=== PATIENT | male | born 1940 | race Caucasian/White ===

== ENCOUNTER → 2016-03-29 | Outpatient (CLI) | payer OTHER ==
[~2016-03-29] MED LIST: ACAR25TA2 PO; ACT/15 PO; ASPEC81 PO; ATOR-22 PO; BXN500 PO; DIPH25TA2 PO; FLUT0.0529 NAE; FRS/40 PO; GADAVIST IV PRN; GEMF600T PO; GLIP-171 PO; LEVO75TA5 PO; LEVO88TA PO; LINA1TAB PO; LSN/2025 PO; LSN20 PO; METF-384 PO; PLV75 PO; SNG10 PO; TYLOTC500 PO
--- NOTE | 2016-03-29 12:53 | DIAGNOSTIC IMAGING REPORT ---
MRI OF THE BRAIN WITHOUT AND WITH IV CONTRAST CLINICAL HISTORY: R29.898 Right arm [id number] Slurred speech mental status change COMPARISON STUDY: CT dated 07/22/2014 TECHNIQUE: Utilizing a 1.5 Niecy magnet and dedicated coil, multiplanar, multiecho imaging of the brain was performed pre and postcontrast administration. IV administration of 9 mL of Gadavist contrast was uneventful. FINDINGS: Small focus of subacute cortical ischemic change left superior parietal convexity. Trace postcontrast enhancement consistent with a subacute infarct. Moderate chronic small vessel change of the periventricular deep white matter regions. No additional acute ischemic focus. Ventricular system is midline. Structures of the posterior fossa including internal artery canals are unremarkable. Mild cerebellar as well as cerebral atrophy most likely age-related. IMPRESSION: 1. Small subacute infarct left superior parietal convexity. 2. Mild chronic small vessel change. 3. Mild age-related atrophy Electronically signed by: Connor Castillo M.D. 03/29/2016 12:51 PM Dictated Date/Time: 03/29/2016 12:47 PM
== END | disposition home or self-care (01) ==
LOC: C.MRI 11:26
PROVIDERS: ATTEND Psychiatry & Neurology Neurology
DX: R29.898 Other symptoms and signs involving the musculoskeletal system (principal); R47.81 Slurred speech

== ENCOUNTER 2016-03-30 20:40 | Inpatient (IN) | payer OTHER ==
[~2016-03-30] VITALS: Ht 170.2 cm; Wt 80.9 kg
[~2016-03-30 20:40] MED LIST changes: -ACAR25TA2 PO; -ASPEC81 PO; -GADAVIST IV PRN; -LEVO75TA5 PO; -LINA1TAB PO; -LSN20 PO; -PLV75 PO; -SNG10 PO
--- NOTE | 2016-03-30 20:53 | DIAGNOSTIC IMAGING REPORT ---
HEAD CT NONCONTRAST CT DOSE: 537.48 mGy.cm HISTORY: Stroke mental status change TECHNIQUE: Multiaxial CT images of the head were performed without the use of intravenous contrast. Comparison: 07/22/2014 Findings: The paranasal sinuses and mastoid air cells are clear. Subtle region of diminished density medially superior to the left lateral ventricle no evidence for acute intracranial hemorrhage. Potentially indicates a subacute cortical infarct. Density characteristics are otherwise unremarkable throughout. Ventricular system is midline. There is no intracranial hemorrhage. Impression: Findings suspect for a small subacute infarct immediately superior to the left lateral ventricle . No evidence for acute intracranial hemorrhage. Electronically signed by: Connor Castillo M.D. 03/30/2016 8:51 PM Dictated Date/Time: 03/30/2016 8:49 PM
[2016-03-30] MEDS ORDERED: LORAZEPAM 2 MG/ML 1 ML VIAL IV STA ×2 (21:05→23:35)
[2016-03-30 21:14] LABS: BASO % 0.2 %; BASO ABS # 0.02 K/uL (0-0.2); COMPLETE YES; HEMATOCRIT 44.7 % (42-52); IG% 0.1 %; LYMPH % 8.4 %; LYMPH ABS # 0.74 K/uL (1.2-3.4); MEAN CORPUSCULAR HEMOGLOBIN 31.3 pg (25-34); MEAN PLATELET VOLUME 10.4 fL (7.4-10.4); MONO % 4.3 %; PLATELET COUNT 238 K/uL (130-400); RED BLOOD COUNT 4.86 M/uL (4.7-6.1); WHITE BLOOD COUNT 8.86 K/uL (4.8-10.8)
[2016-03-30] MEDS ORDERED: LEVO75TA5 PO (21:22)
[2016-03-30] MEDS ORDERED: SNG10 PO (21:22)
[2016-03-30] MEDS ORDERED: LINA1TAB PO (21:22)
[2016-03-30] MEDS ORDERED: ACAR25TA2 PO (21:22)
[2016-03-30 21:23] LABS: ALT/SGPT 29 U/L (12-78); BLOOD UREA NITROGEN 20 mg/dl (7-18); BUN/CREATININE RATIO 14.2 (10-20); CALCIUM 10.3 mg/dl (8.5-10.1); CARBON DIOXIDE 27 mmol/L (21-32); CHLORIDE 104 mmol/L (98-107); GLUCOSE 155 mg/dl (70-99); MAGNESIUM 1.5 mg/dl (1.8-2.4); POTASSIUM 3.6 mmol/L (3.5-5.1); SODIUM 142 mmol/L (136-145)
--- NOTE | 2016-03-30 21:26 | DIAGNOSTIC IMAGING REPORT ---
CHEST ONE VIEW PORTABLE CLINICAL HISTORY: EVALUATE ALTERED MENTAL STATUS/WEAKNESS COMPARISON STUDY: 07/22/2014 FINDINGS: Mild cardiomegaly. Fixed hiatal hernia. Diaphragms smooth. Lungs are clear. IMPRESSION: Hiatal hernia. Mild cardia megaly. Otherwise negative study Electronically signed by: Connor Castillo M.D. 03/30/2016 9:25 PM Dictated Date/Time: 03/30/2016 9:24 PM
[2016-03-30] MEDS ORDERED: LSN20 PO (21:29)
[2016-03-30 21:31] LABS: ALKALINE PHOSPHATASE 57 U/L (45-117); AST/SGOT 26 U/L (15-37); CKMB/CK RATIO 1.3 (0-3.0)
[2016-03-30 21:33] LABS: URINE APPEARANCE CLEAR (CLEAR); URINE BILIRUBIN NEG (NEG); URINE COLOR YELLOW; URINE NITRITE NEG (NEG); URINE SPECIFIC GRAVITY 1.012 (1.000-1.030); UROBILINOGEN NEG (NEG); ZZUR CULT IF INDIC CLEAN CATCH NO
[2016-03-30 21:36] LABS: MANUAL MICROSCOPIC REQUIRED? NO; REVIEW REQ? NO
[2016-03-30 22:11] LABS: INR 1.1 (0.9-1.1); PROTHROMBIN TIME (PATIENT) 11.9 SECONDS (9.0-12.0)
[2016-03-30] MEDS ORDERED: ACETAMINOPHEN 325 MG TAB PO PRN (22:15)
[2016-03-30] MEDS ORDERED: OPTIRAY 320 IV PRN (22:15)
[2016-03-30] MEDS ORDERED: ONDANSETRON INJ 2 MG/ML 2 ML VIAL IV PRN (22:15)
[2016-03-30] MEDS ORDERED: PHARMACIST DISCHARGE MED REC CONSULT PRN (22:15)
--- NOTE | 2016-03-30 22:41 | History and Physical ---
History & Physical Date & Time of Service: Mar 30, 2016 at 22:21 Chief Complaint: Stroke Alert Primary Care Physician: Sarina Krishna PA-C History of Present Illness Source: family History was taken by and friends as the patient was sedated with ativan for agitation This is a 75 yo m that is presenting to us with ALOC and expressive aphasia. According to the the symptoms started as a right sided UE weakness with accompanied numbness approx two weeks ago. He awoke with those symptoms and since there was no improvement over a week he was brought to his PCP for evaluation. There was thought that the patient was suffering from a pinched nerve so an MRI was ordered. This was done yesterday with gadolinium and it revealed a subacute stroke. The patient had not been contacted with results yet. Today, the brought the patient in because after she arrived home work he was confused and was unable to complete sentences/ find words. He was evaluated in the ED and a subacute infarct was now noted on the CT head without any hemorrhage. He has never had any stroke or TN in the past. He is a non smoker. He does take ASA 81 mg daily for years. He does not take a statin because of "joint pain". Last echo was 2013 and was WNL Past Medical/Surgical History Medical Problems: (1) Angina Pectoris Nec/Nos Status: Chronic (2) Chest pain Status: Resolved (3) Chest pain Status: Resolved (4) Diab Gela Wo Compl, Type Ii Or Unspec Type, Not Uncntrld Status: Chronic (5) Esophageal Reflux Status: Chronic (6) Hyperlipidemia Nec/Nos Status: Chronic (7) Hypertension Nos Status: Chronic (8) Hypothyroidism Nos Status: Chronic (9) TIA (transient ischemic attack) Status: Resolved Surgical Problems: (1) History of tonsillectomy Status: Resolved Family History Patient reports no known family medical history. Social History Smoking Status: Unknown if Ever Smoked Smokeless Tobacco Use: No Alcohol Use: none Drug Use: none Marital Status: Housing status: lives with family Occupational Status: retired Multi-Drug Resistant Organisms History of MDRO: No Allergies Coded Allergies: Statins (Verified Allergy, Severe, JOINT PAIN, 07/22/14) Home Medications Scheduled Acarbose (Precose), 25 MG PO WM Furosemide (Lasix), 40 MG PO DAILY Levothyroxine Sodium (Levothyroxine Sodium), 75 MCG PO DAILY Linagliptin (Tradjenta), 5 MG PO DAILY Lisinopril (Lisinopril), 20 MG PO DAILY Metformin Hcl (Glucophage), 1,000 MG PO BID Montelukast Sod (Montelukast Sodium), 10 MG PO DAILY Review of Systems Unable to complete because of sedation Physical Exam Vital Signs Date Time Temp Pulse Resp B/P Pulse Ox O2 Delivery O2 Flow Rate FiO2 03/30/16 21:28 77 18 173/90 93 Room Air 03/30/16 20:54 95 03/30/16 20:50 95 Room Air 03/30/16 20:48 37.9 92 20 210/117 95 Room Air General Appearance: WD/WN, no apparent distress Head: normocephalic, atraumatic Eyes: normal inspection ENT: normal ENT inspection Neck: supple Respiratory/Chest: lungs clear, normal breath sounds, no respiratory distress, no accessory muscle use Cardiovascular: regular rate, rhythm, + systolic murmur (3/6) Abdomen/GI: normal bowel sounds, non tender, soft Back: normal inspection Extremities/Musculoskelatal: normal inspection, no calf tenderness, + pedal edema (+ 1 bilat) Neurologic/Psych: + pertinent finding (unable to complete a full neuro exam because of sedation) Skin: normal color, warm/dry, + pertinent finding (ecchymosis on bilat UE) Diagnostics Laboratory Results Results Past 24 Hours Test 03/30/16 00:00 03/30/16 20:53 03/30/16 20:56 03/30/16 21:50 Range/Units Urine Color YELLOW Urine Appearance CLEAR CLEAR Urine pH 8.0 4.5-7.5 Urine Specific Warren 1.012 1.000-1.030 Urine Protein NEG NEG Urine Glucose (UA) NEG NEG Urine Ketones 1+ NEG Urine Occult Blood NEG NEG Urine Nitrite NEG NEG Urine Bilirubin NEG NEG Urine Urobilinogen NEG NEG Urine Leukocyte Esterase NEG NEG Urine WBC (Auto) 0 0-5 /hpf Urine RBC (Auto) 0-4 0-4 /hpf Urine Hyaline Casts (Auto) 0 0-5 /lpf Urine Epithelial Cells (Auto) 5-10 0-5 /lpf Urine Bacteria (Auto) NEG NEG Bedside Glucose 152 70-99 mg/dl White Blood Count 8.86 4.8-10.8 K/uL Red Blood Count 4.86 4.7-6.1 M/uL Hemoglobin 15.2 14.0-18.0 g/dL Hematocrit 44.7 42-52 % Mean Corpuscular Volume 92.0 80-100 fL Mean Corpuscular Hemoglobin 31.3 25-34 pg Mean Corpuscular Hemoglobin Concent 34.0 32-36 g/dl Platelet Count 238 130-400 K/uL Mean Platelet Volume 10.4 7.4-10.4 fL Neutrophils (%) (Auto) 87.0 % Lymphocytes (%) (Auto) 8.4 % Monocytes (%) (Auto) 4.3 % Eosinophils (%) (Auto) 0.0 % Basophils (%) (Auto) 0.2 % Neutrophils # (Auto) 7.71 1.4-6.5 K/uL Lymphocytes # (Auto) 0.74 1.2-3.4 K/uL Monocytes # (Auto) 0.38 0.11-0.59 K/uL Eosinophils # (Auto) 0.00 0-0.5 K/uL Basophils # (Auto) 0.02 0-0.2 K/uL RDW Standard Deviation 49.2 36.4-46.3 fL RDW Coefficient of Variation 14.6 11.5-14.5 % Immature Granulocyte % (Auto) 0.1 % Immature Granulocyte # (Auto) 0.01 0.00-0.02 K/uL Sodium Level 142 136-145 mmol/L Potassium Level 3.6 3.5-5.1 mmol/L Chloride Level 104 98-107 mmol/L Carbon Dioxide Level 27 21-32 mmol/L Anion Gap 11.0 3-11 mmol/L Blood Urea Nitrogen 20 7-18 mg/dl Creatinine 1.40 0.60-1.40 mg/dl Est Creatinine Clear Calc Drug Dose 50.2 ml/min Estimated GFR () 55.8 Estimated GFR (Non- 48.1 BUN/Creatinine Ratio 14.2 10-20 Random Glucose 155 70-99 mg/dl Calcium Level 10.3 8.5-10.1 mg/dl Magnesium Level 1.5 1.8-2.4 mg/dl Total Bilirubin 0.6 0.2-1 mg/dl Direct Bilirubin 0.1 0-0.2 mg/dl Aspartate Amino Transf (AST/SGOT) 26 15-37 U/L Alanine Aminotransferase (ALT/SGPT) 29 12-78 U/L Alkaline Phosphatase 57 45-117 U/L Total Creatine Kinase 220 39-308 U/L Creatine Kinase MB 2.9 0.5-3.6 ng/ml Creatine Kinase MB Ratio 1.3 0-3.0 Troponin I < 0.015 0-0.045 ng/ml Total Protein 7.8 6.4-8.2 gm/dl Albumin 4.3 3.4-5.0 gm/dl Lipase 142 73-393 U/L Thyroid Stimulating Hormone (TSH) 1.570 0.300-4.500 uIu/ml Prothrombin Time 11.9 9.0-12.0 SECONDS Prothromb Time International Ratio 1.1 0.9-1.1 Activated Partial Thromboplast Time 26.6 21.0-31.0 SECONDS Partial Thromboplastin Ratio 1.0 Test 03/30/16 22:06 Range/Units Diagnostic Radiology MRI OF THE BRAIN WITHOUT AND WITH IV CONTRAST CLINICAL HISTORY: R29.898 Right arm [id number] Slurred speech mental status change COMPARISON STUDY: CT dated 07/22/2014 TECHNIQUE: Utilizing a 1.5 Niecy magnet and dedicated coil, multiplanar, multiecho imaging of the brain was performed pre and postcontrast administration. IV administration of 9 mL of Gadavist contrast was uneventful. FINDINGS: Small focus of subacute cortical ischemic change left superior parietal convexity. Trace postcontrast enhancement consistent with a subacute infarct. Moderate chronic small vessel change of the periventricular deep white matter regions. No additional acute ischemic focus. Ventricular system is midline. Structures of the posterior fossa including internal artery canals are unremarkable. Mild cerebellar as well as cerebral atrophy most likely age-related. IMPRESSION: 1. Small subacute infarct left superior parietal convexity. 2. Mild chronic small vessel change. 3. Mild age-related atrophy HEAD CT NONCONTRAST CT DOSE: 537.48 mGy.cm HISTORY: Stroke mental status change TECHNIQUE: Multiaxial CT images of the head were performed without the use of intravenous contrast. Comparison: 07/22/2014 Findings: The paranasal sinuses and mastoid air cells are clear. Subtle region of diminished density medially superior to the left lateral ventricle no evidence for acute intracranial hemorrhage. Potentially indicates a subacute cortical infarct. Density characteristics are otherwise unremarkable throughout. Ventricular system is midline. There is no intracranial hemorrhage. Impression: Findings suspect for a small subacute infarct immediately superior to the left lateral ventricle . No evidence for acute intracranial hemorrhage. [~ rep ct add3]] CHEST ONE VIEW PORTABLE CLINICAL HISTORY: EVALUATE ALTERED MENTAL STATUS/WEAKNESS COMPARISON STUDY: 07/22/2014 FINDINGS: Mild cardiomegaly. Fixed hiatal hernia. Diaphragms smooth. Lungs are clear. IMPRESSION: Hiatal hernia. Mild cardia megaly. Otherwise negative study Impression Assessment and Plan This is a 75 yo m suffering from a subacute infarct. Metabolic Encephalopathy secondary to subacute infarct - Tele admission - As patient recently had MRI with contrast will order CTA H&N - Echo in am Lipid and HBA1c - Patient had joint pain with statin but potentially a candidate for pravastatin ? - Neuro checks q4 - Speech Eval - PT OT - cont ASA 81 mg - consider initiating plavix Hypomagnesemia - 1 G repleted - follow HTN - Held Lisinopril for now for permissive HTN, reeval in am to restart DMII - Ascarbose, Januvia and Metformin held - ISS - BSG AC HS Asthma - continue Montelukast Hypothyroid - cont Synthroid DVT Prophylaxis - SCD FULL CODE Level of Care Telemetry Resuscitation Status FULL RESUSCITATION VTE Prophylaxis Risk Level: Moderate Given or contraindicated: SCD's Social Service Consult None Apply Note Total Time: Critical Care 30 - 74 minutes Additional Copies To Sarina Krishna PA-C Assessment and Plan Attending Addendum: I have physically seen and examined this patient, have directed their medical care, have supervised the medical residents activities, and agree with the H&P as noted above, with the following changes: NONE The patient is a 75-year-old male who presents to the emergency department with an expressive aphasia, but time of this assessment had already received IV Ativan and was sedated to the point that his provided most of his history of present illness and review of systems. The reports that approximately 2 weeks ago, the patient developed right up from the weakness and numbness and with persistence of the symptoms for one week he was brought to his PCP for evaluation, who then ordered an MRI of the brain combo which was performed yesterday, and revealed a subacute stroke. The patient had not been contacted with the results of MRI yet, but because he was more confused and unable to complete sentences and had word finding problems when she arrived home from work , she brought him into the emergency department for assessment. He has not had any previous history of strokes or heart attacks in the past. He does take aspirin 81 mg daily, he is unable to take statins due to joint pain. The patient is awake, well-developed and adequately nourished, alert and oriented 3, normocephalic and atraumatic, lying in bed and in no acute distress. HEENT--PERRL, EOMI, mucous membranes and oropharynx dry. Neck--supple, no JVD or bruits, thyroid normal, trachea midline, no adenopathy. Heart--normal S1 and S2, no extra beats, no murmurs, rubs or gallops. Lungs--clear bilaterally but diminished throughout, no respiratory distress, no accessory muscle use. Abdomen--normal bowel sounds and soft, nontender and nondistended, no hernias or masses, no organomegaly. Extremities--no cyanosis, clubbing or edema. There are good distal pulses b/l. Dermatologic--normal skin turgor, normal color, warm and dry, no abnormal lymph nodes, no rash. Neurologic--cranial nerves II through XII grossly intact. Rheumatologic--deferred due to sedation. Psychiatric--deferred due to sedation. Assessment and Plan: Subacute CVA superior to the left lateral ventricle--the patient will be admitted to the telemetry unit, for serial cardiac enzymes, cardiac rhythm monitoring and a 2-D echocardiogram with Dopplers. Since he just recently had an MRI with contrast the day before, we will order CT angiography of the head and neck tonight. Once he is no longer sedated, he'll continue aspirin 81 mg by mouth daily, and would add clopidogrel 75 mg by mouth daily. We'll consult neurology to see patient in the a.m. For tonight we'll allow permissive hypertension systolic blood pressure in the 170 to 180s. We will hold furosemide 40 mg by mouth daily and lisinopril 20 mg by mouth daily at this time. Diabetes mellitus--hold Acarbose 25 mg by mouth with meals, Tradjenta 5 mg by mouth daily, and metformin 1000 mg by mouth twice a day. We'll place on Accu- Cheks before meals and at bedtime with NovoLog coverage. Hypothyroidism--the patient is unable to take by mouth by morning, which change levothyroxine sodium from 75 g by mouth daily 37.5 g IV daily.
[2016-03-30] MEDS ORDERED: GLUCOSE 40% GEL 15 GM TUBE PO PRN (22:45)
[2016-03-30] MEDS ORDERED: GLUCOSE 10 TABS/TUBE PO PRN (22:45)
[2016-03-30] MEDS ORDERED: GLUCAGON FOR INJ 1 MG VIAL SQ PRN (22:45)
[2016-03-30] MEDS ORDERED: DEXTROSE 50% 50 ML SYR IV PRN (22:45)
--- NOTE | 2016-03-30 22:53 | DIAGNOSTIC IMAGING REPORT ---
CT brain angiogram HEAD ANGIO WITH CONTRAST CLINICAL HISTORY: Stroke mental status change TECHNIQUE: Transaxial acquisition. Multiple axial reformatted images COMPARISON STUDY: Several CTs and MRIs the prior several dates FINDINGS: Limited study due to patient motion. Major intracranial vessels appear to be grossly intact. There is no evidence for occlusion. There appears to be moderate atherosclerotic change in the multifocal basis throughout the middle cerebral circulations bilaterally. Anterior circulation appear to be intact. Posterior circulation shows moderate atherosclerotic changes throughout. IMPRESSION: Very limited study due to patient motion. All major intracranial vessels are patent. Moderate multifocal arterial occlusive change throughout all major components of the middle and posterior cerebral circulations bilaterally. This is again within limitations of severe patient motion Electronically signed by: Connor Castillo M.D. 03/30/2016 10:52 PM Dictated Date/Time: 03/30/2016 10:49 PM
--- NOTE | 2016-03-30 22:56 | DIAGNOSTIC IMAGING REPORT ---
NECK CTA HISTORY: Mental status change stroke TECHNIQUE: Multiaxial CT images of the neck were performed following the intravenous administration of contrast to evaluate the major cervical vessels. Maximum intensity projection images were also obtained. All measurements were calculated based on NASCET criteria. COMPARISON STUDY: None. FINDINGS: Moderate atherosclerotic change of the aortic arch. Extremely limited evaluation of the carotid vasculature. Very limited evaluation of the vertebral basilar system. There appears to be a component of venous distention of the jugular systems bilaterally. This suggestive of a secondary indication of a component of venous hypertension. Moderately enlarged thyroid is present. There is significant atherosclerotic change of the left carotid bifurcation although a high-grade stenosis is not felt to be present. Similar but less prominent findings are seen in the right. IMPRESSION: Nondiagnostic study due to severe patient motion. Moderate plaque formation throughout the carotid systems bilaterally. Nondiagnostic evaluation of the vertebral basilar system Electronically signed by: Connor Castillo M.D. 03/30/2016 10:55 PM Dictated Date/Time: 03/30/2016 10:53 PM
[2016-03-30] MEDS ORDERED: HALOPERIDOL LACTATE 5 MG/ML 1 ML VIAL IM STA (23:05)
[2016-03-30] MEDS ORDERED: HALOPERIDOL LACTATE 5 MG/ML 1 ML VIAL ONE (23:07)
[2016-03-30] MEDS ORDERED: MAGNESIUM SULFATE 1GM / D5W 1 GM in PREMIXED IN D5W 100 ML IV SCH (23:30)
[2016-03-30] MEDS ORDERED: LORAZEPAM 2 MG/ML 1 ML VIAL ONE (23:35)
--- NOTE | 2016-03-30 23:51 | EMERGENCY ROOM VISIT NOTE ---
History Report prepared by Kaila: Noel Elise Under the Supervision of: Dr. Segun Trinh D.O. First contact with patient: 20:35 Stated Complaint: STROKE ALERT History of Present Illness The patient is a 75 year old male who presents to the Emergency Room with complaints of sudden garbled speech beginning two and a half hours prior to arrival. As per , the patient appeared confused, disoriented, and had garbled speech upon her arriving home from work. The notes she does not know when the symptoms began but friends noted the patient had difficulty receiving communion at nondenominational two days ago. She states the patient had an MRI performed yesterday for right arm weakness and right hand grasp difficulty beginning two weeks ago. It is noted the MRI showed a small subacute infarct left parietal convexity. The states she noticed the difficulty with his speech today. As per EMS, the patient had difficulty following commands. They note the patient is a diabetic with a BSG of 152. The patient denies being in any pain. Source of History: spouse/significant other () Onset: two and a half hours prior to arrival Position: other (global) Quality: other (garbled speech) Timing: other (sudden) Note: Associated symptoms: confusion, disorientation. Review of Systems See HPI for pertinent positives & negatives. A total of 10 systems reviewed and were otherwise negative. Past Medical & Surgical Medical Problems: (1) Angina Pectoris Nec/Nos (2) Chest pain (3) Chest pain (4) Diab Gela Wo Compl, Type Ii Or Unspec Type, Not Uncntrld (5) Esophageal Reflux (6) Hyperlipidemia Nec/Nos (7) Hypertension Nos (8) Hypothyroidism Nos (9) Stroke (10) TIA (transient ischemic attack) Surgical Problems: (1) History of tonsillectomy Family History Patient reports no known family medical history. Social History Smoking Status: Former Smoker Marital Status: Housing Status: lives with significant other Occupation Status: retired Current/Historical Medications Scheduled Acarbose (Precose), 25 MG PO WM Furosemide (Lasix), 40 MG PO DAILY Levothyroxine Sodium (Levothyroxine Sodium), 75 MCG PO DAILY Linagliptin (Tradjenta), 5 MG PO DAILY Lisinopril (Lisinopril), 20 MG PO DAILY Metformin Hcl (Glucophage), 1,000 MG PO BID Montelukast Sod (Montelukast Sodium), 10 MG PO DAILY Allergies Coded Allergies: Statins (Verified Allergy, Severe, JOINT PAIN, 07/22/14) Physical Exam Vital Signs Date Time Temp Pulse Resp B/P Pulse Ox O2 Delivery O2 Flow Rate FiO2 03/30/16 21:28 77 18 173/90 93 Room Air 03/30/16 20:54 95 03/30/16 20:50 95 Room Air 03/30/16 20:48 37.9 92 20 210/117 95 Room Air Physical Exam VITAL SIGNS: were reviewed as above. GENERAL: Mildly agitated. SKIN: Warm dry and pink. HEAD: Normocephalic and atraumatic. OROPHARYNX: Is clear and moist NECK: Supple without lymphadenopathy or meningismus. LUNGS: clear. HEART: Regular rate and rhythm. ABDOMEN: Soft and nontender. EXTREMITIES: Warm and well perfused. NEUROLOGICALLY: Garbled speech. Some difficulty with following commands. Does move all four extremities. Right arm appears somewhat weaker than left. MUSCULOSKELETAL: Good muscle tone. No evidence of trauma. Medical Decision & Procedures ER Provider Diagnostic Interpretation: X ray results and stated below per my interpretation and radiologist interpretation. Other radiology results and stated below per my review and radiologist interpretation: CHEST ONE VIEW PORTABLE CLINICAL HISTORY: EVALUATE ALTERED MENTAL STATUS/WEAKNESS COMPARISON STUDY: 07/22/2014 FINDINGS: Mild cardiomegaly. Fixed hiatal hernia. Diaphragms smooth. Lungs are clear. IMPRESSION: Hiatal hernia. Mild cardia megaly. Otherwise negative study Electronically signed by: Connor Castillo M.D. 03/30/2016 9:[address]AST CT DOSE: 537.48 mGy.cm HISTORY: Stroke mental status change TECHNIQUE: Multiaxial CT images of the head were performed without the use of intravenous contrast. Comparison: 07/22/2014 Findings: The paranasal sinuses and mastoid air cells are clear. Subtle region of diminished density medially superior to the left lateral ventricle no evidence for acute intracranial hemorrhage. Potentially indicates a subacute cortical infarct. Density characteristics are otherwise unremarkable throughout. Ventricular system is midline. There is no intracranial hemorrhage. Impression: Findings suspect for a small subacute infarct immediately superior to the left lateral ventricle . No evidence for acute intracranial hemorrhage. Electronically signed by: Connor Castillo M.D. 03/30/2016 8:51 PM Laboratory Results 03/30/16 20:56 Red Blood Count 4.86, Mean Corpuscular Volume 92.0, Mean Corpuscular Hemoglobin 31.3, Mean Corpuscular Hemoglobin Concent 34.0, Mean Platelet Volume 10.4, Neutrophils (%) (Auto) 87.0, Lymphocytes (%) (Auto) 8.4, Monocytes (%) (Auto) 4.3, Eosinophils (%) (Auto) 0.0, Basophils (%) (Auto) 0.2, Neutrophils # (Auto) 7.71, Lymphocytes # (Auto) 0.74, Monocytes # (Auto) 0.38, Eosinophils # (Auto) 0.00, Basophils # (Auto) 0.02 03/30/16 20:56 Test 03/30/16 00:00 03/30/16 20:56 03/30/16 21:50 03/30/16 23:08 Urine Color YELLOW Urine Appearance CLEAR (CLEAR) Urine pH 8.0 (4.5-7.5) Urine Specific [place] 1.012 (1.000-1.030) Urine Protein NEG (NEG) Urine Glucose (UA) NEG (NEG) Urine Ketones 1+ (NEG) Urine Occult Blood NEG (NEG) Urine Nitrite NEG (NEG) Urine Bilirubin NEG (NEG) Urine Urobilinogen NEG (NEG) Urine Leukocyte Esterase NEG (NEG) Urine WBC (Auto) 0 /hpf (0-5) Urine RBC (Auto) 0-4 /hpf (0-4) Urine Hyaline Casts (Auto) 0 /lpf (0-5) Urine Epithelial Cells (Auto) 5-10 /lpf (0-5) Urine Bacteria (Auto) NEG (NEG) White Blood Count 8.86 K/uL (4.8-10.8) Red Blood Count 4.86 M/uL (4.7-6.1) Hemoglobin 15.2 g/dL (14.0-18.0) Hematocrit 44.7 % (42-52) Mean Corpuscular Volume 92.0 fL (80-100) Mean Corpuscular Hemoglobin 31.3 pg (25-34) Mean Corpuscular Hemoglobin Concent 34.0 g/dl (32-36) Platelet Count 238 K/uL (130-400) Mean Platelet Volume 10.4 fL (7.4-10.4) Neutrophils (%) (Auto) 87.0 % Lymphocytes (%) (Auto) 8.4 % Monocytes (%) (Auto) 4.3 % Eosinophils (%) (Auto) 0.0 % Basophils (%) (Auto) 0.2 % Neutrophils # (Auto) 7.71 K/uL (1.4-6.5) Lymphocytes # (Auto) 0.74 K/uL (1.2-3.4) Monocytes # (Auto) 0.38 K/uL (0.11-0.59) Eosinophils # (Auto) 0.00 K/uL (0-0.5) Basophils # (Auto) 0.02 K/uL (0-0.2) RDW Standard Deviation 49.2 fL (36.4-46.3) RDW Coefficient of Variation 14.6 % (11.5-14.5) Immature Granulocyte % (Auto) 0.1 % Immature Granulocyte # (Auto) 0.01 K/uL (0.00-0.02) Anion Gap 11.0 mmol/L (3-11) Est Creatinine Clear Calc Drug Dose 50.2 ml/min Estimated GFR () 55.8 Estimated GFR (Non- 48.1 BUN/Creatinine Ratio 14.2 (10-20) Calcium Level 10.3 mg/dl (8.5-10.1) Magnesium Level 1.5 mg/dl (1.8-2.4) Total Bilirubin 0.6 mg/dl (0.2-1) Direct Bilirubin 0.1 mg/dl (0-0.2) Aspartate Amino Transf (AST/SGOT) 26 U/L (15-37) Alanine Aminotransferase (ALT/SGPT) 29 U/L (12-78) Alkaline Phosphatase 57 U/L (45-117) Total Creatine Kinase 220 U/L (39-308) Creatine Kinase MB 2.9 ng/ml (0.5-3.6) Creatine Kinase MB Ratio 1.3 (0-3.0) Troponin I < 0.015 ng/ml (0-0.045) Total Protein 7.8 gm/dl (6.4-8.2) Albumin 4.3 gm/dl (3.4-5.0) Lipase 142 U/L (73-393) Thyroid Stimulating Hormone (TSH) 1.570 uIu/ml (0.300-4.500) Prothrombin Time 11.9 SECONDS (9.0-12.0) Prothromb Time International Ratio 1.1 (0.9-1.1) Activated Partial Thromboplast Time 26.6 SECONDS (21.0-31.0) Partial Thromboplastin Ratio 1.0 Bedside Glucose 134 mg/dl (70-99) Laboratory results as stated above per my review. Medications Administered Medications (Trade) Dose Ordered Sig/Parris Route Start Time Stop Time Status Last Admin Dose Admin Lorazepam (Ativan Inj) 1 mg NOW STAT IV 03/30/16 21:05 03/30/16 21:07 DC 03/30/16 21:16 1 MG Haloperidol Lactate (Haldol Inj) 5 mg STK-MED ONCE .ROUTE 03/30/16 23:07 03/30/16 23:09 DC 03/30/16 23:11 5 MG Lorazepam (Ativan Inj) 2 mg STK-MED ONCE .ROUTE 03/30/16 23:35 03/30/16 23:36 DC 03/30/16 23:36 2 MG ECG Indication: other (garbled speech) Rate (beats per minute): 88 Rhythm: normal sinus Findings: no ectopy, other (no acute injury) ED Course 2050: Previous medical records were reviewed. The patient was evaluated in room A1. A complete history and physical examination was performed. 2104: Ordered Ativan Inj 1 mg IV. 2152: I spoke to YASIR Peralta (Hospitalist) about the patient's case, and he will follow the patient for further evaluation. Medical Decision Differential includes acute coronary syndrome, myocardial infarction, CVA, TIA, anemia, infection, pneumonia, UTI, pyelonephritis, poor nutrition, dehydration, electrolyte disturbance,hypoglycemia. This is a 75-year-old male who presents to the ED with a chief complaint of strokelike symptoms. The patient was last known well this morning around 9 AM when the left for work. When she arrived home, he was having difficulty with speaking and having incomprehensible speech. EMS was called the patient was transported here. Prehospital blood sugar was normal. The patient is found to be aphasic. Occasionally he says it were to make sense but otherwise his speech is incomprehensible. He attempts talking but the worst did not come out correctly. The patient does appear to follow commands although has difficulty doing so. He is able to move all 4 extremities. He may have some weakness in the right upper extremity. This is been over the past couple of weeks. He had an MRI of his brain yesterday that revealed a subacute CVA. This was done as an outpatient. The patient provides no additional history is his speech is incomprehensible. CT scan of brain is noted above. There is evidence of a CVA. This is in a similar location as the MRI showed yesterday. Blood work reveals a normal CBC. BUN is 20, chemistry panel was otherwise unremarkable. Troponin is negative. TSH is normal. Urine did not show infection. Chest x-ray shows no acute disease. Consults Time Called: 2150 Consulting Physician: YASIR Peralta (Hospitalist) Returned Call: 2152 I spoke to YASIR Peralta (Hospitalist) about the patient's case, and he will follow the patient for further evaluation. Impression Primary Impression: CVA (cerebral vascular accident) Critical Care I have personally spent 35 minutes of critical care time in the direct management of this patient. This includes bedside care, interpretation of diagnostic studies, and testing, discussion with consultants, patient, and family members, and other required patient management activities. Scribe Attestation The scribe's documentation has been prepared under my direction and personally reviewed by me in its entirety. I confirm that the note above accurately reflects all work, treatment, procedures, and medical decision making performed by me. Departure Information Dispostion Being Evaluated By Hospitalist (YASIR Peralta (Hospitalist)) Referrals Sarina Krishna PA-C (PCP) Stroke History Time Last Known Well unknown Stroke t-PA Criteria Reviewed Does NOT meet criteria for t-PA Reason t-PA Not Given Contraindicated (symptoms onset greater than 24 hours)
[2016-03-31] VITALS (9 sets, daily range): BP systolic 134–186; BP diastolic 77–98; PULSE 65–104; TEMP 36.5–37.5; O2SAT 94–97; Ht 170.2 cm; Wt 80.9 kg
[2016-03-31] MEDS ORDERED: LORAZEPAM 2 MG/ML 1 ML VIAL IV STA ×2 (01:15→04:24)
[2016-03-31] MEDS ORDERED: NURSING VERBAL MED ORDER ONE ×2 (04:30→23:00)
[2016-03-31] MEDS: LEVOTHYROXINE 75 MCG TAB PO SCH (05:41)
[2016-03-31 06:16] LABS: ESTIMATED AVERAGE GLUCOSE 174 mg/dl; HA1C FLAG Normal (Normal)
[2016-03-31 06:46] LABS: BASO % 0.3 %; BASO ABS # 0.02 K/uL (0-0.2); COMPLETE YES; HEMATOCRIT 43.7 % (42-52); IG% 0.1 %; LYMPH ABS # 0.75 K/uL (1.2-3.4); MEAN CELL VOLUME 90.7 fL (80-100); MEAN CORPUSCULAR HEMOGLOBIN 30.9 pg (25-34); MEAN CORPUSCULAR HGB CONC 34.1 g/dl (32-36); MEAN PLATELET VOLUME 9.9 fL (7.4-10.4); MONO % 10.4 %; NEUT % 79.2 %; PLATELET COUNT 217 K/uL (130-400); RED BLOOD COUNT 4.82 M/uL (4.7-6.1); WHITE BLOOD COUNT 7.47 K/uL (4.8-10.8)
[2016-03-31] MEDS: INSULIN ASPART 100 UNITS/ML 3 ML PEN SC SCH ×4 (07:00→21:00)
[2016-03-31 07:04] LABS: BUN/CREATININE RATIO 14.9 (10-20); CREATININE 1.2 mg/dl (0.60-1.40); MAGNESIUM 1.7 mg/dl (1.8-2.4); POTASSIUM 3.2 mmol/L (3.5-5.1)
[2016-03-31 07:07] LABS: CHOLESTEROL/HDL RATIO 3.6
[2016-03-31] MEDS: FUROSEMIDE 40 MG TAB PO SCH (08:01)
[2016-03-31] MEDS: LISINOPRIL 20 MG TAB PO SCH (08:01)
[2016-03-31] MEDS: ASPIRIN 81 MG ECTAB PO SCH (08:02)
[2016-03-31] MEDS ORDERED: HALOPERIDOL LACTATE 5 MG/ML 1 ML VIAL IM STA (08:14)
[2016-03-31] MEDS ORDERED: MAGNESIUM SULFATE 1GM / D5W 1 GM in PREMIXED IN D5W 100 ML IV SCH (08:30)
[2016-03-31] MEDS: NSS + 20MEQ KCL 1000ML 1,000 ML IV SCH ×2 (08:51→23:59)
[2016-03-31] MEDS ORDERED: CLOPIDOGREL BISULFATE 75 MG TAB PO ONE (10:28)
--- NOTE | 2016-03-31 11:58 | Neurology Consultation ---
Neurology Consultation Date of Consultation: Mar 31, 2016. Attending Physician: Randy Callahan D.O. Primary Care Physician: Sarina Krishna PA-C Reason for Consultation: Stroke History of Present Illness The patient is a 75-year-old male who was admitted to [facility] on January 27 with aphasia and right upper extremity weakness. A CT of the head completed upon presentation revealed a subacute infarct immediately superior to the left lateral ventricle. His symptoms began approximately 2 weeks prior to his emergency department evaluation. The patient was actually seen in neurology clinic on 03/19/2016 by Valarie Mesa PA-C, for an initial evaluation of the symptoms. The patient was felt to have possibly had a recent stroke and a brain MRI was recommended. This study was completed on March 29. The results were reviewed by Valarie Mesa on March 30. The patient's was contacted regarding these results earlier this morning, after his admission to the [facility] for further evaluation and management of his acute stroke. The record suggests that this patient's difficulty with speech worsened about 2- 1/2 hours prior to his evaluation in the emergency department. I did review the images and radiologist's interpretation of this patient's brain MRI completed on 03/29/2016. There is evidence of a small, subacute infarct involving the superior left parietal convexity. CT angiography of the head and neck has also been completed. The study is technically limited due to motion artifact. Angiography of the head suggests moderate multifocal cerebrovascular disease. Angiography of the neck is nondiagnostic. The patient is currently confused and exhibits poor attention and has elements of aphasia which makes him a poor historian. He denies headache or vision loss. He does seem to be aware of some weakness with the right hand. He does not offer any spontaneous complaints. Past medical history significant for type 2 diabetes mellitus, hyperlipidemia, and hypertension. Past Medical/Surgical History Medical Problems: (1) Angina Pectoris Nec/Nos Status: Chronic (2) CVA (cerebral vascular accident) Status: Acute (3) Diab Gela Wo Compl, Type Ii Or Unspec Type, Not Uncntrld Status: Chronic (4) Esophageal Reflux Status: Chronic (5) Hyperlipidemia Nec/Nos Status: Chronic (6) Hypertension Nos Status: Chronic (7) Hypothyroidism Nos Status: Chronic Family History There is no pertinent family history that would place this patient at increased risk for additional problems in the context of his current hospitalization Social History Smokeless Tobacco Use: No Alcohol Use: none Drug Use: none Marital Status: Housing Status: lives with significant other Occupation Status: retired Allergies Coded Allergies: Statins (Verified Allergy, Severe, JOINT PAIN, 07/22/14) Current Inpatient Medications Current Inpatient Medications Medications (Trade) Dose Ordered Sig/Parris Route Start Time Stop Time Status Last Admin Dose Admin Miscellaneous Information (Pharmacist Discharge Med Rec Consult) 1 ea UD PRN N/A 03/30/16 22:15 04/29/16 22:14 Acetaminophen (Tylenol Tab) 650 mg Q4H PRN PO 03/30/16 22:15 04/29/16 22:14 Ondansetron HCl (Zofran Inj) 4 mg Q6H PRN IV 03/30/16 22:15 04/29/16 22:14 Furosemide (Lasix Tab) 40 mg DAILY PO 03/31/16 09:00 04/30/16 08:59 Levothyroxine Sodium (Synthroid Tab) 75 mcg DAILYBB PO 03/31/16 06:00 04/30/16 06:59 Lisinopril (Zestril Tab) 20 mg DAILY PO 03/31/16 09:00 04/30/16 08:59 Aspirin (Ecotrin Tab) 81 mg QAM PO 03/31/16 09:00 04/30/16 08:59 Insulin Aspart (novoLOG ASPART) SLIDING SCALE G... ACHS SC 03/31/16 07:00 04/30/16 06:59 Ioversol (Optiray 320) 111 ml UD PRN IV 03/30/16 22:15 04/03/16 22:14 Glucose (Glucose 40% Gel) 15-30 GRAMS 15 GRAMS... UD PRN PO 03/30/16 22:45 04/29/16 22:44 Glucose (Glucose Chew Tab) 4-8 Tablets 4 Tabl... UD PRN PO 03/30/16 22:45 04/29/16 22:44 Dextrose (Dextrose 50% 50ML Syringe) 25-50ML OF 50% DW IV FOR... UD PRN IV 03/30/16 22:45 04/29/16 22:44 Glucagon 1 mg 1 mg UD PRN SQ 03/30/16 22:45 04/29/16 22:44 Potassium Chloride/Sodium Chloride (Nss + 20meq KCl 1000ml) 1,000 ml @ 100 mls/hr Q10H IV 03/31/16 08:30 04/30/16 08:29 03/31/16 08:51 100 MLS/HR Haloperidol Lactate (Haldol Inj) 5 mg Q4 PRN IM 03/31/16 08:15 04/30/16 08:14 Clopidogrel Bisulfate (plAVix TAB) 75 mg QAM PO 04/01/16 09:00 05/01/16 08:59 Review of Systems The patient is unable to provide a reliable review of systems due to his delirium/confusion Physical Exam Vital Signs (Past 24 Hrs): Date Time Temp Pulse Resp B/P Pulse Ox O2 Delivery O2 Flow Rate FiO2 03/31/16 11:04 36.5 65 18 157/77 96 2.0 03/31/16 08:12 36.7 78 18 179/91 94 2.0 03/31/16 08:00 Nasal Cannula 2.0 03/31/16 04:00 Nasal Cannula 2.0 03/31/16 03:59 36.8 90 22 141/84 96 Nasal Cannula 2.0 03/31/16 01:00 Nasal Cannula 2.0 03/31/16 00:43 37.5 100 22 172/87 96 Room Air 03/30/16 23:47 115 20 197/98 91 Room Air 03/30/16 21:54 76 20 182/86 92 Room Air 03/30/16 21:28 77 18 173/90 93 Room Air 03/30/16 20:54 95 03/30/16 20:50 95 Room Air 03/30/16 20:48 37.9 92 20 210/117 95 Room Air The patient is a somewhat disheveled-appearing elderly male. He is edentulous. He has been agitated overnight and is currently on one-to-one observation. He has some bruising located along the right forearm reportedly related to banging the side rail of the bed. The patient appears moderately agitated. He prefers to lie in bed, leaning to the right although he tends to keep his gaze and head turned towards the left. He is mildly lethargic and oriented to person only. Attention and concentration are impaired. Recent and remote memory impaired in the context of his impaired attention. He exhibits moderate difficulty naming objects and reading sentences. He was able to read simple words and correctly identified a few simple objects. He has considerable difficulty with repetition. He is able to follow simple commands. He was able to discriminate left from right. He had some difficulty with finger naming. He was unable to perform simple calculations. Fund of knowledge cannot be reliably evaluated. Visual salmeron are difficult to assess in the context of his limited attention. He may have an element of right visual field neglect to confrontation. Pupils equal round reactive to light and accommodation. Eye movements are intact. There is no nystagmus. There is a right facial droop although the patient is edentulous which confounds this assessment to an extent. I am unable to reliably assess facial sensation. Hearing is grossly intact. Shoulder shrug strength intact. Palate elevates to midline. Tongue protrudes to midline. Sensation of the limbs cannot be reliably assessed due to patient's poor attention. Deep tendon reflexes are 2+ for the upper and lower extremities. Plantar responses equivocal for the right, downgoing for the left. There is mild to moderate dysmetria with finger to nose and heel to costa on the right. Again, testing is limited due to poor patient attention and cooperation. I'm unable to complete an ophthalmoscopic examination due to poor patient cooperation. Carotid pulses normal to auscultation bilaterally, no bruits. Musculoskeletal examination is also limited due to poor patient attention and cooperation. There is mild to moderate distal weakness of the right upper extremity affecting wrist and finger extensors. Biceps and triceps strength seem to be normal. There is impaired facility of fine finger movements for the right hand. Strength is otherwise intact for the limbs. Muscle tone is normal. There is no atrophy. No abnormal movements appreciated. Gait and station not tested due to safety concerns. Laboratory Results Past 24 Hours: 03/31/16 06:24 Red Blood Count 4.82, Mean Corpuscular Volume 90.7, Mean Corpuscular Hemoglobin 30.9, Mean Corpuscular Hemoglobin Concent 34.1, Mean Platelet Volume 9.9, Neutrophils (%) (Auto) 79.2, Lymphocytes (%) (Auto) 10.0, Monocytes (%) (Auto) 10.4, Eosinophils (%) (Auto) 0.0, Basophils (%) (Auto) 0.3, Neutrophils # (Auto ) 5.91, Lymphocytes # (Auto) 0.75, Monocytes # (Auto) 0.78, Eosinophils # (Auto ) 0.00, Basophils # (Auto) 0.02 03/31/16 06:24 Test 03/30/16 20:53 03/30/16 20:56 03/30/16 21:50 03/31/16 06:24 Bedside Prothrombin Time INR 1.0 (0.9-1.1) Estimated Average Glucose 174 mg/dl Hemoglobin A1c 7.7 % (4.5-5.6) Total Bilirubin 0.6 mg/dl (0.2-1) Direct Bilirubin 0.1 mg/dl (0-0.2) Aspartate Amino Transf (AST/SGOT) 26 U/L (15-37) Alanine Aminotransferase (ALT/SGPT) 29 U/L (12-78) Alkaline Phosphatase 57 U/L (45-117) Total Creatine Kinase 220 U/L (39-308) Creatine Kinase MB 2.9 ng/ml (0.5-3.6) Creatine Kinase MB Ratio 1.3 (0-3.0) Troponin I < 0.015 ng/ml (0-0.045) Total Protein 7.8 gm/dl (6.4-8.2) Albumin 4.3 gm/dl (3.4-5.0) Lipase 142 U/L (73-393) Thyroid Stimulating Hormone (TSH) 1.570 uIu/ml (0.300-4.500) Prothrombin Time 11.9 SECONDS (9.0-12.0) Prothromb Time International Ratio 1.1 (0.9-1.1) Activated Partial Thromboplast Time 26.6 SECONDS (21.0-31.0) Partial Thromboplastin Ratio 1.0 White Blood Count 7.47 K/uL (4.8-10.8) Red Blood Count 4.82 M/uL (4.7-6.1) Hemoglobin 14.9 g/dL (14.0-18.0) Hematocrit 43.7 % (42-52) Mean Corpuscular Volume 90.7 fL (80-100) Mean Corpuscular Hemoglobin 30.9 pg (25-34) Mean Corpuscular Hemoglobin Concent 34.1 g/dl (32-36) Platelet Count 217 K/uL (130-400) Mean Platelet Volume 9.9 fL (7.4-10.4) Neutrophils (%) (Auto) 79.2 % Lymphocytes (%) (Auto) 10.0 % Monocytes (%) (Auto) 10.4 % Eosinophils (%) (Auto) 0.0 % Basophils (%) (Auto) 0.3 % Neutrophils # (Auto) 5.91 K/uL (1.4-6.5) Lymphocytes # (Auto) 0.75 K/uL (1.2-3.4) Monocytes # (Auto) 0.78 K/uL (0.11-0.59) Eosinophils # (Auto) 0.00 K/uL (0-0.5) Basophils # (Auto) 0.02 K/uL (0-0.2) RDW Standard Deviation 47.9 fL (36.4-46.3) RDW Coefficient of Variation 14.4 % (11.5-14.5) Immature Granulocyte % (Auto) 0.1 % Immature Granulocyte # (Auto) 0.01 K/uL (0.00-0.02) Anion Gap 10.0 mmol/L (3-11) Est Creatinine Clear Calc Drug Dose 53.4 ml/min Estimated GFR () 67.2 Estimated GFR (Non- 58.0 BUN/Creatinine Ratio 14.9 (10-20) Calcium Level 9.0 mg/dl (8.5-10.1) Magnesium Level 1.7 mg/dl (1.8-2.4) Triglycerides Level 153 mg/dl (0-150) Cholesterol Level 180 mg/dl (0-200) HDL Cholesterol 50 mg/dl LDL Cholesterol, Calculated 99 mg/dl VLDL Cholesterol, Calculated 31 mg/dl Cholesterol/HDL Ratio 3.6 Test 03/31/16 11:00 Bedside Glucose 152 mg/dl (70-99) Impression Subacute, left, posterior parietal ischemic infarct presenting with elements of aphasia and distal right upper extremity weakness. His symptoms may have worsened after completion of the MRI on March 29, several hours prior to his evaluation in the emergency department on March 30. There is no evidence of interval development of hemorrhage on the most recently completed CT of the head. Potential stroke etiologies include intracerebral thrombosis, carotid embolism (with a recently nondiagnostic CT angiogram of the neck), or possibly cardioembolism, although there is not appear to be a history of atrial fibrillation. Given this patient's current neurological assessment, I have some concern for extension in the subacute stroke identified on MRI 2 days ago. Plan Repeat brain MRI. This patient will also need a carotid ultrasound as the CT angiogram of the neck was nondiagnostic Transthoracic echocardiogram Conservative management of hypertension, systolic blood pressure goal 140-160 mmHg at this time PT/OT/speech therapy Agree with antiplatelet therapy unless an indication for anticoagulation is identified. Patient will need continued medical surveillance given his apparent encephalopathy/delirium.
[2016-03-31] MEDS ORDERED: ASPIRIN 300 MG SUPP PR ONE (12:45)
--- NOTE | 2016-03-31 13:13 | Medical Student: [facility] ---
Med Student History & Physical Date & Time of Service: Mar 31, 2016 at 09:14 Chief Complaint: Stroke Primary Care Physician: Sarina Krishna PA-C History of Present Illness Source: patient, hospital records The patient was unable to give intelligible answers regarding his history, but the following was obtained from the documentation of his initial evaluation by Dr. Ndiaye: "This is a 75 yo m that is presenting to us with ALOC and expressive aphasia. According to the the symptoms started as a right sided UE weakness with accompanied numbness approx two weeks ago. He awoke with those symptoms and since there was no improvement over a week he was brought to his PCP for evaluation. There was thought that the patient was suffering from a pinched nerve so an MRI was ordered. This was done yesterday with gadolinium and it revealed a subacute stroke. The patient had not been contacted with results yet. Today, the brought the patient in because after she arrived home work he was confused and was unable to complete sentences/ find words. He was evaluated in the ED and a subacute infarct was now noted on the CT head without any hemorrhage. He has never had any stroke or HI in the past. He is a non smoker. He does take ASA 81 mg daily for years. He does not take a statin because of "joint pain". Last echo was 2013 and was WNL" Past Medical/Surgical History Medical Problems per chart review: (1) Angina Pectoris Nec/Nos Status: Chronic (2) CVA (cerebral vascular accident) Status: Acute (3) Diab Gela Wo Compl, Type Ii Or Unspec Type, Not Uncntrld Status: Chronic (4) Esophageal Reflux Status: Chronic (5) Hyperlipidemia Nec/Nos Status: Chronic (6) Hypertension Nos Status: Chronic (7) Hypothyroidism Nos Status: Chronic (8) TIA (transient ischemic attack) Status: Resolved Surgical Problems: (1) History of tonsillectomy Status: Resolved Family History No known family history Social History Smoking Status: Former Smoker Smokeless Tobacco Use: No Alcohol Use: none Drug Use: none Marital Status: Housing status: lives with family Occupational Status: retired Allergies Coded Allergies: Statins (Verified Allergy, Severe, JOINT PAIN, 07/22/14) Medications Acarbose (Precose), 25 MG PO WM Furosemide (Lasix), 40 MG PO DAILY Levothyroxine Sodium (Levothyroxine Sodium), 75 MCG PO DAILY Linagliptin (Tradjenta), 5 MG PO DAILY Lisinopril (Lisinopril), 20 MG PO DAILY Metformin Hcl (Glucophage), 1,000 MG PO BID Montelukast Sod (Montelukast Sodium), 10 MG PO DAILY Review of Systems Could not obtain due to patient's inability to understand/speak Physical Exam Vital Signs (24 Hours) Date Time Temp Pulse Resp B/P Pulse Ox O2 Delivery O2 Flow Rate FiO2 03/31/16 08:12 36.7 78 18 179/91 94 2.0 03/31/16 04:00 Nasal Cannula 2.0 03/31/16 03:59 36.8 90 22 141/84 96 Nasal Cannula 2.0 03/31/16 01:00 Nasal Cannula 2.0 03/31/16 00:43 37.5 100 22 172/87 96 Room Air 03/30/16 23:47 115 20 197/98 91 Room Air 03/30/16 21:54 76 20 182/86 92 Room Air 03/30/16 21:28 77 18 173/90 93 Room Air 03/30/16 20:54 95 03/30/16 20:50 95 Room Air 03/30/16 20:48 37.9 92 20 210/117 95 Room Air General Appearance: no apparent distress, + pertinent finding (ill-appearing) Head: normocephalic, atraumatic Eyes: PERRL, EOMI, + pertinent finding (periorbital swelling and erythema) ENT: pharynx normal, + pertinent finding (dry mucus membranes) Neck: supple, no JVD Respiratory/Chest: chest non-tender, lungs clear, normal breath sounds Cardiovascular: regular rate, rhythm, no edema, no gallop, + systolic murmur ( II/) Abdomen/GI: normal bowel sounds, non tender, soft Skin: + pertinent finding (large ecchymoses on bilateral upper extremity right> left) Neurologic: Speech/Language: Patient is notably dysarthric and appears to have fluctuating degree of understanding. He appears to have a degree of receptive aphasia as well, with difficulty with repetition. Cranial nerves: I: Not tested II: PERRLA, visual acuity unable to be assessed III, IV, : EOMI V: Sensation equal in all distributions, symmetric masseter strength VII: No facial droop VIII: Hearing intact bilaterally IX/X: Palate raise symmetric XI: Shrug intact with 5/5 strength bilaterally XII: No tongue deviation Strength: 4/5 strength in right wrist and hand extensors as well as intrinsic muscles of right hand. 5/5 in proximal and distal muscle groups otherwise. Sensation: Could not be performed due to lack of patient communication/cooperation Reflexes: 2+ biceps, brachioradialis bilaterally 1+ knee and ankle jerk bilaterally Coordination: Dysmetric on finger to nose testing right>left. Did not perform heel to costa testing. No gait evaluation. Diagnostics Laboratory Results Results Past 24 Hours Test 03/30/16 20:53 03/30/16 20:56 03/30/16 21:50 03/30/16 23:08 Range/Units Bedside Glucose 152 134 70-99 mg/dl White Blood Count 8.86 4.8-10.8 K/uL Red Blood Count 4.86 4.7-6.1 M/uL Hemoglobin 15.2 14.0-18.0 g/dL Hematocrit 44.7 42-52 % Mean Corpuscular Volume 92.0 80-100 fL Mean Corpuscular Hemoglobin 31.3 25-34 pg Mean Corpuscular Hemoglobin Concent 34.0 32-36 g/dl Platelet Count 238 130-400 K/uL Mean Platelet Volume 10.4 7.4-10.4 fL Neutrophils (%) (Auto) 87.0 % Lymphocytes (%) (Auto) 8.4 % Monocytes (%) (Auto) 4.3 % Eosinophils (%) (Auto) 0.0 % Basophils (%) (Auto) 0.2 % Neutrophils # (Auto) 7.71 1.4-6.5 K/uL Lymphocytes # (Auto) 0.74 1.2-3.4 K/uL Monocytes # (Auto) 0.38 0.11-0.59 K/uL Eosinophils # (Auto) 0.00 0-0.5 K/uL Basophils # (Auto) 0.02 0-0.2 K/uL RDW Standard Deviation 49.2 36.4-46.3 fL RDW Coefficient of Variation 14.6 11.5-14.5 % Immature Granulocyte % (Auto) 0.1 % Immature Granulocyte # (Auto) 0.01 0.00-0.02 K/uL Sodium Level 142 136-145 mmol/L Potassium Level 3.6 3.5-5.1 mmol/L Chloride Level 104 98-107 mmol/L Carbon Dioxide Level 27 21-32 mmol/L Anion Gap 11.0 3-11 mmol/L Blood Urea Nitrogen 20 7-18 mg/dl Creatinine 1.40 0.60-1.40 mg/dl Est Creatinine Clear Calc Drug Dose 50.2 ml/min Estimated GFR () 55.8 Estimated GFR (Non- 48.1 BUN/Creatinine Ratio 14.2 10-20 Random Glucose 155 70-99 mg/dl Estimated Average Glucose 174 mg/dl Hemoglobin A1c 7.7 4.5-5.6 % Calcium Level 10.3 8.5-10.1 mg/dl Magnesium Level 1.5 1.8-2.4 mg/dl Total Bilirubin 0.6 0.2-1 mg/dl Direct Bilirubin 0.1 0-0.2 mg/dl Aspartate Amino Transf (AST/SGOT) 26 15-37 U/L Alanine Aminotransferase (ALT/SGPT) 29 12-78 U/L Alkaline Phosphatase 57 45-117 U/L Total Creatine Kinase 220 39-308 U/L Creatine Kinase MB 2.9 0.5-3.6 ng/ml Creatine Kinase MB Ratio 1.3 0-3.0 Troponin I < 0.015 0-0.045 ng/ml Total Protein 7.8 6.4-8.2 gm/dl Albumin 4.3 3.4-5.0 gm/dl Lipase 142 73-393 U/L Thyroid Stimulating Hormone (TSH) 1.570 0.300-4.500 uIu/ml Prothrombin Time 11.9 9.0-12.0 SECONDS Prothromb Time International Ratio 1.1 0.9-1.1 Activated Partial Thromboplast Time 26.6 21.0-31.0 SECONDS Partial Thromboplastin Ratio 1.0 Test 03/31/16 06:24 03/31/16 06:56 Range/Units White Blood Count 7.47 4.8-10.8 K/uL Red Blood Count 4.82 4.7-6.1 M/uL Hemoglobin 14.9 14.0-18.0 g/dL Hematocrit 43.7 42-52 % Mean Corpuscular Volume 90.7 80-100 fL Mean Corpuscular Hemoglobin 30.9 25-34 pg Mean Corpuscular Hemoglobin Concent 34.1 32-36 g/dl Platelet Count 217 130-400 K/uL Mean Platelet Volume 9.9 7.4-10.4 fL Neutrophils (%) (Auto) 79.2 % Lymphocytes (%) (Auto) 10.0 % Monocytes (%) (Auto) 10.4 % Eosinophils (%) (Auto) 0.0 % Basophils (%) (Auto) 0.3 % Neutrophils # (Auto) 5.91 1.4-6.5 K/uL Lymphocytes # (Auto) 0.75 1.2-3.4 K/uL Monocytes # (Auto) 0.78 0.11-0.59 K/uL Eosinophils # (Auto) 0.00 0-0.5 K/uL Basophils # (Auto) 0.02 0-0.2 K/uL RDW Standard Deviation 47.9 36.4-46.3 fL RDW Coefficient of Variation 14.4 11.5-14.5 % Immature Granulocyte % (Auto) 0.1 % Immature Granulocyte # (Auto) 0.01 0.00-0.02 K/uL Sodium Level 139 136-145 mmol/L Potassium Level 3.2 3.5-5.1 mmol/L Chloride Level 102 98-107 mmol/L Carbon Dioxide Level 27 21-32 mmol/L Anion Gap 10.0 3-11 mmol/L Blood Urea Nitrogen 18 7-18 mg/dl Creatinine 1.20 0.60-1.40 mg/dl Est Creatinine Clear Calc Drug Dose 53.4 ml/min Estimated GFR () 67.2 Estimated GFR (Non- 58.0 BUN/Creatinine Ratio 14.9 10-20 Random Glucose 134 70-99 mg/dl Calcium Level 9.0 8.5-10.1 mg/dl Magnesium Level 1.7 1.8-2.4 mg/dl Triglycerides Level 153 0-150 mg/dl Cholesterol Level 180 0-200 mg/dl HDL Cholesterol 50 mg/dl LDL Cholesterol, Calculated 99 mg/dl VLDL Cholesterol, Calculated 31 mg/dl Cholesterol/HDL Ratio 3.6 Bedside Glucose 125 70-99 mg/dl Diagnostic Radiology CT of Head w/o contrast: Evidence of subacute left superior parietal stroke. No evidence of intracranial hemorrhage CXR: Hiatal hernia and mild cardiomegaly Impression Assessment and Plan 75 male with past medical history significant for hypertension, dyslipidemia, coronary artery disease, and TIA presenting with difficulty speaking and right hand weakness. Most likely differential diagnosis is subacute ischemic stroke. This is consistent with his aphasic/dysarthric symptoms, as well as his right upper distal extremity weakness. He also has clear evidence of infarction of the left superior parietal lobe. He most likely has some component of metabolic encephalopathy as well. He is fairly inattentive, somnolent, and has been having some bizarre behavior including removing his clothes and blankets while the nurses are in the room. He appears confused. Less likely, given imaging, are intracranial mass or hemorrhage. He also did not have any visible vascular abnormalities on imaging studies, but they were nondiagnostic due to patient movement. Plan: Continue home aspirin 81 mg Consider beginning on pravastatin (previously had adverse affect to atorvastatin ) Continue clopidogrel as per medicine recommendation Continue to evaluate for signs of mental status improvement. Level of Care Med/Surg Advanced Directives Existing Living Will: No Existing Power of Licensed Weigher: No Resuscitation Status FULL RESUSCITATION Note Total Time: Critical Care 30 - 74 minutes
--- NOTE | 2016-03-31 13:33 | Progress Note ---
Subjective Date of Service: Mar 31, 2016. Subjective Pt evaluation today including: conversation w/ patient, physical exam, chart review, lab review, review of studies, review of inpatient medication list Patient seen and evaluated. Patient has been rather agitated. Has been banging arms against bed rails that has produced multiple skin tears. Patient is laying in bed. Will not keep clothes on. Mostly sleeps but does intermittently opens eyes and gives minimal responses. Cooperation is limited. For the one word answers he gave me his speech is largely understandable however poor evaluation. ROS largely deferred due to cooperation. Does deny pain and does not verbalize any needs. Problem List Medical Problems: (1) Angina Pectoris Nec/Nos Status: Chronic (2) CVA (cerebral vascular accident) Status: Acute (3) Diab Gela Wo Compl, Type Ii Or Unspec Type, Not Uncntrld Status: Chronic (4) Esophageal Reflux Status: Chronic (5) Hyperlipidemia Nec/Nos Status: Chronic (6) Hypertension Nos Status: Chronic (7) Hypothyroidism Nos Status: Chronic Review of Systems Deferred due to lack of cooperation. See HPI. Medications Current Inpatient Medications Medications (Trade) Dose Ordered Sig/Parris Route Start Time Stop Time Status Last Admin Dose Admin Miscellaneous Information (Pharmacist Discharge Med Rec Consult) 1 ea UD PRN N/A 03/30/16 22:15 04/29/16 22:14 Acetaminophen (Tylenol Tab) 650 mg Q4H PRN PO 03/30/16 22:15 04/29/16 22:14 Ondansetron HCl (Zofran Inj) 4 mg Q6H PRN IV 03/30/16 22:15 04/29/16 22:14 Furosemide (Lasix Tab) 40 mg DAILY PO 03/31/16 09:00 04/30/16 08:59 Levothyroxine Sodium (Synthroid Tab) 75 mcg DAILYBB PO 03/31/16 06:00 04/30/16 06:59 Lisinopril (Zestril Tab) 20 mg DAILY PO 03/31/16 09:00 04/30/16 08:59 Aspirin (Ecotrin Tab) 81 mg QAM PO 03/31/16 09:00 04/30/16 08:59 Future Hold Insulin Aspart (novoLOG ASPART) SLIDING SCALE G... ACHS SC 03/31/16 07:00 04/30/16 06:59 Ioversol (Optiray 320) 111 ml UD PRN IV 03/30/16 22:15 04/03/16 22:14 Glucose (Glucose 40% Gel) 15-30 GRAMS 15 GRAMS... UD PRN PO 03/30/16 22:45 04/29/16 22:44 Glucose (Glucose Chew Tab) 4-8 Tablets 4 Tabl... UD PRN PO 03/30/16 22:45 04/29/16 22:44 Dextrose (Dextrose 50% 50ML Syringe) 25-50ML OF 50% DW IV FOR... UD PRN IV 03/30/16 22:45 04/29/16 22:44 Glucagon 1 mg 1 mg UD PRN SQ 03/30/16 22:45 04/29/16 22:44 Potassium Chloride/Sodium Chloride (Nss + 20meq KCl 1000ml) 1,000 ml @ 100 mls/hr Q10H IV 03/31/16 08:30 04/30/16 08:29 03/31/16 08:51 100 MLS/HR Haloperidol Lactate (Haldol Inj) 5 mg Q4 PRN IM 03/31/16 08:15 04/30/16 08:14 Clopidogrel Bisulfate (plAVix TAB) 75 mg QAM PO 04/01/16 09:00 05/01/16 08:59 Aspirin (Aspirin Supp) 300 mg DAILY NM 04/01/16 09:00 05/01/16 08:59 Objective Vital Signs Date Time Temp Pulse Resp B/P Pulse Ox O2 Delivery O2 Flow Rate FiO2 03/31/16 12:00 Nasal Cannula 2.0 03/31/16 11:04 36.5 65 18 157/77 96 2.0 03/31/16 08:12 36.7 78 18 179/91 94 2.0 03/31/16 08:00 Nasal Cannula 2.0 03/31/16 04:00 Nasal Cannula 2.0 03/31/16 03:59 36.8 90 22 141/84 96 Nasal Cannula 2.0 03/31/16 01:00 Nasal Cannula 2.0 03/31/16 00:43 37.5 100 22 172/87 96 Room Air 03/30/16 23:47 115 20 197/98 91 Room Air 03/30/16 21:54 76 20 182/86 92 Room Air 03/30/16 21:28 77 18 173/90 93 Room Air 03/30/16 20:54 95 03/30/16 20:50 95 Room Air 03/30/16 20:48 37.9 92 20 210/117 95 Room Air Physical Exam General Appearance: WD/WN, + mild distress (restlessness) Eyes: sclerae normal Neck: supple, no JVD, trachea midline Respiratory/Chest: lungs clear, normal breath sounds, no respiratory distress, no accessory muscle use Cardiovascular: regular rate, rhythm, no gallop, no murmur Abdomen: normal bowel sounds, non tender, soft Extremities: no pedal edema Neurologic/Psychiatric: + pertinent finding (drowsy; moving all extremities unable to obtain involved exam due to cooperation) Skin: + pertinent finding (multiple self-inflicted superficial lacerations 2/2 banging arms on bedrails) Laboratory Results Last 24 Hours Test 03/30/16 20:53 03/30/16 20:56 03/30/16 21:50 03/30/16 23:08 Bedside Prothrombin Time INR 1.0 Bedside Glucose 152 mg/dl 134 mg/dl White Blood Count 8.86 K/uL Red Blood Count 4.86 M/uL Hemoglobin 15.2 g/dL Hematocrit 44.7 % Mean Corpuscular Volume 92.0 fL Mean Corpuscular Hemoglobin 31.3 pg Mean Corpuscular Hemoglobin Concent 34.0 g/dl Platelet Count 238 K/uL Mean Platelet Volume 10.4 fL Neutrophils (%) (Auto) 87.0 % Lymphocytes (%) (Auto) 8.4 % Monocytes (%) (Auto) 4.3 % Eosinophils (%) (Auto) 0.0 % Basophils (%) (Auto) 0.2 % Neutrophils # (Auto) 7.71 K/uL Lymphocytes # (Auto) 0.74 K/uL Monocytes # (Auto) 0.38 K/uL Eosinophils # (Auto) 0.00 K/uL Basophils # (Auto) 0.02 K/uL RDW Standard Deviation 49.2 fL RDW Coefficient of Variation 14.6 % Immature Granulocyte % (Auto) 0.1 % Immature Granulocyte # (Auto) 0.01 K/uL Sodium Level 142 mmol/L Potassium Level 3.6 mmol/L Chloride Level 104 mmol/L Carbon Dioxide Level 27 mmol/L Anion Gap 11.0 mmol/L Blood Urea Nitrogen 20 mg/dl Creatinine 1.40 mg/dl Est Creatinine Clear Calc Drug Dose 50.2 ml/min Estimated GFR () 55.8 Estimated GFR (Non- 48.1 BUN/Creatinine Ratio 14.2 Random Glucose 155 mg/dl Estimated Average Glucose 174 mg/dl Hemoglobin A1c 7.7 % Calcium Level 10.3 mg/dl Magnesium Level 1.5 mg/dl Total Bilirubin 0.6 mg/dl Direct Bilirubin 0.1 mg/dl Aspartate Amino Transf (AST/SGOT) 26 U/L Alanine Aminotransferase (ALT/SGPT) 29 U/L Alkaline Phosphatase 57 U/L Total Creatine Kinase 220 U/L Creatine Kinase MB 2.9 ng/ml Creatine Kinase MB Ratio 1.3 Troponin I < 0.015 ng/ml Total Protein 7.8 gm/dl Albumin 4.3 gm/dl Lipase 142 U/L Thyroid Stimulating Hormone (TSH) 1.570 uIu/ml Prothrombin Time 11.9 SECONDS Prothromb Time International Ratio 1.1 Activated Partial Thromboplast Time 26.6 SECONDS Partial Thromboplastin Ratio 1.0 Test 03/31/16 06:24 03/31/16 06:56 03/31/16 11:00 White Blood Count 7.47 K/uL Red Blood Count 4.82 M/uL Hemoglobin 14.9 g/dL Hematocrit 43.7 % Mean Corpuscular Volume 90.7 fL Mean Corpuscular Hemoglobin 30.9 pg Mean Corpuscular Hemoglobin Concent 34.1 g/dl Platelet Count 217 K/uL Mean Platelet Volume 9.9 fL Neutrophils (%) (Auto) 79.2 % Lymphocytes (%) (Auto) 10.0 % Monocytes (%) (Auto) 10.4 % Eosinophils (%) (Auto) 0.0 % Basophils (%) (Auto) 0.3 % Neutrophils # (Auto) 5.91 K/uL Lymphocytes # (Auto) 0.75 K/uL Monocytes # (Auto) 0.78 K/uL Eosinophils # (Auto) 0.00 K/uL Basophils # (Auto) 0.02 K/uL RDW Standard Deviation 47.9 fL RDW Coefficient of Variation 14.4 % Immature Granulocyte % (Auto) 0.1 % Immature Granulocyte # (Auto) 0.01 K/uL Sodium Level 139 mmol/L Potassium Level 3.2 mmol/L Chloride Level 102 mmol/L Carbon Dioxide Level 27 mmol/L Anion Gap 10.0 mmol/L Blood Urea Nitrogen 18 mg/dl Creatinine 1.20 mg/dl Est Creatinine Clear Calc Drug Dose 53.4 ml/min Estimated GFR () 67.2 Estimated GFR (Non- 58.0 BUN/Creatinine Ratio 14.9 Random Glucose 134 mg/dl Calcium Level 9.0 mg/dl Magnesium Level 1.7 mg/dl Triglycerides Level 153 mg/dl Cholesterol Level 180 mg/dl HDL Cholesterol 50 mg/dl LDL Cholesterol, Calculated 99 mg/dl VLDL Cholesterol, Calculated 31 mg/dl Cholesterol/HDL Ratio 3.6 Bedside Glucose 125 mg/dl 152 mg/dl Assessment and Plan This is a 75 yo m suffering from a subacute infarct. Metabolic Encephalopathy 2/2 Subacute L Parietal Infarct - CTA Head and Neck - report reviewed - minimal benefit due to patient movement - Echo - pending - Neuro Checks and NIH Scale - Speech Eval - pureed diet with thin liquids - PT/OT - ASA 300 mg NM will altered an unable to take pills - when able will get on po ASA - Plavix 75 mg daily when able to take po meds - PRN Haldol and Lorazepam for agitation - patient is on 1:1 - Neurology following -- Repeat MRI and Carotid U/S -- Maintain systolic BP between 140-160 Hypomagnesemia and Hypokalemia - Replete with IV Mag and NSS with 20 mEq K - Monitor - may stop fluids in AM pending labs HTN - Can restart Lisinopril in AM if able to take meds DMII - Continue to hold Ascarbose, Januvia and Metformin - SSI - goal range 120-180; correction factor 30; carb ratio 10 - BSG AC HS Hypothyroid - Synthroid 75 mcg daily -- May need to implement Levothyroxine 37.5 IV in AM pending oral pill intake DVT Prophylaxis - SCD Code Status: - FULL RESUSCITATION Disposition: - PT/OT evaluations
--- NOTE | 2016-03-31 15:39 | DIAGNOSTIC IMAGING REPORT ---
Brain MRI WITHOUT CONTRAST HISTORY: Stroke stroke, worsening deficits TECHNIQUE: Multiplanar multisequence MRI of the brain was performed without the use of contrast. COMPARISON STUDY: 03/29/2016 FINDINGS: Subtle increase in diffusion and reactive vasogenic edema surrounding the left posterior parietal occipital infarct produces described. This may indicate a slight interval extension of the infarct. There are no additional or new or significant findings are present. Ventricular system remains midline. There is no midline shift. IMPRESSION: 1. Very subtle increase in size of the subacute infarct left parieto-occipital junction. 2. Slight to very mild increase in surrounding reactive edema. 3. Study otherwise remains stable Electronically signed by: Connor Castillo M.D. 03/31/2016 3:37 PM Dictated Date/Time: 03/31/2016 3:33 PM
--- NOTE | 2016-03-31 16:12 | DIAGNOSTIC IMAGING REPORT ---
ULTRASOUND OF THE CAROTID ARTERIES CLINICAL HISTORY: stroke COMPARISON STUDY: CT angiography dated to TECHNIQUE: Real-time, grayscale, and color Doppler sonography of the carotid arteries was performed. Imaging reviewed in the transverse and longitudinal planes. NASCET criteria was utilized for stenosis calcification. FINDINGS: There is moderate hypoechoic and echogenic plaque atherosclerotic plaque present bilaterally, but most pronounced the level of the left carotid bulb. The peak systolic velocity within the right internal carotid artery is 52 cm/sec. The systolic velocity ratio of right internal to common carotid artery is 0.6. The peak systolic velocity within the left internal carotid artery is 93 cm/sec. The systolic velocity ratio left internal to common carotid artery is 1.2. Antegrade flow is seen in the vertebral arteries. The external carotid arteries are patent. IMPRESSION: Moderate extensive atheromatous plaque. No evidence of hemodynamically significant carotid stenosis. Electronically signed by: Tim Sheehan M.D. 03/31/2016 4:10 PM Dictated Date/Time: 03/31/2016 4:08 PM
--- NOTE | 2016-03-31 18:16 | ECHOCARDIOGRAM REPORT ---
*NOTICE TO RECEIVING [facility] This information is strictly Confidential and protected under [place] law. [place] law prohibits you from making any further disclosure of this information unless further disclosure is expressly permitted by the written consent of the person to whom it pertains or is authorized by law. A general authorization for the release of medical or other information is not sufficient for this purpose. Hospital accepts no responsibility if the information is made available to any other person, INCLUDING THE PATIENT. Interpretation Summary * Name: ELIZA VIVAR Study Date: 03/31/2016 03:14 PM BP: 157/77 mmHg * Patient Location: .2T\S\E218\S\1 HR: 64 * : 1940 (M/d/yyyy) Gender: Male Height: 70 in * Age: 75 yrs Ethnicity: [place] Weight: 201 lb * Ordering Physician: Rosalinda Ndiaye * Referring Physician: Self, Referred * Performed By: Katerine Patterson RCS * * Reason For Study: STROKE * BSA: 2.1 m2 * Normal biventricular systolic function. * Mild concentric left ventricular hypertrophy. * Left ventricular diastolic dysfunction. * Trace aortic and pulmonic regurgitation. * Trace mitral and tricuspid regurgitation. * Elevated central venous pressure. * Mildly elevated estimated right ventricular systolic pressure. * No cardiac source of emboli noted. * -- Conclusions -- * Aortic valve sclerosis mild, without significant aortic valvular stenosis. Procedure Details * A complete two-dimensional transthoracic echocardiogram was performed (2D, M-mode, Doppler and color flow Doppler). Left Ventricle * The left ventricle is normal in size. * There is mild concentric left ventricular hypertrophy. * Left ventricular systolic function is normal. * Ejection Fraction = 60-65%. * A full diastolic examination was done with clinical findings of Class I diastolic dysfunction. * The left ventricular wall motion is normal. Right Ventricle * The right ventricle is normal in size and function. Atria * The left atrial size is normal. * Right atrial size is normal. * No evidence of interatrial shunt on color flow exam. Mitral Valve * The mitral valve is normal. * There is no mitral valve stenosis. * There is trace mitral regurgitation. Tricuspid Valve * The tricuspid valve is normal. * There is no tricuspid stenosis. * There is trace tricuspid regurgitation. * Right ventricular systolic pressure is elevated at 30-40mmHg. Aortic Valve * The aortic valve is trileaflet. * The aortic valve opens well. * Aortic valve sclerosis mild, without significant aortic valvular stenosis. * Aortic stenosis is absent. * Trace aortic regurgitation. Pulmonic Valve * The pulmonic valve is not well seen, but is grossly normal. * There is no pulmonic valvular stenosis. * Trace pulmonic valvular regurgitation. Great Vessels * The aortic root is normal size. Pericardium/Pleural * There is no pericardial effusion. Great Vessels * The inferior vena cava is mildly dilated. MMode 2D Measurements and Calculations IVSd 1.3 cm IVSs 2.4 cm LVIDd 4.6 cm LVIDs 3.0 cm LVPWd 1.3 cm LVPWs 1.5 cm IVS/LVPW 0.95 FS 34.4 % EDV(Teich) 97.3 ml ESV(Teich) 35.5 ml EF(Teich) 63.5 % EDV(cubed) 97.3 ml ESV(cubed) 27.5 ml EF(cubed) 71.7 % % IVS thick 89.9 % % LVPW thick 10.3 % LV mass(C)d 233.0 grams LV mass(C)dI 111.4 grams/m\S\2 LV mass(C)s 254.4 grams LV mass(C)sI 121.6 grams/m\S\2 SV(Teich) 61.8 ml SI(Teich) 29.5 ml/m\S\2 SV(cubed) 69.8 ml SI(cubed) 33.4 ml/m\S\2 Ao root diam 3.6 cm Ao root area 10.4 cm\S\2 ACS 2.0 cm LA dimension 2.7 cm LA/Ao 0.75 LVOT diam 2.0 cm LVOT area 3.2 cm\S\2 LVAd ap4 30.3 cm\S\2 LVLd ap4 8.0 cm EDV(MOD-sp4) 94.1 ml EDV(sp4-el) 96.8 ml LVAs ap4 19.3 cm\S\2 LVLs ap4 7.0 cm ESV(MOD-sp4) 43.8 ml ESV(sp4-el) 44.9 ml EF(MOD-sp4) 53.4 % EF(sp4-el) 53.6 % LVAd ap2 28.7 cm\S\2 LVLd ap2 8.3 cm EDV(MOD-sp2) 79.0 ml EDV(sp2-el) 84.1 ml LVAs ap2 16.8 cm\S\2 LVLs ap2 6.9 cm ESV(MOD-sp2) 35.2 ml ESV(sp2-el) 34.9 ml EF(MOD-sp2) 55.5 % EF(sp2-el) 58.5 % LVLd %diff 3.0 % EDV(MOD-bp) 88.2 ml LVLs %diff -2.02 % ESV(MOD-bp) 39.2 ml EF(MOD-bp) 55.5 % SV(MOD-sp4) 50.2 ml SI(MOD-sp4) 24.0 ml/m\S\2 SV(MOD-sp2) 43.8 ml SI(MOD-sp2) 21.0 ml/m\S\2 SV(MOD-bp) 48.9 ml SI(MOD-bp) 23.4 ml/m\S\2 SV(sp4-el) 51.9 ml SI(sp4-el) 24.8 ml/m\S\2 SV(sp2-el) 49.2 ml SI(sp2-el) 23.5 ml/m\S\2 Doppler Measurements and Calculations MV E max austin 70.6 cm/sec MV A max austin 106.8 cm/sec MV E/A 0.66 MV P1/2t max austin 76.8 cm/sec MV P1/2t 120.7 msec MVA(P1/2t) 1.8 cm\S\2 MV dec slope 186.4 cm/sec\S\2 MV dec time 0.45 sec PA V2 max 114.8 cm/sec PA max PG 5.3 mmHg PI max austin 194.2 cm/sec PI max PG 15.1 mmHg PI dec slope 190.3 cm/sec\S\2 PI P1/2t 298.9 msec TR max austin 257.8 cm/sec
[2016-03-31] MEDS: HALOPERIDOL LACTATE 5 MG/ML 1 ML VIAL IM PRN (20:43)
[2016-03-31] MEDS ORDERED: LORAZEPAM 2 MG/ML 1 ML VIAL ONE (21:52)
[2016-03-31] MEDS ORDERED: LORAZEPAM 2 MG/ML 1 ML VIAL IV PRN (23:00)
[2016-03-31] MEDS ORDERED: LORAZEPAM INJ 1 MG in SYRINGE 0.5 ML IV PRN (23:00)
[2016-04-01] VITALS (10 sets, daily range): BP systolic 130–207; BP diastolic 72–104; PULSE 73–113; TEMP 36.6–37.9; O2SAT 93–97
[2016-04-01] MEDS: HALOPERIDOL LACTATE 5 MG/ML 1 ML VIAL IM PRN (00:52)
[2016-04-01] MEDS: LEVOTHYROXINE 75 MCG TAB PO SCH (05:33)
[2016-04-01 06:01] LABS: BASO % 0.1 %; BASO ABS # 0.01 K/uL (0-0.2); COMPLETE YES; HEMATOCRIT 49.5 % (42-52); IG% 0.1 %; LYMPH % 5.2 %; LYMPH ABS # 0.52 K/uL (1.2-3.4); MEAN CELL VOLUME 90.7 fL (80-100); MEAN CORPUSCULAR HEMOGLOBIN 31.1 pg (25-34); MEAN CORPUSCULAR HGB CONC 34.3 g/dl (32-36); MEAN PLATELET VOLUME 10.4 fL (7.4-10.4); MONO % 4.4 %; NEUT % 90.2 %; PLATELET COUNT 238 K/uL (130-400); RED BLOOD COUNT 5.46 M/uL (4.7-6.1); WHITE BLOOD COUNT 9.98 K/uL (4.8-10.8)
[2016-04-01 06:31] LABS: BUN/CREATININE RATIO 13.9 (10-20); CALCIUM 9.1 mg/dl (8.5-10.1); CREATININE 1.3 mg/dl (0.60-1.40); MAGNESIUM 1.8 mg/dl (1.8-2.4); POTASSIUM 4.2 mmol/L (3.5-5.1)
[2016-04-01] MEDS: INSULIN ASPART 100 UNITS/ML 3 ML PEN SC SCH ×4 (07:45→20:18)
[2016-04-01] MEDS: CLOPIDOGREL BISULFATE 75 MG TAB PO SCH (07:46)
[2016-04-01] MEDS: FUROSEMIDE 40 MG TAB PO SCH (07:46)
[2016-04-01] MEDS: LISINOPRIL 20 MG TAB PO SCH (07:47)
--- NOTE | 2016-04-01 08:42 | Progress Note ---
Subjective Date of Service: Apr 01, 2016. Subjective Pt evaluation today including: conversation w/ patient, conversation w/ family ( over the phone), physical exam, chart review, lab review, review of studies, conversation w/ health consultant (Dr. Howell), review of inpatient medication list Voiding: cagle catheter in place Patient seen and evaluated. Patient with continued agitation. Needed 2 doses Haldol overnight. Gave orders for soft restraints as patient with a lot of motor agitation even with Haldol overnight. -- Recommend minimal approach with escalation as necessary Will intermittently give one word answers when spoken to and intermittently opens eyes Updated by phone of diagnostics and plan. Problem List Medical Problems: (1) Angina Pectoris Nec/Nos Status: Chronic (2) CVA (cerebral vascular accident) Status: Acute (3) Diab Gela Wo Compl, Type Ii Or Unspec Type, Not Uncntrld Status: Chronic (4) Esophageal Reflux Status: Chronic (5) Hyperlipidemia Nec/Nos Status: Chronic (6) Hypertension Nos Status: Chronic (7) Hypothyroidism Nos Status: Chronic Review of Systems ROS deferred due to altered mental status Medications Current Inpatient Medications Medications (Trade) Dose Ordered Sig/Parris Route Start Time Stop Time Status Last Admin Dose Admin Miscellaneous Information (Pharmacist Discharge Med Rec Consult) 1 ea UD PRN N/A 03/30/16 22:15 04/29/16 22:14 Acetaminophen (Tylenol Tab) 650 mg Q4H PRN PO 03/30/16 22:15 04/29/16 22:14 Ondansetron HCl (Zofran Inj) 4 mg Q6H PRN IV 03/30/16 22:15 04/29/16 22:14 Furosemide (Lasix Tab) 40 mg DAILY PO 03/31/16 09:00 04/30/16 08:59 04/01/16 07:46 40 MG Levothyroxine Sodium (Synthroid Tab) 75 mcg DAILYBB PO 03/31/16 06:00 04/30/16 06:59 04/01/16 05:33 75 MCG Lisinopril (Zestril Tab) 20 mg DAILY PO 03/31/16 09:00 04/30/16 08:59 04/01/16 07:47 20 MG Insulin Aspart (novoLOG ASPART) SLIDING SCALE G... ACHS SC 03/31/16 07:00 04/30/16 06:59 04/01/16 11:00 3 UNITS Ioversol (Optiray 320) 111 ml UD PRN IV 03/30/16 22:15 04/03/16 22:14 Glucose (Glucose 40% Gel) 15-30 GRAMS 15 GRAMS... UD PRN PO 03/30/16 22:45 04/29/16 22:44 Glucose (Glucose Chew Tab) 4-8 Tablets 4 Tabl... UD PRN PO 03/30/16 22:45 04/29/16 22:44 Dextrose (Dextrose 50% 50ML Syringe) 25-50ML OF 50% DW IV FOR... UD PRN IV 03/30/16 22:45 04/29/16 22:44 Glucagon 1 mg 1 mg UD PRN SQ 03/30/16 22:45 04/29/16 22:44 Potassium Chloride/Sodium Chloride (Nss + 20meq KCl 1000ml) 1,000 ml @ 100 mls/hr Q10H IV 03/31/16 08:30 04/30/16 08:29 03/31/16 23:59 100 MLS/HR Haloperidol Lactate (Haldol Inj) 5 mg Q4 PRN IM 03/31/16 08:15 04/30/16 08:14 04/01/16 00:52 5 MG Clopidogrel Bisulfate 75 mg 75 mg QAM PO 04/01/16 09:00 05/01/16 08:59 04/01/16 07:46 75 MG Lorazepam/Syringe (Ativan Inj/ Syringe) 1 ml @ 1 mls/min Q4H PRN IV 03/31/16 23:00 04/30/16 22:59 Lorazepam (Ativan Inj) 1 mg Q4H PRN IV 03/31/16 23:00 04/30/16 22:59 Hydralazine HCl (HydrALAZINE INJ) 10 mg Q6 PRN IV. 04/01/16 07:30 05/01/16 07:29 Objective Vital Signs Date Time Temp Pulse Resp B/P Pulse Ox O2 Delivery O2 Flow Rate FiO2 04/01/16 06:59 37.9 113 28 207/104 93 Nasal Cannula 2.0 04/01/16 04:00 97 Room Air 04/01/16 03:47 36.7 101 18 184/84 95 Nasal Cannula 2.0 04/01/16 00:00 97 Room Air 03/31/16 23:00 36.9 104 20 186/98 95 Nasal Cannula 2.0 03/31/16 20:00 97 Room Air 03/31/16 19:43 37.0 68 16 134/80 97 Room Air 03/31/16 16:25 96 Nasal Cannula 2.0 03/31/16 16:23 36.8 73 18 151/77 97 Nasal Cannula 2.0 03/31/16 12:00 Nasal Cannula 2.0 03/31/16 11:04 36.5 65 18 157/77 96 2.0 Physical Exam General Appearance: WD/WN, + moderate distress (agitation) Neck: supple, no JVD, trachea midline Respiratory/Chest: lungs clear, no respiratory distress, no accessory muscle use Cardiovascular: regular rate, rhythm, no gallop, no murmur Abdomen: normal bowel sounds, non tender, soft Extremities: no pedal edema Neurologic/Psychiatric: + disoriented, + pertinent finding (moving all four extremities; limited neuro exam 2/2 cooperation) Skin: normal color, warm/dry Laboratory Results Last 24 Hours Test 03/31/16 11:00 03/31/16 16:54 03/31/16 20:15 04/01/16 05:11 Bedside Glucose 152 mg/dl 116 mg/dl 107 mg/dl White Blood Count 9.98 K/uL Red Blood Count 5.46 M/uL Hemoglobin 17.0 g/dL Hematocrit 49.5 % Mean Corpuscular Volume 90.7 fL Mean Corpuscular Hemoglobin 31.1 pg Mean Corpuscular Hemoglobin Concent 34.3 g/dl Platelet Count 238 K/uL Mean Platelet Volume 10.4 fL Neutrophils (%) (Auto) 90.2 % Lymphocytes (%) (Auto) 5.2 % Monocytes (%) (Auto) 4.4 % Eosinophils (%) (Auto) 0.0 % Basophils (%) (Auto) 0.1 % Neutrophils # (Auto) 9.00 K/uL Lymphocytes # (Auto) 0.52 K/uL Monocytes # (Auto) 0.44 K/uL Eosinophils # (Auto) 0.00 K/uL Basophils # (Auto) 0.01 K/uL RDW Standard Deviation 48.2 fL RDW Coefficient of Variation 14.5 % Immature Granulocyte % (Auto) 0.1 % Immature Granulocyte # (Auto) 0.01 K/uL Sodium Level 141 mmol/L Potassium Level 4.2 mmol/L Chloride Level 102 mmol/L Carbon Dioxide Level 25 mmol/L Anion Gap 14.0 mmol/L Blood Urea Nitrogen 18 mg/dl Creatinine 1.30 mg/dl Est Creatinine Clear Calc Drug Dose 49.1 ml/min Estimated GFR () 61.0 Estimated GFR (Non- 52.6 BUN/Creatinine Ratio 13.9 Random Glucose 199 mg/dl Calcium Level 9.1 mg/dl Magnesium Level 1.8 mg/dl Test 04/01/16 06:06 Bedside Glucose 197 mg/dl Assessment and Plan This is a 75 yo m suffering from a subacute infarct. Hypertensive Encephalopathy 2/ Subacute L Parietal Infarct - Imaging and Studies -- Repeat CT (04/01) - image and report reviewed - no hemorrhagic conversion; no acute findings, midline shift, or mass effect; unchanged infarct -- Echo - report reviewed - no evidence as source of emboli; grade I diastolic dysfunction; EF 60-65% -- Carotid U/S - report reviewed - moderate plaque L > R - no hemodynamically significant stenosis - Plavix 75 mg daily - Hydralazine 10 mg IV PRN with additional home Lisinopril 20 mg daily and Lasix 40 mg daily - PRN Haldol and Lorazepam for agitation - patient is on 1:1 - Neurology following -- Maintain systolic BP between 140-160 Low-Grade Fevers: Infection? - Concern for aspiration - CXR - image and report reviewed - no evidence of consolidation or suggestion of aspiration - Will repeat U/A in setting of Cagle catheter placed T2DM: - Continue to hold Ascarbose, Januvia and Metformin - SSI - goal range 120-180; correction factor 30; carb ratio 10 - BSG AC HS Hypothyroid - Synthroid 75 mcg daily DVT Prophylaxis - SCD Code Status: - FULL RESUSCITATION Disposition: - PT/OT evaluations - acute rehab - Updated by phone 04/01 in at approx. 0900
[2016-04-01] MEDS ORDERED: ASPIRIN 300 MG SUPP PR SCH (09:00)
[2016-04-01] MEDS: ASPIRIN 81 MG ECTAB PO SCH (09:07)
--- NOTE | 2016-04-01 09:10 | Neurology Progress Notes ---
Neurology Progress Note Date of Service Apr 01, 2016. Subjective Follow-up for stroke The patient has been agitated and hypertensive he is on one-to-one observation The follow-up brain MRI and carotid ultrasound have been completed. I reviewed the images pertaining to the repeat brain MRI as well as radiologist' s interpretation of this study. There is evidence of a subtle increase in size identified area of restricted diffusion within the posterior left parietal convexity probably consistent with evolution of the previously described infarct in this area. There is some associated vasogenic edema, notable within the left occipital region, observed on coronal flair. This finding was not observed on the previous MRI from January 26. There is no evidence of a hemodynamically significant stenosis on the carotid ultrasound. There is evidence of extensive atheromatous plaque, however. As above, the patient has been notably hypertensive. He now has an order for hydralazine. He is also received 2 doses of Haldol overnight to address agitation per the nursing documentation. Objective Date Time Temp Pulse Resp B/P Pulse Ox O2 Delivery O2 Flow Rate FiO2 04/01/16 06:59 37.9 113 28 207/104 93 Nasal Cannula 2.0 04/01/16 04:00 97 Room Air 04/01/16 03:47 36.7 101 18 184/84 95 Nasal Cannula 2.0 04/01/16 00:00 97 Room Air 03/31/16 23:00 36.9 104 20 186/98 95 Nasal Cannula 2.0 03/31/16 20:00 97 Room Air 03/31/16 19:43 37.0 68 16 134/80 97 Room Air 03/31/16 16:25 96 Nasal Cannula 2.0 03/31/16 16:23 36.8 73 18 151/77 97 Nasal Cannula 2.0 03/31/16 12:00 Nasal Cannula 2.0 03/31/16 11:04 36.5 65 18 157/77 96 2.0 Last 24 Hours Test 03/31/16 11:00 03/31/16 16:54 03/31/16 20:15 04/01/16 05:11 Bedside Glucose 152 mg/dl 116 mg/dl 107 mg/dl White Blood Count 9.98 K/uL Red Blood Count 5.46 M/uL Hemoglobin 17.0 g/dL Hematocrit 49.5 % Mean Corpuscular Volume 90.7 fL Mean Corpuscular Hemoglobin 31.1 pg Mean Corpuscular Hemoglobin Concent 34.3 g/dl Platelet Count 238 K/uL Mean Platelet Volume 10.4 fL Neutrophils (%) (Auto) 90.2 % Lymphocytes (%) (Auto) 5.2 % Monocytes (%) (Auto) 4.4 % Eosinophils (%) (Auto) 0.0 % Basophils (%) (Auto) 0.1 % Neutrophils # (Auto) 9.00 K/uL Lymphocytes # (Auto) 0.52 K/uL Monocytes # (Auto) 0.44 K/uL Eosinophils # (Auto) 0.00 K/uL Basophils # (Auto) 0.01 K/uL RDW Standard Deviation 48.2 fL RDW Coefficient of Variation 14.5 % Immature Granulocyte % (Auto) 0.1 % Immature Granulocyte # (Auto) 0.01 K/uL Sodium Level 141 mmol/L Potassium Level 4.2 mmol/L Chloride Level 102 mmol/L Carbon Dioxide Level 25 mmol/L Anion Gap 14.0 mmol/L Blood Urea Nitrogen 18 mg/dl Creatinine 1.30 mg/dl Est Creatinine Clear Calc Drug Dose 49.1 ml/min Estimated GFR () 61.0 Estimated GFR (Non- 52.6 BUN/Creatinine Ratio 13.9 Random Glucose 199 mg/dl Calcium Level 9.1 mg/dl Magnesium Level 1.8 mg/dl Test 04/01/16 06:06 Bedside Glucose 197 mg/dl Exam: The patient is lying in bed in soft restraints, he is mildly agitated and remains on one-to-one observation. He is lethargic, but will open his eyes to voice. He is oriented to person and "[place]." He is not oriented to day of the week. The patient exhibits impaired attention. Speech is fluent although he provides only simple answers when spoken to. Comprehension seems to be generally intact. Full assessment of memory, vocabulary, and fund of knowledge is difficult in the context of his lethargy/delirium. Visual [place] grossly full to confrontation. Pupils equal round reactive to light. Eye movements intact. The patient is edentulous although there appears to be persistent flattening of the right nasolabial fold. Although the patient remains in soft restraints, he is able to lift both the right arm and right lower extremity out of the bed to command within the limits of the observed restraints. Current Inpatient Medications Medications (Trade) Dose Ordered Sig/Parris Route Start Time Stop Time Status Last Admin Dose Admin Miscellaneous Information (Pharmacist Discharge Med Rec Consult) 1 ea UD PRN N/A 03/30/16 22:15 04/29/16 22:14 Acetaminophen (Tylenol Tab) 650 mg Q4H PRN PO 03/30/16 22:15 04/29/16 22:14 Ondansetron HCl (Zofran Inj) 4 mg Q6H PRN IV 03/30/16 22:15 04/29/16 22:14 Furosemide (Lasix Tab) 40 mg DAILY PO 03/31/16 09:00 04/30/16 08:59 04/01/16 07:46 40 MG Levothyroxine Sodium (Synthroid Tab) 75 mcg DAILYBB PO 03/31/16 06:00 04/30/16 06:59 04/01/16 05:33 75 MCG Lisinopril (Zestril Tab) 20 mg DAILY PO 03/31/16 09:00 04/30/16 08:59 04/01/16 07:47 20 MG Aspirin (Ecotrin Tab) 81 mg QAM PO 03/31/16 09:00 04/30/16 08:59 Future hold Insulin Aspart (novoLOG ASPART) SLIDING SCALE G... ACHS SC 03/31/16 07:00 04/30/16 06:59 04/01/16 07:45 3 UNITS Ioversol (Optiray 320) 111 ml UD PRN IV 03/30/16 22:15 04/03/16 22:14 Glucose (Glucose 40% Gel) 15-30 GRAMS 15 GRAMS... UD PRN PO 03/30/16 22:45 04/29/16 22:44 Glucose (Glucose Chew Tab) 4-8 Tablets 4 Tabl... UD PRN PO 03/30/16 22:45 04/29/16 22:44 Dextrose (Dextrose 50% 50ML Syringe) 25-50ML OF 50% DW IV FOR... UD PRN IV 03/30/16 22:45 04/29/16 22:44 Glucagon 1 mg 1 mg UD PRN SQ 03/30/16 22:45 04/29/16 22:44 Potassium Chloride/Sodium Chloride (Nss + 20meq KCl 1000ml) 1,000 ml @ 100 mls/hr Q10H IV 03/31/16 08:30 04/30/16 08:29 03/31/16 23:59 100 MLS/HR Haloperidol Lactate (Haldol Inj) 5 mg Q4 PRN IM 03/31/16 08:15 04/30/16 08:14 04/01/16 00:52 5 MG Clopidogrel Bisulfate 75 mg 75 mg QAM PO 04/01/16 09:00 05/01/16 08:59 04/01/16 07:46 75 MG Lorazepam/Syringe (Ativan Inj/ Syringe) 1 ml @ 1 mls/min Q4H PRN IV 03/31/16 23:00 04/30/16 22:59 Lorazepam (Ativan Inj) 1 mg Q4H PRN IV 03/31/16 23:00 04/30/16 22:59 Hydralazine HCl (HydrALAZINE INJ) 10 mg Q6 PRN IV. 04/01/16 07:30 05/01/16 07:29 Impression Subacute, left, posterior parietal convexity ischemic infarct. The observed subtle increase in size of this infarct compared with the MRI completed 3 days ago is probably consistent with normal post stroke evolutionary change. However, the interval development of associated vasogenic edema, especially within the posterior left occipital region is concerning for posterior reversible encephalopathy syndrome, especially in light of this patient's ongoing agitation/delirium, and poorly controlled hypertension. Hypertensive encephalopathy would be a closely related clinical entity and should be considered in this case as well. This patient also appears to be developing a fever which is concerning for infection in light of his persistent delirium in the post stroke timeframe. Plan Patient will need to have his hypertension adequately controlled. Systolic blood pressure of 140-150 mmHg at this time. Continue medical surveillance for possible sources of infection. Aspiration? Chest x-ray? I would defer to the medical house staff to determine if this testing is appropriate. I would discontinue aspirin in light of his suspected hypertensive encephalopathy and possible increased risk for hemorrhage with dual antiplatelet therapy in this context. He may continue with Plavix 75 mg per day, however. Repeat CT head without contrast this afternoon to exclude interval development of hemorrhage. Please contact me if I may be of further assistance.
--- NOTE | 2016-04-01 13:01 | DIAGNOSTIC IMAGING REPORT ---
CHEST 1 VW FRONT-NOT PORTABLE CLINICAL HISTORY: Aspiration? Dyspnea COMPARISON STUDY: 03/30/2016 FINDINGS: The bones soft tissues and hemidiaphragms are normal. The cardiomediastinal silhouette is normal. The lungs are clear. The pulmonary vasculature is normal. IMPRESSION: Negative chest. Electronically signed by: Connor Castillo M.D. 04/01/2016 12:59 PM Dictated Date/Time: 04/01/2016 12:59 PM
[2016-04-01] MEDS: HydrALAZINE HCL 20 MG/ML VIAL IV. PRN ×2 (13:26→20:22)
--- NOTE | 2016-04-01 13:29 | DIAGNOSTIC IMAGING REPORT ---
CT OF THE HEAD WITHOUT CONTRAST CLINICAL HISTORY: Stroke. Hypertensive encephalopathy. COMPARISON STUDY: Head CT March 30, 2016 and MRI of the brain March 31, 2016. CT DOSE: 823.94 mGycm TECHNIQUE: Helical axial images of the head were obtained without IV contrast. Automated exposure control was utilized for the study. FINDINGS: No acute intracranial hemorrhage, midline shift or mass effect is present. Ventricular system is stable. Basilar cisterns are patent. No extra-axial collections are present. Subtle hypodensity suggestive of a subacute to acute infarct within the left parietal-occipital region is unchanged since prior exam of March 30, 2016. There is no significant mass effect or evidence of hemorrhagic conversion. There are no significant calvarial abnormalities. There is minimal mucosal thickening of the sinuses. IMPRESSION: No significant change in appearance of the subacute to acute infarct within left parietal-occipital region. No significant mass effect. No evidence of hemorrhagic conversion. Electronically signed by: Song Lopez M.D. 04/01/2016 1:28 PM Dictated Date/Time: 04/01/2016 1:23 PM
[2016-04-01 19:41] LABS: URINE APPEARANCE CLOUDY (CLEAR); URINE BILIRUBIN NEG (NEG); URINE COLOR YELLOW; URINE EPITHELIAL CELL AUTO >30 /lpf (0-5); URINE NITRITE NEG (NEG); URINE SPECIFIC GRAVITY 1.017 (1.000-1.030); UROBILINOGEN NEG (NEG)
[2016-04-01 19:44] LABS: MANUAL MICROSCOPIC REQUIRED? NO; REVIEW REQ? YES
[2016-04-01 19:54] LABS: URINE MUCUS PRESENT (NONE PRSENT)
[2016-04-02] VITALS (9 sets, daily range): BP systolic 111–138; BP diastolic 61–84; PULSE 73–80; TEMP 36.3–36.9; O2SAT 93–96
[2016-04-02 05:45] LABS: BASO % 0.3 %; BASO ABS # 0.02 K/uL (0-0.2); COMPLETE YES; IG% 0.1 %; LYMPH % 11.5 %; LYMPH ABS # 0.83 K/uL (1.2-3.4); MEAN CELL VOLUME 89.8 fL (80-100); MEAN CORPUSCULAR HEMOGLOBIN 30.9 pg (25-34); MEAN CORPUSCULAR HGB CONC 34.4 g/dl (32-36); MEAN PLATELET VOLUME 10.3 fL (7.4-10.4); MONO % 10.4 %; NEUT % 77.7 %; PLATELET COUNT 206 K/uL (130-400); RED BLOOD COUNT 5.01 M/uL (4.7-6.1); WHITE BLOOD COUNT 7.22 K/uL (4.8-10.8)
[2016-04-02] MEDS: LEVOTHYROXINE 75 MCG TAB PO SCH (06:23)
[2016-04-02 06:27] LABS: BUN/CREATININE RATIO 21.9 (10-20); CALCIUM 7.9 mg/dl (8.5-10.1); CREATININE 1.1 mg/dl (0.60-1.40); MAGNESIUM 1.8 mg/dl (1.8-2.4); POTASSIUM 3.6 mmol/L (3.5-5.1)
[2016-04-02] MEDS: CLOPIDOGREL BISULFATE 75 MG TAB PO SCH (07:38)
[2016-04-02] MEDS: LISINOPRIL 20 MG TAB PO SCH (07:39)
[2016-04-02] MEDS: FUROSEMIDE 40 MG TAB PO SCH (07:39)
[2016-04-02] MEDS: INSULIN ASPART 100 UNITS/ML 3 ML PEN SC SCH ×4 (07:42→20:49)
--- NOTE | 2016-04-02 11:15 | Neurology Progress Notes ---
Neurology Progress Note Date of Service Apr 02, 2016. Subjective Follow-up for stroke The patient remains on one-to-one observation. However, he is much less agitated this morning. He did receive 1 dose of Haldol overnight. His blood pressure is much improved. I reviewed the images and radiologist's impression of the recommended follow-up CT of the head completed yesterday afternoon. There is no evidence of hemorrhage. There are changes consistent with the previously identified subacute left parietal convexity ischemic infarct. No evidence of hemorrhagic transformation. The patient is much more alert and appropriate today. He does not have any specific complaints. He denies headache or vision loss. Objective Date Time Temp Pulse Resp B/P Pulse Ox O2 Delivery O2 Flow Rate FiO2 04/02/16 08:00 93 Nasal Cannula 2.0 04/02/16 07:11 36.6 73 18 117/70 94 Nasal Cannula 2.0 04/02/16 04:00 Nasal Cannula 2.0 04/02/16 02:54 36.6 80 20 128/79 96 Nasal Cannula 2.0 04/02/16 00:00 Nasal Cannula 2.0 04/01/16 22:52 36.6 87 22 130/72 95 Nasal Cannula 2.0 04/01/16 20:00 Nasal Cannula 2.0 04/01/16 19:41 37.0 81 22 168/75 96 Nasal Cannula 2.0 04/01/16 16:00 Nasal Cannula 2.0 04/01/16 15:17 37.2 90 18 142/74 94 Nasal Cannula 2.0 04/01/16 12:00 37.0 105 32 198/95 93 Nasal Cannula 2.0 04/01/16 12:00 93 Nasal Cannula 2.0 Last 24 Hours Test 04/01/16 11:14 04/01/16 16:15 04/01/16 18:30 04/01/16 20:03 Bedside Glucose 197 mg/dl 171 mg/dl 132 mg/dl Urine Color YELLOW Urine Appearance CLOUDY Urine pH 5.0 Urine Specific [place] 1.017 Urine Protein 1+ Urine Glucose (UA) NEG Urine Ketones 1+ Urine Occult Blood 3+ Urine Nitrite NEG Urine Bilirubin NEG Urine Urobilinogen NEG Urine Leukocyte Esterase MODERATE Urine WBC (Auto) 10-30 /hpf Urine RBC (Auto) >30 /hpf Urine Hyaline Casts (Auto) 10-30 /lpf Urine Epithelial Cells (Auto) >30 /lpf Urine Bacteria (Auto) NEG Urine Renal Epithelial Cells 0-5 /lpf Urine Mucus PRESENT Urine Yeast (Auto) Test 04/02/16 05:17 04/02/16 07:01 White Blood Count 7.22 K/uL Red Blood Count 5.01 M/uL Hemoglobin 15.5 g/dL Hematocrit 45.0 % Mean Corpuscular Volume 89.8 fL Mean Corpuscular Hemoglobin 30.9 pg Mean Corpuscular Hemoglobin Concent 34.4 g/dl Platelet Count 206 K/uL Mean Platelet Volume 10.3 fL Neutrophils (%) (Auto) 77.7 % Lymphocytes (%) (Auto) 11.5 % Monocytes (%) (Auto) 10.4 % Eosinophils (%) (Auto) 0.0 % Basophils (%) (Auto) 0.3 % Neutrophils # (Auto) 5.61 K/uL Lymphocytes # (Auto) 0.83 K/uL Monocytes # (Auto) 0.75 K/uL Eosinophils # (Auto) 0.00 K/uL Basophils # (Auto) 0.02 K/uL RDW Standard Deviation 47.3 fL RDW Coefficient of Variation 14.6 % Immature Granulocyte % (Auto) 0.1 % Immature Granulocyte # (Auto) 0.01 K/uL Sodium Level 143 mmol/L Potassium Level 3.6 mmol/L Chloride Level 110 mmol/L Carbon Dioxide Level 24 mmol/L Anion Gap 9.0 mmol/L Blood Urea Nitrogen 24 mg/dl Creatinine 1.10 mg/dl Est Creatinine Clear Calc Drug Dose 57.2 ml/min Estimated GFR () 74.7 Estimated GFR (Non- 64.4 BUN/Creatinine Ratio 21.9 Random Glucose 152 mg/dl Calcium Level 7.9 mg/dl Magnesium Level 1.8 mg/dl Bedside Glucose 146 mg/dl Exam: The patient is sitting up in bed. He is not agitated and appropriate. He is oriented to person and hospital. He exhibits normal attention and concentration. Recent and remote memory intact. He is able to name objects, repeat phrases, and read text without difficulty. He appropriately describes a complex visual scene. Vocabulary normal. Visual [place] full to confrontation. Pupils equal round reactive to light and accommodation. Eye movements intact. There is bilateral involutional ptosis. No nystagmus. No ophthalmoplegia. Facial sensation intact bilaterally. There is no facial weakness or facial droop. Palate elevates to midline. Tongue protrudes to midline. Hearing grossly intact. Shoulder shrug intact. The patient continues to exhibit mild distal weakness of the right upper extremity, specifically affecting finger extension. There is slight impairment of fine finger movements as well for the right hand. He exhibits a mild right upper extremity pronator drift. There is mild to moderate dysmetria with finger to nose on the right. No dysmetria with the left upper extremity. Heel to [place] normal bilaterally. Strength normal for the left upper extremity as well as both legs. Current Inpatient Medications Medications (Trade) Dose Ordered Sig/Parris Route Start Time Stop Time Status Last Admin Dose Admin Miscellaneous Information (Pharmacist Discharge Med Rec Consult) 1 ea UD PRN N/A 03/30/16 22:15 04/29/16 22:14 Acetaminophen (Tylenol Tab) 650 mg Q4H PRN PO 03/30/16 22:15 04/29/16 22:14 Ondansetron HCl (Zofran Inj) 4 mg Q6H PRN IV 03/30/16 22:15 04/29/16 22:14 Furosemide (Lasix Tab) 40 mg DAILY PO 03/31/16 09:00 04/30/16 08:59 04/02/16 07:39 40 MG Levothyroxine Sodium (Synthroid Tab) 75 mcg DAILYBB PO 03/31/16 06:00 04/30/16 06:59 04/02/16 06:23 75 MCG Lisinopril (Zestril Tab) 20 mg DAILY PO 03/31/16 09:00 04/30/16 08:59 04/02/16 07:39 20 MG Insulin Aspart (novoLOG ASPART) SLIDING SCALE G... ACHS SC 03/31/16 07:00 04/30/16 06:59 04/02/16 07:42 4 UNITS Ioversol (Optiray 320) 111 ml UD PRN IV 03/30/16 22:15 04/03/16 22:14 Glucose (Glucose 40% Gel) 15-30 GRAMS 15 GRAMS... UD PRN PO 03/30/16 22:45 04/29/16 22:44 Glucose (Glucose Chew Tab) 4-8 Tablets 4 Tabl... UD PRN PO 03/30/16 22:45 04/29/16 22:44 Dextrose (Dextrose 50% 50ML Syringe) 25-50ML OF 50% DW IV FOR... UD PRN IV 03/30/16 22:45 04/29/16 22:44 Glucagon (Glucagon Inj) 1 mg UD PRN SQ 03/30/16 22:45 04/29/16 22:44 Haloperidol Lactate (Haldol Inj) 5 mg Q4 PRN IM 03/31/16 08:15 04/30/16 08:14 04/01/16 00:52 5 MG Clopidogrel Bisulfate 75 mg 75 mg QAM PO 04/01/16 09:00 05/01/16 08:59 04/02/16 07:38 75 MG Lorazepam/Syringe (Ativan Inj/ Syringe) 1 ml @ 1 mls/min Q4H PRN IV 03/31/16 23:00 04/30/16 22:59 Lorazepam (Ativan Inj) 1 mg Q4H PRN IV 03/31/16 23:00 04/30/16 22:59 Hydralazine HCl (HydrALAZINE INJ) 10 mg Q6 PRN IV. 04/01/16 07:30 05/01/16 07:29 04/01/16 20:22 10 MG Impression Subacute, left, posterior parietal infarct. The primary residual neurological deficit at this time is mild distal weakness of the right upper extremity. This patient's hypertensive encephalopathy is largely improved. He does not have significant difficulties with aphasia at this time. Plan This patient will need to work with rehabilitation specialists from PT/OT and possibly speech therapy. I expect his neurological deficits to improve gradually over the next few weeks. He may have some residual, more permanent loss of dexterity of the right hand going forward, however. His blood pressure will need ongoing management on an outpatient basis as well. Continue with Plavix as a single antiplatelet agent. I've no further immediate neurological recommendations. Please contact me if I may be of further assistance.
--- NOTE | 2016-04-02 12:54 | Progress Note ---
Subjective Date of Service: Apr 02, 2016. Subjective Pt evaluation today including: conversation w/ patient, physical exam, chart review, lab review, review of inpatient medication list Voiding: cagle catheter in place Patient seen and evaluated. Did not need Haldol overnight. Patient is able to hold a complete conversation this AM. Speech intermittently garbled but largely comprehensible. Noted minimal RUE weakness however patient reports this was largely flaccid when symptoms began. Patient is cooperative and follows commands. Hard of hearing. Problem List Medical Problems: (1) Angina Pectoris Nec/Nos Status: Chronic (2) CVA (cerebral vascular accident) Status: Acute (3) Diab Gela Wo Compl, Type Ii Or Unspec Type, Not Uncntrld Status: Chronic (4) Esophageal Reflux Status: Chronic (5) Hyperlipidemia Nec/Nos Status: Chronic (6) Hypertension Nos Status: Chronic (7) Hypothyroidism Nos Status: Chronic Review of Systems Constitutional: No chills, No fever Eyes: No worsening of vision ENT: + hearing loss Respiratory: No cough, No shortness of breath Cardiac: No chest pain Abdomen: No nausea, No pain, No vomiting Musculoskeletal: No swelling Male : No dysuria Neurologic: No vertigo Medications Current Inpatient Medications Medications (Trade) Dose Ordered Sig/Parris Route Start Time Stop Time Status Last Admin Dose Admin Miscellaneous Information (Pharmacist Discharge Med Rec Consult) 1 ea UD PRN N/A 03/30/16 22:15 04/29/16 22:14 Acetaminophen (Tylenol Tab) 650 mg Q4H PRN PO 03/30/16 22:15 04/29/16 22:14 Ondansetron HCl (Zofran Inj) 4 mg Q6H PRN IV 03/30/16 22:15 04/29/16 22:14 Furosemide (Lasix Tab) 40 mg DAILY PO 03/31/16 09:00 04/30/16 08:59 04/02/16 07:39 40 MG Levothyroxine Sodium (Synthroid Tab) 75 mcg DAILYBB PO 03/31/16 06:00 04/30/16 06:59 04/02/16 06:23 75 MCG Lisinopril (Zestril Tab) 20 mg DAILY PO 03/31/16 09:00 04/30/16 08:59 04/02/16 07:39 20 MG Insulin Aspart (novoLOG ASPART) SLIDING SCALE G... ACHS SC 03/31/16 07:00 04/30/16 06:59 04/02/16 11:45 5 UNITS Ioversol (Optiray 320) 111 ml UD PRN IV 03/30/16 22:15 04/03/16 22:14 Glucose (Glucose 40% Gel) 15-30 GRAMS 15 GRAMS... UD PRN PO 03/30/16 22:45 04/29/16 22:44 Glucose (Glucose Chew Tab) 4-8 Tablets 4 Tabl... UD PRN PO 03/30/16 22:45 04/29/16 22:44 Dextrose (Dextrose 50% 50ML Syringe) 25-50ML OF 50% DW IV FOR... UD PRN IV 03/30/16 22:45 04/29/16 22:44 Glucagon (Glucagon Inj) 1 mg UD PRN SQ 03/30/16 22:45 04/29/16 22:44 Haloperidol Lactate (Haldol Inj) 5 mg Q4 PRN IM 03/31/16 08:15 04/30/16 08:14 04/01/16 00:52 5 MG Clopidogrel Bisulfate 75 mg 75 mg QAM PO 04/01/16 09:00 05/01/16 08:59 04/02/16 07:38 75 MG Lorazepam/Syringe (Ativan Inj/ Syringe) 1 ml @ 1 mls/min Q4H PRN IV 03/31/16 23:00 04/30/16 22:59 Lorazepam (Ativan Inj) 1 mg Q4H PRN IV 03/31/16 23:00 04/30/16 22:59 Hydralazine HCl (HydrALAZINE INJ) 10 mg Q6 PRN IV. 04/01/16 07:30 05/01/16 07:29 04/01/16 20:22 10 MG Objective Vital Signs Date Time Temp Pulse Resp B/P Pulse Ox O2 Delivery O2 Flow Rate FiO2 04/02/16 11:09 36.5 76 18 111/61 95 04/02/16 08:00 93 Nasal Cannula 2.0 04/02/16 07:11 36.6 73 18 117/70 94 Nasal Cannula 2.0 04/02/16 04:00 Nasal Cannula 2.0 04/02/16 02:54 36.6 80 20 128/79 96 Nasal Cannula 2.0 04/02/16 00:00 Nasal Cannula 2.0 04/01/16 22:52 36.6 87 22 130/72 95 Nasal Cannula 2.0 04/01/16 20:00 Nasal Cannula 2.0 04/01/16 19:41 37.0 81 22 168/75 96 Nasal Cannula 2.0 04/01/16 16:00 Nasal Cannula 2.0 04/01/16 15:17 37.2 90 18 142/74 94 Nasal Cannula 2.0 Physical Exam General Appearance: WD/WN, no apparent distress Eyes: PERRL, EOMI, sclerae normal, + pertinent finding (Ptosis bilat) ENT: + pertinent finding (CAHUILLA) Neck: supple, no JVD, trachea midline Respiratory/Chest: lungs clear, no respiratory distress, no accessory muscle use Cardiovascular: regular rate, rhythm, no gallop, no murmur Abdomen: normal bowel sounds, non tender, soft Extremities: no pedal edema, no calf tenderness Neurologic/Psychiatric: alert Skin: normal color, warm/dry, + pertinent finding (ecchymosis of upper extremities with scattered superficial skin tears) Laboratory Results Last 24 Hours Test 04/01/16 16:15 04/01/16 18:30 04/01/16 20:03 04/02/16 05:17 Bedside Glucose 171 mg/dl 132 mg/dl Urine Color YELLOW Urine Appearance CLOUDY Urine pH 5.0 Urine Specific [place] 1.017 Urine Protein 1+ Urine Glucose (UA) NEG Urine Ketones 1+ Urine Occult Blood 3+ Urine Nitrite NEG Urine Bilirubin NEG Urine Urobilinogen NEG Urine Leukocyte Esterase MODERATE Urine WBC (Auto) 10-30 /hpf Urine RBC (Auto) >30 /hpf Urine Hyaline Casts (Auto) 10-30 /lpf Urine Epithelial Cells (Auto) >30 /lpf Urine Bacteria (Auto) NEG Urine Renal Epithelial Cells 0-5 /lpf Urine Mucus PRESENT Urine Yeast (Auto) White Blood Count 7.22 K/uL Red Blood Count 5.01 M/uL Hemoglobin 15.5 g/dL Hematocrit 45.0 % Mean Corpuscular Volume 89.8 fL Mean Corpuscular Hemoglobin 30.9 pg Mean Corpuscular Hemoglobin Concent 34.4 g/dl Platelet Count 206 K/uL Mean Platelet Volume 10.3 fL Neutrophils (%) (Auto) 77.7 % Lymphocytes (%) (Auto) 11.5 % Monocytes (%) (Auto) 10.4 % Eosinophils (%) (Auto) 0.0 % Basophils (%) (Auto) 0.3 % Neutrophils # (Auto) 5.61 K/uL Lymphocytes # (Auto) 0.83 K/uL Monocytes # (Auto) 0.75 K/uL Eosinophils # (Auto) 0.00 K/uL Basophils # (Auto) 0.02 K/uL RDW Standard Deviation 47.3 fL RDW Coefficient of Variation 14.6 % Immature Granulocyte % (Auto) 0.1 % Immature Granulocyte # (Auto) 0.01 K/uL Sodium Level 143 mmol/L Potassium Level 3.6 mmol/L Chloride Level 110 mmol/L Carbon Dioxide Level 24 mmol/L Anion Gap 9.0 mmol/L Blood Urea Nitrogen 24 mg/dl Creatinine 1.10 mg/dl Est Creatinine Clear Calc Drug Dose 57.2 ml/min Estimated GFR () 74.7 Estimated GFR (Non- 64.4 BUN/Creatinine Ratio 21.9 Random Glucose 152 mg/dl Calcium Level 7.9 mg/dl Magnesium Level 1.8 mg/dl Test 04/02/16 07:01 04/02/16 11:07 Bedside Glucose 146 mg/dl 168 mg/dl Assessment and Plan This is a 75 yo m suffering from a subacute infarct. Hypertensive Encephalopathy 2/2 Subacute L Parietal Infarct: IMPROVED - Plavix 75 mg daily - Hydralazine 10 mg IV PRN with additional home Lisinopril 20 mg daily and Lasix 40 mg daily - PRN Haldol and Lorazepam for agitation - patient is on 1:1 - hopefully will not be necessary for remainder of stay -- Will monitor mentation throughout day - Neurology following T2DM: - Continue to hold Ascarbose, Januvia and Metformin - SSI - goal range 120-180; correction factor 30; carb ratio 10 - BSG AC HS Hypothyroid - Synthroid 75 mcg daily DVT Prophylaxis - SCD Code Status: - FULL RESUSCITATION Disposition: - Will continue to monitor for changes in mentation over next 24 hours - PT/OT evaluations - did well with PT today as was steady but notes of impulsiveness -- Inpatient rehab may not be necessary
[2016-04-03] VITALS (10 sets, daily range): BP systolic 122–181; BP diastolic 73–98; PULSE 61–94; TEMP 36.4–37.1; O2SAT 94–98
[2016-04-03] MEDS: LEVOTHYROXINE 75 MCG TAB PO SCH (06:13)
[2016-04-03 06:18] LABS: HEMATOCRIT 45.5 % (42-52); MEAN CELL VOLUME 90.5 fL (80-100); MEAN CORPUSCULAR HEMOGLOBIN 30.8 pg (25-34); MEAN CORPUSCULAR HGB CONC 34.1 g/dl (32-36); MEAN PLATELET VOLUME 10.3 fL (7.4-10.4); PLATELET COUNT 218 K/uL (130-400); RED BLOOD COUNT 5.03 M/uL (4.7-6.1); WHITE BLOOD COUNT 7.78 K/uL (4.8-10.8)
[2016-04-03 06:47] LABS: BUN/CREATININE RATIO 27.2 (10-20); CALCIUM 8.4 mg/dl (8.5-10.1); CREATININE 1.1 mg/dl (0.60-1.40); POTASSIUM 3.6 mmol/L (3.5-5.1)
[2016-04-03] MEDS: INSULIN ASPART 100 UNITS/ML 3 ML PEN SC SCH ×4 (07:00→20:15)
[2016-04-03] MEDS: LISINOPRIL 20 MG TAB PO SCH (07:43)
[2016-04-03] MEDS: FUROSEMIDE 40 MG TAB PO SCH (07:43)
[2016-04-03] MEDS: CLOPIDOGREL BISULFATE 75 MG TAB PO SCH (07:43)
[2016-04-03] MEDS: HALOPERIDOL LACTATE 5 MG/ML 1 ML VIAL IM PRN (10:38)
[2016-04-03] MEDS ORDERED: HALOPERIDOL LACTATE 5 MG/ML 1 ML VIAL IM STA (12:16)
--- NOTE | 2016-04-03 13:08 | Progress Note ---
Subjective Date of Service: Apr 03, 2016. Subjective Pt evaluation today including: conversation w/ patient, conversation w/ family (daughter Melina), physical exam, lab review, review of inpatient medication list Pain: denies pain PO Intake: adequate Voiding: no voiding problems patient was doing well this morning, cagle was pulled, ambulated in [place] with therapy then he started to get agitated and aggressive in the hallway, combative with staff cause he wanted to leave discussed that he was going to go to rehab, he does not want to go focused on going home "because I have a lot of stuff to take care of, want to go to [facility] tomorrow" he became so combative that security had to place him in bed, Haldol IM given as well as Ativan discussed with daughter Melina over phone, difficult family situation, not sure could care for him Problem List Medical Problems: (1) Angina Pectoris Nec/Nos Status: Chronic (2) CVA (cerebral vascular accident) Status: Acute (3) Diab Gela Wo Compl, Type Ii Or Unspec Type, Not Uncntrld Status: Chronic (4) Esophageal Reflux Status: Chronic (5) Hyperlipidemia Nec/Nos Status: Chronic (6) Hypertension Nos Status: Chronic (7) Hypothyroidism Nos Status: Chronic Review of Systems Neurologic: + memory loss, + numbness/tingling (right hand), + problem reported (confused, agitated, aggressive and combative) All Other Systems: Reviewed and Negative Medications Current Inpatient Medications Medications (Trade) Dose Ordered Sig/Parris Route Start Time Stop Time Status Last Admin Dose Admin Miscellaneous Information (Pharmacist Discharge Med Rec Consult) 1 ea UD PRN N/A 03/30/16 22:15 04/29/16 22:14 Acetaminophen (Tylenol Tab) 650 mg Q4H PRN PO 03/30/16 22:15 04/29/16 22:14 Ondansetron HCl (Zofran Inj) 4 mg Q6H PRN IV 03/30/16 22:15 04/29/16 22:14 Furosemide (Lasix Tab) 40 mg DAILY PO 03/31/16 09:00 04/30/16 08:59 04/03/16 07:43 40 MG Levothyroxine Sodium (Synthroid Tab) 75 mcg DAILYBB PO 03/31/16 06:00 04/30/16 06:59 04/03/16 06:13 75 MCG Lisinopril (Zestril Tab) 20 mg DAILY PO 03/31/16 09:00 04/30/16 08:59 04/03/16 07:43 20 MG Insulin Aspart (novoLOG ASPART) SLIDING SCALE G... ACHS SC 03/31/16 07:00 04/30/16 06:59 04/03/16 11:00 2 UNITS Ioversol (Optiray 320) 111 ml UD PRN IV 03/30/16 22:15 04/03/16 22:14 Glucose (Glucose 40% Gel) 15-30 GRAMS 15 GRAMS... UD PRN PO 03/30/16 22:45 04/29/16 22:44 Glucose (Glucose Chew Tab) 4-8 Tablets 4 Tabl... UD PRN PO 03/30/16 22:45 04/29/16 22:44 Dextrose (Dextrose 50% 50ML Syringe) 25-50ML OF 50% DW IV FOR... UD PRN IV 03/30/16 22:45 04/29/16 22:44 Glucagon (Glucagon Inj) 1 mg UD PRN SQ 03/30/16 22:45 04/29/16 22:44 Clopidogrel Bisulfate (plAVix TAB) 75 mg QAM PO 04/01/16 09:00 05/01/16 08:59 04/03/16 07:43 75 MG Lorazepam (Ativan Inj) 1 mg Q4H PRN IV 03/31/16 23:00 04/30/16 22:59 Hydralazine HCl (HydrALAZINE INJ) 10 mg Q6 PRN IV. 04/01/16 07:30 05/01/16 07:29 04/01/16 20:22 10 MG Ketorolac Tromethamine (Toradol Inj) 30 mg Q6H PRN IV 04/03/16 10:30 04/08/16 10:29 Haloperidol Lactate (Haldol Inj) 5 mg Q3H PRN IM 04/03/16 15:00 05/03/16 14:59 Objective Vital Signs Date Time Temp Pulse Resp B/P Pulse Ox O2 Delivery O2 Flow Rate FiO2 04/03/16 11:28 36.4 61 18 161/98 96 Room Air 04/03/16 08:00 94 Room Air 04/03/16 08:00 36.9 75 18 122/78 94 Room Air 04/03/16 06:46 36.9 75 15 122/78 94 Room Air 04/03/16 04:44 151/78 04/03/16 04:16 36.8 88 18 95 Room Air 04/03/16 04:00 Room Air 04/03/16 00:00 Room Air 04/02/16 23:13 36.9 73 18 115/73 96 Room Air 04/02/16 20:00 Room Air 04/02/16 19:16 36.7 78 16 138/84 94 Room Air 04/02/16 16:00 93 Nasal Cannula 2.0 04/02/16 16:00 74 04/02/16 14:58 36.3 74 18 132/72 95 Room Air Physical Exam General Appearance: WD/WN, no apparent distress Neck: supple, no adenopathy, no JVD, trachea midline Respiratory/Chest: chest non-tender, lungs clear, normal breath sounds, no respiratory distress, no accessory muscle use Cardiovascular: regular rate, rhythm, no edema, no gallop, no JVD, no murmur Abdomen: normal bowel sounds, non tender, soft, no organomegaly Extremities: normal range of motion, non-tender, normal inspection, no pedal edema, no calf tenderness Neurologic/Psychiatric: travel guide II-XII nml as tested, no motor/sensory deficits, + depressed affect, + disoriented, + pertinent finding (angry and combative with staff) Skin: normal color, warm/dry, no rash Lymphatic: no adenopathy Laboratory Results Last 24 Hours Test 04/02/16 16:55 04/02/16 20:23 04/03/16 05:32 04/03/16 06:44 Bedside Glucose 128 mg/dl 197 mg/dl 164 mg/dl White Blood Count 7.78 K/uL Red Blood Count 5.03 M/uL Hemoglobin 15.5 g/dL Hematocrit 45.5 % Mean Corpuscular Volume 90.5 fL Mean Corpuscular Hemoglobin 30.8 pg Mean Corpuscular Hemoglobin Concent 34.1 g/dl RDW Standard Deviation 49.5 fL RDW Coefficient of Variation 15.1 % Platelet Count 218 K/uL Mean Platelet Volume 10.3 fL Sodium Level 144 mmol/L Potassium Level 3.6 mmol/L Chloride Level 112 mmol/L Carbon Dioxide Level 22 mmol/L Anion Gap 10.0 mmol/L Blood Urea Nitrogen 30 mg/dl Creatinine 1.10 mg/dl Est Creatinine Clear Calc Drug Dose 57.4 ml/min Estimated GFR () 74.7 Estimated GFR (Non- 64.4 BUN/Creatinine Ratio 27.2 Random Glucose 166 mg/dl Calcium Level 8.4 mg/dl Test 04/03/16 11:14 Bedside Glucose 190 mg/dl Assessment and Plan 75 yo male with subacute stroke, presenting with right hand weakness and numbness but primarily delirium, agitation, violent behavior and some aphasia. - Left parietal subacute stroke, causing aphasia, right UE weakness, and initially encephalopathy/delirium repeat MRI shows modest increase in size of stroke and minimal increase in edema, no evidence of hemorrhagic conversion carotid doppler shows plaque but no stenosis echo normal continue Plavix as single antiplatelet agent, will stop aspirin BP 140-160 and then further control as outpatient, goal will be < 140 systolic continue telemetry monitoring while inpatient looking into rehabilitation, patient and family prefer [facility], looking for insurance authorization - Encephalopathy/delirium: was calm this morning, discussed plan for discharge and he did not want to go to rehab then became violent with staff, had to be restrained, Haldol and Ativan given Ativan makes more confused, discontinued Haldol changed to 5mg IM q3 PRN soft restraints again ordered updated daughter of situation - Hypothyroidism: Synthroid - DM type II: oral medications on hold, use Novolog SS, diabetic diet - DVT prophylaxis: Lovenox Plan: keep on tele for now, eventually needs to go to rehab but patient not agreeable, difficult living situation according to daughter, issues with patient 's unsure if he can go home, clearly he still has issues with confusion and agitation basic delirium measures to try to improve mentation
[2016-04-03] MEDS ORDERED: HALOPERIDOL LACTATE 5 MG/ML 1 ML VIAL IM PRN (15:00)
[2016-04-03] MEDS ORDERED: NURSING VERBAL MED ORDER ONE (17:15)
[2016-04-03] MEDS: HydrALAZINE HCL 20 MG/ML VIAL IV. PRN (19:24)
[2016-04-04] VITALS (11 sets, daily range): BP systolic 101–158; BP diastolic 62–80; PULSE 61–88; TEMP 36.4–36.9; O2SAT 95–99
[2016-04-04] MEDS: LEVOTHYROXINE 75 MCG TAB PO SCH (06:34)
[2016-04-04] MEDS: INSULIN ASPART 100 UNITS/ML 3 ML PEN SC SCH ×4 (07:00→20:41)
[2016-04-04] MEDS: FUROSEMIDE 40 MG TAB PO SCH (08:17)
[2016-04-04] MEDS: CLOPIDOGREL BISULFATE 75 MG TAB PO SCH (08:17)
[2016-04-04] MEDS: LISINOPRIL 20 MG TAB PO SCH (08:17)
[2016-04-04] MEDS: ENOXAPARIN 40 MG/0.4 ML SYR SQ SCH (08:18)
[2016-04-04] MEDS: KETOROLAC TROMETHAMINE 30 MG/ML VIAL IV PRN ×2 (10:13→19:16)
--- NOTE | 2016-04-04 11:08 | Progress Note ---
Subjective Date of Service: Apr 04, 2016. Subjective Pt evaluation today including: conversation w/ patient, physical exam, chart review, lab review, review of inpatient medication list Patient seen and evaluated. Patient with increased agitation again last night required Haldol and restraints. Patient currently calm and cooperative sitting in chair. Reports RUE not baseline but motion is adequate. Verbalizes no further complaints. Is agreeable to rehab. Problem List Medical Problems: (1) Angina Pectoris Nec/Nos Status: Chronic (2) CVA (cerebral vascular accident) Status: Acute (3) Diab Gela Wo Compl, Type Ii Or Unspec Type, Not Uncntrld Status: Chronic (4) Esophageal Reflux Status: Chronic (5) Hyperlipidemia Nec/Nos Status: Chronic (6) Hypertension Nos Status: Chronic (7) Hypothyroidism Nos Status: Chronic Review of Systems Constitutional: No chills, No fever Eyes: No worsening of vision Respiratory: No shortness of breath Cardiac: No chest pain Abdomen: No nausea, No pain, No vomiting Musculoskeletal: No calf pain Male : No dysuria Endo: No fatigue Skin: No rash Medications Current Inpatient Medications Medications (Trade) Dose Ordered Sig/Parris Route Start Time Stop Time Status Last Admin Dose Admin Miscellaneous Information (Pharmacist Discharge Med Rec Consult) 1 ea UD PRN N/A 03/30/16 22:15 04/29/16 22:14 Acetaminophen (Tylenol Tab) 650 mg Q4H PRN PO 03/30/16 22:15 04/29/16 22:14 Ondansetron HCl (Zofran Inj) 4 mg Q6H PRN IV 03/30/16 22:15 04/29/16 22:14 Furosemide (Lasix Tab) 40 mg DAILY PO 03/31/16 09:00 04/30/16 08:59 04/04/16 08:17 40 MG Levothyroxine Sodium (Synthroid Tab) 75 mcg DAILYBB PO 03/31/16 06:00 04/30/16 06:59 04/04/16 06:34 75 MCG Lisinopril (Zestril Tab) 20 mg DAILY PO 03/31/16 09:00 04/30/16 08:59 04/04/16 08:17 20 MG Insulin Aspart (novoLOG ASPART) SLIDING SCALE G... ACHS SC 03/31/16 07:00 04/30/16 06:59 04/04/16 07:00 5 UNITS Glucose (Glucose 40% Gel) 15-30 GRAMS 15 GRAMS... UD PRN PO 03/30/16 22:45 04/29/16 22:44 Glucose (Glucose Chew Tab) 4-8 Tablets 4 Tabl... UD PRN PO 03/30/16 22:45 04/29/16 22:44 Dextrose (Dextrose 50% 50ML Syringe) 25-50ML OF 50% DW IV FOR... UD PRN IV 03/30/16 22:45 04/29/16 22:44 Glucagon (Glucagon Inj) 1 mg UD PRN SQ 03/30/16 22:45 04/29/16 22:44 Clopidogrel Bisulfate (plAVix TAB) 75 mg QAM PO 04/01/16 09:00 05/01/16 08:59 04/04/16 08:17 75 MG Hydralazine HCl (HydrALAZINE INJ) 10 mg Q6 PRN IV. 04/01/16 07:30 05/01/16 07:29 04/03/16 19:24 10 MG Ketorolac Tromethamine (Toradol Inj) 30 mg Q6H PRN IV 04/03/16 10:30 04/08/16 10:29 04/04/16 10:13 30 MG Haloperidol Lactate (Haldol Inj) 5 mg Q3H PRN IM 04/03/16 15:00 05/03/16 14:59 04/03/16 18:07 5 MG Enoxaparin Sodium (Lovenox Inj) 40 mg QAM SQ 04/04/16 09:00 05/04/16 08:59 04/04/16 08:18 40 MG Objective Vital Signs Date Time Temp Pulse Resp B/P Pulse Ox O2 Delivery O2 Flow Rate FiO2 04/04/16 08:00 97 Room Air 04/04/16 06:43 36.4 84 17 158/80 97 Room Air 04/04/16 04:00 Room Air 04/04/16 03:23 36.9 76 15 119/70 97 Room Air 04/04/16 00:00 98 Room Air 04/03/16 23:00 37.1 88 16 140/91 94 Room Air 04/03/16 20:00 98 Room Air 04/03/16 19:27 36.7 94 18 181/90 98 Room Air 04/03/16 16:12 36.6 70 20 163/87 94 Room Air 04/03/16 16:00 Room Air 04/03/16 12:00 Room Air 04/03/16 11:28 36.4 61 18 161/98 96 Room Air 04/03/16 11:00 91 Physical Exam General Appearance: WD/WN, no apparent distress Eyes: sclerae normal ENT: hearing grossly normal Neck: supple, no JVD, trachea midline Respiratory/Chest: lungs clear, no respiratory distress, no accessory muscle use, + decreased breath sounds Cardiovascular: regular rate, rhythm, no gallop, no murmur Abdomen: normal bowel sounds, non tender, soft Extremities: no pedal edema Neurologic/Psychiatric: alert Skin: normal color, warm/dry Laboratory Results Last 24 Hours Test 04/03/16 11:14 04/03/16 16:50 04/03/16 20:04 04/04/16 06:42 Bedside Glucose 190 mg/dl 141 mg/dl 148 mg/dl 141 mg/dl Assessment and Plan This is a 75 yo m suffering from a subacute infarct. Hypertensive Encephalopathy 2/2 Subacute L Parietal Infarct: IMPROVED - Plavix 75 mg daily - Hydralazine 10 mg IV PRN with additional home Lisinopril 20 mg daily and Lasix 40 mg daily - PRN Haldol - patient is on 1:1 - wax and waning agitation/anxiety - Neurology following T2DM: - Continue to hold Ascarbose, Januvia and Metformin - SSI - goal range 120-180; correction factor 30; carb ratio 10 - BSG AC HS Hypothyroid - Synthroid 75 mcg daily DVT Prophylaxis - Lovenox 40 mg SC daily Code Status: - FULL RESUSCITATION Disposition: - Awaiting placement - [place]
[2016-04-05] VITALS (13 sets, daily range): BP systolic 107–160; BP diastolic 63–82; PULSE 60–69; TEMP 36.4–37.2; O2SAT 91–96
[2016-04-05] MEDS: LEVOTHYROXINE 75 MCG TAB PO SCH (05:29)
[2016-04-05] MEDS: INSULIN ASPART 100 UNITS/ML 3 ML PEN SC SCH ×4 (07:00→20:31)
[2016-04-05] MEDS: CLOPIDOGREL BISULFATE 75 MG TAB PO SCH (09:20)
[2016-04-05] MEDS: LISINOPRIL 20 MG TAB PO SCH (09:20)
[2016-04-05] MEDS: FUROSEMIDE 40 MG TAB PO SCH (09:20)
[2016-04-05] MEDS: ENOXAPARIN 40 MG/0.4 ML SYR SQ SCH (09:21)
--- NOTE | 2016-04-05 09:46 | Neurology Progress Notes ---
Neurology Progress Note Date of Service Apr 05, 2016. Subjective The patient believes that he is doing better today. He has some better strength in his right upper extremity and hand than he did on admission. It is still weak, however. He does not believe there is any weakness in either leg or the left arm. He has no pain in his limbs although there is some low back pain that started overnight. He believes that he is thinking sharper than he was before over the last couple of days. He has no nausea, vomiting, vision problems, or vertigo. His walking is better and he has been up ambulating in the halls with a walker. He still thinks his gait is a little bit unsteady. He had some numbness in his right upper extremity last evening but that is improved this morning. Nursing reports no new issues or problems. He's had no seizures. Objective Date Time Temp Pulse Resp B/P Pulse Ox O2 Delivery O2 Flow Rate FiO2 04/05/16 07:50 37.2 60 18 156/80 93 Room Air 04/05/16 04:00 96 Room Air 04/05/16 03:45 36.6 68 18 129/82 91 Room Air 04/05/16 00:04 36.8 60 17 107/63 96 Room Air 04/04/16 23:59 96 Room Air 04/04/16 19:05 Room Air 04/04/16 19:00 83 134/70 95 Room Air 04/04/16 16:00 99 Room Air 04/04/16 15:15 36.4 70 19 101/62 99 Room Air 04/04/16 12:07 36.7 61 18 110/64 96 Room Air 04/04/16 12:00 96 Room Air Last 24 Hours Test 04/04/16 11:11 04/04/16 15:57 04/04/16 20:22 04/05/16 06:43 Bedside Glucose 164 mg/dl 130 mg/dl 157 mg/dl 153 mg/dl Imaging: Brain MRI WITHOUT CONTRAST HISTORY: Stroke stroke, worsening deficits TECHNIQUE: Multiplanar multisequence MRI of the brain was performed without the use of contrast. COMPARISON STUDY: 03/29/2016 FINDINGS: Subtle increase in diffusion and reactive vasogenic edema surrounding the left posterior parietal occipital infarct produces described. This may indicate a slight interval extension of the infarct. There are no additional or new or significant findings are present. Ventricular system remains midline. There is no midline shift. IMPRESSION: 1. Very subtle increase in size of the subacute infarct left parieto-occipital junction. 2. Slight to very mild increase in surrounding reactive edema. 3. Study otherwise remains stable Electronically signed by: Connor Castillo M.D. 03/31/2016 3:37 PM Exam: The patient is somewhat hard of hearing and wears a hearing aid. He is awake and alert and his speech is without any significant aphasia or dysarthria. He follows commands well and is reasonable memory for conversation. He is pleasant and cooperative. He can do calculations. Pupils are 3 mm bilaterally reactive to light. Extra ocular eye muscles are intact without nystagmus. There is no facial droop. Tongue is midline with good strength bilaterally. There is good facial symmetry and strength and good sensation of the face bilaterally. With outstretched arms there is very mild drift on the right. There is decreased facility and clumsiness in the right hand compared to the left. Strength is 4/5 in the right upper extremity compared to the left which is 5/5. Leg strength seems essentially 5/5 bilaterally. Reflexes are decreased in all 4 limbs and are fairly symmetrical. Toes are downgoing with plantar stimulation bilaterally. Gait is narrow based and somewhat unsteady and he uses a walker for support. Current Inpatient Medications Medications (Trade) Dose Ordered Sig/Parris Route Start Time Stop Time Status Last Admin Dose Admin Miscellaneous Information (Pharmacist Discharge Med Rec Consult) 1 ea UD PRN N/A 03/30/16 22:15 04/29/16 22:14 Acetaminophen (Tylenol Tab) 650 mg Q4H PRN PO 03/30/16 22:15 04/29/16 22:14 Ondansetron HCl (Zofran Inj) 4 mg Q6H PRN IV 03/30/16 22:15 04/29/16 22:14 Furosemide (Lasix Tab) 40 mg DAILY PO 03/31/16 09:00 04/30/16 08:59 04/05/16 09:20 40 MG Levothyroxine Sodium (Synthroid Tab) 75 mcg DAILYBB PO 03/31/16 06:00 04/30/16 06:59 04/05/16 05:29 75 MCG Lisinopril (Zestril Tab) 20 mg DAILY PO 03/31/16 09:00 04/30/16 08:59 04/05/16 09:20 20 MG Insulin Aspart (novoLOG ASPART) SLIDING SCALE G... ACHS SC 03/31/16 07:00 04/30/16 06:59 04/05/16 07:00 4 UNITS Glucose (Glucose 40% Gel) 15-30 GRAMS 15 GRAMS... UD PRN PO 03/30/16 22:45 04/29/16 22:44 Glucose (Glucose Chew Tab) 4-8 Tablets 4 Tabl... UD PRN PO 03/30/16 22:45 04/29/16 22:44 Dextrose (Dextrose 50% 50ML Syringe) 25-50ML OF 50% DW IV FOR... UD PRN IV 03/30/16 22:45 04/29/16 22:44 Glucagon (Glucagon Inj) 1 mg UD PRN SQ 03/30/16 22:45 04/29/16 22:44 Clopidogrel Bisulfate (plAVix TAB) 75 mg QAM PO 04/01/16 09:00 05/01/16 08:59 04/05/16 09:20 75 MG Hydralazine HCl (HydrALAZINE INJ) 10 mg Q6 PRN IV. 04/01/16 07:30 05/01/16 07:29 04/03/16 19:24 10 MG Ketorolac Tromethamine (Toradol Inj) 30 mg Q6H PRN IV 04/03/16 10:30 04/08/16 10:29 04/04/16 19:16 30 MG Haloperidol Lactate (Haldol Inj) 5 mg Q3H PRN IM 04/03/16 15:00 05/03/16 14:59 04/03/16 18:07 5 MG Enoxaparin Sodium (Lovenox Inj) 40 mg QAM SQ 04/04/16 09:00 05/04/16 08:59 04/05/16 09:21 40 MG Impression 1. Subacute left posterior parietal stroke with onset likely in late February. MRI last week shows some edema around the stroke. He had considerable confusion /encephalopathy last week and this is markedly improved today. He continues to have right upper extremity weakness but has no other significant neurologic deficits on examination. He has a history of hypertension and diabetes which are risk factors for stroke. There is some very mild dyslipidemia as well. He is on aspirin and Plavix CT angiography of the neck showed some plaque with no significant stenosis. CT angiography of the head revealed some significant stenotic areas in the middle and posterior cerebral artery distribution bilaterally. Carotid ultrasound was unremarkable Echocardiogram is unremarkable NIHSS is 1 2. Acute encephalopathy Markedly improved. 3. Hypertension -blood pressure is under reasonable control currently. 4. Diabetes, with mildly elevated glucoses. Plan 1. Continue physical and occupational therapy with increased activity. 2. Consider rehabilitation hospital stay versus discharge to home with daily physical therapy as an outpatient 3. Continue controlling blood pressure and sugar is is being done 4. Consider a low-dose statin for his mild dyslipidemia. Avoid high-dose statins. 5. I see no reason for additional neurologic testing or treatment at this time. 6. Continue with 81 mg aspirin and 75 mg clopidogrel for now. After 2 months, I would discontinue the aspirin and stay on clopidogrel alone. Patient will follow up with Dr. Howell as an outpatient.
--- NOTE | 2016-04-05 11:33 | Progress Note ---
Subjective Date of Service: Apr 05, 2016. Subjective Pt evaluation today including: conversation w/ patient, physical exam, chart review, lab review, review of studies, review of inpatient medication list May have a little difficulty in finding words when conversation, however most any speech is okay, reported up and walk with supervision, but improved a lot Problem List Medical Problems: (1) Angina Pectoris Nec/Nos Status: Chronic (2) CVA (cerebral vascular accident) Status: Acute (3) Diab Gela Wo Compl, Type Ii Or Unspec Type, Not Uncntrld Status: Chronic (4) Esophageal Reflux Status: Chronic (5) Hyperlipidemia Nec/Nos Status: Chronic (6) Hypertension Nos Status: Chronic (7) Hypothyroidism Nos Status: Chronic Review of Systems Constitutional: + fatigue, + weakness, No chills, No fever, No problem reported , No sweats, No weight loss Eyes: No diplopia, No discharge, No eye pain, No redness, No worsening of vision ENT: No dental problems, No hearing loss, No nasal symptoms, No sore throat, No tinnitus, No trouble swallowing, No unusual epistaxis Respiratory: No cough, No dyspnea at rest, No dyspnea on exertion, No hemoptysis, No shortness of breath, No sputum, No wheezing Cardiac: No PND, No chest pain, No claudication, No edema, No orthopnea, No palpitations Abdomen: No constipation, No diarrhea, No nausea, No pain, No vomiting Musculoskeletal: No calf pain, No joint pain, No muscle pain, No swelling Male : No dysuria, No hematuria, No incontinence, No nocturia more than once/ night, No slowing stream, No urinary frequency Neurologic: + weakness (right upper extremity is not new), No balance problems , No memory loss, No numbness/tingling, No paralysis, No vertigo Psychiatric: No anhedonism, No anxiety, No depression symptoms, No insomnia, No substance abuse Heme: No abnormal bleeding/bruising, No clotting problems, No night sweats, No swollen lymph nodes Endo: No excessive thirst, No excessive urination, No fatigue Skin: No bleeding, No color change, No itch, No new/changing skin lesions, No rash Objective Vital Signs Date Time Temp Pulse Resp B/P Pulse Ox O2 Delivery O2 Flow Rate FiO2 04/05/16 08:00 93 Room Air 04/05/16 07:50 37.2 60 18 156/80 93 Room Air 04/05/16 04:00 96 Room Air 04/05/16 03:45 36.6 68 18 129/82 91 Room Air 04/05/16 00:04 36.8 60 17 107/63 96 Room Air 04/04/16 23:59 96 Room Air 04/04/16 19:05 Room Air 04/04/16 19:00 83 134/70 95 Room Air 04/04/16 16:00 99 Room Air 04/04/16 15:15 36.4 70 19 101/62 99 Room Air 04/04/16 12:07 36.7 61 18 110/64 96 Room Air 04/04/16 12:00 96 Room Air Physical Exam General Appearance: WD/WN, no apparent distress Eyes: normal inspection, PERRL, EOMI, sclerae normal ENT: normal ENT inspection, hearing grossly normal, pharynx normal Neck: supple, no adenopathy, thyroid normal, no JVD, no carotid bruits, trachea midline Respiratory/Chest: chest non-tender, lungs clear, normal breath sounds, no respiratory distress, no accessory muscle use Cardiovascular: regular rate, rhythm, no edema, no gallop, no JVD, no murmur Abdomen: normal bowel sounds, non tender, soft, no organomegaly, no pulsatile mass Extremities: normal range of motion, non-tender, normal inspection, no pedal edema, no calf tenderness, normal capillary refill, pelvis stable Neurologic/Psychiatric: 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 - Left parietal subacute stroke, causing aphasia, right UE weakness, and intermittent encephalopathy/delirium repeat MRI on 03/31 shows modest increase in size of stroke and minimal increase in edema, no evidence of hemorrhagic conversion carotid doppler shows plaque but no stenosis echo normal continue Plavix plus aspirin, for now, will stop aspirin in 2 months per recommendation of neurologist BP 140-160 and then further control as outpatient, goal will be < 140 systolic continue telemetry monitoring while inpatient looking into rehabilitation, patient and family prefer [facility], looking for insurance authorization - Encephalopathy/delirium: Totally resolved He was violent and combative requiring Haldol and restraints 2 days much calmer, cooperative, and agreeable to rehab - mild dyslipidemia, may consider a low-dose statin for his mild dyslipidemia, Avoid high-dose statins. However his total cholesterol less than 200, and he is LDL less than 100, I don't believe we need to put on any stenting for now, he also has listed allergy to statin , therefore I will not start any statin for now - Hypothyroidism: Synthroid - DM type II: oral medications on hold, use Novolog SS, diabetic diet - DVT prophylaxis: Lovenox Discussed with patient, registered nurse, Because patient is significant improve, other options can be home healthcare, will talk to PT OT to see if safe to go home are not Continued [facility] stay due to: home environment unsafe for pt Discharge planning: rehab hospital
[2016-04-06] VITALS: BP 136/76; PULSE 68; TEMP 36.7; O2SAT 95
[2016-04-06] MEDS: LEVOTHYROXINE 75 MCG TAB PO SCH (06:12)
[2016-04-06 07:35] VITALS: BP 174/96; PULSE 72; TEMP 36.7; O2SAT 94
[2016-04-06] MEDS: LISINOPRIL 20 MG TAB PO SCH (07:50)
[2016-04-06] MEDS: FUROSEMIDE 40 MG TAB PO SCH (07:50)
[2016-04-06] MEDS: ASPIRIN 81 MG ECTAB PO SCH (07:50)
[2016-04-06] MEDS: CLOPIDOGREL BISULFATE 75 MG TAB PO SCH (07:50)
[2016-04-06] MEDS: ENOXAPARIN 40 MG/0.4 ML SYR SQ SCH (07:51)
[2016-04-06] MEDS: INSULIN ASPART 100 UNITS/ML 3 ML PEN SC SCH ×4 (09:21→21:00)
--- NOTE | 2016-04-06 12:21 | Progress Note ---
Subjective Date of Service: Apr 06, 2016. Subjective Pt evaluation today including: conversation w/ patient, physical exam, chart review, lab review, review of studies, conversation w/ it security consultant, review of inpatient medication list Sitting up in chair, talked with friends, reported right upper extremity weakness, is the same as yesterday, no other complaints, eating walking okay Problem List Medical Problems: (1) Angina Pectoris Nec/Nos Status: Chronic (2) CVA (cerebral vascular accident) Status: Acute (3) Diab Gela Wo Compl, Type Ii Or Unspec Type, Not Uncntrld Status: Chronic (4) Esophageal Reflux Status: Chronic (5) Hyperlipidemia Nec/Nos Status: Chronic (6) Hypertension Nos Status: Chronic (7) Hypothyroidism Nos Status: Chronic Review of Systems Constitutional: + fatigue, + weakness, No chills, No fever, No problem reported , No sweats, No weight loss Eyes: No diplopia, No discharge, No eye pain, No redness, No worsening of vision ENT: No dental problems, No hearing loss, No nasal symptoms, No sore throat, No tinnitus, No trouble swallowing, No unusual epistaxis Respiratory: No cough, No dyspnea at rest, No dyspnea on exertion, No hemoptysis, No shortness of breath, No sputum, No wheezing Cardiac: No PND, No chest pain, No claudication, No edema, No orthopnea, No palpitations Abdomen: No constipation, No diarrhea, No nausea, No pain, No vomiting Musculoskeletal: No calf pain, No joint pain, No muscle pain, No swelling Male : No dysuria, No hematuria, No incontinence, No nocturia more than once/ night, No slowing stream, No urinary frequency Neurologic: + balance problems, + weakness, No memory loss, No numbness/ tingling, No paralysis, No vertigo Psychiatric: No anhedonism, No anxiety, No depression symptoms, No insomnia, No substance abuse Heme: No abnormal bleeding/bruising, No clotting problems, No night sweats, No swollen lymph nodes Endo: No excessive thirst, No excessive urination, No fatigue Skin: No bleeding, No color change, No itch, No new/changing skin lesions, No rash Objective Vital Signs Date Time Temp Pulse Resp B/P Pulse Ox O2 Delivery O2 Flow Rate FiO2 04/06/16 11:02 Room Air 04/06/16 07:35 36.7 72 18 174/96 94 Room Air 04/06/16 00:00 36.7 68 18 136/76 95 Room Air 04/05/16 23:59 Room Air 04/05/16 20:58 36.4 62 18 150/79 96 Room Air 04/05/16 19:43 36.5 65 20 160/77 95 Room Air 04/05/16 19:34 36.6 60 20 96 04/05/16 19:33 36.6 60 20 96 2.0 04/05/16 16:00 96 Room Air 04/05/16 15:43 36.6 60 20 144/72 96 Room Air Physical Exam General Appearance: WD/WN, no apparent distress Eyes: normal inspection, PERRL, EOMI, sclerae normal ENT: normal ENT inspection, hearing grossly normal, pharynx normal Neck: supple, no adenopathy, thyroid normal, no JVD, no carotid bruits, trachea midline Respiratory/Chest: chest non-tender, normal breath sounds, no respiratory distress, no accessory muscle use, + decreased breath sounds Cardiovascular: regular rate, rhythm, no edema, no gallop, no JVD, no murmur Abdomen: normal bowel sounds, non tender, soft, no organomegaly, no pulsatile mass Extremities: normal range of motion, non-tender, normal inspection, no pedal edema, no calf tenderness, normal capillary refill, pelvis stable Neurologic/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: 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, no motor/sensory deficits, alert, normal mood/affect, oriented x 3, + motor weakness (5-/5 in right upper extremity) Skin: normal color, warm/dry, no rash Lymphatic: no adenopathy Laboratory Results Last 24 Hours Test 04/05/16 15:43 04/05/16 20:20 04/06/16 07:52 04/06/16 11:30 Bedside Glucose 125 mg/dl 146 mg/dl 160 mg/dl 166 mg/dl Assessment and Plan 75 yo male with subacute stroke, admitted on 03/30/2016 with right hand weakness and numbness but primarily delirium, agitation, violent behavior and some aphasia, which has been totally resolved her in 3 days - Left parietal subacute stroke, causing aphasia, right UE weakness, stable and improving repeat MRI on 03/31 shows modest increase in size of stroke and minimal increase in edema, no evidence of hemorrhagic conversion carotid doppler shows plaque but no stenosis echo normal continue Plavix plus aspirin, for now, will stop aspirin in 2 months per recommendation of neurologist BP 140-160 and then further control as outpatient, goal will be < 140 systolic continue telemetry monitoring while inpatient looking into rehabilitation, patient and family prefer [facility], looking for insurance authorization - Encephalopathy/delirium: Totally resolved He was violent and combative requiring Haldol and restraints 2 days much calmer, cooperative, and agreeable to rehab - mild dyslipidemia, may consider a low-dose statin for his mild dyslipidemia, Avoid high-dose statins. However his total cholesterol less than 200, and he is LDL less than 100, I don't believe we need to put on any stenting for now, he also has listed allergy to statin , therefore I will not start any statin for now - Hypothyroidism: Synthroid - DM type II: oral medications on hold, use Novolog SS, diabetic diet - DVT prophylaxis: Lovenox Discussed with patient, registered nurse, Discussed with , who accompanies patient to go to rehabilitation, patient agreed, medically ready to go to rehabilitation, talked to case monitor Continued [facility] stay due to: home environment unsafe for pt Discharge planning: rehab hospital
[2016-04-06] MEDS ORDERED: SODIUM CHLORIDE 0.65% NA SOLN 45 ML (OCEAN) ONE (14:27)
[2016-04-06] MEDS ORDERED: SODIUM CHLORIDE 0.65% NA SOLN 45 ML (OCEAN) PRN (14:45)
[2016-04-06] MEDS ORDERED: NURSING VERBAL MED ORDER ONE (14:45)
[2016-04-06 16:00] VITALS: O2SAT 98
[2016-04-06 16:10] VITALS: BP 152/81; PULSE 68; TEMP 36.4; O2SAT 98
[2016-04-07 00:10] VITALS: BP 167/89; PULSE 67; TEMP 36.7; O2SAT 97
[2016-04-07] MEDS: LEVOTHYROXINE 75 MCG TAB PO SCH (06:05)
[2016-04-07 07:56] VITALS: BP 126/76; PULSE 83; TEMP 36.6; O2SAT 97
[2016-04-07] MEDS: CLOPIDOGREL BISULFATE 75 MG TAB PO SCH (08:00)
[2016-04-07] MEDS: ASPIRIN 81 MG ECTAB PO SCH (08:00)
[2016-04-07] MEDS: LISINOPRIL 20 MG TAB PO SCH (08:01)
[2016-04-07] MEDS: ENOXAPARIN 40 MG/0.4 ML SYR SQ SCH (08:02)
[2016-04-07] MEDS: FUROSEMIDE 40 MG TAB PO SCH (08:03)
[2016-04-07 08:18] VITALS: O2SAT 97
[2016-04-07] MEDS: INSULIN ASPART 100 UNITS/ML 3 ML PEN SC SCH ×2 (08:58→13:00)
[2016-04-07] MEDS ORDERED: ASPEC81 PO ×2 (11:45→11:50)
[2016-04-07] MEDS ORDERED: PLV75 PO (11:45)
--- NOTE | 2016-04-07 11:49 | Discharge Instructions ---
Discharge Instructions Admission Reason for Admission: Stroke Discharge Discharge Diagnosis / Problem: Left parietal subacute stroke Discharge Goals Goal(s): Decrease discomfort, Improve function, Increase independence, Improve disease control, Improve nutritional status, Learn about illness, Diagnostic testing, Therapeutic intervention, Prevent Disease Progression, Specific goals Activity Recommendations Activity Level: Up Ad Paulette Therapies: Physical Therapy, Occupational Therapy, Speech Therapy . Additional Information Patient informed of condition: Yes Advance Directives: No DNR: No Level of Care: Acute Rehab Communicable Disease: No Prognosis: Other (guarded) Marte Catheter: No Instructions / Follow-Up Instructions / Follow-Up you have Left parietal subacute stroke, you need to continue Plavix plus aspirin, for now, will stop aspirin in 2 months per recommendation of neurologist need to control Systolic BP 140-160 and then further control as outpatient, goal will be < 140 systolic you have DM type II: restarted your oral medications - you need to follow up with your primary care physician in 1 week, - follow up with Dr. Valero in 1 month - take medication as instructed, never overdose or any misuse, or take with alcohol, because misuse of medicine may cause organ damage or , call your primary care physician if have questions of medicaitons. - call your primary care physician OR go to local emergency room if has any fever/chill, chest pain, shortness of breathing, nausea/vomiting/abdominal pain , facial droop/slurry speech/local weakness, or if has any questions. - fall precaution - diet as instructed - you should understand that it is important to follow up the above instruction , and "not following the above instruction" may cause delayed or missed care of your medical conditions which may cause permanent organ damage and even . Current Hospital Diet Patient's current hospital diet: AHA Diet (Heart Healthy) Discharge Diet Recommended Diet: Diabetes Type 2 Diet Procedures Procedures Performed: no Pending Studies Studies pending at discharge: no Physician Orders On Transfer POLST Discussion: without POLST completion Laboratory Results Hemoglobin A1c Test 03/30/16 20:56 Range/Units Estimated Average Glucose 174 mg/dl Hemoglobin A1c 7.7 H 4.5-5.6 % Lipid Panel Test 03/31/16 06:24 Range/Units Triglycerides Level 153 H 0-150 mg/dl Cholesterol Level 180 0-200 mg/dl HDL Cholesterol 50 mg/dl Cholesterol/HDL Ratio 3.6 LDL Cholesterol, Calculated 99 mg/dl Medical Emergencies . Who to Call and When: Medical Emergencies: If at any time you feel your situation is an emergency, please call 911 immediately. . Non-Emergent Contact Non-Emergency issues call your: Primary Care Provider . . "Provider Documentation" section prepared by Mychal Sanchez. Core Measure Problem Core Measures: Stroke Stroke Core Measures Reason no t-PA for Stroke: Treatment not indicated Reason no antithrom by day 2: Treatment provided - N/A Reason no antithrom at D/C: Treatment provided - N/A Reason no statin at D/C: Treatment not indicated Reason no anticoag w/a fib: Treatment not indicated
--- NOTE | 2016-04-07 11:56 | Discharge Summary ---
Discharge Summary Admission Date: Mar 30, 2016 at 23:07 Discharge Date: Apr 07, 2016 Discharge Disposition: Rehab Principal Diagnosis: CVA Problems/Secondary Diagnoses: (1) Angina Pectoris Nec/Nos Status: Chronic (2) Diab Gela Wo Compl, Type Ii Or Unspec Type, Not Uncntrld Status: Chronic (3) Esophageal Reflux Status: Chronic (4) Hyperlipidemia Nec/Nos Status: Chronic (5) Hypertension Nos Status: Chronic (6) Hypothyroidism Nos Status: Chronic Procedures: no Consultations: Neurologist Medication Reconciliation New Medications: Aspirin (Aspirin EC Low Dose) 81 Mg Ectab 81 MG PO DAILY, #55 Clopidogrel Bisulfate (Clopidogrel) 75 Mg Tab 75 MG PO QAM for 30 Days, TAB Continued Medications: Acarbose (Precose) 25 Mg Tab 25 MG PO WM, #90 Furosemide (Lasix) 40 Mg Tab 40 MG PO DAILY, TAB Levothyroxine Sodium (Levothyroxine Sodium) 75 Mcg Tab 75 MCG PO DAILY, #30 Linagliptin (Tradjenta) 5 Mg Tab 5 MG PO DAILY, #30 Lisinopril (Lisinopril) 20 Mg Tab 20 MG PO DAILY, #30 Metformin Hcl (Glucophage) 1,000 Mg Tab 1000 MG PO BID Montelukast Sod (Montelukast Sodium) 10 Mg Tab 10 MG PO DAILY, #90 Discharge Exam Out of bed, doing well, right upper extremity remain the same, eating and walking, no other complaint Review of Systems: Constitutional: No chills, No fatigue, No fever, No problem reported, No sweats, No weakness, No weight loss Eyes: No diplopia, No discharge, No eye pain, No problem reported, No redness, No worsening of vision ENT: No dental problems, No hearing loss, No nasal symptoms, No problem reported, No sore throat, No tinnitus, No trouble swallowing, No unusual epistaxis Respiratory: No cough, No dyspnea at rest, No dyspnea on exertion, No hemoptysis, No problem reported, No shortness of breath, No sputum, No wheezing Cardiovascular: No PND, No chest pain, No claudication, No edema, No orthopnea, No palpitations, No problem reported Abdomen: No GI bleeding, No constipation, No diarrhea, No nausea, No pain, No problem reported, No vomiting Musculoskeletal: No calf pain, No joint pain, No muscle pain, No problem reported, No swelling Genitourinary - Male: No dysuria, No hematuria, No impotence, No lesions, No penile discharge, No problem reported, No urinary frequency, No urinary hesitancy, No urinary incontinence, No urinary retention, No urinary urgency Neurologic: + weakness (right upper extremity 5-/5, the same as yesterday) Psychiatric: No anhedonism, No anxiety, No depression symptoms, No insomnia , No problem reported, No substance abuse Endocrine: No excessive thirst, No excessive urination, No fatigue, No problem reported Hematologic / Lymphatic: No abnormal bleeding/bruising, No clotting problems , No night sweats, No problem reported, No swollen lymph nodes Integumentary: No bleeding, No color change, No itch, No new/changing skin lesions, No problem reported, No rash Hospital Course 75 yo male with subacute stroke, admitted on 03/30/2016 with right hand weakness and numbness but primarily delirium, agitation, violent behavior and some aphasia, which has been totally resolved her in 3 days - Left parietal subacute stroke, causing aphasia, right UE weakness, stable and improving repeat MRI on 03/31 shows modest increase in size of stroke and minimal increase in edema, no evidence of hemorrhagic conversion carotid doppler shows plaque but no stenosis echo normal continue Plavix plus aspirin, for now, will stop aspirin in 2 months per recommendation of neurologist BP 140-160 and then further control as outpatient, goal will be < 140 systolic Has been on telemetry monitoring while inpatient, not remarkable looking into rehabilitation, patient and family prefer [facility], - Encephalopathy/delirium: Totally resolved He was violent and combative requiring Haldol and restraints 2 days Resolved, cooperative, and agreeable to rehab - mild dyslipidemia, may consider a low-dose statin for his mild dyslipidemia, Avoid high-dose statins. However his total cholesterol less than 200, and he is LDL less than 100, I don't believe we need to put on any stenting for now, he also has listed allergy to statin , therefore I will not start any statin for now - Hypothyroidism: Synthroid - DM type II: oral medications on hold when he was in hospital, use Novolog SS, diabetic diet, resume oral medication for diabetic, his A1c was 7.7 on 2016 in this admission, need to have better blood glucose control, - DVT prophylaxis: Lovenox Discussed with patient, registered nurse, Discussed with , who agree patient to go to rehabilitation, patient agreed, medically ready to go to rehabilitation, 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 Valero in 1 month - take medication as instructed, never overdose or any misuse, or take with alcohol, because misuse of medicine may cause organ damage or , call your primary care physician if have questions of medicaitons. - call your primary care physician OR go to local emergency room if has any fever/chill, chest pain, shortness of breathing, nausea/vomiting/abdominal pain , facial droop/slurry speech/local weakness, or if has any questions. - fall precaution - diet as instructed - you should understand that it is important to follow up the above instruction , and "not following the above instruction" may cause delayed or missed care of your medical conditions which may cause permanent organ damage and even . Total Time Spent: Greater than 30 minutes This includes examination of the patient, discharge planning, medication reconciliation, and communication with other providers. Discharge Instructions Please refer to the electronic Patient Visit Report (Discharge Instructions) for additional information. Additional Copies To Sarina Krishna PA-C; Nova Valero M.D.
[2016-04-07 12:24] VITALS: BP 118/77; PULSE 77; TEMP 36.2; O2SAT 99
== END 2016-04-07 14:00 | DRG 64 ==
LOC: ENRESERVTM → ENRESERVDT → C.ED 20:40 → C.2T 23:07 → C.4E 04-05 19:58
PROVIDERS: ADMIT Student in an Organized Health Care Education/Training Program; ATTEND Internal Medicine
DX: I63.9 Cerebral infarction, unspecified (principal); G93.41 Metabolic encephalopathy; I67.83 Posterior reversible encephalopathy syndrome; E11.65 Type 2 diabetes mellitus with hyperglycemia; K21.9 Gastro-esophageal reflux disease without esophagitis; I20.9 Angina pectoris, unspecified; E78.5 Hyperlipidemia, unspecified; I10 Essential (primary) hypertension; E03.9 Hypothyroidism, unspecified; K44.9 Diaphragmatic hernia without obstruction or gangrene; E87.6 Hypokalemia; J45.909 Unspecified asthma, uncomplicated; E83.42 Hypomagnesemia; Z79.82 Long term (current) use of aspirin; Z79.4 Long term (current) use of insulin; H02.403 Unspecified ptosis of bilateral eyelids; I69.320 Aphasia following cerebral infarction; R47.81 Slurred speech; R29.898 Other symptoms and signs involving the musculoskeletal system

== ENCOUNTER → 2016-09-15 | Outpatient (CLI) | payer OTHER ==
[~2016-09-15] MED LIST changes: +ACAR25TA2 PO; -ACT/15 PO; +ASPEC81 PO; -ATOR-22 PO; -BXN500 PO; -DIPH25TA2 PO; -FLUT0.0529 NAE; -GEMF600T PO; -GLIP-171 PO; +LEVO75TA5 PO; -LEVO88TA PO; +LINA1TAB PO; -LSN/2025 PO; +LSN20 PO; +PLV75 PO; +SNG10 PO; -TYLOTC500 PO
[2016-09-15 16:16] LABS: ALT/SGPT 24 U/L (12-78); AST/SGOT 18 U/L (15-37); BLOOD UREA NITROGEN 20 mg/dl (7-18); BUN/CREATININE RATIO 16.8 (10-20); CARBON DIOXIDE 30 mmol/L (21-32); CHLORIDE 105 mmol/L (98-107); GLUCOSE 237 mg/dl (70-99); POTASSIUM 3.6 mmol/L (3.5-5.1); SODIUM 142 mmol/L (136-145)
[2016-09-15 16:19] LABS: ALB/GLOB RATIO 1.2 (0.9-2); ALKALINE PHOSPHATASE 61 U/L (45-117); PHOSPHORUS 2.1 mg/dl (2.5-4.9)
[2016-09-15 16:25] LABS: HEMATOCRIT 46.1 % (42-52); MEAN CELL VOLUME 89.3 fL (80-100); MEAN CORPUSCULAR HGB CONC 34.7 g/dl (32-36); MEAN PLATELET VOLUME 10.1 fL (7.4-10.4); PLATELET COUNT 267 K/uL (130-400); RED BLOOD COUNT 5.16 M/uL (4.7-6.1); WHITE BLOOD COUNT 6.25 K/uL (4.8-10.8)
[2016-09-23 02:18] LABS: ALBUMIN % 37.38 %; ALPHA-2-GLOBULIN % 16.85 %; BETA GLOBULIN % 24.27 %; CREATININE UR 158 MG/DL (20-370); GAMMA GLOBULIN % 16.17 %; PARATHYR RELATED PROT *34478X 14 pg/mL (14-27)
== END | disposition home or self-care (01) ==
LOC: C.LAB1850 14:46
PROVIDERS: ATTEND Internal Medicine Endocrinology, Diabetes & Metabolism
DX: E83.52 Hypercalcemia (principal)

== ENCOUNTER 2018-07-01 14:52 | Inpatient (IN) ==
[2018-07-01] MEDS ORDERED: LORazepam 2 MG/ML VIAL (IM USE) ONE (15:11)
[2018-07-01] MEDS: LABETALOL HCL IV 5 MG/ML 20ML IV PRN ×2 (15:14→15:19)
--- NOTE | 2018-07-01 15:20 | CT Scan Report ---
CT head/brain wo con CT DOSE: 537.48 mGy.cm HISTORY: Mental status change Stroke evaluation TECHNIQUE: Multiaxial CT images of the head were performed without the use of intravenous contrast. A dose lowering technique was utilized adhering to the principles of ALARA. Comparison: 11/29/2017 Findings: Trace fluid right maxillary sinus. Old left frontal infarct. Increased size of a posterior left parietal infarct. This is low density, however and appears to be nonacute. There is no acute intracranial hemorrhage. There is no evidence for midline shift. Impression: 1. No acute intracranial abnormality. 2. 2 left cerebral infarct is considered old. 3. No acute intracranial hemorrhage or midline shift. The above report was generated using voice recognition software. It may contain grammatical, syntax or spelling errors. Electronically signed by: Connor Castillo M.D. 07/01/2018 3:18 PM
[2018-07-01 15:26] LABS: Hematocrit (blood only) 44.3 % (42-52); Immature Granulocytes # (auto) 0.01 K/uL (0.00-0.02); Immature Granulocytes % (auto) 0.1 %; Lymphocytes # (auto) 0.92 K/uL (1.2-3.4); Lymphocytes % (auto) 13.3 %; Mean Corpuscular Hgb Conc 36.1 g/dL (32-36); Mean Corpuscular Volume 88.1 fL (80-100); Mean Platelet Volume 9.6 fL (7.4-10.4); Monocytes # (auto) 0.52 K/uL (0.11-0.59); Monocytes % (auto) 7.5 %; Neutrophils # (auto) 5.47 K/uL (1.4-6.5); Neutrophils % (auto) 79.1 %; Platelet Count 241 K/uL (130-400); RDW Coefficient of Variation 14.5 % (11.5-14.5); RDW Standard Deviation 46.8 fL (36.4-46.3); Red Blood Count 5.03 M/uL (4.7-6.1); White Blood Count 6.92 K/uL (4.8-10.8)
[2018-07-01 15:39] LABS: INR 1.1 (0.9-1.1); Partial Thromboplastin Time 25.9 Seconds (21.0-31.0); Prothrombin Time 10.8 Seconds (9.0-12.0)
[2018-07-01 15:43] LABS: Alanine Aminotransferase 24 U/L (12-78); Albumin Level 4.3 gm/dl (3.4-5.0); Aspartate Aminotransferase 22 U/L (15-37); Blood Urea Nitrogen 18 mg/dl (7-18); Calcium 9.4 mg/dl (8.5-10.1); Carbon Dioxide 28 mmol/L (21-32); Chloride 106 mmol/L (98-107); Creatinine Clr Calc Pharmacy 46.8 ml/min; Est GFR (African American) 59.6; Est GFR (Non-African American) 51.4; Glucose 128 mg/dl (70-99); Magnesium 1.6 mg/dl (1.8-2.4); Potassium 4.3 mmol/L (3.5-5.1); Sodium 141 mmol/L (136-145)
[2018-07-01 15:48] LABS: Albumin Globulin Ratio 1.3 (0.9-2); Alkaline Phosphatase 90 U/L (45-117); Bilirubin,Total 0.5 mg/dl (0.2-1); Globulin 3.4 gm/dl (2.5-4.0); Total Protein 7.7 gm/dl (6.4-8.2); Troponin I < 0.015 ng/ml (0-0.045)
--- NOTE | 2018-07-01 16:54 | History & Physical Report ---
Date of Service July 01, 2018 Assessment & Plan (1) Hypertensive urgency: The patient received labetalol in the ED and the blood pressure is much better. Will allow mild systolic hypertension in the face of suspected acute CVA. Telemetry Present on Admission?: Yes (2) Suspected cerebrovascular accident (CVA): The patient's neurological symptoms are worse according to his . Brain MRI scan will be obtained. Continue aspirin and Plavix therapy when cleared to take oral intake safely. Neurology consultation pending Present on Admission?: Yes (3) Focal motor seizure: New onset. Intravenous Keppra administered in the ED. Will start 500 mg every 12 hours tomorrow morning. EEG pending Present on Admission?: Yes (4) Diabetes: Type 2 diabetes. Metformin is on hold. Sliding scale insulin coverage for the time being Present on Admission?: Yes (5) Chronic diastolic CHF (congestive heart failure): Stable at this time. Continue current medical management Present on Admission?: Yes History of Present Illness Chief Complaint: Worsening neurological deficits Primary Care Provider: NO PCP 77-year-old male with previous history of CVA with resultant chronic dysarthria and right hemiparesis. Today his noticed a worsening of his symptoms and h e came to the ED and was found to have initial blood pressure of 189/93 consistent with hypertensive urgency. His dysarthria was indeed worse and he exhibited several episodes of focal motor seizures. There may have also been some worsening of the right hemiparesis. The ED physician contacted tele- neurology who made several recommendations but TPA was not administered. He did receive intravenous labetalol for blood pressure control and was started on intravenous Keppra. At the time of my examination the patient is alert but he remains markedly dysarthric and is unable to follow simple commands. He may have suffered an extension of a previous CVA. EEG and MRI are ordered and pending. Neurological consultation is pending. Blood pressure is much improved and will be followed. He is admitted for further evaluation and treatment. He will be kept n.p.o. until he can undergo speech evaluation. OT and PT assessments will also be necessary. Allergies Allergy/AdvReac Type Severity Reaction Status Date / Time [id number] Reductase Allergy Severe JOINT PAIN Verified 06/24/18 16:07 Inhibitor strawberry Allergy Intermediate Rash Verified 06/24/18 16:07 Home Medications Home Medications Medication Instructions Recorded Confirmed Type clopidogrel 75 mg PO QAM 11/29/17 06/24/18 History metformin 1,000 mg PO BID 11/29/17 06/24/18 History montelukast [Singulair] 10 mg PO PM 11/29/17 06/24/18 History docusate sodium [Stool Softener] 100 mg PO BID PRN 06/24/18 06/24/18 History levothyroxine 75 mcg PO QAM 06/24/18 06/24/18 History lisinopril 20 mg PO QAM 06/24/18 06/24/18 History magnesium oxide [MagOx] 400 mg PO DAILY #7 tab 06/24/18 Rx pantoprazole 40 mg PO BID 06/24/18 06/24/18 History pravastatin 20 mg PO HS 06/24/18 06/24/18 History Past Med/Surg History Social History Communication Ability: Impaired Beliefs That Will Affect Care: None marital status: Current Living Situation: Spouse current occupational status: retired Feels Safe at Home: Yes Smoking Status: Never smoker Second Hand Exposure: No Hx Alcohol Use: No Hx Substance Use: No Review of Systems Review of Systems: Unobtainable due to cognitive status Physical Exam Constitutional: WD/WN, vitals as above Eyes: PERRL, conjunctivae normal, anicteric sclerae ENMT: external ear and nose normal, oropharynx normal Neck: trachea midline, no thyromegaly Respiratory: normal respiratory effort, lungs clear to auscultation Cardiovascular: Rate/Rhythm: regular rate and regular rhythm Heart Sounds: + murmur Gastrointestinal (Abdomen): normal bowel sounds, soft, nontender, no hepatosplenomegaly Musculoskeletal: no cyanosis or clubbing, extremities motor strength 5/5 Skin: no rashes, warm and dry Neurologic: The patient is awake but unable to follow simple commands such as [id number] or finger to thumb. He is unable to articulate any distinct words and I am not sure if he is oriented to place or time. He does not appear to have any lateralizing deficits at this time except for the significant d ysarthria Results & Data Vital Signs (Past 12 Hours) Vital Signs Temp Pulse Pulse Resp BP BP Pulse Ox 07/01/18 16:11 63 160/81 H 94 07/01/18 16:10 64 95 07/01/18 16:01 65 162/80 H 92 07/01/18 16:00 66 96 07/01/18 15:53 64 16 177/81 H 94 07/01/18 15:51 65 177/81 H 94 07/01/18 15:50 64 07/01/18 15:41 72 183/88 H 95 07/01/18 15:40 92 H 93 07/01/18 15:32 67 18 179/92 H 93 07/01/18 15:31 67 179/92 H 94 07/01/18 15:30 67 07/01/18 15:29 67 16 189/93 H 94 07/01/18 15:21 69 189/93 H 93 07/01/18 15:20 71 93 07/01/18 15:18 74 78 16 214/117 H 214/117 H 95 07/01/18 15:15 85 88 16 224/107 H 224/107 H 94 07/01/18 15:14 91 H 95 07/01/18 15:09 90 244/134 H 95 07/01/18 15:07 37.1 C 93 H 22 244/134 H 96 Laboratory Results 07/01/18 15:16 07/01/18 15:16 (1) Diabetes Diabetes mellitus type: type 2 Diabetes mellitus shelter insulin use: without terminal block assembler use Diabetes mellitus complication status: without complica tion Qualified Code(s): E11.9 - Type 2 diabetes mellitus without complications
--- NOTE | 2018-07-01 17:16 | Emergency Department Note ---
Entered by Lucita Hall acting as a scribe for Vandana Ybarra DO History of Present Illness General Chief complaint: Stroke/CVA Symptoms Stated complaint: stroke symptoms Source: family () and EMS History of Present Illness Onset (ago): hour(s) 1 Location: right (right sided weakness from stroke) Pain Consistency: + other (episode) Associated symptoms: + denies other symptoms (pain, trouble breathing) Treatments prior to arrival: none The patient is a 77 year old M who presents to the Emergency Room with complaints of an episode of stroke-like symptoms that occurred 1 hour ago. The HPI was first provided by EMS. EMS states that they were called by a bystander who found the patient unresponsive and shaking outside on his back. EMS reports that the bystander notes that the patient was mowing his grass before his stroke episode occurred. EMS states that the patient was alert when they arrived. EMS adds that the patient was wiggling his toes in his right foot but was experiencing right arm weakness. EMS notes that the patients speech is garbled due to the patient history of 2 past strokes. EMS states that the patients blood pressure was high and had a blood sugar of 121 in the ambulance. EMS notes that the patient was given no medicine on the way to the hospital. In the ED, the patients provided the rest of the HPI. She confirms the HPI provided by EMS but adds that the patients right hand was twitching before the episode started. She notes that the last time the patient was totally normal was 2 hours prior to the episode occurring. She adds that last week on Tuesday the patient was in the ED for complaints of the stomach flu, dizziness, and headaches. The patient denies that he is experiencing any pain and trouble breathing. The patient has a history of diabetes and hypertension. He denies being a smoker. Home Medications Home Medications Medication Instructions Recorded Confirmed Type clopidogrel 75 mg PO QAM 11/29/17 07/01/18 History metformin 1,000 mg PO BIDM 11/29/17 07/01/18 History montelukast [Singulair] 10 mg PO HS 11/29/17 07/01/18 History docusate sodium [Stool Softener] 100 mg PO BID 06/24/18 07/01/18 History levothyroxine 75 mcg PO QAM 06/24/18 07/01/18 History lisinopril 20 mg PO QAM 06/24/18 07/01/18 History pantoprazole 40 mg PO QAM 06/24/18 07/01/18 History pravastatin 20 mg PO HS 06/24/18 07/01/18 History aspirin 81 mg PO QAM 07/01/18 07/01/18 History Allergies Allergy/AdvReac Type Severity Reaction Status Date / Time Yaitafc-Ord-Ihc Reductase Allergy Severe JOINT PAIN Verified 07/01/18 16:57 Inhibitor strawberry Allergy Intermediate Rash Verified 07/01/18 16:57 Past Med/Surg History Medical History Focal motor seizure (Acute) Suspected cerebrovascular accident (CVA) (Acute) Hypertensive urgency (Acute) Hypothyroidism Acute CVA (cerebrovascular accident) Chest pain (Resolved) Aphasia Expressive aphasia (Acute) Lacunar infarction (Acute) Hypertension (Chronic) Diabetes (Chronic) Chest pain (Resolved 06/14/13) Acute sinusitis (Acute) Altered mental status (Acute) Dizziness (Acute) Hypoglycemia (Acute) Stroke Surgical History History of tonsillectomy Family History Other Cancer Diabetes Hypertension Social History Preferred Language: Ma[place] Communication Ability: Effective Communication Ability Comment: one command followed on NIH scale, slurred speech Chief Technology Officer Required: No Beliefs That Will Affect Care: None marital status: Current Living Situation: Spouse current occupational status: retired Other Information That Helps Us Care for You: No Feels Safe at Home: Yes Safety Concerns: Feels Safe At This Time Smoking Status: Former smoker Do You Dip or Chew Tobacco: No Second Hand Exposure: No Tobacco Cessation Education Requested by Patient: No Hx Alcohol Use: No Hx Substance Use: No Review of Systems See HPI for pertinent positives & negatives. and A total of 10 systems reviewed and were otherwise negative Physical Exam Vital Signs Vital Signs - 24 hr 07/01/18 23:31 07/02/18 00:00 07/02/18 04:20 Temperature 36.8 C 36.8 C Temperature Source Oral Oral Pulse Rate 56 L Pulse Rate [Left Finger] 63 57 L Pulse Rhythm [Left Finger] Regular Pulse Strength [Left Finger] Normal Respiratory Rate 20 19 Respiratory Effort / Characteristics Non-Labored Spontaneous Respiratory Depth Normal Normal Respiratory Pattern Regular Blood Pressure [Right Arm] 169/70 H 167/77 H Blood Pressure Mean [Right Arm] 103 107 Blood Pressure Position [Right Arm] Lying Lying Pulse Oximetry 93 94 Pulse Oximetry [[place]] Oxygen Delivery Method Room Air Room Air 07/02/18 07:05 07/02/18 10:01 07/02/18 10:05 Temperature 36.5 C Temperature Source Oral Pulse Rate 50 L Pulse Rate [Left Finger] 58 L Pulse Rhythm [Left Finger] Pulse Strength [Left Finger] Respiratory Rate 18 Respiratory Effort / Characteristics Respiratory Depth Respiratory Pattern Blood Pressure [Right Arm] 156/69 H Blood Pressure Mean [Right Arm] 98 Blood Pressure Position [Right Arm] Lying Pulse Oximetry 97 Pulse Oximetry [[place]] 97 Oxygen Delivery Method Room Air 07/02/18 11:50 07/02/18 15:30 07/02/18 19:09 Temperature 36.6 C 36.6 C 37.1 C Temperature Source Oral Oral Oral Pulse Rate Pulse Rate [Left Finger] 57 L 55 L 58 L Pulse Rhythm [Left Finger] Pulse Strength [Left Finger] Respiratory Rate 20 21 19 Respiratory Effort / Characteristics Respiratory Depth Normal Normal Respiratory Pattern Blood Pressure [Right Arm] 159/79 H 145/78 H 140/73 Blood Pressure Mean [Right Arm] 105 100 95 Blood Pressure Position [Right Arm] Sitting Sitting Sitting Pulse Oximetry 94 98 97 Pulse Oximetry [[place]] Oxygen Delivery Method Room Air Room Air GENERAL: alert, well appearing, well nourished, no distress, non-toxic EYE EXAM: normal conjunctiva, PERRL and EOM's grossly intact OROPHARYNX: no exudate, no erythema, lips, buccal mucosa, and tongue normal and mucous membranes are moist NECK: supple, no nuchal rigidity, no adenopathy, non-tender LUNGS: Clear to auscultation. Normal chest wall mechanics, no w/r/r HEART: no murmurs, S1 normal and S2 normal ABDOMEN: abdomen soft, non-tender, normo-active bowel sounds, no masses, no rebound or guarding. BACK: Back is symmetrical on inspection and there is no deformity, no midline tenderness, no CVA tenderness. SKIN: no rashes and no bruising UPPER EXTREMITIES: upper extremities are grossly normal. Right upper extremity weakness, some effort against gravity but does have drift and ataxia, nml pulses b/l. LOWER EXTREMITIES: No pitting edema. Right lower extremity weakness, some effort against gravity but does drift and has mild ataxia, nml pulses b/l. NEURO EXAM: Patient awake and alert, follows command, significant dysarthria EMS reports is secondary to prior stroke, patient noted to have right-sided weakness worse in the upper extremity compared to the lower extremity, unable to perform pronator drift or [id number] testing. Course 1504: The patient was evaluated in room A1. A complete history and physical exam was performed. 1511: The patient is having localized facial twitching. The patient will still turn his head to voice. 1517: I reviewed the patient's case with [facility]. 1525: Dr. Salvador called into the room, A1, to talk to the patient's . 1535: The patient's blood pressure is down to 179/92 after two doses of labetalol. 1547: Neurology is still evaluating the patient. The patient's blood pressure is rising. 1551: I reviewed the patient's case with [facility]. Dr. Salvador states to not TPA the patient. Dr. Salvador states to admit the patient for blood pressure management, MRI, seizure evaluation. Dr. Salvador states to give the patient 1 gram Keppra. 1615: I reviewed the patient's case with Dr. Farrell. Dr. Farrell will evaluate the patient for further management. Consultations Consultation #1: I reviewed the patient's case with [facility]. Time: 15:17 Consultation #2: I reviewed the patient's case with [facility]. Dr. Salvador states to not TPA the patient. Dr. Salvador states to admit the patient for blood pressure management, MRI, seizure evaluation. Dr. Salvador states to give the patient 1 gram Keppra. Time: 15:51 Consultation #3: I reviewed the patient's case with Dr. Farrell. Dr. Farrell will evaluate the patient for further management. Time: 16:15 Administered Medications Clopidogrel Bisulfate (Plavix) 75 mg PO QAM IRINA Stop: 08/01/18 08:59 Last Admin: 07/02/18 07:57 Dose: 75 mg Documented by: [id number] Insulin Aspart (Novolog Flexpen) 0 units SC ACHS IRINA Stop: 08/01/18 20:59 Last Admin: 07/02/18 20:41 Dose: 1 units Documented by: [id number] Cosigned by: [id number] Ioversol (Optiray 320 125ml) 118 ml IV ONCE PRN PRN Reason: Interaction Checking Stop: 07/06/18 11:32 Last Admin: 07/02/18 11:35 Dose: 118 ml Documented by: [id number] Levetiracetam (Keppra) 500 mg PO Q12H IRINA Stop: 08/01/18 07:59 Last Admin: 07/02/18 20:42 Dose: 500 mg Documented by: [id number] Admin: 07/02/18 08:55 Dose: 500 mg Documented by: [id number] Levothyroxine Sodium (Synthroid) 75 mcg PO DAILYBB [facility] Stop: 08/01/18 06:29 Last Admin: 07/02/18 06:33 Dose: 75 mcg Documented by: [id number] Lisinopril (Zestril) 20 mg PO QAM IRINA Stop: 08/01/18 08:59 Last Admin: 07/02/18 07:58 Dose: 20 mg Documented by: [id number] Magnesium Oxide (Mag-Ox) 400 mg PO DAILY IRINA Stop: 08/01/18 08:59 Last Admin: 07/02/18 07:58 Dose: 400 mg Documented by: [id number] Montelukast Sodium (Singulair) 10 mg PO PM IRINA Stop: 07/31/18 20:59 Last Admin: 07/02/18 20:42 Dose: 10 mg Documented by: [id number] Admin: 07/01/18 20:43 Dose: 10 mg Documented by: [id number] Pantoprazole Sodium (Protonix) 40 mg PO BIDM IRINA Stop: 08/01/18 07:59 Last Admin: 07/02/18 17:38 Dose: 40 mg Documented by: [id number] Admin: 07/02/18 07:57 Dose: 40 mg Documented by: [id number] Discontinued Medications Levetiracetam 1,000 mg/ (Dextrose) 110 mls @ 440 mls/hr IV NOW STA Stop: 07/01/18 16:08 Last Infusion: 07/01/18 16:56 Dose: 0 mls/hr Documented by: [id number] Admin: 07/01/18 16:12 Dose: 440 mls/hr Documented by: [id number] Sodium Chloride (Nss 1000ml) 1,000 mls @ 75 mls/hr IV .[id number] IRINA Stop: 07/31/18 18:07 Last Admin: 07/02/18 07:56 Dose: 75 mls/hr Documented by: [id number] Infusion: 07/02/18 07:56 Dose: 75 mls/hr Documented by: [id number] Admin: 07/01/18 18:38 Dose: 75 mls/hr Documented by: [id number] Insulin Aspart (Novolog Flexpen) 0 units SC ACHS [facility] Stop: 07/31/18 20:59 Last Admin: 07/01/18 21:00 Dose: Not Given Documented by: [id number] Cosigned by: [id number] Insulin Aspart (Novolog Flexpen) 0 units SC Q6H IRINA Stop: 08/01/18 00:00 Last Admin: 07/02/18 17:38 Dose: 6 units Documented by: [id number] Cosigned by: [id number] Admin: 07/02/18 12:25 Dose: 4 units Documented by: [id number] Cosigned by: [id number] Admin: 07/02/18 06:05 Dose: Not Given Documented by: [id number] Cosigned by: [id number] Admin: 07/02/18 00:20 Dose: Not Given Documented by: [id number] Cosigned by: [id number] Labetalol HCl (Normodyne) 10 mg IV Q10M PRN PRN Reason: SBP above 185 or DBP above 110 Last Admin: 07/01/18 15:19 Dose: 10 mg Documented by: [id number] Cosigned by: [id number] Admin: 07/01/18 15:14 Dose: 10 mg Documented by: [id number] Cosigned by: [id number] Lorazepam (Ativan) Confirm Administered Dose 2 mg .ROUTE .STK-MED ONE Stop: 07/01/18 15:12 Last Admin: 07/01/18 15:15 Dose: 0.5 mg Documented by: [id number] Medical Decision Making Differential Diagnosis Differential diagnosis includes: metabolic, infection, hypo/hyperglycemia, electrolyte abnormalities, cardiac sources, intracerebral event, toxicologic, neurologic, as well as others were entertained. Medical Records Attestation: I reviewed the patient's medical records. Home Medications Current Medication List: was personally reviewed by me Laboratory Data Attestation: I reviewed the patient's lab results. Result diagrams: 07/02/18 05:44 07/02/18 05:44 Lab Results 07/01/18 07/01/18 07/01/18 Range/Units 15:16 15:16 15:16 WBC 6.92 (4.8-10.8) K/uL RBC 5.03 (4.7-6.1) M/uL Hgb 16.0 (14.0-18.0) g/dL Hct 44.3 (42-52) % MCV 88.1 (80-100) fL MCH 31.8 (25-34) pg MCHC 36.1 H (32-36) g/dL RDW Std Deviation 46.8 H (36.4-46.3) fL RDW Coeff of Iveth 14.5 (11.5-14.5) % Plt Count 241 (130-400) K/uL MPV 9.6 (7.4-10.4) fL Immature Gran % (Auto) 0.1 % Neut % (Auto) 79.1 % Lymph % (Auto) 13.3 % [place] % (Auto) 7.5 % Eos % (Auto) 0.0 % Baso % (Auto) 0.0 % Immature Gran # (Auto) 0.01 (0.00-0.02) K/uL Neut # (Auto) 5.47 (1.4-6.5) K/uL Lymph # (Auto) 0.92 L (1.2-3.4) K/uL [place] # (Auto) 0.52 (0.11-0.59) K/uL Eos # (Auto) 0.00 (0-0.5) K/uL Baso # (Auto) 0.00 (0-0.2) K/uL PT 10.8 (9.0-12.0) Seconds INR 1.1 (0.9-1.1) APTT 25.9 (21.0-31.0) Seconds PTT Ratio 1.0 Sodium 141 (136-145) mmol/L Potassium 4.3 (3.5-5.1) mmol/L Chloride 106 (98-107) mmol/L Carbon Dioxide 28 (21-32) mmol/L Anion Gap 7.0 (3-11) BUN 18 (7-18) mg/dl Creatinine 1.31 (0.6-1.4) mg/dl Est Cr Clr Drug Dosing 46.8 ml/min Est GFR ( Amer) 59.6 Est GFR (Non-Af Amer) 51.4 BUN/Creatinine Ratio 14.0 (10-20) Glucose 128 H (70-99) mg/dl POC Glucose (70-99) Calcium 9.4 (8.5-10.1) mg/dl Magnesium 1.6 L (1.8-2.4) mg/dl Total Bilirubin 0.5 (0.2-1) mg/dl AST 22 (15-37) U/L ALT 24 (12-78) U/L Alkaline Phosphatase 90 (45-117) U/L Troponin I < 0.015 (0-0.045) ng/ml Total Protein 7.7 (6.4-8.2) gm/dl Albumin 4.3 (3.4-5.0) gm/dl Globulin 3.4 (2.5-4.0) gm/dl Albumin/Globulin Ratio 1.3 (0.9-2) Triglycerides (0-150) mg/dl Cholesterol (0-200) mg/dl LDL Cholesterol, Calc mg/dl VLDL Cholesterol, Calc mg/dl HDL Cholesterol mg/dl Cholesterol/HDL Ratio Blood Type Antibody Screen 07/01/18 07/01/18 07/01/18 Range/Units 15:16 18:10 20:39 WBC (4.8-10.8) K/uL RBC (4.7-6.1) M/uL Hgb (14.0-18.0) g/dL Hct (42-52) % MCV (80-100) fL MCH (25-34) pg MCHC (32-36) g/dL RDW Std Deviation (36.4-46.3) fL RDW Coeff of Iveth (11.5-14.5) % Plt Count (130-400) K/uL MPV (7.4-10.4) fL Immature Gran % (Auto) % Neut % (Auto) % Lymph % (Auto) % [place] % (Auto) % Eos % (Auto) % Baso % (Auto) % Immature Gran # (Auto) (0.00-0.02) K/uL Neut # (Auto) (1.4-6.5) K/uL Lymph # (Auto) (1.2-3.4) K/uL [place] # (Auto) (0.11-0.59) K/uL Eos # (Auto) (0-0.5) K/uL Baso # (Auto) (0-0.2) K/uL PT (9.0-12.0) Seconds INR (0.9-1.1) APTT (21.0-31.0) Seconds PTT Ratio Sodium (136-145) mmol/L Potassium (3.5-5.1) mmol/L Chloride (98-107) mmol/L Carbon Dioxide (21-32) mmol/L Anion Gap (3-11) BUN (7-18) mg/dl Creatinine (0.6-1.4) mg/dl Est Cr Clr Drug Dosing ml/min Est GFR ( Amer) Est GFR (Non-Af Amer) BUN/Creatinine Ratio (10-20) Glucose (70-99) mg/dl POC Glucose 135 H 103 H (70-99) Calcium (8.5-10.1) mg/dl Magnesium (1.8-2.4) mg/dl Total Bilirubin (0.2-1) mg/dl AST (15-37) U/L ALT (12-78) U/L Alkaline Phosphatase (45-117) U/L Troponin I (0-0.045) ng/ml Total Protein (6.4-8.2) gm/dl Albumin (3.4-5.0) gm/dl Globulin (2.5-4.0) gm/dl Albumin/Globulin Ratio (0.9-2) Triglycerides (0-150) mg/dl Cholesterol (0-200) mg/dl LDL Cholesterol, Calc mg/dl VLDL Cholesterol, Calc mg/dl HDL Cholesterol mg/dl Cholesterol/HDL Ratio Blood Type A Positive Antibody Screen NEGATIVE 07/01/18 07/02/18 07/02/18 Range/Units 23:55 05:44 05:44 WBC 3.94 L (4.8-10.8) K/uL RBC 4.75 (4.7-6.1) M/uL Hgb 14.4 (14.0-18.0) g/dL Hct 41.9 L (42-52) % MCV 88.2 (80-100) fL MCH 30.3 (25-34) pg MCHC 34.4 (32-36) g/dL RDW Std Deviation 46.3 (36.4-46.3) fL RDW Coeff of Iveth 14.2 (11.5-14.5) % Plt Count 214 (130-400) K/uL MPV 10.0 (7.4-10.4) fL Immature Gran % (Auto) 0.3 % Neut % (Auto) 71.0 % Lymph % (Auto) 20.1 % [place] % (Auto) 8.6 % Eos % (Auto) 0.0 % Baso % (Auto) 0.0 % Immature Gran # (Auto) 0.01 (0.00-0.02) K/uL Neut # (Auto) 2.80 (1.4-6.5) K/uL Lymph # (Auto) 0.79 L (1.2-3.4) K/uL [place] # (Auto) 0.34 (0.11-0.59) K/uL Eos # (Auto) 0.00 (0-0.5) K/uL Baso # (Auto) 0.00 (0-0.2) K/uL PT (9.0-12.0) Seconds INR (0.9-1.1) APTT (21.0-31.0) Seconds PTT Ratio Sodium 141 (136-145) mmol/L Potassium 3.7 (3.5-5.1) mmol/L Chloride 108 H (98-107) mmol/L Carbon Dioxide 25 (21-32) mmol/L Anion Gap 8.0 (3-11) BUN 13 (7-18) mg/dl Creatinine 1.06 (0.6-1.4) mg/dl Est Cr Clr Drug Dosing 57.7 ml/min Est GFR ( Amer) 77.0 Est GFR (Non-Af Amer) 66.4 BUN/Creatinine Ratio 12.4 (10-20) Glucose 120 H (70-99) mg/dl POC Glucose 106 H (70-99) Calcium 8.6 (8.5-10.1) mg/dl Magnesium (1.8-2.4) mg/dl Total Bilirubin (0.2-1) mg/dl AST (15-37) U/L ALT (12-78) U/L Alkaline Phosphatase (45-117) U/L Troponin I (0-0.045) ng/ml Total Protein (6.4-8.2) gm/dl Albumin (3.4-5.0) gm/dl Globulin (2.5-4.0) gm/dl Albumin/Globulin Ratio (0.9-2) Triglycerides 128 (0-150) mg/dl Cholesterol 129 (0-200) mg/dl LDL Cholesterol, Calc 68 mg/dl VLDL Cholesterol, Calc 26 mg/dl HDL Cholesterol 35 mg/dl Cholesterol/HDL Ratio 4 Blood Type Antibody Screen 07/02/18 07/02/18 07/02/18 Range/Units 06:05 11:21 16:06 WBC (4.8-10.8) K/uL RBC (4.7-6.1) M/uL Hgb (14.0-18.0) g/dL Hct (42-52) % MCV (80-100) fL MCH (25-34) pg MCHC (32-36) g/dL RDW Std Deviation (36.4-46.3) fL RDW Coeff of Iveth (11.5-14.5) % Plt Count (130-400) K/uL MPV (7.4-10.4) fL Immature Gran % (Auto) % Neut % (Auto) % Lymph % (Auto) % [place] % (Auto) % Eos % (Auto) % Baso % (Auto) % Immature Gran # (Auto) (0.00-0.02) K/uL Neut # (Auto) (1.4-6.5) K/uL Lymph # (Auto) (1.2-3.4) K/uL [place] # (Auto) (0.11-0.59) K/uL Eos # (Auto) (0-0.5) K/uL Baso # (Auto) (0-0.2) K/uL PT (9.0-12.0) Seconds INR (0.9-1.1) APTT (21.0-31.0) Seconds PTT Ratio Sodium (136-145) mmol/L Potassium (3.5-5.1) mmol/L Chloride (98-107) mmol/L Carbon Dioxide (21-32) mmol/L Anion Gap (3-11) BUN (7-18) mg/dl Creatinine (0.6-1.4) mg/dl Est Cr Clr Drug Dosing ml/min Est GFR ( Amer) Est GFR (Non-Af Amer) BUN/Creatinine Ratio (10-20) Glucose (70-99) mg/dl POC Glucose 120 H 129 H 110 H (70-99) Calcium (8.5-10.1) mg/dl Magnesium (1.8-2.4) mg/dl Total Bilirubin (0.2-1) mg/dl AST (15-37) U/L ALT (12-78) U/L Alkaline Phosphatase (45-117) U/L Troponin I (0-0.045) ng/ml Total Protein (6.4-8.2) gm/dl Albumin (3.4-5.0) gm/dl Globulin (2.5-4.0) gm/dl Albumin/Globulin Ratio (0.9-2) Triglycerides (0-150) mg/dl Cholesterol (0-200) mg/dl LDL Cholesterol, Calc mg/dl VLDL Cholesterol, Calc mg/dl HDL Cholesterol mg/dl Cholesterol/HDL Ratio Blood Type Antibody Screen 07/02/18 Range/Units 20:22 WBC (4.8-10.8) K/uL RBC (4.7-6.1) M/uL Hgb (14.0-18.0) g/dL Hct (42-52) % MCV (80-100) fL MCH (25-34) pg MCHC (32-36) g/dL RDW Std Deviation (36.4-46.3) fL RDW Coeff of Iveth (11.5-14.5) % Plt Count (130-400) K/uL MPV (7.4-10.4) fL Immature Gran % (Auto) % Neut % (Auto) % Lymph % (Auto) % [place] % (Auto) % Eos % (Auto) % Baso % (Auto) % Immature Gran # (Auto) (0.00-0.02) K/uL Neut # (Auto) (1.4-6.5) K/uL Lymph # (Auto) (1.2-3.4) K/uL [place] # (Auto) (0.11-0.59) K/uL Eos # (Auto) (0-0.5) K/uL Baso # (Auto) (0-0.2) K/uL PT (9.0-12.0) Seconds INR (0.9-1.1) APTT (21.0-31.0) Seconds PTT Ratio Sodium (136-145) mmol/L Potassium (3.5-5.1) mmol/L Chloride (98-107) mmol/L Carbon Dioxide (21-32) mmol/L Anion Gap (3-11) BUN (7-18) mg/dl Creatinine (0.6-1.4) mg/dl Est Cr Clr Drug Dosing ml/min Est GFR ( Amer) Est GFR (Non-Af Amer) BUN/Creatinine Ratio (10-20) Glucose (70-99) mg/dl POC Glucose 101 H (70-99) Calcium (8.5-10.1) mg/dl Magnesium (1.8-2.4) mg/dl Total Bilirubin (0.2-1) mg/dl AST (15-37) U/L ALT (12-78) U/L Alkaline Phosphatase (45-117) U/L Troponin I (0-0.045) ng/ml Total Protein (6.4-8.2) gm/dl Albumin (3.4-5.0) gm/dl Globulin (2.5-4.0) gm/dl Albumin/Globulin Ratio (0.9-2) Triglycerides (0-150) mg/dl Cholesterol (0-200) mg/dl LDL Cholesterol, Calc mg/dl VLDL Cholesterol, Calc mg/dl HDL Cholesterol mg/dl Cholesterol/HDL Ratio Blood Type Antibody Screen Imaging Data Radiologist's Impression: Radiology results as stated below per my review and the radiologist's interpretation: CT head/brain wo con CT DOSE: 537.48 mGy.cm HISTORY: Mental status change Stroke evaluation TECHNIQUE: Multiaxial CT images of the head were performed without the use of intravenous contrast. A dose lowering technique was utilized adhering to the principles of ALARA. Comparison: 11/29/2017 Findings: Trace fluid right maxillary sinus. Old left frontal infarct. Increased size of a posterior left parietal infarct. This is low density, however and appears to be nonacute. There is no acute intracranial hemorrhage. There is no evidence for midline shift. Impression: 1. No acute intracranial abnormality. 2. 2 left cerebral infarct is considered old. 3. No acute intracranial hemorrhage or midline shift. The above report was generated using voice recognition software. It may contain grammatical, syntax or spelling errors. Electronically signed by: Connor Castillo M.D. 07/01/2018 3:18 PM ECG Data Attestation: I personally reviewed and interpreted this ECG as follows: Indication: other (stroke-like symptoms) Rate (beats per minute): 88 Rhythm: sinus rhythm Findings: + other (normal axis, normal intervals, LVH by voltage criteria); no acute ischemic change and no ectopy Blood Pressure Blood Pressure Findings: Elevated blood pressure Blood Pressure Disposition: further management by hospitalist MDM Narrative Patient brought in by EMS as code stroke which was called prior to arrival. Patient went immediately for head CT and initial stroke order set placed. Case discussed with [facility] and they evaluated at bedside. 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 Patient's eventually arrived at the time that the tele-neurologist called back, is a poor historian also but was able to provide some additional information. Patient's symptoms improved as we treated his blood pressure. Patient did have what appeared to be a focal seizure here which was also witnessed and confirmed to be the same as what the surgery scheduling coordinator witnessed en route. This did not recur while he was being evaluated by the neurologist. He was given 0.5 of Ativan, however continued to be awake and alert and following commands until it ceased. Patient's blood pressure improved with IV labetalol and per patient's symptoms were improved. Patient was given 1 g of IV Keppra due to the recurrent focal seizures. Patient was deemed not to be a TPA candidate due to low NIH score, improvement of symptoms, and suspicion for more likely alternative diagnosis according to neurology. Patient and were in agreement with this plan. Discussed with hospitalist for additional inpatient evaluation and management. Patient otherwise hemodynamically stable and labs reassuring. Patient is not otherwise anticoagulated however does take antiplatelet agents. I do not suspect occult infectious etiology. I do not suspect ACS or other acute vascular pathology. Symptoms possibly related to a hypertensive urgency/emergency. Impression & Plan Stroke-like symptoms, Hypertensive urgency, Focal seizures, Dysarthria Critical Care Time I have personally spent 45 minutes of critical care time in the direct management of this patient. This includes bedside care, interpretation of diagnostic studies, and testing, discussion with consultants, patient, and family members, and other required patient management activities. This 45 minutes is in excess of all separately billable procedures. Critical Care Time: Yes Discharge Plan Visit Data *Final* Discharge Date/Time: 07/01/18 17:42 Chief Complaint: Stroke/CVA Symptoms Stated Complaint: stroke symptoms ED Provider: Vandana Ybarra Discharge Problem: Stroke-like symptoms, Hypertensive urgency, Focal seizures, Dysarthria Patient Disposition: Admitted As Inpatient Discharge Instructions Interventions: ED Discharge Assessment Last Done: 07/01/18 17:42 The scribe's documentation has been prepared under my direction and personally reviewed by me in its entirety. I confirm that the note above accurately reflects all work, treatment, procedures, and medical decision making performed by me.
[2018-07-01] MEDS ORDERED: PHARMACIST DISCHARGE MED REC CONSULT PRN (18:08)
[2018-07-01] MEDS ORDERED: DOCUSATE SODIUM 100 MG CAP PO PRN (18:08)
[2018-07-01] MEDS: SODIUM CHLORIDE 0.9% 1000ML 1,000 ML IV SCH (18:38)
[2018-07-01] MEDS: MONTELUKAST SODIUM 10 MG TABLET PO SCH (20:43)
[2018-07-01] MEDS ORDERED: INSULIN ASPART 100 UNITS/ML 3 ML PEN SC SCH (21:00)
[2018-07-02] MEDS: INSULIN ASPART 100 UNITS/ML 3 ML PEN SC SCH ×5 (00:20→20:41)
[2018-07-02] MEDS: LEVOTHYROXINE SODIUM 75 MCG TABLET PO SCH (06:33)
[2018-07-02 06:46] LABS: Hematocrit (blood only) 41.9 % (42-52); Hemoglobin 14.4 g/dL (14.0-18.0); Immature Granulocytes # (auto) 0.01 K/uL (0.00-0.02); Immature Granulocytes % (auto) 0.3 %; Lymphocytes # (auto) 0.79 K/uL (1.2-3.4); Lymphocytes % (auto) 20.1 %; Mean Corpuscular Hgb Conc 34.4 g/dL (32-36); Mean Corpuscular Volume 88.2 fL (80-100); Monocytes # (auto) 0.34 K/uL (0.11-0.59); Monocytes % (auto) 8.6 %; Platelet Count 214 K/uL (130-400); RDW Coefficient of Variation 14.2 % (11.5-14.5); RDW Standard Deviation 46.3 fL (36.4-46.3); Red Blood Count 4.75 M/uL (4.7-6.1); White Blood Count 3.94 K/uL (4.8-10.8)
[2018-07-02 07:15] LABS: BUN Creatinine Ratio 12.4 (10-20); Calcium 8.6 mg/dl (8.5-10.1); Creatinine Clr Calc Pharmacy 57.7 ml/min; Est GFR (Non-African American) 66.4; Potassium 3.7 mmol/L (3.5-5.1)
[2018-07-02] MEDS: SODIUM CHLORIDE 0.9% 1000ML 1,000 ML IV SCH (07:56)
[2018-07-02] MEDS: PANTOprazole 40 MG TAB PO SCH ×2 (07:57→17:38)
[2018-07-02] MEDS: CLOPIDOGREL BISULFATE 75 MG TAB PO SCH (07:57)
[2018-07-02] MEDS: LISINOPRIL 20 MG TAB PO SCH (07:58)
[2018-07-02] MEDS: MAGNESIUM OXIDE 400 MG TAB PO SCH (07:58)
--- NOTE | 2018-07-02 09:41 | Neurology Consultation ---
Date of Consultation July 02, 2018 Assessment & Plan (1) Focal seizures: I agree with the assessment of a probable seizure of focal onset in this patient and the initiation of Keppra. The ordered EEG in this context is nonurgent and can be completed tomorrow morning, follow-up with results when available. Seizure focus likely the relatively large, chronic, left hemispheric cortical infarcts. However, a recurrent acute stroke is not completely excluded and I agree with obtaining the brain MRI as ordered as well. Would also recommend obtaining a CT angiogram of the head and neck. Continue with telemetry monitoring. Continue with Plavix as ordered. Avoid aggressive reductions in patient's blood pressure. A systolic blood pressure between 140 and 160 would be reasonable at this time. PT/OT/speech therapy consultations as ordered. History of Present Illness Reason for Consultation: stroke vs seizure Requesting Physician: Preet Farrell MD Attending Physician: Preet Farrell MD History of Present Illness The patient is a 77-year-old male who was found unresponsive, lying on the ground outside of his home, shaking, by a bystander. He had been outside mowing his lawn with a riding mower prior to the incident. EMS was summoned. Upon arrival the patient was found to be alert but with right upper extremity weakness and slurred speech. His speech change is chronic, however, and related to a left hemispheric stroke that occurred this past November. He apparently had been observed to have some involuntary twitching of the right hand prior to the episode. While in the emergency department, the patient continued to display significant difficulty with his speech (chronic). His right upper extremity weakness resolved by the time he was evaluated by the admitting physician. His blood pressure was initially elevated. Given that his presentation was felt to be likely consistent with a focal onset seizure he was started on Keppra. A brain MRI and EEG are pending. A CT of the head was negative for hemorrhage or acute process but did reveal several chronic appearing left hemispheric strokes. I had evaluated this patient during his hospitalization this past November for the above left hemispheric stroke. He presented with a rather significant mixed aphasia and right hemiparesis at that time. His hemiparesis had resolved by the time of his discharge back in November. He was taking aspirin and Plavix at that time. An echocardiogram was negative for cardioembolic source. MR angiography of the head and neck at that time were negative for a significant vascular lesion or hemodynamically significant stenosis. Past medical history notable for type 2 diabetes mellitus and chronic diastolic congestive heart failure, although no history of atrial fibrillation. Currently, the patient denies headache, recent change in vision, vertigo or dizziness, new weakness, or sensory loss. Additional details as below. Allergies Allergy/AdvReac Type Severity Reaction Status Date / Time [id number]-[id number] Reductase Allergy Severe JOINT PAIN Verified 07/01/18 16:57 Inhibitor strawberry Allergy Intermediate Rash Verified 07/01/18 16:57 Home Medications Home Medications Medication Instructions Recorded Confirmed Type clopidogrel 75 mg PO QAM 11/29/17 07/01/18 History metformin 1,000 mg PO BIDM 11/29/17 07/01/18 History montelukast [Singulair] 10 mg PO HS 11/29/17 07/01/18 History docusate sodium [Stool Softener] 100 mg PO BID 06/24/18 07/01/18 History levothyroxine 75 mcg PO QAM 06/24/18 07/01/18 History lisinopril 20 mg PO QAM 06/24/18 07/01/18 History pantoprazole 40 mg PO QAM 06/24/18 07/01/18 History pravastatin 20 mg PO HS 06/24/18 07/01/18 History aspirin 81 mg PO QAM 07/01/18 07/01/18 History Patient History Medical History Focal motor seizure (Acute) Suspected cerebrovascular accident (CVA) (Acute) Hypertensive urgency (Acute) Hypothyroidism Acute CVA (cerebrovascular accident) Chest pain (Resolved) Aphasia Expressive aphasia (Acute) Lacunar infarction (Acute) Hypertension (Chronic) Diabetes (Chronic) Chest pain (Resolved 06/14/13) Acute sinusitis (Acute) Altered mental status (Acute) Dizziness (Acute) Hypoglycemia (Acute) Stroke Surgical History History of tonsillectomy Family History Other Cancer Diabetes Hypertension Social History Preferred Language: Gabonese Communication Ability: Effective Communication Ability Comment: one command followed on NIH scale, slurred speech Testing Analyst Required: No Beliefs That Will Affect Care: None marital status: Current Living Situation: Spouse current occupational status: retired Other Information That Helps Us Care for You: No Feels Safe at Home: Yes Safety Concerns: Feels Safe At This Time Smoking Status: Former smoker Do You Dip or Chew Tobacco: No Second Hand Exposure: No Tobacco Cessation Education Requested by Patient: No Hx Alcohol Use: No Hx Substance Use: No Review of Systems Constitutional: no fever and no chills Eyes: no blind spots and no diplopia Ear, Nose, Mouth, Throat: + hearing loss Respiratory: no cough and no dyspnea Cardiovascular: no chest pain and no palpitations Gastrointestinal: no nausea and no vomiting Genitourinary: no dysuria and no urinary incontinence Musculoskeletal: no neck pain and no myalgia Integumentary: no rash and no lesions Neurologic: as per Subjective / HPI Psychiatric: no depression and no anxiety Hematologic / Lymphatic: + easy bruising Physical Exam Physical Exam: The patient is a well-developed well-nourished elderly male. He is alert and oriented to person and place, although not the date. Recent and remote memory intact although he does not seem to recall the specifics of his history of present illness. Attention and concentration are normal. Patient exhibits moderate difficulty with naming and repetition. Language comprehension seems to be intact. Patient exhibits an age-appropriate fund of knowledge in terms of vocabulary. Visual field confrontation testing is suggestive of right visual field neglect. Visual acuity normal. Pupils equal round react to light and accommodation. Eye movements normal. Facial sensation intact. There is no facial droop or weakness. There is diminished hearing bilaterally. Palate elevates to midline. Shoulder shrug intact. Tongue protrudes to midline. Sensation intact to all modalities in all 4 limbs. Deep tendon reflexes are diminished throughout, in a symmetric fashion. Plantar responses equivocal on the right, downgoing on the left. There is mild dysmetria cirfhe-oy-sbru and lvpm-od-gqxk on the right. No dysmetria with rfktso-lb-qmtl or mffz-um-cukr on the left. Ophthalmoscopic examination reveals normal-appearing optic disks and posterior segments. No papilledema or hemorrhages. Carotid pulses normal bilaterally, no bruits to auscultation. Gait and station not tested due to safety concerns. Patient exhibits normal muscle strength and tone for all 4 limbs. No atrophy. No abnormal movements observed. There is no pronator drift. Results & Data Vital Signs (Past 12 Hours) Vital Signs Temp Pulse Pulse Resp BP Pulse Ox 07/02/18 07:05 36.5 C 58 L 18 156/69 H 97 07/02/18 04:20 36.8 C 57 L 19 167/77 H 94 07/02/18 00:00 56 L 07/01/18 23:31 36.8 C 63 20 169/70 H 93 Laboratory Results This morning's labs reviewed. WBC 3.94, hemoglobin 14.4, platelet count 214, sodium 141, BUN 13, creatinine 1.06, glucose 120, calcium 8.6, triglycerides 128, cholesterol 129, LDL 68, VLDL 26, HDL [address] of the head completed yesterday revealed an old left frontal infarct and increased size of the posterior left parietal infarct, nonacute. Images and report reviewed. Electrocardiogram reveals normal sinus rhythm, 88 bpm.
[2018-07-02] MEDS ORDERED: OPTIRAY 320 125ml IV PRN (11:33)
--- NOTE | 2018-07-02 11:58 | CT Scan Report ---
CT angio head w con CLINICAL HISTORY: stroke TECHNIQUE: CT angiography of the head was performed in a dynamic helical fashion during intravenous a dministration of 118 cc of Optiray 320. MIP imaging was performed. A dose lowering technique was util ized adhering to the principles of ALARA. CT DOSE: 652.69 mGy.cm COMPARISON STUDY: Noncontrast head CT dated 07/01/2018 FINDINGS: There is a distal left vertebral stenosis versus short segment dissection, with 50% luminal narrowing.. There are moderate atheromatous calcifications at the level of the cavernous and supracl inoid carotid. There are no major intracranial branch occlusions. There are no lesion suspicious for aneurysm. The dural venous sinuses appear patent. There is an old left parieto-occipital lobe infarct . There is an old left frontal infarct. There is bilateral mucosal thickening within the right maxill evy sinus. IMPRESSION: 1. No evidence of intracranial branch occlusion 2. No evidence of aneurysm 3. Stenosis versus short segment dissection of the distal left vertebral artery 4. Old left parieto-occipital infarct. Old left frontal infarct. Electronically signed by: Tim Sheehan M.D. 07/02/2018 11:56 AM
--- NOTE | 2018-07-02 12:09 | CT Scan Report ---
CT angio neck with con CLINICAL HISTORY: stroke COMPARISON STUDY: MR angiography neck performed November 2017 TECHNIQUE: CT angiography was performed from the aortic arch to the skull base. MIP imaging was perfo rmed. The patient was scanned in a dynamic helical fashion during intravenous administration of 118 c c of Optiray 320. A dose lowering technique was utilized adhering to the principles of ALARA. CT DOSE: Technique: CT angiogram of the carotid and vertebral arteries was obtained using intravenous contrast and 3-D reconstruction. NASCET criteria was utilized. Findings: There is atheromatous plaque at the level of the right carotid bulb and proximal right internal carot id artery. This results in a 45% diameter narrowing. There is no dissection. There is no aneurysm. There is extensive atheromatous plaque within the left carotid bulb and proximal left internal caroti d artery. This results in a 40% diameter narrowing. There is no dissection. There is no aneurysm. There is a stenosis/short segment dissection of the distal left vertebral artery with 50% luminal sree rowing. There is mild thyromegaly IMPRESSION: 1. Moderate atheromatous plaque at the level of both carotid bifurcations with a 45% diameter narrowi ng on the right and 40% diameter narrowing in the left 2. Stenosis/short segment dissection of distal left vertebral artery with a 50% luminal narrowing Electronically signed by: Tim Sheehan M.D. 07/02/2018 12:07 PM
--- NOTE | 2018-07-02 13:45 | Magnetic Resonance Report ---
MRI OF THE BRAIN WITHOUT CONTRAST CLINICAL HISTORY: Hypertensive urgency. Suspected acute stroke. COMPARISON STUDY: CT scan the head dated 07/01/2018, MRI the brain dated 11/30/2017 FINDINGS: Sagittal T1, axial diffusion, proton density and T2 weighted axial, coronal FLAIR, and axial T1-weigh jason images were acquired. No intra or extra-axial mass lesions are visualized Axial diffusion-weighted images reveal no evidence of acute or subacute infarction. There is no evidence of ventricular dilatation. Proton density T2-weighted and FLAIR images reveal old infarct within the left frontal lobe and left posterior parietotemporal occipital lobes. In addition there are foci of increased T2 signal within t he white matter, likely small vessel basis. There are no abnormal flow voids. There is right maxillary sinus mucosal thickening. IMPRESSION: 1. Old left hemispheric infarcts 2. No evidence of acute or subacute infarction 3. No evidence of intracranial mass on this noncontrast study. Electronically signed by: Tim Sheehan M.D. 07/02/2018 1:44 PM
--- NOTE | 2018-07-02 19:27 | Hospitalist Progress Note ---
Date of Service July 02, 2018 Assessment & Plan (1) 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 Likely that his prior left-sided hemispheric stroke is the underlying cause for these seizures. EEG pending for tomorrow. Seen by Dr. Howell from neurology - ongoing use of keppra 500mg BID recommended. MRI brain negative for acute stroke. Continue to observe. Fortunately no recurrent seizures since admission. Present on Admission?: Yes (2) Hypertensive urgency: Resolved. Continue home medications. Present on Admission?: Yes (3) Chronic diastolic CHF (congestive heart failure): Compensated. Present on Admission?: No (4) History of stroke with residual deficit: 11/2017 - left sided parietal/temporal lobe stroke with right sided weakness and expressive aphasia. Currently on plavix for secondary stroke prevention. MRI brain this admission w/o acute stroke. Need to clarify if patient is still taking statin at home. PT, OT while here. Present on Admission?: No (5) Hypothyroidism: most recent TSH wnl. continue synthroid. Present on Admission?: Yes (6) Expressive aphasia: Chronic, but was acutely worse in setting of his focal seizures. Speech appears back to baseline. Present on Admission?: Yes (7) DM w/o complication type II: A1c pending. Hold metformin. Loose sliding scale w/ novolog. Present on Admission?: Yes (8) Hyperlipidemia: Again need to clarify if still taking statin agent. 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 Nothing to do at this time. Continue plavix daily. (10) Carotid artery stenosis: b/l, mild - continue plavix, statin. annual surveillance? (11) DVT prophylaxis: lovenox 40mg daily stop fluids watch overnight, EEG in am if cleared by PT/OT tomorrow -- home with keppra? Subjective tele stable overnight. no seizures witnessed by any staff. patient feeling well this am w/o complaints. when I walked into the room he said "why hello !" pt's director of sustainability was visiting with him during the visit his director of sustainability felt he was doing well Review of Systems Respiratory: no dyspnea Cardiovascular: no chest pain Gastrointestinal: no abdominal pain Physical Exam Constitutional: well developed and well nourished; no acute distress ENMT: external ear and nose normal, oropharynx normal Respiratory: normal respiratory effort, lungs clear to auscultation Cardiovascular: RRR, no murmur, no edema Heart Sounds: normal S1 and normal S2 Vessels: posterior tibial pulses present and dorsalis pedis pulses present; no JVD Gastrointestinal (Abdomen): normal bowel sounds, soft, nontender, no hepatosplenomegaly Neurologic: mild right-sided weakness, mainly the right arm/hand; left arm/leg with normal strength; mild expressive asphasia; right sided facial droop Psychiatric: Orientation: alert Results & Data Vital Signs (Past 12 Hours) Vital Signs Temp Pulse Pulse Resp BP Pulse Ox Pulse Ox 07/02/18 19:09 37.1 C 58 L 19 140/73 97 07/02/18 15:30 36.6 C 55 L 21 145/78 H 98 07/02/18 11:50 36.6 C 57 L 20 159/79 H 94 07/02/18 10:05 97 07/02/18 10:01 50 L Laboratory Results MRI brain - no acute stroke. CTA neck - IMPRESSION: 1. Moderate atheromatous plaque at the level of both carotid bifurcations with a 45% diameter narrowing on the right and 40% diameter narrowing in the left 2. 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
[2018-07-02] MEDS ORDERED: GLUCOSE 40% GEL 15 GM TUBE PO PRN (19:45)
[2018-07-02] MEDS ORDERED: GLUCAGON FOR INJ 1 MG VIAL IM PRN (19:45)
[2018-07-02] MEDS ORDERED: GLUCOSE 10 TABS/TUBE PO PRN (19:45)
[2018-07-02] MEDS ORDERED: CARBOHYDRATES FOR HYPOGLYCEMIA PO PRN (19:45)
[2018-07-02] MEDS ORDERED: DEXTROSE 50% 50 ML SYRINGE IV PRN (19:45)
[2018-07-02] MEDS: MONTELUKAST SODIUM 10 MG TABLET PO SCH (20:42)
[2018-07-03 06:02] LABS: Estimated Average Glucose 171 mg/dl
[2018-07-03] MEDS: LEVOTHYROXINE SODIUM 75 MCG TABLET PO SCH (06:07)
[2018-07-03 06:12] LABS: Basophils # (auto) 0.01 K/uL (0-0.2); Basophils % (auto) 0.2 %; Hematocrit (blood only) 44.8 % (42-52); Hemoglobin 15.4 g/dL (14.0-18.0); Immature Granulocytes # (auto) 0.01 K/uL (0.00-0.02); Immature Granulocytes % (auto) 0.2 %; Lymphocytes # (auto) 0.94 K/uL (1.2-3.4); Lymphocytes % (auto) 21.3 %; Mean Corpuscular Hgb Conc 34.4 g/dL (32-36); Mean Corpuscular Volume 88.4 fL (80-100); Mean Platelet Volume 9.8 fL (7.4-10.4); Monocytes # (auto) 0.46 K/uL (0.11-0.59); Monocytes % (auto) 10.4 %; Neutrophils % (auto) 67.9 %; Platelet Count 220 K/uL (130-400); RDW Coefficient of Variation 14.8 % (11.5-14.5); RDW Standard Deviation 47.3 fL (36.4-46.3); Red Blood Count 5.07 M/uL (4.7-6.1); White Blood Count 4.42 K/uL (4.8-10.8)
[2018-07-03 06:44] LABS: BUN Creatinine Ratio 11.8 (10-20); Calcium 9.2 mg/dl (8.5-10.1); Creatinine Clr Calc Pharmacy 50.5 ml/min; Potassium 3.9 mmol/L (3.5-5.1)
[2018-07-03] MEDS: PANTOprazole 40 MG TAB PO SCH ×2 (08:30→17:46)
[2018-07-03] MEDS: CLOPIDOGREL BISULFATE 75 MG TAB PO SCH (08:30)
[2018-07-03] MEDS: ENOXAPARIN INJ 40 MG/0.4 ML SYR SQ SCH (08:30)
[2018-07-03] MEDS: LISINOPRIL 20 MG TAB PO SCH (08:30)
[2018-07-03] MEDS: MAGNESIUM OXIDE 400 MG TAB PO SCH (08:30)
[2018-07-03] MEDS: INSULIN ASPART 100 UNITS/ML 3 ML PEN SC SCH ×4 (08:32→21:19)
--- NOTE | 2018-07-03 10:26 | Hospitalist Progress Note ---
Date of Service July 03, 2018 Assessment & Plan (1) 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 Likely that his prior left-sided hemispheric stroke is the underlying cause for these seizures. EEG cancelled per neurology Continue keppra 500mg BID recommended. MRI brain negative for acute stroke. No recurrent seizures since admission. (2) Hypertensive emergency: Treated with labetalol in ED, now resolved (3) Chronic diastolic CHF (congestive heart failure): Compensated. (4) History of stroke with residual deficit: 11/2017 - left sided parietal/temporal lobe stroke with right sided weakness and expressive aphasia. Currently on plavix for secondary stroke prevention. MRI brain this admission w/o acute stroke. Per last neurology note, patient has been unable to tolerate statins. She suggested a trial of low dose statin such as pravastatin 10 - 20 mg which patient has on his home list. Double checked with his and he has been able to take this dose PT, OT recommend return home (5) Hypothyroidism: most recent TSH wnl. continue synthroid. (6) Expressive aphasia: Chronic, but was acutely worse in setting of his focal seizures. Speech appears back to baseline. (7) DM w/o complication type II: A1c pending. Hold metformin. Loose sliding scale w/ novolog. (8) Hyperlipidemia: Again need to clarify if still taking statin agent. 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 Continue plavix daily. Vascular surgery unavailable today, will consult for the morning. (10) Carotid artery stenosis: b/l, mild - continue plavix, statin. annual surveillance? Vascular surgery consult (11) Hand edema: right - will order doppler. Keep elevated (12) DVT prophylaxis: lovenox 40mg daily Subjective Mr. Chinchilla is nearing his baseline. He is aphasic but able to get through most of a conversation. He has no complaints Review of Systems Review of Systems: All systems reviewed & are unremarkable except as noted in HPI & below Physical Exam Physical Exam: General: no distress Eyes: normal inspection, PERLL Respiratory: chest non tender, clear to auscultation, normal breath sounds, no respiratory distress, no accessory muscle use Cardiac: regular rate and rhythm, no rub or gallop, no murmur, right hand edema, no jvd GI/: active bowel sounds, no abd pain or tenderness, soft, non distended Extremities: normal range of motion, normal strength, non tender Neuro/Psych: alert and oriented x 3, normal mood and affect, aphasic, 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 Skin: normal color, dry Results & Data Vital Signs (Past 12 Hours) Vital Signs Temp Pulse Pulse Resp BP Pulse Ox 07/03/18 07:13 36.6 C 68 19 173/85 H 93 07/03/18 03:38 36.4 C L 76 22 175/84 H 94 07/03/18 00:00 55 L 07/02/18 23:22 36.6 C 65 18 153/66 H 97 (1) Carotid artery stenosis Laterality: bilateral Qualified Code(s): I65.23 - Occlusion and stenosis of bilateral carotid arteries (2) DM w/o complication type II Diabetes mellitus fdc insulin use: 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
--- NOTE | 2018-07-03 11:24 | Neurology Progress Note ---
Date of Service July 03, 2018 Assessment & Plan (1) Focal seizures: Patient had focal left hemispheric seizures resulting in right upper extremity shaking. He has had no seizure activity since admission and is on Keppra 500 mg twice daily. Etiology of this seizure is likely his previous left hemispheric stroke. He had a large left middle cerebral artery stroke with right terri paresis and aphasia in November of 2017. He is stable from this. He has not had any new stroke by yesterday's MRI. CT angiography of the head neck showed no significant stenoses. Recommendations: 1. Continue levetiracetam 500 mg twice daily. 2. I am not certain that any EEG needs to be done since he is not having any additional activity or encephalopathy and is tolerating the Keppra well. Getting EEG likely will not change our treatment plan. 3. Increase activity as able. 4. I have no further neurologic testing or treatment recommendations to make at this time and he can follow up with Dr. Howell as an outpatient. Overall, I spent a total of 25 minutes with this case including review of r ecords, review of MRI films, direct evaluation the patient at bedside, and discussion of the case with the patient at bedside, clinical staff, and MARIMAR Herr Subjective No complaint of pain or headache. He is breathing well and has no abdominal pain. His vision is stable. His right upper extremity is a little bit swollen. He feels that his strength is good and he is back to baseline. He has not had any further seizures or right upper extremity shaking. Nursing reports no new issues or problems. CBC and Chem profile were largely unremarkable although glucose was 127. Blood pressure today was 173/85. MRI of the brain showed old left frontal and left parietal strokes in the middle cerebral artery distribution with considerable atrophy. There was no hemorrhage and no new stroke. CT angiography of the head neck was remarkable for some stenosis at 50% of the distal left vertebral artery and some mild stenosis at the carotid bifurcations being 45% on the right and 40% on the left. Physical Exam Physical Exam: He is awake and alert. Stance is normal sitting in the chair. He is pleasant and cooperative with good mood and affect. He has good recall the events. Extraocular eye muscles are intact without nystagmus. There is no facial droop. He does have some dysarthria to his speech. The right upper extremity is mildly weak compared to the left which is of normal strength. Leg strength is normal bilaterally. There are no abnormal involuntary movements and he is good tone in the limbs. Results & Data Vital Signs (Past 12 Hours) Vital Signs Temp Pulse Pulse Resp BP Pulse Ox 07/03/18 11:07 36.5 C 62 18 151/80 H 97 07/03/18 07:13 36.6 C 68 19 173/85 H 93 07/03/18 03:38 36.4 C L 76 22 175/84 H 94 07/03/18 00:00 55 L 07/02/18 23:22 36.6 C 65 18 153/66 H 97
--- NOTE | 2018-07-03 17:02 | Ultrasound Report ---
US venous doppler UE RT CLINICAL HISTORY: Right upper extremity edema COMPARISON STUDY: No previous studies for comparison. FINDINGS: No intraluminal thrombus was visualized. The internal jugular, subclavian, axillary, cephal ic, brachial, basilic, radial, and ulnar veins were patent. The cephalic and basilic veins were not v isualized in the forearm due to their small size. IMPRESSION: No evidence of right upper extremity DVT. Electronically signed by: Tim Sheehan M.D. 07/03/2018 5:00 PM
[2018-07-03] MEDS: MONTELUKAST SODIUM 10 MG TABLET PO SCH (21:20)
[2018-07-03] MEDS: PRAVASTATIN SOD 20 MG TAB PO SCH (21:20)
[2018-07-04] MEDS: LEVOTHYROXINE SODIUM 75 MCG TABLET PO SCH (06:16)
[2018-07-04 06:56] LABS: Hematocrit (blood only) 42.8 % (42-52); Hemoglobin 15.2 g/dL (14.0-18.0); Lymphocytes # (auto) 0.68 K/uL (1.2-3.4); Lymphocytes % (auto) 20.8 %; Mean Corpuscular Hgb Conc 35.5 g/dL (32-36); Mean Corpuscular Volume 88.4 fL (80-100); Mean Platelet Volume 9.9 fL (7.4-10.4); Monocytes # (auto) 0.34 K/uL (0.11-0.59); Monocytes % (auto) 10.4 %; Neutrophils # (auto) 2.25 K/uL (1.4-6.5); Neutrophils % (auto) 68.8 %; Platelet Count 217 K/uL (130-400); RDW Coefficient of Variation 14.6 % (11.5-14.5); Red Blood Count 4.84 M/uL (4.7-6.1); White Blood Count 3.27 K/uL (4.8-10.8)
[2018-07-04 07:25] LABS: BUN Creatinine Ratio 11.6 (10-20); Creatinine Clr Calc Pharmacy 49.3 ml/min; Est GFR (African American) 64.3; Est GFR (Non-African American) 55.5; Potassium 3.8 mmol/L (3.5-5.1)
[2018-07-04] MEDS: INSULIN ASPART 100 UNITS/ML 3 ML PEN SC SCH ×4 (08:15→22:02)
[2018-07-04] MEDS: MAGNESIUM OXIDE 400 MG TAB PO SCH (08:16)
[2018-07-04] MEDS: LISINOPRIL 20 MG TAB PO SCH (08:16)
[2018-07-04] MEDS: CLOPIDOGREL BISULFATE 75 MG TAB PO SCH (08:16)
[2018-07-04] MEDS: PANTOprazole 40 MG TAB PO SCH ×2 (08:16→17:20)
[2018-07-04] MEDS: ENOXAPARIN INJ 40 MG/0.4 ML SYR SQ SCH (08:17)
[2018-07-04] MEDS ORDERED: SIMETHICONE 40 MG/0.6 ML 30ML PO ONE (09:25)
--- NOTE | 2018-07-04 10:26 | Consultation ---
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 Pt appears asymptomatic. Recommend continue plavix and asa and will recheck in 2-3 months with a new CTA. Pt agreeable. Please call if needed. 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 Pt denies any neck pain or balance problems, and MRI does not indicate any new brain infarct. Pt difficult to elicit hx from d/t dysarthria. Denies OLSON, fever, chest pain, abd pain, N/V, rest pain, claudication, other complications. CTA neck indicates small focal area of dissection in vertebral art. This was not visualized on previous neck CTA last year. Allergies Allergy/AdvReac Type Severity Reaction Status Date / Time Gcmegzi-Pfh-Pak Reductase Allergy Severe JOINT PAIN Verified 07/01/18 16:57 Inhibitor strawberry Allergy Intermediate Rash Verified 07/01/18 16:57 Home Medications Home Medications Medication Instructions Recorded Confirmed Type clopidogrel 75 mg PO QAM 11/29/17 07/01/18 History metformin 1,000 mg PO BIDM 11/29/17 07/01/18 History montelukast [Singulair] 10 mg PO HS 11/29/17 07/01/18 History docusate sodium [Stool Softener] 100 mg PO BID 06/24/18 07/01/18 History levothyroxine 75 mcg PO QAM 06/24/18 07/01/18 History lisinopril 20 mg PO QAM 06/24/18 07/01/18 History pantoprazole 40 mg PO QAM 06/24/18 07/01/18 History pravastatin 20 mg PO HS 06/24/18 07/01/18 History aspirin 81 mg PO QAM 07/01/18 07/01/18 History Patient History Medical History Focal motor seizure (Acute) Suspected cerebrovascular accident (CVA) (Acute) Hypothyroidism (Chronic) Acute CVA (cerebrovascular accident) Chest pain (Resolved) Aphasia Expressive aphasia (Chronic) Lacunar infarction (Acute) Hypertension (Chronic) Diabetes (Chronic) Chest pain (Resolved 06/14/13) Acute sinusitis (Acute) Altered mental status (Acute) Dizziness (Acute) Hypoglycemia (Acute) Stroke Surgical History History of tonsillectomy Family History Other Cancer Diabetes Hypertension Social History Preferred Language: Mohawk Communication Ability: Effective Communication Ability Comment: one command followed on NIH scale, slurred speech Die Caster Required: No Beliefs That Will Affect Care: None marital status: Current Living Situation: Spouse current occupational status: retired Other Information That Helps Us Care for You: No Feels Safe at Home: Yes Safety Concerns: Feels Safe At This Time Smoking Status: Former smoker Do You Dip or Chew Tobacco: No Second Hand Exposure: No Tobacco Cessation Education Requested by Patient: No Hx Alcohol Use: No Hx Substance Use: No Review of Systems Review of Systems: All systems reviewed & are unremarkable except as noted in HPI & below Physical Exam Constitutional: WD/WN, vitals as above well developed, well nourished, healthy appearing, well groomed, cooperative and comfortable; not ill appearing, not in distress and not combative Eyes: PERRL, conjunctivae normal, anicteric sclerae EOM intact bilaterally ENMT: external ear and nose normal, oropharynx normal Ears: no hearing impairment Nose: no nasal discharge Neck: trachea midline, no thyromegaly no tracheal deviation, no neck crepitus and neck nontender Respiratory: able to speak in complete sentences; does not use accessory muscles, no cough, not tachypneic and no audible wheezes Auscultation: lungs clear to auscultation bilaterally and + diminished lung sounds; no rhonchi and no wheezes Cardiovascular: Rate/Rhythm: regular rate and regular rhythm Heart Sounds: no gallop and no murmur Vessels: femoral pulses present, posterior tibial pulses present, dorsalis pedis pulses present, brachial pulses present and radial pulses present; no carotid bruit, no abdominal aortic bruit, no femoral bruit and + abnormal peripheral pulses Extremities: normal capillary refill; no pedal edema and no edema Chest (Breasts): Chest: normal inspection of chest Gastrointestinal (Abdomen): Inspection/Auscultation: abdomen normal to inspection and normal bowel sounds; abdomen not distended Percussion/Palpation: abdomen soft; abdomen nontender, no guarding, abdomen not rigid and no abdominal mass Musculoskeletal: Head/Neck/Chest: normocephalic, head atraumatic and neck supple Extremities: extremities normal to inspection; full ROM of extremities, + abnormal strength and no clubbing Skin: no rashes, warm and dry normal turgor; no rashes, no lesions, no ulcers, no wound, no erythema and no mottling Neurologic: moves all extremities and awake; no focal motor deficits and not confused Speech / Cognition: + expressive aphasia; no receptive aphasia Motor/Sensory: no tremor and no sensory deficit Cranial Nerves: EOM intact bilaterally and normal facial strength Psychiatric: Orientation: alert, oriented x 3 and cooperative Apperance: appropriately dressed, appropriately groomed and appeared stated age Affect: euthymic affect Thought Process: goal directed thought process and linear/logical thought process Cognition: recent memory grossly intact, remote memory grossly intact and attention grossly intact Estimated Intelligence: average estimated intelligence Results & Data Vital Signs (Past 12 Hours) Vital Signs Temp Pulse Pulse Resp BP Pulse Ox 07/04/18 03:40 36.5 C 82 18 160/88 H 97 07/04/18 00:00 57 L 07/03/18 23:53 36.9 C 75 18 148/76 H 98
--- NOTE | 2018-07-04 13:23 | Discharge Summary ---
Date of Service July 05, 2018 Admission HPI Per Admitting Provider 77-year-old male with previous history of CVA with resultant chronic dysarthria and right hemiparesis. Today his noticed a worsening of his symptoms and he came to the ED and was found to have initial blood pressure of 189/93 consistent with hypertensive urgency. His dysarthria was indeed worse and he exhibited several episodes of focal motor seizures. There may have also been some worsening of the right hemiparesis. The ED physician contacted tele- neurology who made several recommendations but TPA was not administered. He did receive intravenous labetalol for blood pressure control and was started on in travenous Keppra. At the time of my examination the patient is alert but he remains markedly dysarthric and is unable to follow simple commands. He may have suffered an extension of a previous CVA. EEG and MRI are ordered and pending. Neurological consultation is pending. Blood pressure is much improved and will be followed. He is admitted for further evaluation and treatment. He will be kept n.p.o. until he can undergo speech evaluation. OT and PT assessments will also be necessary. Principal Diagnosis Hypertensive urgency, seizure Discharge Exam Constitutional WD/WN, vitals as above Respiratory normal respiratory effort, lungs clear to auscultation Cardiovascular RRR, no murmur, no edema Gastrointestinal (Abdomen) normal bowel sounds, soft, nontender, no hepatosplenomegaly Musculoskeletal no cyanosis or clubbing, extremities motor strength 5/5 Skin no rashes, warm and dry Neurologic moves all extremities and awake Speech / Cognition: + expressive aphasia Psychiatric A+Ox3, euthymic affect Discharge Data Allergies Allergy/AdvReac Type Severity Reaction Status Date / Time Qhzkzej-Tsj-Axn Reductase Allergy Severe JOINT PAIN Verified 07/01/18 16:57 Inhibitor strawberry Allergy Intermediate Rash Verified 07/01/18 16:57 Consultations 07/01/18 16:09 ED Decision to Admit Stat 07/01/18 18:08 Consult Case Management - Discharge Planning Routine Consult Neurology Routine 07/03/18 13:43 Consult Vascular Surgery Routine Ordered Studies 07/01/18 14:48 CT head/brain wo con Stat 07/02/18 09:40 CT angio head w con Routine CT angio neck with con Routine 07/02/18 18:08 MR brain wo con Routine 07/03/18 15:14 US venous doppler UE RT Routine Hospital Course (1) 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 Likely that his prior left-sided hemispheric stroke is the underlying cause for these seizures. EEG cancelled per neurology Continue keppra 500mg BID recommended. MRI brain negative for acute stroke. No recurrent seizures since admission. (2) Hypertensive emergency: Treated with labetalol in ED, now resolved (3) Chronic diastolic CHF (congestive heart failure): Compensated. (4) History of stroke with residual deficit: 11/2017 - left sided parietal/temporal lobe stroke with hemiparesis and expressive aphasia. Currently on plavix, ASA for secondary stroke prevention. MRI brain this admission w/o acute stroke. Per last neurology note, patient has been unable to tolerate statins. She suggested a trial of low dose statin such as pravastatin 10 - 20 mg which patient has on his home list. Double checked with his and he has been able to take this dose and will continue PT, OT recommend return home with HH (5) Hypothyroidism: most recent TSH wnl. continue Synthroid. (6) Expressive aphasia: Chronic, but was acutely worse in setting of his focal seizures. Speech appears back to baseline. (7) DM w/o complication type II: A1c 7.6. Held metformin inpatient, can restart for home Loose sliding scale w/ novolog. (8) Hyperlipidemia: Again need to clarify if still taking statin agent. 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 Consulted vascular surgery - Recommend continue plavix and asa and will recheck in 2-3 months with a new CTA (10) Carotid artery stenosis: b/l, on CTA - Moderate atheromatous plaque at the level of both carotid bifurcations with a 45% diameter narrowing on the right and 40% diameter narrowing in the left- continue plavix, statin. as above, follow with vascular surgery (11) Hand edema: right - much improved today. No thrombus on doppler (12) DVT prophylaxis: lovenox 40mg daily Total Time Total Time Spent Total Time Spent (In Minutes): greater than 30 minutes Discharge Plan Discharge Items Patient Disposition: Home - Home Health Services Reason For Visit: HYPERTENSIVE URGENCY, SUSPECTED ACUTE CVA Discharge Diagnosis: Seizure, hypertensive urgency Discharge Goals: Diagnostic testing and Improve disease control Activity: Resume your previous activity Non-emergency contact: Primary Care Provider Call non-emergency contact if: you have any medication questions Follow-up/Referrals: Beata Mesa PA-C [Physician [employer]] - 09/22/18 10:00 am (Please, follow up at [facility] Neurology Office with Beata Mesa PA-C on TuesdaySeptember 22 at 10:00 am. *This office is located at [address] [place] [address] in [place]. If you need to change this appointment, call the office at [phone]. THEY MAY CALL YOU TO RESCHEDULE IF AN EARLIER APPOINTMENT BECOMES AVAILABLE) Gianna Bonilla CRNP [Primary Care Provider] - 07/11/18 11:40 am (Please, follow up at [facility] with Minna MINAYA on TuesdayJuly 11 at 11:40 am. *If you need to change this appointment, call the office at [phone].) PCP,NO [Physician] - Diet: Carb Consistent or DM2 and Heart Healthy Addtl Provider Instructions: Vascular surgery recommends that you follow up with them for a repeat CT in 2-3 months of your carotid arteries. You should continue your aspirin and Plavix. A new prescription for Keppra has been sent to your pharmacy Please see your primary care provider next week. Home health should evaluate and treat you for physical and occupational therapy Prescriptions: New levetiracetam 100 mg/mL Solution 5 ml PO Q12H Qty: 60 RF: 1 magnesium oxide 400 mg (241.3 mg magnesium) Tablet 400 mg PO DAILY Qty: 30 RF: 1 Continued clopidogrel 75 mg Tablet 75 mg PO QAM RF: 0 metformin 1,000 mg Tablet 1,000 mg PO BIDM RF: 0 montelukast [Singulair] 10 mg Tablet 10 mg PO HS RF: 0 levothyroxine 75 mcg tablet 75 mcg PO QAM RF: 0 lisinopril 10 mg tablet 20 mg PO QAM RF: 0 pravastatin 20 mg tablet 20 mg PO HS RF: 0 pantoprazole 40 mg tablet,delayed release (DR/EC) 40 mg PO QAM RF: 0 docusate sodium [Stool Softener] 100 mg Capsule 100 mg PO BID RF: 0 aspirin 81 mg Tablet,Delayed Release (Dr/Ec) 81 mg PO QAM RF: 0 Stand-Alone Forms: [facility] Orders: Discharge Order (Routine); Ordered 07/05/18 Ordered By: Genesis Alston Admission Data Admit Date/Time: 07/01/18 16:49 Attending Provider: London Keen Admit Provider: Preet Farrell Primary Care Provider: Gianna Bonilla Other Providers: Oscar Martino ; Preet Farrell ; Loco Howell ; aYng Valero III ; Kayley Pierson ; Beata Mesa ; Stefan Potter ; Herminio Deutsch Service: Medical
[2018-07-04] MEDS ORDERED: IMIPENEM/CILASTATIN SODIUM 500 MG in DEXTROSE 5% 100 ML IV SCH (16:30)
--- NOTE | 2018-07-04 18:14 | Hospitalist Progress Note ---
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 Likely that his prior left-sided hemispheric stroke is the underlying cause for these seizures. EEG cancelled per neurology Continue keppra 500mg BID recommended. MRI brain negative for acute stroke. No recurrent seizures since admission. (2) Hypertensive emergency: Treated with labetalol in ED, now resolved (3) Chronic diastolic CHF (congestive heart failure): Compensated. (4) History of stroke with residual deficit: 11/2017 - left sided parietal/temporal lobe stroke with right sided weakness and expressive aphasia. Currently on plavix and ASA for secondary stroke prevention. MRI brain this admission w/o acute stroke. Per last neurology note, patient has been unable to tolerate statins. She suggested a trial of low dose statin such as pravastatin 10 - 20 mg which patient has on his home list. Double checked with his and he has been able to take this dose PT, OT recommend return home (5) Hypothyroidism: most recent TSH wnl. continue synthroid. (6) Expressive aphasia: Chronic, but was acutely worse in setting of his focal seizures. Speech appears back to baseline. (7) DM w/o complication type II: A1c pending. Hold metformin. Loose sliding scale w/ novolog. (8) Hyperlipidemia: Again need to clarify if still taking statin agent. 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 Consulted vascular surgery - Recommend continue plavix and asa and will recheck in 2-3 months with a new CTA (10) Carotid artery stenosis: b/l, on CTA - Moderate atheromatous plaque at the level of both carotid bifurcations with a 45% diameter narrowing on the right and 40% diameter narrowing in the left- continue plavix, statin. as above, follow with vascular surgery (11) Hand edema: right - much improved today. No thrombus on doppler (12) DVT prophylaxis: lovenox 40mg daily Dispo: patient and unsure about possible rehab placement per PT rec. Will re-eval in the am and discuss with case management Subjective Mr. Chinchilla is feeling better except for some gas and abdominal discomfort. Per nursing he was ambulating the halls with therapy and tolerating well. Review of Systems Review of Systems: All systems reviewed & are unremarkable except as noted in HPI & below Physical Exam Physical Exam: General: no distress Eyes: normal inspection, PERLL Respiratory: chest non tender, clear to auscultation, normal breath sounds, no respiratory distress, no accessory muscle use Cardiac: regular rate and rhythm, no rub or gallop, no murmur, no edema, no jvd GI/: active bowel sounds, no abd pain or tenderness, soft, non distended Extremities: normal range of motion, normal strength, non tender Neuro/Psych: alert and oriented x 3, normal mood and affect Skin: normal color, dry Results & Data Vital Signs (Past 12 Hours) Vital Signs Temp Pulse Pulse Resp BP BP Pulse Ox 07/04/18 15:35 36.6 C 60 18 170/90 H 98 07/04/18 14:20 60 07/04/18 11:59 36.6 C 88 18 154/69 H 96 07/04/18 06:22 57 L (1) Hypothyroidism Hypothyroidism type: acquired Qualified Code(s): E03.9 - Hypothyroidism, unspecified (2) DM w/o complication type II Diabetes mellitus prison insulin use: without intermodal truck 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
[2018-07-04] MEDS: PRAVASTATIN SOD 20 MG TAB PO SCH (22:24)
[2018-07-04] MEDS: MONTELUKAST SODIUM 10 MG TABLET PO SCH (22:24)
[2018-07-05] MEDS: LEVOTHYROXINE SODIUM 75 MCG TABLET PO SCH (06:01)
[2018-07-05 06:53] LABS: Hematocrit (blood only) 46.5 % (42-52); Hemoglobin 16.2 g/dL (14.0-18.0); Mean Corpuscular Hgb Conc 34.8 g/dL (32-36); Mean Corpuscular Volume 88.6 fL (80-100); Mean Platelet Volume 9.8 fL (7.4-10.4); Platelet Count 230 K/uL (130-400); RDW Coefficient of Variation 14.5 % (11.5-14.5); RDW Standard Deviation 46.7 fL (36.4-46.3); Red Blood Count 5.25 M/uL (4.7-6.1); White Blood Count 3.54 K/uL (4.8-10.8)
[2018-07-05] MEDS: LISINOPRIL 20 MG TAB PO SCH (08:32)
[2018-07-05] MEDS: CLOPIDOGREL BISULFATE 75 MG TAB PO SCH (08:32)
[2018-07-05] MEDS: MAGNESIUM OXIDE 400 MG TAB PO SCH (08:32)
[2018-07-05] MEDS: PANTOprazole 40 MG TAB PO SCH (08:32)
[2018-07-05] MEDS: ENOXAPARIN INJ 40 MG/0.4 ML SYR SQ SCH (08:32)
[2018-07-05] MEDS: INSULIN ASPART 100 UNITS/ML 3 ML PEN SC SCH ×2 (08:42→12:31)
[2018-07-05] MEDS ORDERED: ASPIRIN 81 MG ECTAB PO SCH (09:00)
== END 2018-07-05 14:35 | disposition home health service (06) | DRG 56 ==
LOC: ED 14:52 → SUATTDRO 16:49 → 2S 16:49 → 4W 07-04 20:28
DX: Z79.82 Long term (current) use of aspirin; I50.32 Chronic diastolic (congestive) heart failure; R56.9 Unspecified convulsions; Z79.02 Long term (current) use of antithrombotics/antiplatelets; E11.9 Type 2 diabetes mellitus without complications; I65.23 Occlusion and stenosis of bilateral carotid arteries; I69.351 Hemiplegia and hemiparesis following cerebral infarction affecting right dominant side; I16.1 Hypertensive emergency; I69.322 Dysarthria following cerebral infarction; Z83.3 Family history of diabetes mellitus; E03.9 Hypothyroidism, unspecified; Z79.84 Long term (current) use of oral hypoglycemic drugs; I69.998 Other sequelae following unspecified cerebrovascular disease; I77.74 Dissection of vertebral artery; R29.707 NIHSS score 7

== ENCOUNTER 2020-11-06 14:09 | Observation (INO) ==
--- NOTE | 2020-11-06 14:43 | Emergency Department Note ---
Impression & Plan Generalized weakness, SHRUTHI (acute kidney injury) ED Provider Note NAME: ELIZA VIVAR AGE: 80 SEX: M : 1940 ARRIVES VIA: Walk-In INFORMANT: Patient, the patient's significant other ED PROVIDER(S): Saulo Hunt DO CHIEF COMPLAINT: Weakness HPI: The patient is an 80-year-old male who presented to the emergency [facility], [place], operated by [facility] for an evaluation of generalized weakness. The patient's significant other does give most of the history as the patient has severe expressive aphasia because of a previous stroke. According to her over the course the last few days he has been having increasing weakness. She was concerned because his blood pressure was low today and thought he needed to be "checked out". The patient did have some changes to his blood pressure medications through the primary care physician's office. He has a history of stroke in the past. Otherwise he has been compliant with all of his usual outpatient medications. The patient presented to the emergency department today because of "shakiness". The patient's significant other is worried he may have had a TIA. The patient has been having decreased p.o. intake and is very unsteady when he tries to walk. She is noticed no unilateral weakness. He has had no recent falls or head injuries. The patient self does not express any pain. He has been denying any chest pain or difficulty breathing. He denies having any nausea or vomiting. The patient has an appointment today with his primary neurologist but they canceled the appointment to come to the emergency department at the request of the primary care physician. The patient has had no dysuria or frequency. Is in for another note he may had some crease urine out. His blood sugars have been at their baseline according to his significant other. ROS: See above HPI for pertinent positives & negatives. A total of 10 systems reviewed and were otherwise negative. PAST MEDICAL HISTORY: See Below PAST SURGICAL HISTORY: See Below FAMILY HISTORY: See Below SOCIAL HISTORY: See Below HOME MEDICATIONS: See Below ALLERGIES: See Below VITALS: See Below PHYSICAL EXAMINATION: GENERAL: The patient is awake and alert. The patient follows commands. EYES: The conjunctivae are clear. The pupils are round and reactive. EARS, NOSE, MOUTH AND THROAT: The nose is without any evidence of any deformity. Mucous membranes are moist. NECK: The neck is nontender and supple. RESPIRATORY: Normal respiratory effort is noted there is no evidence of wheezing rhonchi or rales CARDIOVASCULAR: Regular rate and rhythm was noted to auscultation. Systolic murmur was suggested. GASTROINTESTINAL: The abdomen is soft. Abdomen is nontender. MUSCULOSKELETAL/EXTREMITIES: There is no evidence of gross deformity full range of motion is noted in the hips and shoulders. SKIN: Skin warm and dry. There was no significant pedal edema. NEUROLOGIC: Patient is awake and alert. The patient appears to be at his baseline according to his significant other. Due to his expressive aphasia is difficult to assess orientation. Patient is able to hold each leg off the bed for greater than 5 seconds. There was no drift in the upper. MEDICAL DECISION MAKING: The patient is an 80-year-old male who presented to the emergency department with his significant other. The patient has had decreased p.o. intake and generalized weakness. He has had been compliant with his outpatient medications but his significant other was concerned that he may have had a stroke. I discussed the patient's laboratory and radiographic studies with them. He was treated with IV fluids in the emergency department. He was reevaluated multiple times. Ultimately the patient was found to have a degree of dehydration. We did try to ambulate the patient but he did not do well. For this reason I did not feel the patient was safe for discharge. I discussed his case with the all [facility] hospitalist. They have agreed to evaluate the patient in the [facility] department for further management and disposition. Triage Nursing notes reviewed. Prior medical records reviewed Vital Signs: reviewed and remarkable for no significant abnormalities Differential diagnosis: Infection, dehydration, metabolic abnormality, hypo/hyperglycemia, electrolyte disturbance, anemia, hypoxia, cardiac sources, intracerebral event, toxicologic, neurologic, as well as other pathologies. ER treatment provided: See below Diagnostics interpreted by me: ECG: EKG was obtained in the emergency department. My interpretation is normal sinus rhythm at 62 bpm. There was no ectopy. LVH was suggested by voltage criteria. Poor R wave progression was noted. This was compared to a tracing from July [id number]. No significant changes were noted. Cardiac Monitoring: An order was placed for continuous cardiac monitoring. The monitor shows a rate of 68 bpm with sinus rhythm. Laboratory studies: As stated above and show below. Imaging studies: See below Consultation(s): 1830: I discussed this case with Dr. Mcgee who is on-call for the [facility] hospitalist group. Past Med/Surg History Medical History (Updated 11/06/20 @ 19:32 by MARIMAR Montaño) Chest pain (06/14/13) Diabetes Dizziness Expressive aphasia Focal motor seizure History of stroke with residual deficit Hypertension Hypoglycemia Hypothyroidism Surgical History History of tonsillectomy Hx of oral surgery Family History Sister Leukemia Father Cancer Other Diabetes Hypertension Social History Smoking Status: Unknown if ever smoked Second Hand Exposure: No; Hx Alcohol Use: No Hx Substance Use: No Preferred Language: Japanese Communication Ability: Effective Video Arcade Manager Required: No Beliefs That Will Affect Care: None marital status: Current Living Situation: Spouse current occupational status: retired Feels Safe at Home: Yes Assistive Devices: None Allergies Allergies Allergy/AdvReac Type Severity Reaction Status Date / Time Jjfzasx-Hem-Saz Reductase Allergy Severe JOINT PAIN Verified 11/06/20 15:22 Inhibitor strawberry Allergy Intermediate Rash Verified 11/06/20 15:22 Home Meds Home Medications Medication Instructions Recorded Confirmed clopidogrel 75 mg tablet 75 mg PO QAM 11/29/17 11/06/20 metformin 1,000 mg tablet 1,000 mg PO BIDM 11/29/17 11/06/20 montelukast 10 mg tablet 10 mg PO HS 11/29/17 11/06/20 (Singulair) levothyroxine 75 mcg tablet 75 mcg PO QAM 06/24/18 11/06/20 pantoprazole 40 mg tablet,delayed 40 mg PO BID 06/24/18 11/06/20 release pravastatin 20 mg tablet 20 mg PO HS 06/24/18 11/06/20 aspirin 81 mg tablet,delayed 81 mg PO QAM 07/01/18 11/06/20 release acetaminophen 500 mg tablet 500 mg PO Q4 PRN tab 09/18/18 11/06/20 amlodipine 2.5 mg tablet 2.5 mg PO DAILY 11/06/20 11/06/20 amlodipine 5 mg tablet 5 mg PO DAILY 11/06/20 11/06/20 glimepiride 1 mg tablet 1 mg PO HS 11/06/20 11/06/20 lisinopril 40 mg tablet 40 mg PO DAILY 11/06/20 11/06/20 Previous Rx's Medication Instructions Recorded magnesium oxide 400 mg (241.3 mg 400 mg PO DAILY #30 tab 07/05/18 magnesium) tablet levetiracetam 500 mg tablet 500 mg PO BID #180 tab 08/11/20 (Amanda) Results & Data (ED) Vital Signs Vital Signs - 24 hr 11/06/20 14:20 11/06/20 14:32 11/06/20 14:56 Temperature 37 C Temperature Source Oral Pulse Rate 71 70 Pulse Rate [Right Finger] Pulse Rate from SpO2 Sensor 69 Respiratory Rate 18 Respiratory Effort / Characteristics Respiratory Depth Normal Blood Pressure 107/63 165/78 H Blood Pressure [Right Arm] Blood Pressure Mean 77 107 Blood Pressure Mean [Right Arm] Blood Pressure Position Sitting Blood Pressure Position [Right Arm] Pulse Oximetry 98 95 96 Oxygen Delivery Method Room Air Room Air Room Air Sepsis Recent Fever Within 48 Hours No Sepsis New/Unexplained Change in Mental Status N/A Sepsis Action Taken by Nursing No Action Required 11/06/20 15:30 11/06/20 16:30 11/06/20 17:00 Temperature Temperature Source Pulse Rate 61 71 66 Pulse Rate [Right Finger] Pulse Rate from SpO2 Sensor 60 70 66 Respiratory Rate 12 12 11 L Respiratory Effort / Characteristics Respiratory Depth Blood Pressure 133/63 151/88 H 140/74 Blood Pressure [Right Arm] Blood Pressure Mean 86 109 96 Blood Pressure Mean [Right Arm] Blood Pressure Position Blood Pressure Position [Right Arm] Pulse Oximetry 96 96 97 Oxygen Delivery Method Room Air Room Air Room Air Sepsis Recent Fever Within 48 Hours Sepsis New/Unexplained Change in Mental Status Sepsis Action Taken by Nursing 11/06/20 17:30 11/06/20 18:00 11/06/20 18:18 Temperature Temperature Source Pulse Rate 72 68 Pulse Rate [Right Finger] 67 Pulse Rate from SpO2 Sensor 70 67 Respiratory Rate 14 14 20 Respiratory Effort / Characteristics Non-Labored Spontaneous Respiratory Depth Normal Blood Pressure 149/82 H 160/84 H Blood Pressure [Right Arm] 162/86 H Blood Pressure Mean 104 109 Blood Pressure Mean [Right Arm] 111 Blood Pressure Position Blood Pressure Position [Right Arm] Lying Pulse Oximetry 98 97 98 Oxygen Delivery Method Room Air Room Air Sepsis Recent Fever Within 48 Hours Sepsis New/Unexplained Change in Mental Status Sepsis Action Taken by Nursing 11/06/20 18:30 11/06/20 19:02 11/06/20 19:30 Temperature Temperature Source Pulse Rate 68 77 Pulse Rate [Right Finger] Pulse Rate from SpO2 Sensor 76 69 Respiratory Rate 19 15 Respiratory Effort / Characteristics Respiratory Depth Blood Pressure 163/101 H 166/89 H 183/96 H Blood Pressure [Right Arm] Blood Pressure Mean 121 114 125 Blood Pressure Mean [Right Arm] Blood Pressure Position Blood Pressure Position [Right Arm] Pulse Oximetry 98 97 Oxygen Delivery Method Room Air Sepsis Recent Fever Within 48 Hours Sepsis New/Unexplained Change in Mental Status Sepsis Action Taken by Nursing 11/06/20 20:00 11/06/20 20:30 Temperature Temperature Source Pulse Rate 80 68 Pulse Rate [Right Finger] Pulse Rate from SpO2 Sensor 81 Respiratory Rate 16 12 Respiratory Effort / Characteristics Respiratory Depth Blood Pressure 187/87 H 143/84 H Blood Pressure [Right Arm] Blood Pressure Mean 120 103 Blood Pressure Mean [Right Arm] Blood Pressure Position Blood Pressure Position [Right Arm] Pulse Oximetry 96 Oxygen Delivery Method Sepsis Recent Fever Within 48 Hours Sepsis New/Unexplained Change in Mental Status Sepsis Action Taken by Intermediate Medications Current Medication List: was personally reviewed by me Laboratory Data Attestation: I reviewed the patient's lab results. Result diagrams: 11/06/20 15:04 11/06/20 15:04 Lab Results 11/06/20 11/06/20 11/06/20 Range/Units 15:03 15:04 15:04 WBC 6.57 (4.8-10.8) K/uL RBC 5.10 (4.7-6.1) M/uL Hgb 16.6 (14.0-18.0) g/dL Hct 47.3 (42-52) % MCV 92.7 (80-100) fL MCH 32.5 (25-34) pg MCHC 35.1 (32-36) g/dL RDW Std Deviation 47.5 H (36.4-46.3) fL RDW Coeff of Iveth 14.1 (11.5-14.5) % Plt Count 246 (130-400) K/uL MPV 10.5 H (7.4-10.4) fL Immature Gran % (Auto) 0.0 % Neut % (Auto) 82.3 % Lymph % (Auto) 9.1 % [place] % (Auto) 8.4 % Eos % (Auto) 0.0 % Baso % (Auto) 0.2 % Neut # (Auto) 5.41 (1.4-6.5) K/uL Lymph # (Auto) 0.60 L (1.2-3.4) K/uL [place] # (Auto) 0.55 (0.11-0.59) K/uL Eos # (Auto) 0.00 (0-0.5) K/uL Baso # (Auto) 0.01 (0-0.2) K/uL Immature Gran # (Auto) 0.00 (0.00-0.02) K/uL PT (9.0-12.0) Seconds INR (0.9-1.1) APTT (21.0-31.0) Seconds PTT Ratio Sodium 140 (136-145) mmol/L Potassium 3.6 (3.5-5.1) mmol/L Chloride 104 (98-107) mmol/L Carbon Dioxide 27 (21-32) mmol/L Anion Gap 9.0 (3-11) BUN 29 H (7-18) mg/dl Creatinine 1.81 H (0.6-1.4) mg/dl Est Cr Clr Drug Dosing Not Reportable Est GFR ( Amer) 39.5 ml/min Est GFR (Non-Af Amer) 34.1 ml/min BUN/Creatinine Ratio 15.7 (10-20) Glucose 236 H (70-99) mg/dl POC Glucose 201 H (70-99) mg/dl Calcium 9.5 (8.5-10.1) mg/dl Magnesium 1.8 (1.8-2.4) mg/dl Total Bilirubin 0.9 (0.2-1) mg/dl AST 33 (15-37) U/L ALT 25 (12-78) U/L Alkaline Phosphatase 81 (45-117) U/L Total Creatine Kinase 486 H (39-308) U/L Troponin I < 0.015 (0-0.045) ng/ml Total Protein 7.7 (6.4-8.2) gm/dl Albumin 4.3 (3.4-5.0) gm/dl Globulin 3.4 (2.5-4.0) gm/dl Albumin/Globulin Ratio 1.3 (0.9-2) TSH 8.250 H (0.300-4.500) uIu/ml Free T4 0.80 (0.8-1.6) ng/dl Urine Color Urine Appearance (Clear) Urine pH (4.5-7.5) Ur Specific [place] (1.000-1.030) Urine Protein (Negative) Urine Glucose (UA) (Negative) Urine Ketones (Negative) Urine Blood (Negative) Urine Nitrite (Negative) Urine Bilirubin (Negative) Urine Urobilinogen (Negative) Ur Leukocyte Esterase (Negative) Urine WBC (Auto) (0-5) /hpf Urine RBC (Auto) (0-4) /hpf U Hyaline Cast (Auto) (0-5) /lpf U Epithel Cells (Auto) (0-5) /lpf Urine Bacteria (Auto) (Negative) Ur Renal Epithelial Cell Granular Casts (0) /lpf WBC Casts (0) /lpf Urine Mucus (None Prsent) COVID-19 Eval Order SARS-CoV-2 (PCR) (Negative) 11/06/20 11/06/20 11/06/20 Range/Units 15:21 16:40 18:41 WBC (4.8-10.8) K/uL RBC (4.7-6.1) M/uL Hgb (14.0-18.0) g/dL Hct (42-52) % MCV (80-100) fL MCH (25-34) pg MCHC (32-36) g/dL RDW Std Deviation (36.4-46.3) fL RDW Coeff of Iveth (11.5-14.5) % Plt Count (130-400) K/uL MPV (7.4-10.4) fL Immature Gran % (Auto) % Neut % (Auto) % Lymph % (Auto) % [place] % (Auto) % Eos % (Auto) % Baso % (Auto) % Neut # (Auto) (1.4-6.5) K/uL Lymph # (Auto) (1.2-3.4) K/uL [place] # (Auto) (0.11-0.59) K/uL Eos # (Auto) (0-0.5) K/uL Baso # (Auto) (0-0.2) K/uL Immature Gran # (Auto) (0.00-0.02) K/uL PT 11.3 (9.0-12.0) Seconds INR 1.1 (0.9-1.1) APTT 25.7 (21.0-31.0) Seconds PTT Ratio 1.0 Sodium (136-145) mmol/L Potassium (3.5-5.1) mmol/L Chloride (98-107) mmol/L Carbon Dioxide (21-32) mmol/L Anion Gap (3-11) BUN (7-18) mg/dl Creatinine (0.6-1.4) mg/dl Est Cr Clr Drug Dosing Est GFR ( Amer) ml/min Est GFR (Non-Af Amer) ml/min BUN/Creatinine Ratio (10-20) Glucose (70-99) mg/dl POC Glucose (70-99) mg/dl Calcium (8.5-10.1) mg/dl Magnesium (1.8-2.4) mg/dl Total Bilirubin (0.2-1) mg/dl AST (15-37) U/L ALT (12-78) U/L Alkaline Phosphatase (45-117) U/L Total Creatine Kinase (39-308) U/L Troponin I (0-0.045) ng/ml Total Protein (6.4-8.2) gm/dl Albumin (3.4-5.0) gm/dl Globulin (2.5-4.0) gm/dl Albumin/Globulin Ratio (0.9-2) TSH (0.300-4.500) uIu/ml Free T4 (0.8-1.6) ng/dl Urine Color Yellow Urine Appearance Clear (Clear) Urine pH 5.0 (4.5-7.5) Ur Specific [place] 1.015 (1.000-1.030) Urine Protein Negative (Negative) Urine Glucose (UA) Negative (Negative) Urine Ketones 1+ H (Negative) Urine Blood Negative (Negative) Urine Nitrite Negative (Negative) Urine Bilirubin Negative (Negative) Urine Urobilinogen Negative (Negative) Ur Leukocyte Esterase Trace H (Negative) Urine WBC (Auto) 1-5 (0-5) /hpf Urine RBC (Auto) 0-4 (0-4) /hpf U Hyaline Cast (Auto) 10-30 H (0-5) /lpf U Epithel Cells (Auto) >30 H (0-5) /lpf Urine Bacteria (Auto) Negative (Negative) Ur Renal Epithelial Cell Not Reportable Granular Casts 1-5 H (0) /lpf WBC Casts 1-5 H (0) /lpf Urine Mucus Present A (None Prsent) COVID-19 Eval Order Covid19 at [facility] SARS-CoV-2 (PCR) (Negative) 11/06/20 Range/Units 18:41 WBC (4.8-10.8) K/uL RBC (4.7-6.1) M/uL Hgb (14.0-18.0) g/dL Hct (42-52) % MCV (80-100) fL MCH (25-34) pg MCHC (32-36) g/dL RDW Std Deviation (36.4-46.3) fL RDW Coeff of Iveth (11.5-14.5) % Plt Count (130-400) K/uL MPV (7.4-10.4) fL Immature Gran % (Auto) % Neut % (Auto) % Lymph % (Auto) % [place] % (Auto) % Eos % (Auto) % Baso % (Auto) % Neut # (Auto) (1.4-6.5) K/uL Lymph # (Auto) (1.2-3.4) K/uL [place] # (Auto) (0.11-0.59) K/uL Eos # (Auto) (0-0.5) K/uL Baso # (Auto) (0-0.2) K/uL Immature Gran # (Auto) (0.00-0.02) K/uL PT (9.0-12.0) Seconds INR (0.9-1.1) APTT (21.0-31.0) Seconds PTT Ratio Sodium (136-145) mmol/L Potassium (3.5-5.1) mmol/L Chloride (98-107) mmol/L Carbon Dioxide (21-32) mmol/L Anion Gap (3-11) BUN (7-18) mg/dl Creatinine (0.6-1.4) mg/dl Est Cr Clr Drug Dosing Est GFR ( Amer) ml/min Est GFR (Non-Af Amer) ml/min BUN/Creatinine Ratio (10-20) Glucose (70-99) mg/dl POC Glucose (70-99) mg/dl Calcium (8.5-10.1) mg/dl Magnesium (1.8-2.4) mg/dl Total Bilirubin (0.2-1) mg/dl AST (15-37) U/L ALT (12-78) U/L Alkaline Phosphatase (45-117) U/L Total Creatine Kinase (39-308) U/L Troponin I (0-0.045) ng/ml Total Protein (6.4-8.2) gm/dl Albumin (3.4-5.0) gm/dl Globulin (2.5-4.0) gm/dl Albumin/Globulin Ratio (0.9-2) TSH (0.300-4.500) uIu/ml Free T4 (0.8-1.6) ng/dl Urine Color Urine Appearance (Clear) Urine pH (4.5-7.5) Ur Specific [place] (1.000-1.030) Urine Protein (Negative) Urine Glucose (UA) (Negative) Urine Ketones (Negative) Urine Blood (Negative) Urine Nitrite (Negative) Urine Bilirubin (Negative) Urine Urobilinogen (Negative) Ur Leukocyte Esterase (Negative) Urine WBC (Auto) (0-5) /hpf Urine RBC (Auto) (0-4) /hpf U Hyaline Cast (Auto) (0-5) /lpf U Epithel Cells (Auto) (0-5) /lpf Urine Bacteria (Auto) (Negative) Ur Renal Epithelial Cell Granular Casts (0) /lpf WBC Casts (0) /lpf Urine Mucus (None Prsent) COVID-19 Eval Order SARS-CoV-2 (PCR) NEGATIVE (Negative) Administered Medications Lactated Ringer's (Lr) 1,000 mls @ 85 mls/hr IV .[id number] IRINA Stop: 12/06/20 19:14 Last Admin: 11/06/20 20:12 Dose: 85 mls/hr Documented by: [id number] Discontinued Medications Sodium Chloride (Nss 1000ml) 1,000 mls @ 999 mls/hr IV .[id number] IRINA Stop: 11/06/20 15:45 Last Infusion: 11/06/20 16:05 Dose: 0 mls/hr Documented by: [id number] Admin: 11/06/20 15:04 Dose: 999 mls/hr Documented by: [id number] Imaging Data Radiologist's Impression: Head CT 11/06/20 14:[address] DOSE: 537.48 mGy.cm HISTORY: weakness TECHNIQUE: Multiaxial CT images of the head were performed without the use of intravenous contrast. Automated exposure control was utilized for this study. A dose lowering technique was utilized adhering to the principles of ALARA. Comparison: Head CT 07/01/2018. Findings: The paranasal sinuses and mastoid air cells are clear. The calvarium and skull base are intact. There is no mass, hematoma, midline shift, acute infarct. White matter hypodensity is nonspecific but suggestive of microvascular ischemic change. The ventricles and sulci demonstrate mild age-related involutional changes. No change in the old left frontal and old left parietal infarcts demonstrated by encephalomalacia. There is an old small right parietal periventricular infarct which is new from the prior study. Impression: 1. No acute intracranial abnormality. 2. Old infarcts as described above. ACT 112: Negative or not required by law. Electronically signed by: Otoniel Campbell M.D. 11/06/2020 4:06 PM Chest X-Ray 11/06/20 14:33 XR chest 1V portable CLINICAL HISTORY: weakness COMPARISON STUDY: June 24, 2018 FINDINGS: No pneumothorax. No pleural effusion. Atelectasis is seen at the left base. Hazy opacity is seen at the right infrahilar region which might represent atelectasis or infiltrate. Lung volumes are decreased with crowded lung markings. Cardiomediastinal silhouette is within normal limits in size. No significant pulmonary vascular congestion.. Aorta is tortuous. Osseous structures: Mild degenerative changes of the spine and right shoulder. IMPRESSION: 1. Low lung volumes. Atelectasis or infiltrate at the left base. Hazy opacity the right infrahilar region might represent atelectasis or infiltrate. ACT 112: Negative or not required by law. The above report was generated using voice recognition software. It may contain grammatical, syntax or spelling errors. Electronically signed by: Christelle Medina DO 11/06/2020 2:58 PM Discharge Plan Visit Data Chief Complaint: Hypotension Stated Complaint: LOW BP,SHAKY,NO APPETITE ED Provider: Saulo Hunt Patient Disposition: Being Evaluated by Hospitalist Condition: Good Prescriptions Prescriptions: No Action levetiracetam [Keppra] 500 mg tablet 500 mg PO BID Qty: 180 RF: 2 acetaminophen 500 mg tablet 500 mg PO Q4 PRN (Reason: Fever Or Pain) RF: 0 clopidogrel 75 mg Tablet 75 mg PO QAM RF: 0 metformin 1,000 mg Tablet 1,000 mg PO BIDM RF: 0 montelukast [Singulair] 10 mg Tablet 10 mg PO HS RF: 0 levothyroxine 75 mcg tablet 75 mcg PO QAM RF: 0 pravastatin 20 mg tablet 20 mg PO HS RF: 0 pantoprazole 40 mg tablet,delayed release (DR/EC) 40 mg PO BID RF: 0 aspirin 81 mg Tablet,Delayed Release (Dr/Ec) 81 mg PO QAM RF: 0 magnesium oxide 400 mg (241.3 mg magnesium) Tablet 400 mg PO DAILY Qty: 30 RF: 1 amlodipine 2.5 mg tablet 2.5 mg PO DAILY RF: 0 amlodipine 5 mg tablet 5 mg PO DAILY RF: 0 glimepiride 1 mg Tablet 1 mg PO HS RF: 0 lisinopril 40 mg tablet 40 mg PO DAILY RF: 0
[2020-11-06] MEDS ORDERED: SODIUM CHLORIDE 0.9% 1000ML 1,000 ML IV SCH (14:45)
--- NOTE | 2020-11-06 14:59 | XRay Report ---
XR chest 1V portable CLINICAL HISTORY: weakness COMPARISON STUDY: June 24, 2018 FINDINGS: No pneumothorax. No pleural effusion. Atelectasis is seen at the left base. Hazy opacity is seen at the right infrahilar region which might represent atelectasis or infiltrate. Lung volumes are decreased with crowded lung markings. Cardiomediastinal silhouette is within normal limits in size. No significant pulmonary vascular congestion.. Aorta is tortuous. Osseous structures: Mild degenerative changes of the spine and right shoulder. IMPRESSION: 1. Low lung volumes. Atelectasis or infiltrate at the left base. Hazy opacity the right infrahilar r egion might represent atelectasis or infiltrate. ACT 112: Negative or not required by law. The above report was generated using voice recognition software. It may contain grammatical, syntax o r spelling errors. Electronically signed by: Christelle Medina DO 11/06/2020 2:58 PM
[2020-11-06 15:16] LABS: Basophils # (auto) 0.01 K/uL (0-0.2); Basophils % (auto) 0.2 %; Hematocrit (blood only) 47.3 % (42-52); Hemoglobin 16.6 g/dL (14.0-18.0); Lymphocytes % (auto) 9.1 %; Mean Corpuscular Hemoglobin 32.5 pg (25-34); Mean Corpuscular Hgb Conc 35.1 g/dL (32-36); Mean Corpuscular Volume 92.7 fL (80-100); Mean Platelet Volume 10.5 fL (7.4-10.4); Monocytes # (auto) 0.55 K/uL (0.11-0.59); Monocytes % (auto) 8.4 %; Neutrophils # (auto) 5.41 K/uL (1.4-6.5); Neutrophils % (auto) 82.3 %; Platelet Count 246 K/uL (130-400); RDW Coefficient of Variation 14.1 % (11.5-14.5); RDW Standard Deviation 47.5 fL (36.4-46.3); White Blood Count 6.57 K/uL (4.8-10.8)
[2020-11-06 15:33] LABS: Alanine Aminotransferase 25 U/L (12-78); Albumin Level 4.3 gm/dl (3.4-5.0); Aspartate Aminotransferase 33 U/L (15-37); BUN Creatinine Ratio 15.7 (10-20); Blood Urea Nitrogen 29 mg/dl (7-18); Calcium 9.5 mg/dl (8.5-10.1); Carbon Dioxide 27 mmol/L (21-32); Chloride 104 mmol/L (98-107); Est GFR (African American) 39.5 ml/min; Est GFR (Non-African American) 34.1 ml/min; Glucose 236 mg/dl (70-99); Magnesium 1.8 mg/dl (1.8-2.4); Potassium 3.6 mmol/L (3.5-5.1); Sodium 140 mmol/L (136-145)
[2020-11-06 15:40] LABS: INR 1.1 (0.9-1.1); Partial Thromboplastin Time 25.7 Seconds (21.0-31.0); Prothrombin Time 11.3 Seconds (9.0-12.0)
[2020-11-06 15:43] LABS: Albumin Globulin Ratio 1.3 (0.9-2); Alkaline Phosphatase 81 U/L (45-117); Bilirubin,Total 0.9 mg/dl (0.2-1); Creatine Kinase 486 U/L (39-308); Globulin 3.4 gm/dl (2.5-4.0); Total Protein 7.7 gm/dl (6.4-8.2); Troponin I < 0.015 ng/ml (0-0.045)
--- NOTE | 2020-11-06 16:08 | CT Scan Report ---
HEAD CT NONCONTRAST CT DOSE: 537.48 mGy.cm HISTORY: weakness TECHNIQUE: Multiaxial CT images of the head were performed without the use of intravenous contrast. A utomated exposure control was utilized for this study. A dose lowering technique was utilized adheri ng to the principles of ALARA. Comparison: Head CT 07/01/2018. Findings: The paranasal sinuses and mastoid air cells are clear. The calvarium and skull base are int act. There is no mass, hematoma, midline shift, acute infarct. White matter hypodensity is nonspecifi c but suggestive of microvascular ischemic change. The ventricles and sulci demonstrate mild age-rela jason involutional changes. No change in the old left frontal and old left parietal infarcts demonstrat ed by encephalomalacia. There is an old small right parietal periventricular infarct which is new fro m the prior study. Impression: 1. No acute intracranial abnormality. 2. Old infarcts as described above. ACT 112: Negative or not required by law. Electronically signed by: Otoniel Campbell M.D. 11/06/2020 4:06 PM
[2020-11-06 17:01] LABS: Appearance Urine Clear (Clear); Bacteria Urine Automated Negative (Negative); Bilirubin Urine Negative (Negative); Blood Urine Negative (Negative); Color Urine Yellow; Epithelial Cell Urine Auto >30 /lpf (0-5); Glucose Urine UA Negative (Negative); Ketones Urine 1+ (Negative); Leukocyte Esterase Urine Trace (Negative); Nitrite Urine Negative (Negative); Protein Urine Negative (Negative); RBC Urine Automated 0-4 /hpf (0-4); Specific Gravity Urine 1.015 (1.000-1.030); Urobilinogen Urine Negative (Negative)
[2020-11-06 17:39] LABS: Mucus Urine Present (None Prsent)
--- NOTE | 2020-11-06 19:26 | History & Physical Report ---
Date of Service November 06, 2020 Assessment & Plan (1) SHRUTHI (acute kidney injury): Plan: Type II- MID WIFE 1.8 baseline 1.2 - consistent with decrease oral intake/pre-renal - LR 80ml/hr overnight - follow daily BMP (2) Type 2 diabetes mellitus with unspecified complications: Plan: Elevated glucose on admission usually well controlled - ? 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 home health assistance - patient and would like to go home if able - nutritional assessment (9) Hypothyroidism: Plan: TSH 8.2- 2 years ago 1.5 - again question medical compliance - continue Synthroid 75mcg, follow and re-adjust as outpatient (10) Abnormal urine: Plan: consistent with pre-renal injury - no bacteria noted History of Present Illness Primary Care Provider: MARIMAR Mccoy 80 YOM with past medical history of: DMII, HLD, HTN, CVA, seizure, Hypothyroidism, GERD. Patient comes to the EMD today for concerns of increased difficulty with steadiness and ambulation at home as well as decreased oral and fluid intake. The patient had an appointment with neurology today and cancelled it as they were referred to the EMD by the PCP. Patient is very hard of hearing and with some old residual mixed aphasia. Most of the information was gathered from the . She endorses that over the past few weeks he has not been drinking or eating much at home and he has had a drop in his ADL independency. He is now needing a cane and sometimes a walker to ambulate and he is more impulsive at home. In the EMD the patient had a CT scan of the head, CXR, and routine labs drawn. His CT scan of the head revealed old left frontal and old left parietal infarcts and old small right periventricular infarct, his laboratory values demonstrated an increase in his BUN and MID WIFE as well as glucose more elevated than normal, questioning medication compliance. Patient will be admitted for IVF, nutritional assessment, PT/OT evaluation and resource identification. Patient had his COVID vaccine and his COVID test on admission is NEGATIVE Allergies Allergy/AdvReac Type Severity Reaction Status Date / Time [id number] Reductase Allergy Severe JOINT PAIN Verified 11/06/20 15:22 Inhibitor strawberry Allergy Intermediate Rash Verified 11/06/20 15:22 Home Medications Medication Instructions Recorded Confirmed Type clopidogrel 75 mg tablet 75 mg PO QAM 11/29/17 11/06/20 History metformin 1,000 mg tablet 1,000 mg PO BIDM 11/29/17 11/06/20 History montelukast 10 mg tablet 10 mg PO HS 11/29/17 11/06/20 History (Singulair) levothyroxine 75 mcg tablet 75 mcg PO QAM 06/24/18 11/06/20 History pantoprazole 40 mg tablet,delayed 40 mg PO BID 06/24/18 11/06/20 History release pravastatin 20 mg tablet 20 mg PO HS 06/24/18 11/06/20 History aspirin 81 mg tablet,delayed 81 mg PO QAM 07/01/18 11/06/20 History release magnesium oxide 400 mg (241.3 mg 400 mg PO DAILY #30 tab 07/05/18 11/06/20 Rx magnesium) tablet acetaminophen 500 mg tablet 500 mg PO Q4 PRN tab 09/18/18 11/06/20 History levetiracetam 500 mg tablet 500 mg PO BID #180 tab 08/11/20 11/06/20 Rx (Keppra) amlodipine 2.5 mg tablet 2.5 mg PO DAILY 11/06/20 11/06/20 History amlodipine 5 mg tablet 5 mg PO DAILY 11/06/20 11/06/20 History glimepiride 1 mg tablet 1 mg PO HS 11/06/20 11/06/20 History lisinopril 40 mg tablet 40 mg PO DAILY 11/06/20 11/06/20 History Past Med/Surg History Medical History (Updated 11/06/20 @ 19:32 by MARIMAR Montaño) Chest pain (06/14/13) Diabetes Dizziness Expressive aphasia Focal motor seizure History of stroke with residual deficit Hypertension Hypoglycemia Hypothyroidism Surgical History History of tonsillectomy Hx of oral surgery Family History Sister Leukemia Father Cancer Other Diabetes Hypertension Social History Smoking Status: Unknown if ever smoked Second Hand Exposure: No; Hx Alcohol Use: No Hx Substance Use: No Preferred Language: Nepali Communication Ability: Effective 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 Beliefs That Will Affect Care: None marital status: Current Living Situation: Spouse current occupational status: retired Feels Safe at Home: Yes Assistive Devices: None Review of Systems Review of Systems: REVIEW OF SYSTEMS: Constitutional: No fever, sweats or chills Eyes: No diplopia, no worsening or blurred vision ENT: (+) difficulty hearing- his hearing aides are getting fixed, no trouble swallowing Respiratory: No cough, sputum, dyspnea at rest or on exertion Cardiovascular: No chest pain, tightness or palpitations Abdomen: No pain, nausea, vomiting, diarrhea or constipation Musculoskeletal: No joint pain, calf pain, swelling Neurologic: (+) balance problems, and impulsiveness No weakness, numbness/tingling, or Psychiatric: No anxiety or depression Skin: (+) skin tear to left arm and multiple bruises Physical Exam Physical Exam: PHYSICAL EXAM: General: awake, fatigued appearing, disheveled appearance Head: Normocephalic, atraumatic ENT: PERRLA, EOMI, no pharyngeal exudate, mucous membranes dry Neuro: AAO x 3, speech clear and appropriate, strength intact bilaterally 5/5, sensation intact and equal all extremities and dermatones, no pronator drift Chest: equal rise and fall of the chest, no accessory muscle use, no heaves or thrills, Clear to auscultation, on room air, Cardiac: Regular rate and rhythm, telemetry reviewed, skin warm dry, cap refill <3 seconds, peripheral pulses +2 no JVD, no murmur, no edema GI: NABS x 4 quadrants, soft, nontender to palpation, no rebound, guarding or tenderness : Spontaneously voiding, no pain, no CVA tenderness, Extremities: Normal inspection, no peripheral edema or erythema Psych: Normal mood and affect Skin: bruises to forearms and wrists Results & Data Results & Data ([facility]) Vital Signs (Past 12 Hours) Vital Signs Temp Pulse Pulse Resp BP BP Pulse Ox 11/06/20 18:18 67 20 162/86 H 98 11/06/20 17:30 72 14 149/82 H 98 11/06/20 17:00 66 11 L 140/74 97 11/06/20 16:30 71 12 151/88 H 96 11/06/20 15:30 61 12 133/63 96 11/06/20 14:56 96 11/06/20 14:32 70 165/78 H 95 11/06/20 14:20 37 C 71 18 107/63 98 Laboratory Results Abnormal lab results 11/06/20 11/06/20 11/06/20 Range/Units 15:03 15:04 15:04 RDW Std Deviation 47.5 H (36.4-46.3) fL MPV 10.5 H (7.4-10.4) fL Lymph # (Auto) 0.60 L (1.2-3.4) K/uL BUN 29 H (7-18) mg/dl Creatinine 1.81 H (0.6-1.4) mg/dl Glucose 236 H (70-99) mg/dl POC Glucose 201 H (70-99) mg/dl Total Creatine Kinase 486 H (39-308) U/L TSH 8.250 H (0.300-4.500) uIu/ml Urine Ketones (Negative) Ur Leukocyte Esterase (Negative) U Hyaline Cast (Auto) (0-5) /lpf U Epithel Cells (Auto) (0-5) /lpf Granular Casts (0) /lpf WBC Casts (0) /lpf Urine Mucus (None Prsent) 11/06/20 Range/Units 16:40 RDW Std Deviation (36.4-46.3) fL MPV (7.4-10.4) fL Lymph # (Auto) (1.2-3.4) K/uL BUN (7-18) mg/dl Creatinine (0.6-1.4) mg/dl Glucose (70-99) mg/dl POC Glucose (70-99) mg/dl Total Creatine Kinase (39-308) U/L TSH (0.300-4.500) uIu/ml Urine Ketones 1+ H (Negative) Ur Leukocyte Esterase Trace H (Negative) U Hyaline Cast (Auto) 10-30 H (0-5) /lpf U Epithel Cells (Auto) >30 H (0-5) /lpf Granular Casts 1-5 H (0) /lpf WBC Casts 1-5 H (0) /lpf Urine Mucus Present A (None Prsent) Diagnostic Findings Head CT 11/06/20 14:[address] DOSE: 537.48 mGy.cm HISTORY: weakness TECHNIQUE: Multiaxial CT images of the head were performed without the use of intravenous contrast. Automated exposure control was utilized for this study. A dose lowering technique was utilized adhering to the principles of ALARA. Comparison: Head CT 07/01/2018. Findings: The paranasal sinuses and mastoid air cells are clear. The calvarium and skull base are intact. There is no mass, hematoma, midline shift, acute infarct. White matter hypodensity is nonspecific but suggestive of microvascular ischemic change. The ventricles and sulci demonstrate mild age-related involutional changes. No change in the old left frontal and old left parietal infarcts demonstrated by encephalomalacia. There is an old small right parietal periventricular infarct which is new from the prior study. Impression: 1. No acute intracranial abnormality. 2. Old infarcts as described above. ACT 112: Negative or not required by law. Electronically signed by: Otoniel Campbell M.D. 11/06/2020 4:06 PM Chest X-Ray 11/06/20 14:33 XR chest 1V portable CLINICAL HISTORY: weakness COMPARISON STUDY: June 24, 2018 FINDINGS: No pneumothorax. No pleural effusion. Atelectasis is seen at the left base. Hazy opacity is seen at the right infrahilar region which might represent atelectasis or infiltrate. Lung volumes are decreased with crowded lung markings. Cardiomediastinal silhouette is within normal limits in size. No significant pulmonary vascular congestion.. Aorta is tortuous. Osseous structures: Mild degenerative changes of the spine and right shoulder. IMPRESSION: 1. Low lung volumes. Atelectasis or infiltrate at the left base. Hazy opacity the right infrahilar region might represent atelectasis or infiltrate. ACT 112: Negative or not required by law. The above report was generated using voice recognition software. It may contain grammatical, syntax or spelling errors. Electronically signed by: Christelle Medina DO 11/06/2020 2:58 PM Medications Administered Home Medications clopidogrel 75 mg tablet 75 mg PO QAM 11/29/17 [History Confirmed 11/06/20] metformin 1,000 mg tablet 1,000 mg PO BIDM 11/29/17 [History Confirmed 11/06/20] montelukast 10 mg tablet (Singulair) 10 mg PO HS 11/29/17 [History Confirmed 11/06/20] levothyroxine 75 mcg tablet 75 mcg PO QAM 06/24/18 [History Confirmed 11/06/20] pantoprazole 40 mg tablet,delayed release 40 mg PO BID 06/24/18 [History Confirmed 11/06/20] pravastatin 20 mg tablet 20 mg PO HS 06/24/18 [History Confirmed 11/06/20] aspirin 81 mg tablet,delayed release 81 mg PO QAM 07/01/18 [History Confirmed 11/06/20] magnesium oxide 400 mg (241.3 mg magnesium) tablet 400 mg PO DAILY #30 tab 07/05/18 [Rx Confirmed 11/06/20] acetaminophen 500 mg tablet 500 mg PO Q4 PRN tab 09/18/18 [History Confirmed 11/06/20] levetiracetam 500 mg tablet (Keppra) 500 mg PO BID #180 tab 08/11/20 [Rx Confirmed 11/06/20] amlodipine 2.5 mg tablet 2.5 mg PO DAILY 11/06/20 [History Confirmed 11/06/20] amlodipine 5 mg tablet 5 mg PO DAILY 11/06/20 [History Confirmed 11/06/20] glimepiride 1 mg tablet 1 mg PO HS 11/06/20 [History Confirmed 11/06/20] lisinopril 40 mg tablet 40 mg PO DAILY 11/06/20 [History Confirmed 11/06/20] Active Medications Lactated Ringer's (Lr) 1,000 mls @ 85 mls/hr IV .[id number] IRINA Stop: 12/06/20 19:14 Discontinued Medications Sodium Chloride (Nss 1000ml) 1,000 mls @ 999 mls/hr IV .[id number] IRINA Stop: 11/06/20 15:45 Last Infusion: 11/06/20 16:05 Dose: 0 mls/hr Documented by: [id number] Admin: 11/06/20 15:04 Dose: 999 mls/hr Documented by: [id number] ECG Additional Comments: Normal sinus rhythm Minimal voltage criteria for LVH, may be normal variant Borderline ECG When compared with ECG of 01-JUL-2018 15:14, No significant change was found Code Status & VTE Plan Code Status CODE: FULL VTE: SCD's, Heparin 5000 q8 sub q VTE Prophylaxis Plan VTE Prophylaxis will be ordered: Yes Supervising Physician Co-Signing Physician Notes Patient seen and examined, chart reviwed, case discussed with MARIMAR Diaz and I agree with his assessment and plan as above PG Care Time/CCT Total # of Minutes Spent Total Time Spent with Patient: Total time spent is greater than 50% in coordination of care (as documented) at patient's floor/unit and/or counseling patient: Coding Level of Care Code 84121 Initial Inpt Care Lvl 3 Diagnoses SHRUTHI (acute kidney injury) N17.9 Type 2 diabetes mellitus with unspecified complications E11.8 Mixed aphasia R47.01 Esophageal reflux K21.9 Carotid artery stenosis I65.23 Laterality: bilateral Hyperlipidemia E78.2 Hyperlipidemia type: mixed hyperlipidemia Focal motor seizure G40.109 Ambulatory dysfunction R26.2 Hypothyroidism E03.9 Hypothyroidism type: acquired Abnormal urine R82.90 (1) Carotid artery stenosis Laterality: bilateral Qualified Code(s): I65.23 - Occlusion and stenosis of bilateral carotid arteries (2) Hyperlipidemia Hyperlipidemia type: mixed hyperlipidemia Qualified Code(s): E78.2 - Mixed hyperlipidemia (3) Hypothyroidism Hypothyroidism type: acquired Qualified Code(s): E03.9 - Hypothyroidism, unspecified
[2020-11-06] MEDS: LACTATED RINGER'S 1,000 ML IV SCH (20:12)
[2020-11-06] MEDS ORDERED: POLYETHYLENE (MIRALAX) 17 GM PACK PO PRN (21:31)
[2020-11-06] MEDS ORDERED: ACETAMINOPHEN 325 MG TAB PO PRN (21:31)
[2020-11-06] MEDS ORDERED: DEXTROSE 50% 50 ML SYRINGE IV PRN (21:31)
[2020-11-06] MEDS ORDERED: GLUCAGON FOR INJ 1 MG VIAL SQ PRN (21:31)
[2020-11-06] MEDS ORDERED: ONDANSETRON INJ 2 MG/ML 2 ML VIAL IV PRN (21:31)
[2020-11-06] MEDS ORDERED: GLUCOSE 10 TABS/TUBE PO PRN (21:31)
[2020-11-06] MEDS ORDERED: GLUCOSE 40% GEL 15 GM TUBE PO PRN (21:31)
[2020-11-06] MEDS ORDERED: CARBOHYDRATES FOR HYPOGLYCEMIA PO PRN (21:31)
[2020-11-06] MEDS ORDERED: ACETAMINOPHEN 500 MG TAB PO PRN (21:40)
[2020-11-06] MEDS: INSULIN ASPART 100 UNITS/ML 3 ML PEN SC SCH (22:32)
[2020-11-06] MEDS: HEPARIN SOD 5,000 UNIT/0.5 ML VIAL SQ SCH (22:37)
[2020-11-06] MEDS: PANTOprazole 40 MG TAB PO SCH (22:38)
[2020-11-06] MEDS: levETIRAcetam 500 MG TAB PO SCH (22:38)
[2020-11-06] MEDS: PRAVASTATIN SOD 20 MG TAB PO SCH (22:38)
[2020-11-07] MEDS: LEVOTHYROXINE SODIUM 75 MCG TABLET PO SCH (06:09)
[2020-11-07] MEDS: HEPARIN SOD 5,000 UNIT/0.5 ML VIAL SQ SCH ×3 (06:09→21:00)
[2020-11-07 07:07] LABS: Hematocrit (blood only) 45.5 % (42-52); Hemoglobin 16.2 g/dL (14.0-18.0); Lymphocytes # (auto) 0.73 K/uL (1.2-3.4); Lymphocytes % (auto) 16.1 %; Mean Corpuscular Hemoglobin 32.4 pg (25-34); Mean Corpuscular Hgb Conc 35.6 g/dL (32-36); Monocytes # (auto) 0.32 K/uL (0.11-0.59); Monocytes % (auto) 7.1 %; Neutrophils # (auto) 3.48 K/uL (1.4-6.5); Neutrophils % (auto) 76.8 %; Platelet Count 216 K/uL (130-400); White Blood Count 4.53 K/uL (4.8-10.8)
[2020-11-07 07:32] LABS: BUN Creatinine Ratio 21.6 (10-20); Blood Urea Nitrogen 21 mg/dl (7-18); Carbon Dioxide 25 mmol/L (21-32); Chloride 107 mmol/L (98-107); Est GFR (African American) 86.1 ml/min; Est GFR (Non-African American) 74.2 ml/min; Glucose 127 mg/dl (70-99); Magnesium 1.5 mg/dl (1.8-2.4); Potassium 3.4 mmol/L (3.5-5.1); Sodium 139 mmol/L (136-145)
[2020-11-07] MEDS: LACTATED RINGER'S 1,000 ML IV SCH (07:38)
[2020-11-07 08:16] LABS: Estimated Average Glucose 166 mg/dl; Hemoglobin A1C 7.4 % (4.5-5.6)
--- NOTE | 2020-11-07 08:28 | Electrocardiogram Report ---
Test Reason : Blood Pressure : / mmHG Vent. Rate : 062 BPM Atrial Rate : 062 BPM P-R Int : 160 ms QRS Dur : 108 ms QT Int : 418 ms P-R-T Axes : 034 -12 -01 degrees QTc Int : 424 ms Normal sinus rhythm Minimal voltage criteria for LVH, may be normal variant Borderline ECG When compared with ECG of 01-JUL-2018 15:14, No significant change was found Confirmed by John Tillman ([id number]) on 11/07/2020 8:27:55 AM Referred By: REFERRED SELF Confirmed By:John Tillman
[2020-11-07] MEDS: INSULIN ASPART 100 UNITS/ML 3 ML PEN SC SCH ×4 (09:23→20:57)
[2020-11-07] MEDS: PANTOprazole 40 MG TAB PO SCH ×2 (09:24→20:58)
[2020-11-07] MEDS: ASPIRIN 81 MG ECTAB PO SCH (09:24)
[2020-11-07] MEDS: CLOPIDOGREL BISULFATE 75 MG TAB PO SCH (09:24)
[2020-11-07] MEDS: levETIRAcetam 500 MG TAB PO SCH ×2 (09:24→20:57)
[2020-11-07] MEDS: amLODIPine BESYLATE 5 MG TAB PO SCH ×2 (09:25)
[2020-11-07] MEDS ORDERED: POTASSIUM CHLORIDE CRTAB 20 MEQ TABCR PO ONE (13:37)
[2020-11-07] MEDS: MAGNESIUM SULFATE / D5W 1 GM/100 ML BAG IV SCH ×2 (14:11→17:13)
--- NOTE | 2020-11-07 17:19 | Hospitalist Progress Note ---
Date of Service November 07, 2020 Assessment & Plan (1) Ambulatory dysfunction: Plan: -CT of the head negative. -At this point time, I am uncertain if this is related to an acute underlying issue or just from overall general decline and poor oral intake. In addition, there is question of medical compliance -Patient did have questionable opacities on x-ray which seem consistent more with atelectasis than infectious process. His procalcitonin is normal. He is afebrile and he does not have leukocytosis. In addition, he is not complaining of any respiratory symptoms. -I have attempted to reach out to patient's to try to get more of a history to determine if he has had any underlying respiratory symptoms such as a cough, fevers or shortness of breath. None reported and unsuccessful in reaching -I am inclined to believe that this is more from general decline/poor oral intake/medical noncompliance then any acute process -His creatinine was slightly elevated which would go [id number] with poor oral intake. This has improved with IV hydration -PT/OT consulted. Appreciate recommendations -Per records, was not requesting placement. 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 Baseline around 1.2. Currently 0.95. - consistent with decrease oral intake/pre-renal -Fluids given upfront. DC IV fluids when current bag infused (4) Type 2 diabetes mellitus with unspecified complications: Plan: Elevated glucose on admission usually well controlled - ? 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 Will try to gauge compliance once I am able to talk with . May even have her bring in his bottles so we can do a pill count -If patient is compliant, will increase dose (11) Abnormal urine: Plan: consistent with pre-renal injury -Not grossly infected. Urine culture ordered and pending Plan: * Overall, it appears as if patient's been having progressive and generalized weakness which is likely just due to overall decline, poor oral intake, and lack of compliance * Again, I have attempted to call the 3 different times but have been unsuccessful. I am trying to gauge exactly what has been going on over the course of the past several weeks leading up to this hospitalization but thus far, no acute issue seen * Plan of care discussed with Dr. Callahan. Further orders as warranted. Admission and Anticipated Discharge Date Admission Date: November 06, 2020 Subjective Patient seen on daily rounds today. He is an 80-year-old white male with an underlying past medical history of cerebrovascular disease s/p old CVA with residual expressive aphasia, seizure disorder, hypothyroidism, CKD, carotid stenosis and diabetes mellitus. He was hospitalized for generalized weakness. Brought to the ED by his . He is unable to provide any form of history given his expressive aphasia. I have attempted to call multiple times but have failed to get in touch. In reading his admission records, it sounds as if patient has been having progressive weakness with decreased oral intake. His work-up showed a mildly elevated creatinine of 1.8 and slightly elevated CK of 486 but the rest of his lab data was unremarkable. TSH was elevated 8.2. Urinalysis was not grossly infected. CT of the head showed no acute infarct. Chest x-ray showed bibasilar infiltrates which could reflect atelectasis. Patient is able to answer yes and no questions. When asked, he denies fevers, c hills, chest pain, shortness of breath, cough, abdominal pain, nausea, vomiting, dysuria, hematuria, urinary frequency. He is a questionable historian however. He has received IV hydration overnight and his creatinine has improved to 0.9. His magnesium and potassium are low this morning. Procalcitonin was ordered on account of the questionable opacity seen on chest x-ray. It was negative. He has not had any fevers or leukocytosis. Urine culture added along with a Keppra level There is reported question of compliance with medications Review of Systems Review of Systems: I question his reliability all systems reviewed and are unremarkable except as noted in HPI and below Denies fevers, chills, headache, nasal congestion, sore throat, cough, chest pain, shortness of breath, palpitations, orthopnea, PND, abdominal pain, nausea, vomiting, diarrhea, constipation, dysuria, hematuria, frequency, back pain, joint pain or swelling, easy bruising or blooding, skin lesions or rashes. Physical Exam Physical Exam: General: Resting comfortably in his hospital bed. Is extremely hard of hearing. Does not appear ill or toxic. NAD. HEENT: Head is AT/NC buccal mucosa is moist and pink Neck: No JVD. Negative hepatojugular reflex Cardiac: RRR but distant Lungs: CTA without W/R/R Abdomen: Normoactive X4. Soft and nontender in all quadrants. Extremities: No peripheral clubbing cyanosis or edema Neuro: difficult to assess given expressive aphasia. Patient very NATIVE. answers yes/no questions (which seem appropriate). Is able to say that he is in the [facility]. Skin: No obvious skin lesions or rashes Psych: Appropriate affect pleasant and cooperative Results & Data Results & Data ([facility]) Vital Signs (Past 12 Hours) Vital Signs Temp Pulse Resp BP BP Pulse Ox 11/07/20 16:00 36.9 C 58 L 16 147/74 H 97 11/07/20 07:02 36.6 C 69 18 145/69 H 95 Laboratory Results 11/07/20 06:49 11/07/20 06:49 Ma.5 PG Care Time/CCT Total # of Minutes Spent Total Time Spent with Patient: Total time spent is greater than 50% in coordination of care (as documented) at patient's floor/unit and/or counseling patient: Coding [place] [address] Subseq Hosp Care Lvl 3 Patient Type Established History Detailed Exam Detailed Medical Decision Making Moderate Complexity Diagnoses SHRUTHI (acute kidney injury) N17.9 Type 2 diabetes mellitus with unspecified complications E11.8 Mixed aphasia R47.01 Esophageal reflux K21.9 Carotid artery stenosis I65.23 Laterality: bilateral Hyperlipidemia E78.2 Hyperlipidemia type: mixed hyperlipidemia Focal motor seizure G40.109 Ambulatory dysfunction R26.2 Hypothyroidism E03.9 Hypothyroidism type: acquired Abnormal urine R82.90 Electrolyte abnormality E87.8 (1) Carotid artery stenosis Laterality: bilateral Qualified Code(s): I65.23 - Occlusion and stenosis of bilateral carotid arteries (2) Hyperlipidemia Hyperlipidemia type: mixed hyperlipidemia Qualified Code(s): E78.2 - Mixed hyperlipidemia (3) Hypothyroidism Hypothyroidism type: acquired Qualified Code(s): E03.9 - Hypothyroidism, unspecified
[2020-11-07] MEDS: MAGNESIUM OXIDE 400 MG TAB PO SCH (20:58)
[2020-11-07] MEDS: PRAVASTATIN SOD 20 MG TAB PO SCH (20:59)
[2020-11-07] MEDS ORDERED: diphenhydrAMINE 50 MG/ML VIAL IV STA (23:11)
[2020-11-08] MEDS: HEPARIN SOD 5,000 UNIT/0.5 ML VIAL SQ SCH ×3 (05:58→21:49)
[2020-11-08] MEDS: LEVOTHYROXINE SODIUM 75 MCG TABLET PO SCH (05:58)
[2020-11-08 06:51] LABS: BUN Creatinine Ratio 16.1 (10-20); Calcium 9.6 mg/dl (8.5-10.1); Creatinine Clr Calc Pharmacy 52.5 ml/min; Est GFR (African American) 76.2 ml/min; Est GFR (Non-African American) 65.8 ml/min; Hematocrit (blood only) 50.9 % (42-52); Hemoglobin 17.8 g/dL (14.0-18.0); Immature Granulocytes # (auto) 0.01 K/uL (0.00-0.02); Immature Granulocytes % (auto) 0.1 %; Lymphocytes # (auto) 1.15 K/uL (1.2-3.4); Lymphocytes % (auto) 16.3 %; Magnesium 1.9 mg/dl (1.8-2.4); Mean Corpuscular Hemoglobin 31.8 pg (25-34); Mean Corpuscular Volume 90.9 fL (80-100); Mean Platelet Volume 10.7 fL (7.4-10.4); Monocytes # (auto) 0.83 K/uL (0.11-0.59); Monocytes % (auto) 11.8 %; Neutrophils # (auto) 5.06 K/uL (1.4-6.5); Neutrophils % (auto) 71.8 %; Platelet Count 241 K/uL (130-400); Potassium 3.9 mmol/L (3.5-5.1); RDW Coefficient of Variation 13.9 % (11.5-14.5); RDW Standard Deviation 45.9 fL (36.4-46.3); White Blood Count 7.05 K/uL (4.8-10.8)
[2020-11-08] MEDS: levETIRAcetam 500 MG TAB PO SCH ×2 (08:38→20:05)
[2020-11-08] MEDS: MAGNESIUM OXIDE 400 MG TAB PO SCH ×2 (08:38→20:05)
[2020-11-08] MEDS: PANTOprazole 40 MG TAB PO SCH ×2 (08:38→20:04)
[2020-11-08] MEDS: ASPIRIN 81 MG ECTAB PO SCH (08:38)
[2020-11-08] MEDS: amLODIPine BESYLATE 5 MG TAB PO SCH ×2 (08:39)
[2020-11-08] MEDS: CLOPIDOGREL BISULFATE 75 MG TAB PO SCH (08:40)
[2020-11-08] MEDS: INSULIN ASPART 100 UNITS/ML 3 ML PEN SC SCH ×4 (09:22→20:42)
--- NOTE | 2020-11-08 14:22 | Hospitalist Progress Note ---
Date of Service November 08, 2020 Assessment & Plan (1) Ambulatory dysfunction: Plan: -W/U pretty unremarkable and I suspect that this is just overall/general decline. -he did have some very mild SHRUTHI upfront that has since corrected with gentle IV hydration -CT of the head negative. -Patient did have questionable opacities on x-ray which seem consistent more with atelectasis than infectious process. His procalcitonin is normal. He is afebrile and he does not have leukocytosis. In addition, he is not complaining of any respiratory symptoms. -UA not grossly infected and UC showing no isolate/contaminated specimen -I have attempted to reach out to patient's to try to get more of a history to determine if he has had any underlying respiratory symptoms such as a cough, fevers or shortness of breath. None reported and unsuccessful in reaching -I am inclined to believe that this is more from general decline/poor oral intake/medical noncompliance then any acute process -PT/OT on board Appreciate recommendations -Per records, was not requesting placement. I have attempted to reach out to his 8 different times over the past 24 hours and she is not answering my phone call. I has touched based with nursing staff who was able to talk to the who apparently requesting [facility] (which patient is not appropriate for) or home with [facility]. -TSH mildly elevated. Per admitting documentation-- there was concern fro compliance. Again, unable to get in touch with his . Dose NOT increased (until I speak with the to help assess compliance). Repeat in 8 weeks -CK is mildly elevated (not high enough to consider this rhabdo). Is on statin therapy. 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 PAtient denies leg pain but vague historian). At his age, okay to stop statin as benefit not outweighing the risk/side effects. 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 Baseline around 1.2. Currently 1.18. - consistent with decrease oral intake/pre-renal -Fluids given upfront. (4) Type 2 diabetes mellitus with unspecified complications: Plan: Elevated glucose on admission usually well controlled - ? 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 Will try to gauge compliance once I am able to talk with . May even have her bring in his bottles so we can do a pill count -If patient is compliant, will increase dose (11) Abnormal urine: Plan: consistent with pre-renal injury -Not grossly infected. Urine culture ordered and pending Plan: * attempted to call MULTIPLE times as I believe patient to be at his baseline (however, I would like to speak with her and gila her wishes-- placement vs home). I have not been able to get in contact with her for 2 days. Will keep trying. * Plan of care discussed with Dr. Callahan. Further orders as warranted. Admission and Anticipated Discharge Date Admission Date: November 06, 2020 Subjective Patient seen on daily rounds today. Became slightly confused lastnight. Impulsive and attempted getting out of bed. Is a fall risk and room moved close to the nurses station. Easily redirects. He is a questionable historian given his expressive aphasia. When asked 'yes' or 'no' questions- Denies F/C, CP, SOB, abd pain, N/V, GI/ symptoms Renals function has improved with very gentle IV hydration his CK remains elevated. Is on statin therapy. Review of Systems Review of Systems: I question his reliability and need asked as 'yes'/ 'no' questions all systems reviewed and are unremarkable except as noted in HPI and below Denies fevers, chills, headache, nasal congestion, sore throat, cough, chest pain, shortness of breath, palpitations, orthopnea, PND, abdominal pain, nausea, vomiting, diarrhea, constipation, dysuria, hematuria, frequency, back pain, joint pain or swelling, easy bruising or blooding, skin lesions or rashes. Physical Exam Physical Exam: General: Resting comfortably in his hospital bed. Is extremely hard of hearing. Does not appear ill or toxic. NAD. HEENT: Head is AT/NC buccal mucosa is moist and pink Neck: No JVD. Negative hepatojugular reflex Cardiac: RRR but distant Lungs: CTA without W/R/R Abdomen: Normoactive X4. Soft and nontender in all quadrants. Extremities: No peripheral clubbing cyanosis or edema Neuro: difficult to assess given expressive aphasia. Patient very [place]. answers yes/no questions (which seem appropriate). Is able to say that he is in the [facility] and his 's name is Viky. Skin: No obvious skin lesions or rashes Psych: Appropriate affect pleasant and cooperative Results & Data Results & Data ([facility]) Vital Signs (Past 12 Hours) Vital Signs Temp Pulse Resp BP Pulse Ox 11/08/20 08:14 36.6 C 84 16 173/99 H 93 PG Care Time/CCT Total # of Minutes Spent Total Time Spent with Patient: Total time spent is greater than 50% in coordination of care (as documented) at patient's floor/unit and/or counseling patient: [place] [address] Subseq Hosp Care Lvl 2 Patient Type Established History Expanded Problem Focused Exam Expanded Problem Focused Diagnoses Ambulatory dysfunction R26.2 Electrolyte abnormality E87.8 SHRUTHI (acute kidney injury) N17.9 Type 2 diabetes mellitus with unspecified complications E11.8 Mixed aphasia R47.01 Esophageal reflux K21.9 Carotid artery stenosis I65.23 Laterality: bilateral Hyperlipidemia E78.2 Hyperlipidemia type: mixed hyperlipidemia Focal motor seizure G40.109 Hypothyroidism E03.9 Hypothyroidism type: acquired Abnormal urine R82.90 (1) Carotid artery stenosis Laterality: bilateral Qualified Code(s): I65.23 - Occlusion and stenosis of bilateral carotid arteries (2) Hyperlipidemia Hyperlipidemia type: mixed hyperlipidemia Qualified Code(s): E78.2 - Mixed hyperlipidemia (3) Hypothyroidism Hypothyroidism type: acquired Qualified Code(s): E03.9 - Hypothyroidism, unspecified
[2020-11-08] MEDS ORDERED: HALOPERIDOL LACTATE 5 MG/ML 1 ML VIAL IM PRN (16:24)
[2020-11-09] MEDS: LEVOTHYROXINE SODIUM 75 MCG TABLET PO SCH (05:56)
[2020-11-09] MEDS: HEPARIN SOD 5,000 UNIT/0.5 ML VIAL SQ SCH ×3 (05:57→21:35)
[2020-11-09 07:48] LABS: Basophils # (auto) 0.01 K/uL (0-0.2); Basophils % (auto) 0.2 %; Hematocrit (blood only) 49.1 % (42-52); Hemoglobin 17.5 g/dL (14.0-18.0); Lymphocytes # (auto) 0.91 K/uL (1.2-3.4); Lymphocytes % (auto) 17.9 %; Mean Corpuscular Hemoglobin 32.4 pg (25-34); Mean Corpuscular Hgb Conc 35.6 g/dL (32-36); Mean Corpuscular Volume 90.9 fL (80-100); Mean Platelet Volume 10.7 fL (7.4-10.4); Monocytes # (auto) 0.44 K/uL (0.11-0.59); Monocytes % (auto) 8.6 %; Neutrophils # (auto) 3.73 K/uL (1.4-6.5); Neutrophils % (auto) 73.3 %; Platelet Count 243 K/uL (130-400); RDW Coefficient of Variation 14.3 % (11.5-14.5); RDW Standard Deviation 46.7 fL (36.4-46.3); White Blood Count 5.09 K/uL (4.8-10.8)
[2020-11-09 08:06] LABS: Calcium 9.5 mg/dl (8.5-10.1); Creatinine Clr Calc Pharmacy 44.8 ml/min; Est GFR (Non-African American) 54.3 ml/min; Potassium 3.6 mmol/L (3.5-5.1)
[2020-11-09] MEDS: INSULIN ASPART 100 UNITS/ML 3 ML PEN SC SCH ×4 (08:55→21:36)
[2020-11-09] MEDS: amLODIPine BESYLATE 5 MG TAB PO SCH ×2 (08:56→08:57)
[2020-11-09] MEDS: PANTOprazole 40 MG TAB PO SCH ×2 (08:57→21:34)
[2020-11-09] MEDS: levETIRAcetam 500 MG TAB PO SCH ×2 (08:57→21:35)
[2020-11-09] MEDS: MAGNESIUM OXIDE 400 MG TAB PO SCH ×2 (08:58→21:34)
[2020-11-09] MEDS: ASPIRIN 81 MG ECTAB PO SCH (08:58)
[2020-11-09] MEDS: CLOPIDOGREL BISULFATE 75 MG TAB PO SCH (08:58)
--- NOTE | 2020-11-09 13:16 | Hospitalist Progress Note ---
Date of Service November 09, 2020 Assessment & Plan (1) Ambulatory dysfunction: Plan: -W/U pretty unremarkable and I suspect that this is just overall/general decline. After speaking with daughter-- she confirms that this is baseline and father has been just declining (more so rapidly lately) -he did have some very mild SHRUTHI upfront that has since corrected with gentle IV hydration -CT of the head negative. -Patient did have questionable opacities on x-ray which seem consistent more with atelectasis than infectious process. His procalcitonin is normal. He is a febrile and he does not have leukocytosis. In addition, he is not complaining of any respiratory symptoms. -UA not grossly infected and UC showing no isolate/contaminated specimen -PT/OT on board Appreciate recommendations -Per records, was not requesting placement. I have attempted to reach out to his 16 different times over the past 48 hours and she is not answering my phone call. -did speak to daughter who is not surprised that is not answering. Interesting dynamanics (to say the least) at home. is having an affair. Patient aware but unable to do anything about it. Left home alone during the day while aife with her boyfriend. Daughter concerned that he isn't eating/ drinking/taking meds which is only contributing to general decline. PATIENT IS AGREEABLE TO PLACEMENT! -TSH mildly elevated. No change in dose as compliance an issue. Repeat in 8 weeks -CK is mildly elevated (not high enough to consider this rhabdo).statin stopped.. 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 PAtient denies leg pain but vague historian). At his age, okay to stop statin as benefit not outweighing the risk/side effects. 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 resolved with gently IVF - consistent with decrease oral intake/pre-renal -Fluids given upfront. (4) Type 2 diabetes mellitus with unspecified complications: Plan: Elevated glucose on admission usually well controlled - ? Medication compliance - Insulin sliding scale - may need basal insulin while in house - Hold metformin and glimepiride. okay to resume upon D/C. 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 Recommend FU TSH in 8 weeks (11) Abnormal urine: Plan: consistent with pre-renal injury -Not grossly infected. Urine culture ordered and pending Plan: * Plan of care discussed with Dr. Callahan. Further orders as warranted. Admission and Anticipated Discharge Date Admission Date: November 06, 2020 Subjective Patient seen on daily rounds today. Limited historian given expressive aphasia but when asked 'yes'/'no' questions- he voices no c/c. Nursing reports restlessness and impulsiveness requiring 1:1 but he has not been agitated or combative. FINALLY able to get in touch with a family member (tried 12x yesterday and 8x the day prior) as it is documented that she did not want his to be in a half-way. Daughter called in from [place]. Did get permission from patient to speak to her. She reports that his (her mother) has been having a affair and has a boyfriend. Daily, she leaves patient alone to go spend time with the boyfriend. Daughter does not live close but calls her father daily and has been coming in o n the weekend to help (she still works during the week). She has noticed a general decline over the past several months. In addition, she isn't sure if he has been taking his medications (uncertain if he would remember to take them and/or if her mother is helping with this). Daughter was not surprised that her mother dropped him off at the hospital and we have not been able to get in touch with her since. Daughter is distraught over this and is ultimately concerned for her father at home (given his general decline, risk of falling and being home during the day alone). 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 Review of Systems Review of Systems: limited but able to answer when asked in 'yes'/'no' for All systems reviewed and are unremarkable except as noted in HPI and below Denies fevers, chills, headache, nasal congestion, sore throat, cough, chest pain, shortness of breath, palpitations, orthopnea, PND, abdominal pain, nausea, vomiting, diarrhea, constipation, dysuria, hematuria, frequency, back pain, joint pain or swelling, easy bruising or blooding, skin lesions or rashes. Physical Exam Physical Exam: General: Resting comfortably in his hospital bed. Extremely [place]. NAD. HEENT: Head is AT/NC buccal mucosa is moist and pink Neck: No JVD. Negative hepatojugular reflex Cardiac: RRR Lungs: CTA without W/R/R Abdomen: Normoactive X4. Soft and nontender in all quadrants. Extremities: No peripheral clubbing cyanosis or edema Neuro: Mentation difficult to examine as he does have chronic expressive aphasia but seems to answer appropriately when asked in the yes/no form. Skin: No obvious skin lesions or rashes Psych: Appropriate affect pleasant and cooperative Results & Data Results & Data ([facility]) Vital Signs (Past 12 Hours) Vital Signs Temp Pulse Resp BP Pulse Ox 11/09/20 07:30 36.5 C 71 18 135/78 92 Laboratory Results 11/09/20 06:51 11/09/20 06:51 PG Care Time/CCT Total # of Minutes Spent Total Time Spent with Patient: Total time spent is greater than 50% in coordination of care (as documented) at patient's floor/unit and/or counseling patient: Coding [place] [address] Subseq Hosp Care Lvl 3 Patient Type Established History Comprehensive Exam Comprehensive Medical Decision Making Moderate Complexity Diagnoses Ambulatory dysfunction R26.2 Electrolyte abnormality E87.8 SHRUTHI (acute kidney injury) N17.9 Type 2 diabetes mellitus with unspecified complications E11.8 Mixed aphasia R47.01 Esophageal reflux K21.9 Carotid artery stenosis I65.23 Laterality: bilateral Hyperlipidemia E78.2 Hyperlipidemia type: mixed hyperlipidemia Focal motor seizure G40.109 Hypothyroidism E03.9 Hypothyroidism type: acquired Abnormal urine R82.90 (1) Carotid artery stenosis Laterality: bilateral Qualified Code(s): I65.23 - Occlusion and stenosis of bilateral carotid arteries (2) Hyperlipidemia Hyperlipidemia type: mixed hyperlipidemia Qualified Code(s): E78.2 - Mixed hyperlipidemia (3) Hypothyroidism Hypothyroidism type: acquired Qualified Code(s): E03.9 - Hypothyroidism, unspecified
[2020-11-10] MEDS: HEPARIN SOD 5,000 UNIT/0.5 ML VIAL SQ SCH ×3 (06:14→22:00)
[2020-11-10] MEDS: LEVOTHYROXINE SODIUM 75 MCG TABLET PO SCH (06:16)
[2020-11-10] MEDS: amLODIPine BESYLATE 5 MG TAB PO SCH ×2 (09:15)
[2020-11-10] MEDS: ASPIRIN 81 MG ECTAB PO SCH (09:15)
[2020-11-10] MEDS: levETIRAcetam 500 MG TAB PO SCH ×2 (09:15→21:59)
[2020-11-10] MEDS: CLOPIDOGREL BISULFATE 75 MG TAB PO SCH (09:15)
[2020-11-10] MEDS: MAGNESIUM OXIDE 400 MG TAB PO SCH ×2 (09:16→22:00)
[2020-11-10] MEDS: PANTOprazole 40 MG TAB PO SCH ×2 (09:16→22:01)
[2020-11-10] MEDS: INSULIN ASPART 100 UNITS/ML 3 ML PEN SC SCH ×4 (09:22→22:02)
--- NOTE | 2020-11-10 19:23 | Hospitalist Progress Note ---
Date of Service November 10, 2020 Assessment & Plan (1) Ambulatory dysfunction: Plan: -W/U pretty unremarkable and I suspect that this is just overall/general decline. Daughter confirms that this is baseline and father has been just declining (more so rapidly lately) -he did have some very mild SHRUTHI upfront that has since corrected with gentle IV hydration -CT of the head negative. -Patient did have questionable opacities on x-ray which seem consistent more with atelectasis than infectious process. His procalcitonin is normal. He is afebrile and he does not have leukocytosis. In addition, he is not complaining of any respiratory symptoms. -UA not grossly infected and UC showing no isolate/contaminated specimen -PT/OT on board Appreciate recommendations -Previous hospitalist attempted to call multiple times over 2 days without luck-did speak to daughter who is not surprised that is not answering. Interesting dynamics at home. is having an affair as per daughter and leaves patient at home on his own, likely not taking medicatins appropriately, not sure if he is able to do ADLs on his own. Daughter concerned that he isn't eating/drinking/taking meds which is only contributing to general decline. PATIENT IS AGREEABLE TO PLACEMENT! -TSH mildly elevated. No change in dose as compliance an issue. Repeat in 8 weeks -CK is mildly elevated (not high enough to consider this rhabdo).statin stopped.. 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 PAtient denies leg pain but vague historian). At his age, okay to stop statin as benefit not outweighing the risk/side effects. 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 resolved with gently IVF - consistent with decrease oral intake/pre-renal -Fluids given upfront. (4) Type 2 diabetes mellitus with unspecified complications: Plan: Elevated glucose on admission usually well controlled - ? Medication compliance - Insulin sliding scale - may need basal insulin while in house - Hold metformin and glimepiride. okay to resume upon D/C. 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 Recommend FU TSH in 4-6 weeks (11) Abnormal urine: Plan: -Not grossly infected, but with granular casts and WBC casts. Urine culture with mixed bryant Plan: DVT prophylaxis-SQ heparin Disposition-medically stable for discharge, awaiting placement Admission and Anticipated Discharge Date Admission Date: November 06, 2020 Subjective Pt answers all questions with yes or no. Denies pain or SOB, no abd pain. Is agreeable to rehab placement. Review of Systems Review of Systems: All systems reviewed & are unremarkable except as noted in HPI & below Physical Exam Constitutional: WD/WN, vitals as above Eyes: + anicteric sclerae Neck: trachea midline, no thyromegaly Respiratory: normal respiratory effort, lungs clear to auscultation Cardiovascular: RRR, no murmur, no edema Chest (Breasts): Chest: normal inspection of chest Gastrointestinal (Abdomen): normal bowel sounds, soft, nontender, no hepatosplenomegaly Musculoskeletal: Extremities: extremities normal to inspection; no cyanosis and no clubbing Skin: no rashes, warm and dry Neurologic: moves all extremities and awake; no focal motor deficits Psychiatric: Orientation: alert, oriented to person and cooperative Lymphatic: no lymphedema Results & Data Results & Data ([facility]) Vital Signs (Past 12 Hours) Vital Signs Temp Pulse Pulse Pulse Pulse Resp BP 11/10/20 15:24 36.7 C 80 17 138/77 11/10/20 07:33 36.7 C 78 78 78 78 14 114/68 Pulse Ox 11/10/20 15:24 94 11/10/20 07:33 93 Laboratory Results 11/10/20 11/10/20 11/10/20 Range/Units 20:32 17:27 12:06 POC Glucose 172 H 154 H 175 H (70-99) mg/dl 11/10/20 Range/Units 07:53 POC Glucose 161 H (70-99) mg/dl PG Care Time/CCT Total # of Minutes Spent Total Time Spent with Patient: Total time spent is greater than 50% in coordination of care (as documented) at patient's floor/unit and/or counseling patient: Coding Level of Care Code 56182 Subseq Hosp Care Lvl 1 Diagnoses Ambulatory dysfunction R26.2 Electrolyte abnormality E87.8 SHRUTHI (acute kidney injury) N17.9 Type 2 diabetes mellitus with unspecified complications E11.8 Mixed aphasia R47.01 Esophageal reflux K21.9 Carotid artery stenosis I65.23 Laterality: bilateral Hyperlipidemia E78.2 Hyperlipidemia type: mixed hyperlipidemia Focal motor seizure G40.109 Hypothyroidism E03.9 Hypothyroidism type: acquired Abnormal urine R82.90 (1) Carotid artery stenosis Laterality: bilateral Qualified Code(s): I65.23 - Occlusion and stenosis of bilateral carotid arteries (2) Hyperlipidemia Hyperlipidemia type: mixed hyperlipidemia Qualified Code(s): E78.2 - Mixed hyperlipidemia (3) Hypothyroidism Hypothyroidism type: acquired Qualified Code(s): E03.9 - Hypothyroidism, unspecified
[2020-11-11] MEDS: HEPARIN SOD 5,000 UNIT/0.5 ML VIAL SQ SCH ×3 (06:25→20:32)
[2020-11-11] MEDS: LEVOTHYROXINE SODIUM 75 MCG TABLET PO SCH (06:25)
[2020-11-11] MEDS: amLODIPine BESYLATE 5 MG TAB PO SCH ×2 (08:59→09:01)
[2020-11-11] MEDS: CLOPIDOGREL BISULFATE 75 MG TAB PO SCH (09:00)
[2020-11-11] MEDS: ASPIRIN 81 MG ECTAB PO SCH (09:00)
[2020-11-11] MEDS: PANTOprazole 40 MG TAB PO SCH ×2 (09:01→20:31)
[2020-11-11] MEDS: levETIRAcetam 500 MG TAB PO SCH ×2 (09:01→20:31)
[2020-11-11] MEDS: MAGNESIUM OXIDE 400 MG TAB PO SCH ×2 (09:01→20:31)
[2020-11-11] MEDS: INSULIN ASPART 100 UNITS/ML 3 ML PEN SC SCH ×4 (09:36→20:33)
--- NOTE | 2020-11-11 15:36 | Hospitalist Progress Note ---
Date of Service November 11, 2020 Assessment & Plan (1) Ambulatory dysfunction: Plan: -W/U pretty unremarkable and I suspect that this is just overall/general decline. Daughter confirms that this is baseline and father has been just declining (more so rapidly lately) -he did have some very mild SHRUTHI upfront that has since corrected with gentle IV hydration -CT of the head negative. -Patient did have questionable opacities on x-ray which seem consistent more with atelectasis than infectious process. His procalcitonin is normal. He is afebrile and he does not have leukocytosis. In addition, he is not complaining of any respiratory symptoms and is not hypoxic. -UA not grossly infected and UC showing no isolate/contaminated specimen -PT/OT on board Appreciate recommendations -Previous hospitalist attempted to call multiple times over 2 days without luck-did speak to daughter who is not surprised that is not answering. Interesting dynamics at home. is having an affair as per daughter and leaves patient at home on his own, likely not taking medications appropriately, not sure if he is able to do ADLs on his own. Daughter concerned that he isn't eating/drinking/taking meds which is only contributing to general decline. PATIENT IS AGREEABLE TO PLACEMENT -TSH mildly elevated. No change in dose as compliance an issue. Repeat in 8 weeks -CK is mildly elevated (not high enough to consider this rhabdo).statin stop ped.. 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 PAtient denies leg pain but vague historian). At his age, okay to stop statin as benefit not outweighing the risk/side effects. 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 resolved with gently IVF - consistent with decrease oral intake/pre-renal -Fluids given upfront. (4) Type 2 diabetes mellitus with unspecified complications: Plan: Elevated glucose on admission usually well controlled with hemoglobin A1c of 7.4% recently Glucose here fairly well controlled - ? Medication compliance -Continue insulin sliding scale - may need basal insulin while in house - Hold metformin and glimepiride. okay to resume upon D/C. 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 Recommend FU TSH in 4-6 weeks (11) Abnormal urine: Plan: -Not grossly infected, but with granular casts and WBC casts. Urine culture with mixed bryant Plan: DVT prophylaxis-SQ heparin Disposition-continues to be medically stable for discharge, awaiting placement- discussed his care again with case management on 11/11 who is awaiting to hear back from [facility] care for placement I called his and left a message on 11/11 Admission and Anticipated Discharge Date Admission Date: November 06, 2020 Subjective Patient has a no complaints today. He denies pain anywhere, denies shortness of breath. No overnight events. Review of Systems Review of Systems: All systems reviewed & are unremarkable except as noted in HPI & below Physical Exam Constitutional: WD/WN, vitals as above Eyes: + anicteric sclerae Neck: trachea midline, no thyromegaly Respiratory: normal respiratory effort, lungs clear to auscultation Cardiovascular: RRR, no murmur, no edema Chest (Breasts): Chest: normal inspection of chest Gastrointestinal (Abdomen): normal bowel sounds, soft, nontender, no hepatosplenomegaly Musculoskeletal: Extremities: extremities normal to inspection; no cyanosis and no clubbing Skin: no rashes, warm and dry Neurologic: moves all extremities and awake; no focal motor deficits Psychiatric: Orientation: alert, oriented to person and cooperative Lymphatic: no lymphedema Results & Data Results & Data ([facility]) Vital Signs (Past 12 Hours) Vital Signs Temp Pulse Pulse Resp BP Pulse Ox 11/11/20 12:19 73 16 123/69 93 11/11/20 07:19 36.5 C 79 16 165/98 H 93 PG Care Time/CCT Total # of Minutes Spent Total Time Spent with Patient: Total time spent is greater than 50% in coordination of care (as documented) at patient's floor/unit and/or counseling patient: Coding Level of Care Code 27658 Subseq Hosp Care Lvl 1 Diagnoses Ambulatory dysfunction R26.2 Electrolyte abnormality E87.8 SHRUTHI (acute kidney injury) N17.9 Type 2 diabetes mellitus with unspecified complications E11.8 Mixed aphasia R47.01 Esophageal reflux K21.9 Carotid artery stenosis I65.23 Laterality: bilateral Hyperlipidemia E78.2 Hyperlipidemia type: mixed hyperlipidemia Focal motor seizure G40.109 Hypothyroidism E03.9 Hypothyroidism type: acquired Abnormal urine R82.90 (1) Carotid artery stenosis Laterality: bilateral Qualified Code(s): I65.23 - Occlusion and stenosis of bilateral carotid arteries (2) Hyperlipidemia Hyperlipidemia type: mixed hyperlipidemia Qualified Code(s): E78.2 - Mixed hyperlipidemia (3) Hypothyroidism Hypothyroidism type: acquired Qualified Code(s): E03.9 - Hypothyroidism, unspecified
[2020-11-12] MEDS: HEPARIN SOD 5,000 UNIT/0.5 ML VIAL SQ SCH ×3 (05:28→21:00)
[2020-11-12] MEDS: LEVOTHYROXINE SODIUM 75 MCG TABLET PO SCH (05:28)
[2020-11-12] MEDS: INSULIN ASPART 100 UNITS/ML 3 ML PEN SC SCH ×4 (09:40→20:53)
[2020-11-12] MEDS: levETIRAcetam 500 MG TAB PO SCH ×2 (09:42→21:02)
[2020-11-12] MEDS: MAGNESIUM OXIDE 400 MG TAB PO SCH ×2 (09:42→21:01)
[2020-11-12] MEDS: ASPIRIN 81 MG ECTAB PO SCH (09:42)
[2020-11-12] MEDS: CLOPIDOGREL BISULFATE 75 MG TAB PO SCH (09:42)
[2020-11-12] MEDS: amLODIPine BESYLATE 5 MG TAB PO SCH ×2 (09:43)
[2020-11-12] MEDS: PANTOprazole 40 MG TAB PO SCH ×2 (10:34→21:01)
--- NOTE | 2020-11-12 11:35 | Hospitalist Progress Note ---
Date of Service November 12, 2020 Assessment & Plan (1) Ambulatory dysfunction: Plan: -W/U pretty unremarkable and I suspect that this is just overall/general decline. Daughter confirms that this is baseline and father has been just declining (more so rapidly lately) -he did have some very mild SHRUTHI upfront that has since corrected with gentle IV hydration -CT of the head negative. -Patient did have questionable opacities on x-ray which seem consistent more with atelectasis than infectious process. His procalcitonin is normal. He is afebrile and he does not have leukocytosis. In addition, he is not complaining of any respiratory symptoms and is not hypoxic. -UA not grossly infected and UC showing no isolate/contaminated specimen -PT/OT on board Appreciate recommendations -Previous hospitalist attempted to call multiple times over 2 days without luck-did speak to daughter who is not surprised that is not answering. Interesting dynamics at home. is having an affair as per daughter and leaves patient at home on his own, likely not taking medications appropriately, not sure if he is able to do ADLs on his own. Daughter concerned that he isn't eating/drinking/taking meds which is only contributing to general decline. PATIENT IS AGREEABLE TO PLACEMENT -TSH mildly elevated. No change in dose as compliance an issue. Repeat in 8 weeks -CK is mildly elevated (not high enough to consider this rhabdo).statin stop ped.. 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 PAtient denies leg pain but vague historian). At his age, okay to stop statin as benefit not outweighing the risk/side effects. 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 resolved with gently IVF - consistent with decrease oral intake/pre-renal -Fluids given upfront. (4) Type 2 diabetes mellitus with unspecified complications: Plan: Elevated glucose on admission usually well controlled with hemoglobin A1c of 7.4% recently Glucose here fairly well controlled - ? Medication compliance -Continue insulin sliding scale - may need basal insulin while in house - Hold metformin and glimepiride. okay to resume upon D/C. 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 Recommend FU TSH in 4-6 weeks (11) Abnormal urine: Plan: -Not grossly infected, but with granular casts and WBC casts. Urine culture with mixed bryant Plan: DVT prophylaxis-SQ heparin Disposition-continues to be medically stable for discharge, awaiting placement- discussed his care again with case management on 11/11 who is awaiting to hear back from [facility] care for placement I called his and left a message on 11/11 and again on 11/12. RN reports called in on 11/11 and is upset he is going to rehab as she states she will lose her house if he is not there. Yet not clear if she can provide the 13/09 care that he needs Admission and Anticipated Discharge Date Admission Date: November 06, 2020 Subjective Pt says he is doing "ok" today. When asked if he is tired of being in the hospi tiffanie, he said "yes." Denies pain. Is eating. Review of Systems Review of Systems: All systems reviewed & are unremarkable except as noted in HPI & below Physical Exam Constitutional: WD/WN, vitals as above Eyes: + anicteric sclerae Neck: trachea midline, no thyromegaly Respiratory: normal respiratory effort, lungs clear to auscultation Cardiovascular: RRR, no murmur, no edema Chest (Breasts): Chest: normal inspection of chest Gastrointestinal (Abdomen): normal bowel sounds, soft, nontender, no hepatosplenomegaly Musculoskeletal: Extremities: extremities normal to inspection; no cyanosis and no clubbing Skin: no rashes, warm and dry Neurologic: moves all extremities and awake; no focal motor deficits Psychiatric: Orientation: alert, oriented to person and cooperative Lymphatic: no lymphedema Results & Data Results & Data ([facility]) Vital Signs (Past 12 Hours) Vital Signs Temp Pulse Resp BP Pulse Ox 11/12/20 06:50 36.9 C 68 16 147/79 H 91 PG Care Time/CCT Total # of Minutes Spent Total Time Spent with Patient: Total time spent is greater than 50% in coordination of care (as documented) at patient's floor/unit and/or counseling patient: Coding Level of Care Code 84179 Subseq Hosp Care Lvl 1 Diagnoses Ambulatory dysfunction R26.2 Electrolyte abnormality E87.8 SHRUTHI (acute kidney injury) N17.9 Type 2 diabetes mellitus with unspecified complications E11.8 Mixed aphasia R47.01 Esophageal reflux K21.9 Carotid artery stenosis I65.23 Laterality: bilateral Hyperlipidemia E78.2 Hyperlipidemia type: mixed hyperlipidemia Focal motor seizure G40.109 Hypothyroidism E03.9 Hypothyroidism type: acquired Abnormal urine R82.90 (1) Carotid artery stenosis Laterality: bilateral Qualified Code(s): I65.23 - Occlusion and stenosis of bilateral carotid arteries (2) Hyperlipidemia Hyperlipidemia type: mixed hyperlipidemia Qualified Code(s): E78.2 - Mixed hyperlipidemia (3) Hypothyroidism Hypothyroidism type: acquired Qualified Code(s): E03.9 - Hypothyroidism, unspecified
[2020-11-13] MEDS: HEPARIN SOD 5,000 UNIT/0.5 ML VIAL SQ SCH ×2 (05:53→15:52)
[2020-11-13] MEDS: LEVOTHYROXINE SODIUM 75 MCG TABLET PO SCH (05:53)
[2020-11-13] MEDS: amLODIPine BESYLATE 5 MG TAB PO SCH ×2 (07:27)
[2020-11-13] MEDS: PANTOprazole 40 MG TAB PO SCH (07:27)
[2020-11-13] MEDS: CLOPIDOGREL BISULFATE 75 MG TAB PO SCH (07:27)
[2020-11-13] MEDS: ASPIRIN 81 MG ECTAB PO SCH (07:28)
[2020-11-13] MEDS: levETIRAcetam 500 MG TAB PO SCH (07:28)
[2020-11-13] MEDS: MAGNESIUM OXIDE 400 MG TAB PO SCH (07:28)
[2020-11-13] MEDS: INSULIN ASPART 100 UNITS/ML 3 ML PEN SC SCH ×2 (09:10→12:53)
--- NOTE | 2020-11-13 12:50 | Discharge Summary ---
Date of Service November 13, 2020 Admission HPI Per Admitting Provider 80 YOM with past medical history of: DMII, HLD, HTN, CVA, seizure, Hypothyroidism, GERD. Patient comes to the EMD today for concerns of increased difficulty with steadiness and ambulation at home as well as decreased oral and fluid intake. The patient had an appointment with neurology today and cancelled it as they were referred to the EMD by the PCP. Patient is very hard of hearing and with some old residual mixed aphasia. Most of the information was gathered from the . She endorses that over the past few weeks he has not been drinking or eating much at home and he has had a drop in his ADL independency. He is now needing a cane and sometimes a walker to ambulate and he is more impulsive at home. In the EMD the patient had a CT scan of the head, CXR, and routine labs drawn. 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 Patient will be admitted for IVF, nutritional assessment, PT/OT evaluation and resource identification. Patient had his COVID vaccine and his COVID test on admission is NEGATIVE Principal Diagnosis SHRUTHI, Ambulatory dysfunction, suspected medication noncompliance Discharge Exam Constitutional WD/WN, vitals as above Eyes + anicteric sclerae Neck trachea midline, no thyromegaly Respiratory normal respiratory effort, lungs clear to auscultation Cardiovascular RRR, no murmur, no edema Chest (Breasts) Chest: normal inspection of chest Gastrointestinal (Abdomen) normal bowel sounds, soft, nontender, no hepatosplenomegaly Musculoskeletal Extremities: extremities normal to inspection; no cyanosis and no clubbing Skin no rashes, warm and dry Neurologic moves all extremities and awake; no focal motor deficits Psychiatric Orientation: alert, oriented to person and cooperative Lymphatic no lymphedema Discharge Data Allergies Allergy/AdvReac Type Severity Reaction Status Date / Time Eardzez-Kmk-Tur Reductase Allergy Severe JOINT PAIN Verified 11/06/20 15:22 Inhibitor strawberry Allergy Intermediate Rash Verified 11/06/20 15:22 Consultations 11/06/20 18:30 ED Decision to Admit Stat Ordered Studies 11/06/20 14:32 CT head/brain wo con Stat Head CT 11/06/20 14:[address] DOSE: 537.48 mGy.cm HISTORY: weakness TECHNIQUE: Multiaxial CT images of the head were performed without the use of intravenous contrast. Automated exposure control was utilized for this study. A dose lowering technique was utilized adhering to the principles of ALARA. Comparison: Head CT 07/01/2018. Findings: The paranasal sinuses and mastoid air cells are clear. The calvarium and skull base are intact. There is no mass, hematoma, midline shift, acute infarct. White matter hypodensity is nonspecific but suggestive of microvascular ischemic change. The ventricles and sulci demonstrate mild age-related involutional changes. No change in the old left frontal and old left parietal infarcts demonstrated by encephalomalacia. There is an old small right parietal periventricular infarct which is new from the prior study. Impression: 1. No acute intracranial abnormality. 2. Old infarcts as described above. ACT 112: Negative or not required by law. Electronically signed by: Otoniel Campbell M.D. 11/06/2020 4:06 PM Chest X-Ray 11/06/20 14:33 XR chest 1V portable CLINICAL HISTORY: weakness COMPARISON STUDY: June 24, 2018 FINDINGS: No pneumothorax. No pleural effusion. Atelectasis is seen at the left base. Hazy opacity is seen at the right infrahilar region which might represent atelectasis or infiltrate. Lung volumes are decreased with crowded lung markings. Cardiomediastinal silhouette is within normal limits in size. No significant pulmonary vascular congestion.. Aorta is tortuous. Osseous structures: Mild degenerative changes of the spine and right shoulder. IMPRESSION: 1. Low lung volumes. Atelectasis or infiltrate at the left base. Hazy opacity the right infrahilar region might represent atelectasis or infiltrate. ACT 112: Negative or not required by law. The above report was generated using voice recognition software. It may contain grammatical, syntax or spelling errors. Electronically signed by: Christelle Medina DO 11/06/2020 2:58 PM Hospital Course (1) Ambulatory dysfunction: -W/U pretty unremarkable and I suspect that this is just overall/general decline. Daughter confirms that this is baseline and father has been just declining (more so rapidly lately) -he did have some very mild SHRUTHI upfront that has since corrected with gentle IV hydration -CT of the head negative. -Patient did have questionable opacities on x-ray which seem consistent more with atelectasis than infectious process. His procalcitonin is normal. He is afebrile and he does not have leukocytosis. In addition, he is not complaining of any respiratory symptoms and is not hypoxic. -UA not grossly infected and UC showing no isolate/contaminated specimen -PT/OT on board Appreciate recommendations -Previous hospitalist attempted to call multiple times over 2 days without luck-did speak to daughter who is not surprised that is not answering. Interesting dynamics at home. is having an affair as per daughter and leaves patient at home on his own, likely not taking medications appropriately, not sure if he is able to do ADLs on his own. Daughter concerned that he isn't eating/drinking/taking meds which is only contributing to general decline. PATIENT IS AGREEABLE TO PLACEMENT -TSH mildly elevated. No change in dose as compliance an issue. Repeat in 8 weeks -CK is mildly elevated (not high enough to consider this rhabdo).statin sto pped.. 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 PAtient denies leg pain but vague historian). At his age, okay to stop statin as benefit not outweighing the risk/side effects. 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 resolved with gently IVF - consistent with decrease oral intake/pre-renal -Fluids given upfront. (4) Type 2 diabetes mellitus with unspecified complications: Elevated glucose on admission usually well controlled with hemoglobin A1c of 7.4% recently Glucose here fairly well controlled - ? Medication compliance -Continue insulin sliding scale - may need basal insulin while in house - Hold metformin and glimepiride. okay to resume upon D/C. 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 Recommend FU TSH in 4-6 weeks (11) Abnormal urine: -Not grossly infected, but with granular casts and WBC casts. Urine cu lture with mixed bryant DVT prophylaxis-SQ heparin Disposition-discharge to SNF I called his and left a message on 11/11 and again on 11/12. Total Time Total Time Spent Total Time Spent (In Minutes): 35 min Discharge Plan Discharge Items Patient Disposition: Transfer Shelter Fac Reason For Visit: SHRUTHI Discharge Diagnosis: SHRUTHI, Ambulatory dysfunction Condition on Discharge: Good Activity: As commented below Lifting: Gradually increase as tolerated Exercise/Sports: Gradually increase as tolerated Weightbearing: Full weightbearing Non-emergency contact: Primary Care Provider Call non-emergency contact if: you have any medication questions and your symptoms worsen Follow-up/Referrals: Gianna Bonilla CRNP [Primary Care Provider] - (Follow up within 2 weeks after discharge from rehab) Diet: Carb Consistent or DM2 and Heart Healthy Addtl Attending Provider Instructions: Continue rehab for strengthening. Please check BMP in 1 week to follow up on renal function. Pending Studies at Discharge: No Stand-Alone Forms: My [facility] Skilled Items Patient informed of condition?: Yes DNR: Yes Discharge Level of Care: Skilled Communicable Disease: No Discharge Prognosis: Improving Lines: None Urinary Catheter: No Medications and DC Order Prescriptions: New lisinopril 5 mg tablet 5 mg PO DAILY Qty: 30 RF: 0 Continued levetiracetam [Keppra] 500 mg tablet 500 mg PO BID Qty: 180 RF: 2 acetaminophen 500 mg tablet 500 mg PO Q4 PRN (Reason: Fever Or Pain) RF: 0 clopidogrel 75 mg Tablet 75 mg PO QAM RF: 0 metformin 1,000 mg Tablet 1,000 mg PO BIDM RF: 0 montelukast [Singulair] 10 mg Tablet 10 mg PO HS RF: 0 levothyroxine 75 mcg tablet 75 mcg PO QAM RF: 0 pantoprazole 40 mg tablet,delayed release (DR/EC) 40 mg PO BID RF: 0 aspirin 81 mg Tablet,Delayed Release (Dr/Ec) 81 mg PO QAM RF: 0 magnesium oxide 400 mg (241.3 mg magnesium) Tablet 400 mg PO DAILY Qty: 30 RF: 1 amlodipine 2.5 mg tablet 2.5 mg PO DAILY RF: 0 amlodipine 5 mg tablet 5 mg PO DAILY RF: 0 glimepiride 1 mg Tablet 1 mg PO HS RF: 0 Discontinued pravastatin 20 mg tablet 20 mg PO HS RF: 0 lisinopril 40 mg tablet 40 mg PO DAILY RF: 0 Discharge Orders: Discharge Order (Routine); Ordered 11/13/20 Ordered By: Jordana Mckeon/Other Patient Handouts: A1C, High Blood Sugar (Hyperglycemia), Hypoglycemia (Low Blood Sugar), Managing Type 2 Diabetes Admission Data Admit Date/Time: 11/06/20 18:55 Attending Provider: Jordana Bacon Admit Provider: Valentina Mcgee Primary Care Provider: Gianna Bonilla Other Providers: Valentina Mcgee ; [facility] ; [facility], ; [facility] ; [facility] Coding Level of Care Code D/C DAY MANAGEMENT >30 MINS Diagnoses Ambulatory dysfunction R26.2 Electrolyte abnormality E87.8 SHRUTHI (acute kidney injury) N17.9 Type 2 diabetes mellitus with unspecified complications E11.8 Mixed aphasia R47.01 Esophageal reflux K21.9 Carotid artery stenosis I65.23 Laterality: bilateral Hyperlipidemia E78.2 Hyperlipidemia type: mixed hyperlipidemia Focal motor seizure G40.109 Hypothyroidism E03.9 Hypothyroidism type: acquired Abnormal urine R82.90
== END 2020-11-13 17:06 ==
LOC: ED 14:09 → INTOOBSV 18:55 → SUATTDRO 18:55 → 3W 18:55 → 3N 11-07 22:43

== ENCOUNTER 2020-11-28 17:11 | Inpatient (IN) ==
[2020-11-28] MEDS ORDERED: SODIUM CHLORIDE 0.9% 1000ML 1,000 ML IV SCH (17:45)
--- NOTE | 2020-11-28 17:45 | Emergency Department Note ---
History of Present Illness General Chief complaint: Altered Mental Status Stated complaint: falls, slow to respond Time Seen by Provider: 11/28/20 17:29 History of Present Illness 80-year-old male presents to the ED with a chief complaint of altered mental status. The patient, according to the [facility] being [facility] from here. The patient went to [facility]. He was there since , yesterday. The patient has had increased disorientation, is not eating and is very lethargic, according to the . He was transported here by EMS. He is difficult to arouse and seems very sleepy. The patient has had his Covid vaccines in June and July. He does have history of CVA and has some mild baseline speech deficit. The states that he can only speak in short sentences. The patient, when asked if anything bothers him, he shakes his head no. He does not verbalize anything during my evaluation. He is somewhat difficult to arouse but arouses with a mild physical stimulus and then seems to fall back asleep very quickly. He did stick out his tongue. His tongue appears to be dry. He does move his extremities but seems to be very weak. No obvious focal deficits. Home Medications Medication Instructions Recorded Confirmed Type clopidogrel 75 mg tablet 75 mg PO QAM 11/29/17 11/06/20 History metformin 1,000 mg tablet 1,000 mg PO BIDM 11/29/17 11/06/20 History montelukast 10 mg tablet 10 mg PO HS 11/29/17 11/06/20 History (Singulair) levothyroxine 75 mcg tablet 75 mcg PO QAM 06/24/18 11/06/20 History pantoprazole 40 mg tablet,delayed 40 mg PO BID 06/24/18 11/06/20 History release aspirin 81 mg tablet,delayed 81 mg PO QAM 07/01/18 11/06/20 History release magnesium oxide 400 mg (241.3 mg 400 mg PO DAILY #30 tab 07/05/18 11/06/20 Rx magnesium) tablet acetaminophen 500 mg tablet 500 mg PO Q4 PRN tab 09/18/18 11/06/20 History levetiracetam 500 mg tablet 500 mg PO BID #180 tab 08/11/20 11/06/20 Rx (Keppra) amlodipine 2.5 mg tablet 2.5 mg PO DAILY 11/06/20 11/06/20 History amlodipine 5 mg tablet 5 mg PO DAILY 11/06/20 11/06/20 History glimepiride 1 mg tablet 1 mg PO HS 11/06/20 11/06/20 History lisinopril 5 mg tablet 5 mg PO DAILY #30 tab 11/13/20 Rx Allergies Allergy/AdvReac Type Severity Reaction Status Date / Time [id number]-[id number] Reductase Allergy Severe JOINT PAIN Verified 11/06/20 15:22 Inhibitor strawberry Allergy Intermediate Rash Verified 11/06/20 15:22 Past Med/Surg History Medical History (Updated 11/28/20 @ 18:58 by Segun Trinh DO) Chest pain (06/14/13) Diabetes Dizziness Expressive aphasia Focal motor seizure History of stroke with residual deficit Hypertension Hypoglycemia Hypothyroidism Surgical History History of tonsillectomy Hx of oral surgery Family History Sister Leukemia Father Cancer Other Diabetes Hypertension Social History Smoking Status: Unknown if ever smoked Second Hand Exposure: No; Hx Alcohol Use: No Preferred Language: Khmer Communication Ability: Effective 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 Beliefs That Will Affect Care: None marital status: yes Current Living Situation: Spouse current occupational status: retired Feels Safe at Home: Yes and Hesitant to Answer Assistive Devices: Walker Review of Systems A total of 10 systems reviewed and were otherwise negative Physical Exam Vital Signs Vital Signs - 24 hr 11/28/20 17:18 11/28/20 17:20 11/28/20 17:30 Pulse Rate 76 74 72 Pulse Rate from SpO2 Sensor 75 73 Pulse Rhythm Regular Respiratory Rate 16 12 19 Respiratory Effort / Characteristics Non-Labored Spontaneous Respiratory Depth Normal Blood Pressure 125/92 Blood Pressure Mean 103 Blood Pressure Position Lying Pulse Oximetry 94 98 93 Oxygen Delivery Method Room Air Sepsis Recent Fever Within 48 Hours No Sepsis New/Unexplained Change in Mental Status Yes Sepsis Action Taken by Nursing No Action Required 11/28/20 17:40 11/28/20 17:50 11/28/20 18:00 Pulse Rate 69 83 79 Pulse Rate from SpO2 Sensor 70 82 78 Pulse Rhythm Respiratory Rate 17 14 19 Respiratory Effort / Characteristics Respiratory Depth Blood Pressure 123/80 Blood Pressure Mean 94 Blood Pressure Position Pulse Oximetry 96 96 94 Oxygen Delivery Method Sepsis Recent Fever Within 48 Hours Sepsis New/Unexplained Change in Mental Status Sepsis Action Taken by Nursing 11/28/20 18:10 11/28/20 18:20 11/28/20 18:30 Pulse Rate 75 75 70 Pulse Rate from SpO2 Sensor 76 75 70 Pulse Rhythm Respiratory Rate 12 18 12 Respiratory Effort / Characteristics Respiratory Depth Blood Pressure 62/46 L Blood Pressure Mean 51 Blood Pressure Position Pulse Oximetry 93 96 93 Oxygen Delivery Method Sepsis Recent Fever Within 48 Hours Sepsis New/Unexplained Change in Mental Status Sepsis Action Taken by Nursing 11/28/20 18:43 11/28/20 18:50 11/28/20 19:00 Pulse Rate 73 74 70 Pulse Rate from SpO2 Sensor 74 71 Pulse Rhythm Respiratory Rate 18 18 Respiratory Effort / Characteristics Respiratory Depth Blood Pressure Blood Pressure Mean Blood Pressure Position Pulse Oximetry 93 95 Oxygen Delivery Method Sepsis Recent Fever Within 48 Hours Sepsis New/Unexplained Change in Mental Status Sepsis Action Taken by Nursing 11/28/20 19:10 11/28/20 19:20 Pulse Rate 74 76 Pulse Rate from SpO2 Sensor 73 75 Pulse Rhythm Respiratory Rate 15 16 Respiratory Effort / Characteristics Respiratory Depth Blood Pressure Blood Pressure Mean Blood Pressure Position Pulse Oximetry 95 93 Oxygen Delivery Method Sepsis Recent Fever Within 48 Hours Sepsis New/Unexplained Change in Mental Status Sepsis Action Taken by Nursing CONSTITUTIONAL/VITAL SIGNS: Reviewed / noted above. GENERAL: Non-toxic in appearance. INTEGUMENTARY: Warm, dry, and [place]. HEAD: Normocephalic. EYES: without scleral icterus or trauma. ENT/OROPHARYNX: clear and dry. LYMPHADENOPATHY/NECK: Is supple without lymphadenopathy or meningismus. RESPIRATORY: Clear to auscultation bilaterally. No increased work of breathing. CARDIOVASCULAR: Regular rate and rhythm. GI/ABDOMEN: Soft and nontender. No organomegaly or pulsatile mass. EXTREMITIES: Warm and well perfused. BACK: No CVA tenderness. NEUROLOGICAL: Patient weakly moves all 4 extremities with the same amount of strength. Is no facial droop. He does respond to basic questions by shaking his head no. He did stick out his tongue for me. He seems to be very drowsy and falls asleep quickly. MUSCULOSKELETAL: Normally developed with good muscle tone. TRIAGE NURSING DOCUMENTATION REVIEWED. Course Administered Medications Discontinued Medications Sodium Chloride (Nss 1000ml) 1,000 mls @ 999 mls/hr IV .Q1H1M IRINA Stop: 11/28/20 18:45 Last Infusion: 11/28/20 19:20 Dose: 0 mls/hr Documented by: [id number] Admin: 11/28/20 18:22 Dose: 999 mls/hr Documented by: [id number] Medical Decision Making Differential Diagnosis Differential includes acute coronary syndrome, myocardial infarction, CVA, TIA, anemia, infection, pneumonia, UTI, pyelonephritis, poor nutrition, dehydration, electrolyte disturbance,hypoglycemia. Medical Records Attestation: I reviewed the patient's medical records. Home Medications Current Medication List: was personally reviewed by me Laboratory Data Attestation: I reviewed the patient's lab results. Result diagrams: 11/28/20 18:07 11/28/20 18:07 Lab Results 11/28/20 11/28/20 11/28/20 Range/Units 18:07 18:07 18:07 WBC 6.32 (4.8-10.8) K/uL RBC 5.48 (4.7-6.1) M/uL Hgb 18.0 (14.0-18.0) g/dL Hct 51.5 (42-52) % MCV 94.0 (80-100) fL MCH 32.8 (25-34) pg MCHC 35.0 (32-36) g/dL RDW Std Deviation 49.7 H (36.4-46.3) fL RDW Coeff of Iveth 14.5 (11.5-14.5) % Plt Count 277 (130-400) K/uL MPV 11.0 H (7.4-10.4) fL Immature Gran % (Auto) 0.2 % Neut % (Auto) 74.0 % Lymph % (Auto) 18.2 % Stevens % (Auto) 7.6 % Eos % (Auto) 0.0 % Baso % (Auto) 0.0 % Neut # (Auto) 4.68 (1.4-6.5) K/uL Lymph # (Auto) 1.15 L (1.2-3.4) K/uL Stevens # (Auto) 0.48 (0.11-0.59) K/uL Eos # (Auto) 0.00 (0-0.5) K/uL Baso # (Auto) 0.00 (0-0.2) K/uL Immature Gran # (Auto) 0.01 (0.00-0.02) K/uL Sodium 140 (136-145) mmol/L Potassium 4.9 (3.5-5.1) mmol/L Chloride 109 H (98-107) mmol/L Carbon Dioxide 24 (21-32) mmol/L Anion Gap 7.0 (3-11) BUN 60 H (7-18) mg/dl Creatinine 2.50 H (0.6-1.4) mg/dl Est Cr Clr Drug Dosing 24.8 ml/min Est GFR ( Amer) 26.7 ml/min Est GFR (Non-Af Amer) 23.0 ml/min BUN/Creatinine Ratio 24.2 H (10-20) Glucose 124 H (70-99) mg/dl Lactate Cancelled Calcium 9.4 (8.5-10.1) mg/dl Magnesium 2.0 (1.8-2.4) mg/dl Total Bilirubin 0.8 (0.2-1) mg/dl AST 19 (15-37) U/L ALT 22 (12-78) U/L Alkaline Phosphatase 93 (45-117) U/L Ammonia (11-32) umol/L Total Creatine Kinase 56 (39-308) U/L Troponin I < 0.015 (0-0.045) ng/ml Total Protein 7.5 (6.4-8.2) gm/dl Albumin 3.6 (3.4-5.0) gm/dl Globulin 3.9 (2.5-4.0) gm/dl Albumin/Globulin Ratio 0.9 (0.9-2) TSH 3.800 (0.300-4.500) uIu/ml 11/28/20 Range/Units 18:07 WBC (4.8-10.8) K/uL RBC (4.7-6.1) M/uL Hgb (14.0-18.0) g/dL Hct (42-52) % MCV (80-100) fL MCH (25-34) pg MCHC (32-36) g/dL RDW Std Deviation (36.4-46.3) fL RDW Coeff of Iveth (11.5-14.5) % Plt Count (130-400) K/uL MPV (7.4-10.4) fL Immature Gran % (Auto) % Neut % (Auto) % Lymph % (Auto) % Stevens % (Auto) % Eos % (Auto) % Baso % (Auto) % Neut # (Auto) (1.4-6.5) K/uL Lymph # (Auto) (1.2-3.4) K/uL Stevens # (Auto) (0.11-0.59) K/uL Eos # (Auto) (0-0.5) K/uL Baso # (Auto) (0-0.2) K/uL Immature Gran # (Auto) (0.00-0.02) K/uL Sodium (136-145) mmol/L Potassium (3.5-5.1) mmol/L Chloride (98-107) mmol/L Carbon Dioxide (21-32) mmol/L Anion Gap (3-11) BUN (7-18) mg/dl Creatinine (0.6-1.4) mg/dl Est Cr Clr Drug Dosing ml/min Est GFR ( Amer) ml/min Est GFR (Non-Af Amer) ml/min BUN/Creatinine Ratio (10-20) Glucose (70-99) mg/dl Lactate Calcium (8.5-10.1) mg/dl Magnesium (1.8-2.4) mg/dl Total Bilirubin (0.2-1) mg/dl AST (15-37) U/L ALT (12-78) U/L Alkaline Phosphatase (45-117) U/L Ammonia 13.0 (11-32) umol/L Total Creatine Kinase (39-308) U/L Troponin I (0-0.045) ng/ml Total Protein (6.4-8.2) gm/dl Albumin (3.4-5.0) gm/dl Globulin (2.5-4.0) gm/dl Albumin/Globulin Ratio (0.9-2) TSH (0.300-4.500) uIu/ml Imaging Data Radiologist's Impression: Head CT 11/28/20 17:41 CT OF THE HEAD WITHOUT CONTRAST CLINICAL HISTORY: Altered mental status. COMPARISON STUDY: MRI of the brain July 02, 2018. Head CT November 06, 2020. CT DOSE: 614.27 mGy.cm TECHNIQUE: Helical axial images of the head were obtained without IV contrast. Automated exposure control was utilized for the study. A dose lowering technique was utilized adhering to the principles of ALARA. FINDINGS: No acute intracranial hemorrhage, midline shift or mass effect is present. Note is again made of old left frontal and parietal infarcts. These were present on CT of November 06, 2020. There has been interval development of hypodensity with loss of brandon-white differentiation within the left occipital and posterior left parietal lobe since prior exam. Basal cisterns are patent. There are no extra axial collections. Additional white matter hypodensities favor small vessel disease. There are no significant calvarial abnormalities. IMPRESSION: 1. No acute intracranial hemorrhage or mass effect. 2. Interval development of hypodensity within the left occipital and posterior left parietal lobes since CT of November 06, 2020. 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 3. Several additional left hemispheric infarcts which are old. ACT 112: Negative or not required by law. Electronically signed by: Song Lopez M.D. 11/28/2020 6:48 PM Chest X-Ray 11/28/20 17:42 XR chest 1V portable CLINICAL HISTORY: weakness COMPARISON STUDY: Chest radiograph November 06, 2020. FINDINGS: Lung volumes are mildly diminished. Lungs are clear. There is no pneumothorax or pleural effusion. Cardiac size is normal. A hiatal hernia is noted. There is no evidence for pulmonary edema. IMPRESSION: No acute cardiopulmonary findings. No change in appearance of the chest. ACT 112: Negative or not required by law. Electronically signed by: Song Lopez M.D. 11/28/2020 6:05 PM ECG Data Attestation: I personally reviewed and interpreted this ECG as follows: Additional Comments: Twelve-lead EKG: Per my interpretation shows a normal sinus rhythm at a rate of 70. No ST elevation. No PVCs. Normal QTC. MDM Narrative Patient presents with generalized weakness and lethargy as detailed above. His vital signs are stable. His tongue is dry. Does not respond verbally and seems very lethargic but does shake his head no to basic questions. Does follow basic commands. EKG shows a normal sinus rhythm. CBC was unremarkable. Chemistry panel shows an elevated BUN and creatinine. BUN is 60 and creatinine is 2.5. Baseline creatinine from 4 days ago is 1.3. Troponin was negative and TSH was normal. CT scan of the head shows a left occipital lobe infarct that appears to be subacute. The patient will require further inpatient evaluation and care. Patient was given a liter normal saline IV. Impression & Plan Generalized weakness, Altered mental status, Acute kidney injury, CVA (cerebral vascular accident) Discharge Plan Visit Data Chief Complaint: Altered Mental Status Stated Complaint: falls, slow to respond ED Provider: Segun Trinh Discharge Problem: Generalized weakness, Altered mental status, Acute kidney injury, CVA (cerebral vascular accident) Forms Stand Alone Forms: [facility] Prescriptions Prescriptions: No Action levetiracetam [Keppra] 500 mg tablet 500 mg PO BID Qty: 180 RF: 2 acetaminophen 500 mg tablet 500 mg PO Q4 PRN (Reason: Fever Or Pain) RF: 0 clopidogrel 75 mg Tablet 75 mg PO QAM RF: 0 metformin 1,000 mg Tablet 1,000 mg PO BIDM RF: 0 montelukast [Singulair] 10 mg Tablet 10 mg PO HS RF: 0 levothyroxine 75 mcg tablet 75 mcg PO QAM RF: 0 pantoprazole 40 mg tablet,delayed release (DR/EC) 40 mg PO BID RF: 0 aspirin 81 mg Tablet,Delayed Release (Dr/Ec) 81 mg PO QAM RF: 0 magnesium oxide 400 mg (241.3 mg magnesium) Tablet 400 mg PO DAILY Qty: 30 RF: 1 amlodipine 2.5 mg tablet 2.5 mg PO DAILY RF: 0 amlodipine 5 mg tablet 5 mg PO DAILY RF: 0 glimepiride 1 mg Tablet 1 mg PO HS RF: 0 lisinopril 5 mg tablet 5 mg PO DAILY Qty: 30 RF: 0 Referrals Referrals: [facility] [Non-Staff] - Discharge Problem: Altered mental status Qualifiers: Altered mental status type: somnolence Qualified Code(s): R40.0 - Somnolence CVA (cerebral vascular accident) Qualifiers: CVA mechanism: unspecified Qualified Code(s): I63.9 - Cerebral infarction, un specified
--- NOTE | 2020-11-28 18:07 | XRay Report ---
XR chest 1V portable CLINICAL HISTORY: weakness COMPARISON STUDY: Chest radiograph November 06, 2020. FINDINGS: Lung volumes are mildly diminished. Lungs are clear. There is no pneumothorax or pleural ef fusion. Cardiac size is normal. A hiatal hernia is noted. There is no evidence for pulmonary edema. IMPRESSION: No acute cardiopulmonary findings. No change in appearance of the chest. ACT 112: Negative or not required by law. Electronically signed by: Song Lopez M.D. 11/28/2020 6:05 PM
[2020-11-28 18:16] LABS: Hematocrit (blood only) 51.5 % (42-52); Immature Granulocytes # (auto) 0.01 K/uL (0.00-0.02); Immature Granulocytes % (auto) 0.2 %; Lymphocytes # (auto) 1.15 K/uL (1.2-3.4); Lymphocytes % (auto) 18.2 %; Mean Corpuscular Hemoglobin 32.8 pg (25-34); Monocytes # (auto) 0.48 K/uL (0.11-0.59); Monocytes % (auto) 7.6 %; Neutrophils # (auto) 4.68 K/uL (1.4-6.5); Platelet Count 277 K/uL (130-400); RDW Coefficient of Variation 14.5 % (11.5-14.5); RDW Standard Deviation 49.7 fL (36.4-46.3); Red Blood Count 5.48 M/uL (4.7-6.1); White Blood Count 6.32 K/uL (4.8-10.8)
[2020-11-28 18:40] LABS: Alanine Aminotransferase 22 U/L (12-78); Albumin Level 3.6 gm/dl (3.4-5.0); Aspartate Aminotransferase 19 U/L (15-37); BUN Creatinine Ratio 24.2 (10-20); Blood Urea Nitrogen 60 mg/dl (7-18); Calcium 9.4 mg/dl (8.5-10.1); Carbon Dioxide 24 mmol/L (21-32); Chloride 109 mmol/L (98-107); Creatinine Clr Calc Pharmacy 24.8 ml/min; Est GFR (African American) 26.7 ml/min; Glucose 124 mg/dl (70-99); Potassium 4.9 mmol/L (3.5-5.1); Sodium 140 mmol/L (136-145)
--- NOTE | 2020-11-28 18:49 | CT Scan Report ---
CT OF THE HEAD WITHOUT CONTRAST CLINICAL HISTORY: Altered mental status. COMPARISON STUDY: MRI of the brain July 02, 2018. Head CT November 06, 2020. CT DOSE: 614.27 mGy.cm TECHNIQUE: Helical axial images of the head were obtained without IV contrast. Automated exposure con trol was utilized for the study. A dose lowering technique was utilized adhering to the principles o f ALARA. FINDINGS: No acute intracranial hemorrhage, midline shift or mass effect is present. Note is again ma de of old left frontal and parietal infarcts. These were present on CT of November 06, 2020. There h as been interval development of hypodensity with loss of brandon-white differentiation within the left o ccipital and posterior left parietal lobe since prior exam. Basal cisterns are patent. There are no e xtra axial collections. Additional white matter hypodensities favor small vessel disease. There are n o significant calvarial abnormalities. IMPRESSION: 1. No acute intracranial hemorrhage or mass effect. 2. Interval development of hypodensity within the left occipital and posterior left parietal lobes s gail CT of November 06, 2020. 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 3. Several additional left hemispheric infarcts which are old. ACT 112: Negative or not required by law. Electronically signed by: Song Lopez M.D. 11/28/2020 6:48 PM
[2020-11-28 18:51] LABS: Albumin Globulin Ratio 0.9 (0.9-2); Alkaline Phosphatase 93 U/L (45-117); Bilirubin,Total 0.8 mg/dl (0.2-1); Creatine Kinase 56 U/L (39-308); Globulin 3.9 gm/dl (2.5-4.0); Total Protein 7.5 gm/dl (6.4-8.2); Troponin I < 0.015 ng/ml (0-0.045)
[2020-11-28] MEDS ORDERED: ONDANSETRON INJ 2 MG/ML 2 ML VIAL IV PRN (20:33)
[2020-11-28] MEDS ORDERED: ACETAMINOPHEN 500 MG TAB PO PRN (20:33)
[2020-11-28] MEDS: LACTATED RINGER'S 1,000 ML IV SCH (22:08)
--- NOTE | 2020-11-28 22:16 | History & Physical Report ---
Date of Service November 28, 2020 Assessment & Plan (1) Acute kidney injury superimposed on CKD: Plan: 80-year-old male with past medical history of diabetes, hyperlipidemia CVA, seizure, thyroidism, GERD presents from [facility] for evaluation of increased disorientation, poor p.o. intake and lethargy. #SHRUTHI on CKD type II Baseline creatinine 1.3, recent reports of poor p.o. intake increased lethargy. Creatinine on presentation 2.50 likely secondary to dehydration. Suspect etiology of his current presentation. Provided 1 L of NSS in the ER with improvement in mentation. -2 L LR at 125 -Recheck labs in the a.m. -Avoid nephrotoxins -Encourage p.o. #CVA Patient with a history of CVA and mixed aphasia head CT on presentation this evening demonstrated subacute infarct in the left occipital and posterior left parietal lobes which appears to be new since November 06, 2020. This may explain the patient's declining cognitive function. Given his SHRUTHI will defer further stroke work-up unless warranted by inpatient team. -To consider CT angio head and neck, brain MRI, neurology consult -Echo ordered for the a.m. -Resumed pravastatin at half original dose, 10 mg daily -Monitor for worsening of neurological function #Mixed aphasia Secondary to the above. #Type 2 diabetes Appears well controlled at home, on presentation glucose was 124. Patient's home regimen consists of sliding scale insulin, Metformin 1 g twice daily, glimepiride 2 mg p.o. daily. Holding home diabetes medication Started on Lantus 5 units twice daily SSI ACHS Monitor sugars #Generalized weakness Secondary to the above, monitor for improvement #Carotid artery stenosis Resume pravastatin at half dose -Continue clopidogrel 75 mg every morning #History of focal motor seizures Has not had any recently, on Keppra 500 mg twice daily. -Continue Keppra while hospitalized #Hypothyroidism TSH elevated on last discharge, thought to be stress response, on presentation today elevated as well. -Monitor for now recheck TSH in 8 weeks -Continue present dose of Synthroid #Hypertension Continue home lisinopril FENa: DM2 diet Code Status: Full code DVT PPX: Lovenox PT/OT: Ordered Case Management: Request assistance Dispo: MedSur telemetry Johnny Mcgee MD PGY 3, [facility] This chart was completed utilizing [employer] voice recognition software. Grammatical errors, random word insertions, pronoun errors, and in complete sentences are an occasional consequence of the system. Any questions or concerns about the content, text, or information contained within the body of this dictation should be addressed directly to the physician for clarification. (2) Generalized weakness: (3) CVA (cerebral vascular accident): (4) Type 2 diabetes mellitus with unspecified complications: (5) Mixed aphasia: (6) Carotid artery stenosis: (7) Focal motor seizure: (8) Hypothyroidism: History of Present Illness Primary Care Provider: MARIMAR Mccoy *Majority of history obtained in the record review, medication only able to communicate with yes or no responses not oriented* 80-year-old male with past medical history of diabetes, hyperlipidemia CVA, seizure, thyroidism, GERD presents from [facility] for evaluation of increased disorientation, poor p.o. intake and lethargy. Of note patient was recently discharged from the hospital in November 13 during his previous admission he was evaluated for similar complaints including for ambulation. His social history is complicated and seems to be contributing to his frequent presentations.He was brought to the emergency department this evening by EMS, on presentation he was difficult to arouse and then appeared sleeping, he did receive the Covid vaccine in June and July he has a remote history of a CVA baseline sneezing episodes. His who is present with him on admission stated that he can only is being short sentences. Per ER physician report he was difficult to arouse on presentation. In the emergency department routine labs were obtained CBC was within normal limits, CMP was notable for an elevated creatinine of 2.5 evaded glucose of 124, and TSH was 3.8 COVID-19 testing was negative. Chest x-ray, head CT demonstrated hypodensity within the left occipital and posterior left parietal lobes concerning for left WELDER FITTER territory infarct likely subacute. Patient was provided with a liter bolus of fluids and the primary team was consulted for admission. Upon evaluation of the patient he was more alert but not oriented. He did not know where he was, or the date. He was only able to participate in the conversation with yes or no responses. He denied any pain, difficulty going to the bathroom, chest pressure, shortness of breath. Given his CT findings and elevated creatinine he will be admitted with further evaluation and management. Allergies Allergy/AdvReac Type Severity Reaction Status Date / Time Tbkswpb-Ekq-Jdi Reductase Allergy Severe JOINT PAIN Verified 11/28/20 19:46 Inhibitor strawberry Allergy Intermediate Rash Verified 11/28/20 19:46 Home Medications Medication Instructions Recorded Confirmed Type clopidogrel 75 mg tablet 75 mg PO QAM 11/29/17 11/28/20 History metformin 1,000 mg tablet 1,000 mg PO BIDM 11/29/17 11/28/20 History montelukast 10 mg tablet 10 mg PO HS 11/29/17 11/28/20 History (Singulair) levothyroxine 75 mcg tablet 75 mcg PO QAM 06/24/18 11/28/20 History pantoprazole 40 mg tablet,delayed 40 mg PO BID 06/24/18 11/28/20 History release aspirin 81 mg tablet,delayed 81 mg PO QAM 07/01/18 11/28/20 History release magnesium oxide 400 mg (241.3 mg 400 mg PO DAILY #30 tab 07/05/18 11/28/20 Rx magnesium) tablet levetiracetam 500 mg tablet 500 mg PO BID #180 tab 08/11/20 11/28/20 Rx (Keppra) lisinopril 5 mg tablet 5 mg PO DAILY #30 tab 11/13/20 11/28/20 Rx amlodipine 5 mg tablet 7.5 mg PO DAILY 11/28/20 11/28/20 History glimepiride 2 mg tablet 2 mg PO DAILY 11/28/20 11/28/20 History insulin lispro 100 unit/mL 1 sliding scale dose SUBCUT ACHS 11/28/20 11/28/20 History subcutaneous cartridge (Humalog U-100 Insulin) nystatin 100,000 unit/gram topical 1 applic TOPICAL TID 11/28/20 11/28/20 History cream Past Med/Surg History Medical History (Updated 11/28/20 @ 22:08 by Johnny Mcgee MD) Chest pain (06/14/13) Diabetes Dizziness Expressive aphasia Focal motor seizure History of stroke with residual deficit Hypertension Hypoglycemia Hypothyroidism Surgical History History of tonsillectomy Hx of oral surgery Family History Sister Leukemia Father Cancer Other Diabetes Hypertension Social History Smoking Status: Unknown if ever smoked Second Hand Exposure: No; Preferred Language: French Communication Ability: Unable 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 Respiratory: Clear to auscultation bilaterally with symmetrical chest expansion I did not appreciate significant wheezes, rales, rhonchi GI: Soft, nontender, nondistended, negative suprapubic pressure MSK: Moves all extremities Skin: Numerous bruises Neuro: Alert and oriented x0, calm and cooperative with the interview Results & Data Results & Data ([facility]) Vital Signs (Past 12 Hours) Vital Signs Pulse Resp BP BP Pulse Ox 11/28/20 21:30 75 19 121/64 92 11/28/20 21:00 75 17 93 11/28/20 20:30 67 14 97 11/28/20 20:00 75 16 93 11/28/20 19:30 74 14 94 11/28/20 19:20 76 16 93 11/28/20 19:18 132/74 11/28/20 19:10 74 15 95 11/28/20 19:00 70 18 95 11/28/20 18:50 74 18 93 11/28/20 18:43 73 11/28/20 18:30 70 12 62/46 L 93 11/28/20 18:20 75 18 96 11/28/20 18:10 75 12 93 11/28/20 18:00 79 19 123/80 94 11/28/20 17:50 83 14 96 11/28/20 17:40 69 17 96 11/28/20 17:30 72 19 93 11/28/20 17:20 74 12 98 11/28/20 17:18 76 16 125/92 94 Laboratory Results 11/28/20 11/28/20 11/28/20 Range/Units 19:51 19:51 19:30 WBC (4.8-10.8) K/uL RBC (4.7-6.1) M/uL Hgb (14.0-18.0) g/dL Hct (42-52) % MCV (80-100) fL MCH (25-34) pg MCHC (32-36) g/dL RDW Std Deviation (36.4-46.3) fL RDW Coeff of Iveth (11.5-14.5) % Plt Count (130-400) K/uL MPV (7.4-10.4) fL Immature Gran % (Auto) % Neut % (Auto) % Lymph % (Auto) % Wake % (Auto) % Eos % (Auto) % Baso % (Auto) % Neut # (Auto) (1.4-6.5) K/uL Lymph # (Auto) (1.2-3.4) K/uL Wake # (Auto) (0.11-0.59) K/uL Eos # (Auto) (0-0.5) K/uL Baso # (Auto) (0-0.2) K/uL Immature Gran # (Auto) (0.00-0.02) K/uL Sodium (136-145) mmol/L Potassium (3.5-5.1) mmol/L Chloride (98-107) mmol/L Carbon Dioxide (21-32) mmol/L Anion Gap (3-11) BUN (7-18) mg/dl Creatinine (0.6-1.4) mg/dl Est Cr Clr Drug Dosing ml/min Est GFR ( Amer) ml/min Est GFR (Non-Af Amer) ml/min BUN/Creatinine Ratio (10-20) Glucose (70-99) mg/dl Lactate 2.0 Calcium (8.5-10.1) mg/dl Magnesium (1.8-2.4) mg/dl Total Bilirubin (0.2-1) mg/dl AST (15-37) U/L ALT (12-78) U/L Alkaline Phosphatase (45-117) U/L Ammonia (11-32) umol/L Total Creatine Kinase (39-308) U/L Troponin I (0-0.045) ng/ml Total Protein (6.4-8.2) gm/dl Albumin (3.4-5.0) gm/dl Globulin (2.5-4.0) gm/dl Albumin/Globulin Ratio (0.9-2) TSH (0.300-4.500) uIu/ml COVID-19 Eval Order Covid19 at [facility] SARS-CoV-2 (PCR) NEGATIVE (Negative) 11/28/20 11/28/20 11/28/20 Range/Units 18:07 18:07 18:07 WBC 6.32 (4.8-10.8) K/uL RBC 5.48 (4.7-6.1) M/uL Hgb 18.0 (14.0-18.0) g/dL Hct 51.5 (42-52) % MCV 94.0 (80-100) fL MCH 32.8 (25-34) pg MCHC 35.0 (32-36) g/dL RDW Std Deviation 49.7 H (36.4-46.3) fL RDW Coeff of Iveth 14.5 (11.5-14.5) % Plt Count 277 (130-400) K/uL MPV 11.0 H (7.4-10.4) fL Immature Gran % (Auto) 0.2 % Neut % (Auto) 74.0 % Lymph % (Auto) 18.2 % Wake % (Auto) 7.6 % Eos % (Auto) 0.0 % Baso % (Auto) 0.0 % Neut # (Auto) 4.68 (1.4-6.5) K/uL Lymph # (Auto) 1.15 L (1.2-3.4) K/uL Wake # (Auto) 0.48 (0.11-0.59) K/uL Eos # (Auto) 0.00 (0-0.5) K/uL Baso # (Auto) 0.00 (0-0.2) K/uL Immature Gran # (Auto) 0.01 (0.00-0.02) K/uL Sodium (136-145) mmol/L Potassium (3.5-5.1) mmol/L Chloride (98-107) mmol/L Carbon Dioxide (21-32) mmol/L Anion Gap (3-11) BUN (7-18) mg/dl Creatinine (0.6-1.4) mg/dl Est Cr Clr Drug Dosing ml/min Est GFR ( Amer) ml/min Est GFR (Non-Af Amer) ml/min BUN/Creatinine Ratio (10-20) Glucose (70-99) mg/dl Lactate Cancelled Calcium (8.5-10.1) mg/dl Magnesium (1.8-2.4) mg/dl Total Bilirubin (0.2-1) mg/dl AST (15-37) U/L ALT (12-78) U/L Alkaline Phosphatase (45-117) U/L Ammonia 13.0 (11-32) umol/L Total Creatine Kinase (39-308) U/L Troponin I (0-0.045) ng/ml Total Protein (6.4-8.2) gm/dl Albumin (3.4-5.0) gm/dl Globulin (2.5-4.0) gm/dl Albumin/Globulin Ratio (0.9-2) TSH (0.300-4.500) uIu/ml COVID-19 Eval Order SARS-CoV-2 (PCR) (Negative) 11/28/20 Range/Units 18:07 WBC (4.8-10.8) K/uL RBC (4.7-6.1) M/uL Hgb (14.0-18.0) g/dL Hct (42-52) % MCV (80-100) fL MCH (25-34) pg MCHC (32-36) g/dL RDW Std Deviation (36.4-46.3) fL RDW Coeff of Iveth (11.5-14.5) % Plt Count (130-400) K/uL MPV (7.4-10.4) fL Immature Gran % (Auto) % Neut % (Auto) % Lymph % (Auto) % Wake % (Auto) % Eos % (Auto) % Baso % (Auto) % Neut # (Auto) (1.4-6.5) K/uL Lymph # (Auto) (1.2-3.4) K/uL Wake # (Auto) (0.11-0.59) K/uL Eos # (Auto) (0-0.5) K/uL Baso # (Auto) (0-0.2) K/uL Immature Gran # (Auto) (0.00-0.02) K/uL Sodium 140 (136-145) mmol/L Potassium 4.9 (3.5-5.1) mmol/L Chloride 109 H (98-107) mmol/L Carbon Dioxide 24 (21-32) mmol/L Anion Gap 7.0 (3-11) BUN 60 H (7-18) mg/dl Creatinine 2.50 H (0.6-1.4) mg/dl Est Cr Clr Drug Dosing 24.8 ml/min Est GFR ( Amer) 26.7 ml/min Est GFR (Non-Af Amer) 23.0 ml/min BUN/Creatinine Ratio 24.2 H (10-20) Glucose 124 H (70-99) mg/dl Lactate Calcium 9.4 (8.5-10.1) mg/dl Magnesium 2.0 (1.8-2.4) mg/dl Total Bilirubin 0.8 (0.2-1) mg/dl AST 19 (15-37) U/L ALT 22 (12-78) U/L Alkaline Phosphatase 93 (45-117) U/L Ammonia (11-32) umol/L Total Creatine Kinase 56 (39-308) U/L Troponin I < 0.015 (0-0.045) ng/ml Total Protein 7.5 (6.4-8.2) gm/dl Albumin 3.6 (3.4-5.0) gm/dl Globulin 3.9 (2.5-4.0) gm/dl Albumin/Globulin Ratio 0.9 (0.9-2) TSH 3.800 (0.300-4.500) uIu/ml COVID-19 Eval Order SARS-CoV-2 (PCR) (Negative) Medications Administered Current Inpatient Medications Acetaminophen (Acetaminophen 500 Mg Tab) 1,000 mg PO Q6H PRN PRN Reason: Pain or Fever Stop: 12/28/20 20:32 Enoxaparin Sodium (Enoxaparin Inj 30 Mg/0.3 Ml Syr) 30 mg SQ QAM IRINA Stop: 12/29/20 08:59 Lactated Ringer's (Lr) 1,000 mls @ 125 mls/hr IV .Q8H IRINA Stop: 11/29/20 12:29 Ondansetron HCl (Ondansetron Inj 2 Mg/Ml 2 Ml Vial) 4 mg IV Q6H PRN PRN Reason: Nausea Stop: 12/28/20 20:32 Polyethylene Glycol (Polyethylene (Miralax) 17 Gm Pack) 17 gm PO DAILY IRINA Stop: 12/29/20 08:59 Pravastatin Sodium (Pravastatin Sod 10 Mg Tab) 10 mg PO DAILY@1700 IRINA Stop: 12/29/20 16:59 Code Status & VTE Plan VTE Prophylaxis Plan VTE Prophylaxis will be ordered: Yes (1) Carotid artery stenosis Laterality: bilateral Qualified Code(s): I65.23 - Occlusion and stenosis of bilateral carotid arteries (2) Hypothyroidism Hypothyroidism type: acquired Qualified Code(s): E03.9 - Hypothyroidism, unspecified (3) CVA (cerebral vascular accident) CVA mechanism: unspecified Qualified Code(s): I63.9 - Cerebral infarction, unspecified
[2020-11-28] MEDS ORDERED: GLUCOSE 40% GEL 15 GM TUBE PO PRN (23:05)
[2020-11-28] MEDS ORDERED: levETIRAcetam 500 MG TAB PO SCH (23:05)
[2020-11-28] MEDS ORDERED: CARBOHYDRATES FOR HYPOGLYCEMIA PO PRN (23:05)
[2020-11-28] MEDS ORDERED: GLUCAGON FOR INJ 1 MG VIAL SQ PRN (23:05)
[2020-11-28] MEDS ORDERED: GLUCOSE 10 TABS/TUBE PO PRN (23:05)
[2020-11-28] MEDS ORDERED: DEXTROSE 50% 50 ML SYRINGE IV PRN (23:05)
[2020-11-28] MEDS ORDERED: PANTOprazole 40 MG TAB PO SCH (23:05)
[2020-11-29] MEDS: levETIRAcetam 500 MG in 0.9 % SODIUM CHLORIDE 100 ML IV SCH ×3 (01:57→20:16)
[2020-11-29] MEDS ORDERED: MICONAZOLE NITRATE POWDER 43 GM EXT PRN (05:39)
--- NOTE | 2020-11-29 06:12 | Billing Data ---
Date of Service November 28, 2020 Coding Level of Care Code 79251 Initial Inpt Care Lvl 3
[2020-11-29] MEDS: D5W AND LACTATED RINGERS 1,000 ML IV SCH ×3 (06:41→23:15)
[2020-11-29] MEDS: LEVOTHYROXINE SODIUM 75 MCG TABLET PO SCH (06:41)
[2020-11-29] MEDS: LACTATED RINGER'S 1,000 ML IV SCH (06:43)
--- NOTE | 2020-11-29 07:09 | Electrocardiogram Report ---
Test Reason : Blood Pressure : / mmHG Vent. Rate : 070 BPM Atrial Rate : 070 BPM P-R Int : 150 ms QRS Dur : 102 ms QT Int : 392 ms P-R-T Axes : 036 012 027 degrees QTc Int : 423 ms Normal sinus rhythm Normal ECG When compared with ECG of 06-NOV-2020 14:57, No significant change was found Confirmed by Juan Warner ([id number]) on 11/29/2020 7:08:49 AM Referred By: [facility] Confirmed By:Lamont Warner
--- NOTE | 2020-11-29 07:43 | Hospitalist Progress Note ---
Date of Service November 29, 2020 Assessment & Plan (1) Encephalopathy: Plan: 80-year-old male with past medical history of diabetes, hyperlipidemia, CVA, seizure, thyroidism, GERD presents from [facility] for evaluation of increased disorientation, poor p.o. intake and lethargy. currently unclear cause of encephalopathy, could be stroke but still ruling out infectious etiology CT head shows subacute left BUSINESS JOB TITLES territory stroke new from 11/11 imaging urine culture pending continuing hydration (2) Acute kidney injury superimposed on CKD: Plan: SHRUTHI on CKD type II secondary to dehydration continue hydration , dehydration could be from functional decline and not drinking well at home . -Avoid nephrotoxins -Encourage p.o. when more alert (3) CVA (cerebral vascular accident): Plan: Patient with a history of CVA and mixed aphasia head CT on presentation this evening demonstrated subacute infarct in the left occipital and posterior left parietal lobes which appears to be new since November 06, 2020. Given his SHRUTHI will defer further stroke work-up unless warranted by inpatient team. -To consider CT angio head and neck, brain MRI, neurology consult -Echo does not show significant changes -, may need high intensity statin -Monitor neurological function (4) Type 2 diabetes mellitus with unspecified complications: Plan: pt will have basal bolus insulin, glycemnic consult (5) Mixed aphasia: Plan: from previous stroke on modified diet and aspiration precautions, currently too lethargic to eat (6) Carotid artery stenosis: Plan: remains on clopidogrel and statin (7) Focal motor seizure: Plan: remains on keppra (8) Generalized weakness: Plan: certainly there are many issues that may influence will rule out metabolic encephalopahty issues and if ruled out must consider CVA as the cause (9) Hypothyroidism: Plan: TSH elevated on last discharge, thought to be stress response, on presentation today elevated as well. -Monitor for now recheck TSH in 8 weeks -Continue present dose of Synthroid Admission and Anticipated Discharge Date Admission Date: November 28, 2020 Subjective Patient is lethargic lethargic but he did arouse did protect his airway on examination he offered no focal ideas of where encephalopathy may be coming from. Certainly the subacute stroke could be limiting him but it be curious why it decompensated prior to admission. Review of Systems Review of Systems: Unobtainable due to cognitive status Physical Exam Physical Exam: The patient appeared well nourished and normally developed. Vital signs as documented. Head exam is normocephalic atraumatic Neck is without JVD, thyromegaly, or carotid bruits. Lungs are clear to auscultation, no focal loss of breath sounds Cardiac exam, Rhythm is regular.. No murmurs, rubs or gallops. Abdominal exam reveals normal bowel sounds, soft non tender, no masses Extremities are nonedematous and both pedal pulses are present Neurologic exam is arousable but lethargic, spontaneously moving arms and legs but not to command Skin is without bruises or rashes Results & Data Results & Data ([facility]) Vital Signs (Past 12 Hours) Vital Signs Temp Pulse Pulse Resp BP BP Pulse Ox 11/29/20 07:26 72 11/29/20 03:35 97.7 F 81 16 104/61 92 11/28/20 23:03 70 11/28/20 22:30 98.4 F 71 18 129/76 94 11/28/20 21:30 75 19 121/64 92 11/28/20 21:00 75 17 93 11/28/20 20:30 67 14 97 11/28/20 20:00 75 16 93 PG Care Time/CCT Total # of Minutes Spent Total Time Spent with Patient: Total time spent is greater than 50% in coordination of care (as documented) at patient's floor/unit and/or counseling patient: Coding Level of Care Code 56691 Subseq Hosp Care Lvl 3 Diagnoses Acute kidney injury superimposed on CKD N17.9; N18.9 Generalized weakness R53.1 CVA (cerebral vascular accident) I63.9 CVA mechanism: unspecified Type 2 diabetes mellitus with unspecified complications E11.8 Mixed aphasia R47.01 Carotid artery stenosis I65.23 Laterality: bilateral Focal motor seizure G40.109 Hypothyroidism E03.9 Hypothyroidism type: acquired Encephalopathy G93.40 (1) Carotid artery stenosis Laterality: bilateral Qualified Code(s): I65.23 - Occlusion and stenosis of bilateral carotid arteries (2) Hypothyroidism Hypothyroidism type: acquired Qualified Code(s): E03.9 - Hypothyroidism, unspecified (3) CVA (cerebral vascular accident) CVA mechanism: unspecified Qualified Code(s): I63.9 - Cerebral infarction, unspecified
[2020-11-29] MEDS ORDERED: INSULIN GLARGINE SOLOSTAR 100 UNITS/ML 3 ML PEN SC SCH (09:00)
[2020-11-29] MEDS: INSULIN ASPART 100 UNITS/ML 3 ML PEN SC SCH ×3 (09:09→18:13)
[2020-11-29] MEDS: ENOXAPARIN INJ 30 MG/0.3 ML SYR SQ SCH (09:14)
[2020-11-29] MEDS: amLODIPine BESYLATE 5 MG TAB PO SCH (09:48)
[2020-11-29] MEDS: ASPIRIN 81 MG ECTAB PO SCH (09:48)
[2020-11-29] MEDS: CLOPIDOGREL BISULFATE 75 MG TAB PO SCH (09:49)
[2020-11-29] MEDS: lisinopril 5 MG TAB PO SCH (09:51)
[2020-11-29] MEDS: MAGNESIUM OXIDE 400 MG TAB PO SCH (09:51)
[2020-11-29] MEDS: POLYETHYLENE (MIRALAX) 17 GM PACK PO SCH (09:51)
[2020-11-29 11:22] LABS: Hematocrit (blood only) 50.7 % (42-52); Hemoglobin 17.8 g/dL (14.0-18.0); Immature Granulocytes # (auto) 0.01 K/uL (0.00-0.02); Immature Granulocytes % (auto) 0.2 %; Lymphocytes # (auto) 0.89 K/uL (1.2-3.4); Lymphocytes % (auto) 18.5 %; Mean Corpuscular Hgb Conc 35.1 g/dL (32-36); Mean Corpuscular Volume 94.1 fL (80-100); Mean Platelet Volume 10.9 fL (7.4-10.4); Monocytes # (auto) 0.31 K/uL (0.11-0.59); Monocytes % (auto) 6.4 %; Neutrophils # (auto) 3.61 K/uL (1.4-6.5); Neutrophils % (auto) 74.9 %; Platelet Count 242 K/uL (130-400); RDW Coefficient of Variation 14.2 % (11.5-14.5); RDW Standard Deviation 48.7 fL (36.4-46.3); Red Blood Count 5.39 M/uL (4.7-6.1); White Blood Count 4.82 K/uL (4.8-10.8)
[2020-11-29] MEDS: PANTOprazole 40 MG in SYRINGE 0 ML IV SCH (11:28)
[2020-11-29] MEDS: NYSTATIN CR 15 GM TUBE EXT SCH ×3 (11:29→20:26)
[2020-11-29 11:43] LABS: Albumin Level 3.5 gm/dl (3.4-5.0); BUN Creatinine Ratio 26.9 (10-20); Calcium 9.4 mg/dl (8.5-10.1); Creatinine Clr Calc Pharmacy 36.2 ml/min; Est GFR (African American) 49.9 ml/min; Est GFR (Non-African American) 43.1 ml/min
[2020-11-29 11:54] LABS: Albumin Globulin Ratio 0.9 (0.9-2); Globulin 3.9 gm/dl (2.5-4.0); Total Protein 7.4 gm/dl (6.4-8.2)
[2020-11-29 12:15] LABS: Estimated Average Glucose 177 mg/dl; Hemoglobin A1C 7.8 % (4.5-5.6)
--- NOTE | 2020-11-29 14:27 | XCELERA ---
[id number]
[2020-11-29] MEDS ORDERED: PHARMACY GLYCEMIC MGMT CONSULT PRN (17:54)
[2020-11-29] MEDS: PRAVASTATIN SOD 10 MG TAB PO SCH (18:08)
--- NOTE | 2020-11-29 19:06 | Pharmacy Report ---
Pharmacy Glycemic Short Note 2 - Date of Service November 29, 2020 - Glycemic Short BSG Results (Last 24 hours): 11/29/20 11/29/20 11/29/20 02:07 02:45 06:00 Glucose POC Glucose 72 131 H 88 11/29/20 11/29/20 11/29/20 11:09 11:29 17:43 Glucose 173 H POC Glucose 154 H 166 H OUTPATIENT ANTIDIABETIC REGIMEN: * glimepiride 2 mg PO daily * metformin 1000 mg PO BID * Humalog SS * A1c = 7.8% (11/29/20) ASSESSMENT: * Robert is a 80 yo T2DM who presented with altered mental status * He was started on SQ basal + bolus insulin. Thus far he has received 5 units of Lantus and 1 unit of novolog with adequate glycemic control. * He is currently NPO with D5LR infusing @ 125 mL/min. * Fasting BSG of 88 mg/dL is below goal for inpatient control. Will hold further basal insulin until fasting BSG is available. PLAN FOR INPATIENT GLYCEMIC CONTROL: * Hold outpatient oral diabetes medications * Basal insulin * Lantus 5 units SQ this morning * Hold further basal * Bolus insulin * NovoLog per scale ACHS or Q6hrs while NPO * Goal Range: Low 100 mg/dL - High 140 mg/dL * Correction Factor: 35 mg/dL/unit * Nutritional / Prandial insulin per carb ratio of 1 unit per 12 grams CHO consumed PLAN FOR DISCHARGE: *
[2020-11-29] MEDS: MONTELUKAST SODIUM 10 MG TABLET PO SCH (20:26)
[2020-11-30] MEDS: INSULIN ASPART 100 UNITS/ML 3 ML PEN SC SCH ×5 (00:06→23:58)
[2020-11-30] MEDS: LEVOTHYROXINE SODIUM 75 MCG TABLET PO SCH (06:06)
[2020-11-30] MEDS: D5W AND LACTATED RINGERS 1,000 ML IV SCH ×3 (06:07→22:34)
[2020-11-30] MEDS: ENOXAPARIN INJ 30 MG/0.3 ML SYR SQ SCH (08:16)
[2020-11-30] MEDS: levETIRAcetam 500 MG in 0.9 % SODIUM CHLORIDE 100 ML IV SCH ×2 (08:16→20:45)
[2020-11-30] MEDS: NYSTATIN CR 15 GM TUBE EXT SCH ×3 (08:17→20:43)
[2020-11-30] MEDS ORDERED: INSULIN GLARGINE SOLOSTAR 100 UNITS/ML 3 ML PEN SC SCH (09:00)
[2020-11-30] MEDS: amLODIPine BESYLATE 5 MG TAB PO SCH (11:55)
[2020-11-30] MEDS: ASPIRIN 81 MG ECTAB PO SCH (11:55)
[2020-11-30] MEDS: MAGNESIUM OXIDE 400 MG TAB PO SCH (11:56)
[2020-11-30] MEDS: lisinopril 5 MG TAB PO SCH (11:56)
[2020-11-30] MEDS: POLYETHYLENE (MIRALAX) 17 GM PACK PO SCH (11:56)
[2020-11-30] MEDS: CLOPIDOGREL BISULFATE 75 MG TAB PO SCH (11:56)
[2020-11-30] MEDS: PANTOprazole 40 MG in SYRINGE 0 ML IV SCH (12:06)
--- NOTE | 2020-11-30 15:11 | Hospitalist Progress Note ---
Date of Service November 30, 2020 Assessment & Plan (1) Encephalopathy: Plan: 80-year-old male with past medical history of diabetes, hyperlipidemia, CVA, seizure, thyroidism, GERD presents from [facility] for evaluation of increased disorientation, poor p.o. intake and lethargy. 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 She is aware that this could be from his cerebrovascular accident which would have very little recovery. She is aware that were concerned about his vision. She brought up discussions of hospice and hopefully we can have her connect with her hospice care team as if the patient does not improve W no meaningful way to provide nutrition or hydration. He already has some aphasia prior to this event so is communicating with him is challenging. She confirmed to me that he is a DNR/DNI. (2) Acute kidney injury superimposed on CKD: Plan: SHRUTHI on CKD type II secondary to dehydration continue hydration , dehydration could be from functional decline and not drinking well at home . -Avoid nephrotoxins - (3) CVA (cerebral vascular accident): Plan: Patient with a history of CVA and mixed aphasia head CT on presentation this evening demonstrated subacute infarct in the left occipital and posterior left parietal lobes which appears to be new since November 06, 2020. Given his SHRUTHI will defer further stroke work-up unless warranted by inpatient team. -As this seems to be a fairly significant deficit already visible on CT scan unclear with further imaging would provide -Echo does not show significant changes -, may need high intensity statin if family elects to aggressively treat -Monitor neurological function watch for signs of aspiration (4) Type 2 diabetes mellitus with unspecified complications: Plan: pt will have basal bolus insulin, glycemnic consult (5) Mixed aphasia: Plan: from previous stroke was on modified diet and aspiration precautions, currently too lethargic to eat or be assessed by speech-language pathology (6) Carotid artery stenosis: Plan: remains on clopidogrel and statin patient's swallowing status does not permit administration medications at this time (7) Focal motor seizure: Plan: remains on keppra will change to IV (8) Generalized weakness: Plan: certainly there are many issues that may influence will rule out metabolic encephalopahty issues and if ruled out must consider CVA as the cause (9) Hypothyroidism: Plan: TSH elevated on last discharge, thought to be stress response, on presentation today elevated as well. -Monitor for now recheck TSH in 8 weeks -Continue present dose of Synthroid Admission and Anticipated Discharge Date Admission Date: November 28, 2020 Subjective Patient is lethargic lethargic but he did arouse he answers yes to all questions, seems like he cannot see, typically has eyes deviated upward to the right, new occipital stroke may have affected vision. Certainly not able to eat and did not want to sit up Review of Systems Review of Systems: Unobtainable due to cognitive status Physical Exam Physical Exam: The patient appeared chronically ill, and acutely appears to be significantly limited Vital signs as documented. Head exam is normocephalic atraumatic eyes can open but tend to look upward to right Neck is without JVD, thyromegaly, or carotid bruits. Lungs are diminished air movement bilaterally Cardiac exam, Rhythm is regular.. Systolic murmur heard Abdominal exam reveals normal bowel sounds, soft non tender, no masses Extremities are nonedematous and both pedal pulses are present Neurologic exam is arousable but lethargic, spontaneously moving arms and legs but not to command question about visual acuity of the patient can see at all Repetitively answers yes to all questions will not say no or other things But not permit nursing to remove dentures dentures are extremely loose will not permit speech therapy to remove dentures or perform swallowing assessment Skin is without bruises or rashes Results & Data Results & Data ([facility]) Vital Signs (Past 12 Hours) Vital Signs Temp Pulse Pulse Resp BP Pulse Ox 11/30/20 11:41 98.1 F 62 18 116/58 L 92 11/30/20 07:49 97.3 F L 63 16 129/78 93 11/30/20 07:15 43 L 11/30/20 04:00 97.5 F L 58 L 20 138/73 95 PG Care Time/CCT Total # of Minutes Spent Total Time Spent with Patient: Total time spent is greater than 50% in coordination of care (as documented) at patient's floor/unit and/or counseling patient: Coding Level of Care Code 56481 Subseq Hosp Care Lvl 3 Diagnoses Encephalopathy G93.40 Acute kidney injury superimposed on CKD N17.9; N18.9 CVA (cerebral vascular accident) I63.9 CVA mechanism: unspecified Type 2 diabetes mellitus with unspecified complications E11.8 Mixed aphasia R47.01 Carotid artery stenosis I65.23 Laterality: bilateral Focal motor seizure G40.109 Generalized weakness R53.1 Hypothyroidism E03.9 Hypothyroidism type: acquired (1) CVA (cerebral vascular accident) CVA mechanism: unspecified Qualified Code(s): I63.9 - Cerebral infarction, unspecified (2) Carotid artery stenosis Laterality: bilateral Qualified Code(s): I65.23 - Occlusion and stenosis of bilateral carotid arteries (3) Hypothyroidism Hypothyroidism type: acquired Qualified Code(s): E03.9 - Hypothyroidism, unspecified
[2020-11-30 17:07] LABS: Appearance Urine Clear (Clear); Bilirubin Urine Negative (Negative); Blood Urine Negative (Negative); Color Urine Yellow; Glucose Urine UA Negative (Negative); Ketones Urine Negative (Negative); Leukocyte Esterase Urine Negative (Negative); Nitrite Urine Negative (Negative); Protein Urine Negative (Negative); Specific Gravity Urine 1.011 (1.000-1.030); Urobilinogen Urine Positive (Negative)
[2020-11-30] MEDS: PRAVASTATIN SOD 10 MG TAB PO SCH (17:27)
[2020-11-30] MEDS: INSULIN GLARGINE SOLOSTAR 100 UNITS/ML 3 ML PEN SC SCH (20:44)
[2020-11-30] MEDS: MONTELUKAST SODIUM 10 MG TABLET PO SCH (20:44)
[2020-12-01] MEDS: INSULIN ASPART 100 UNITS/ML 3 ML PEN SC SCH ×3 (05:58→18:09)
[2020-12-01] MEDS: D5W AND LACTATED RINGERS 1,000 ML IV SCH ×2 (06:01→12:14)
[2020-12-01] MEDS: LEVOTHYROXINE SODIUM 75 MCG TABLET PO SCH (06:01)
[2020-12-01 06:59] LABS: BUN Creatinine Ratio 9.2 (10-20); Calcium 8.9 mg/dl (8.5-10.1); Creatinine Clr Calc Pharmacy 56.8 ml/min; Est GFR (African American) 82.9 ml/min; Est GFR (Non-African American) 71.5 ml/min; Magnesium 1.1 mg/dl (1.8-2.4); Potassium 3.5 mmol/L (3.5-5.1)
[2020-12-01] MEDS: ASPIRIN 300 MG SUPP PR SCH (07:51)
[2020-12-01] MEDS: amLODIPine BESYLATE 5 MG TAB PO SCH (07:51)
[2020-12-01] MEDS: CLOPIDOGREL BISULFATE 75 MG TAB PO SCH (07:52)
[2020-12-01] MEDS: POLYETHYLENE (MIRALAX) 17 GM PACK PO SCH (07:52)
[2020-12-01] MEDS: MAGNESIUM OXIDE 400 MG TAB PO SCH (07:52)
[2020-12-01] MEDS: lisinopril 5 MG TAB PO SCH (07:52)
[2020-12-01] MEDS: levETIRAcetam 500 MG in 0.9 % SODIUM CHLORIDE 100 ML IV SCH ×2 (08:06→21:01)
[2020-12-01] MEDS: ENOXAPARIN INJ 30 MG/0.3 ML SYR SQ SCH (08:09)
[2020-12-01] MEDS: NYSTATIN CR 15 GM TUBE EXT SCH ×3 (08:09→21:02)
[2020-12-01] MEDS: INSULIN GLARGINE SOLOSTAR 100 UNITS/ML 3 ML PEN SC SCH ×2 (08:16→21:02)
[2020-12-01] MEDS: PANTOprazole 40 MG in SYRINGE 0 ML IV SCH (12:14)
[2020-12-01] MEDS: MAGNESIUM SULFATE / D5W 1 GM/100 ML BAG IV SCH ×3 (12:14→16:16)
--- NOTE | 2020-12-01 12:41 | Pharmacy Report ---
Pharmacy Glycemic Short Note 2 - Date of Service December 01, 2020 - Glycemic Short BSG Results (Last 24 hours): 11/30/20 11/30/20 12/01/20 18:29 23:51 05:54 Glucose 145 H POC Glucose 150 H 163 H 12/01/20 12/01/20 05:55 12:22 Glucose POC Glucose 139 H 152 H OUTPATIENT ANTIDIABETIC REGIMEN: * glimepiride 2 mg PO daily * metformin 1000 mg PO BID * Humalog SS * A1c = 7.8% (11/29/20) ASSESSMENT: 12/01/20 * Patient's BSGs yesterday were [phone] * Fasting today is 139 mg/dL and lunch is 152 mg/dL. * patient remains on D5LR @ 125 mL/hr * Continue lantus 5 units BID and Novolog for now Background * Robert is a 80 yo T2DM who presented with altered mental status * He was started on SQ basal + bolus insulin. Thus far he has received 5 units of Lantus and 1 unit of novolog with adequate glycemic control. * He is currently NPO with D5LR infusing @ 125 mL/min. * Fasting BSG of 88 mg/dL is below goal for inpatient control. Will hold further basal insulin until fasting BSG is available. PLAN FOR INPATIENT GLYCEMIC CONTROL: * Hold outpatient oral diabetes medications * Basal insulin * Lantus 5 units SQ BID * Bolus insulin * NovoLog per scale ACHS or Q6hrs while NPO * Goal Range: Low 100 mg/dL - High 140 mg/dL * Correction Factor: 30 mg/dL/unit * Nutritional / Prandial insulin per carb ratio of 1 unit per 10 grams CHO consumed PLAN FOR DISCHARGE: * TBD
--- NOTE | 2020-12-01 13:59 | Hospitalist Progress Note ---
Date of Service December 01, 2020 Assessment & Plan (1) Encephalopathy: Plan: 80-year-old male with past medical history of diabetes, hyperlipidemia, CVA, seizure, thyroidism, GERD presents from [facility] for evaluation of increased disorientation, poor p.o. intake and lethargy. currently unclear cause of encephalopathy, could be stroke a thorough exam is difficult. I am uncertain how much is this is the patient "cant" vs the patient "wont". 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 She is aware that this could be from his cerebrovascular accident which would have very little recovery. She is aware that were concerned about his vision. She brought up discussions of hospice and hopefully we can have her connect with her hospice care team as if the patient does not improve W no meaningful way to provide nutrition or hydration. He already has some aphasia prior to this event so is communicating with him ass challenging. She confirmed to me that he is a DNR/DNI. palliative care has been consulted-- appreciate recommendations. Again, as discussed above-- ongoing challenging family dynamics (2) Acute kidney injury superimposed on CKD: Plan: SHRUTHI on CKD type II secondary to dehydration continue hydration , dehydration could be from functional decline and not drinking well at home . -Avoid nephrotoxins -renal function improved. -decreased IVF rate but continue for now as patient with little oral intake. palliative on board-- appreciate recommendations (3) CVA (cerebral vascular accident): Plan: Patient with a history of CVA and mixed aphasia head CT on presentation this evening demonstrated subacute infarct in the left occipital and posterior left parietal lobes which appears to be new since November 06, 2020. -As this seems to be a fairly significant deficit already visible on CT scan unclear with further imaging would provide. In addition, patient refusing (vs unable?) to take meds--> including plavix/ASA. Further imaging would not change treatment plan at this time -Echo does not show significant changes - not on any statin therapy but currently not taking med (? unable vs unwilling) - per documentation, previous Provider was in touch with the who requested hospice. - palliative on board-- appreciate recommendations (4) Type 2 diabetes mellitus with unspecified complications: Plan: - currently has basal/bolus on board but would be cautious given LITTLE oral inake. - patient only on lantus 5U bid and he IS NOT INSULIN sandra - Metformin and SQ currently on hold (5) Mixed aphasia: Plan: from previous stroke was on modified diet and aspiration precautions currently not eating (? unwilling vs unable) ST on board and has attempted eval but limited palliative care on board-- appreciate recommendations (6) Carotid artery stenosis: Plan: - Rx'ed ASA/plavix but not getting these (see above) (7) Focal motor seizure: Plan: remains on keppra -- which has since been changed to IV (8) Generalized weakness: Plan: - I am uncertain is this is due to overall failure to thrive. PAtient with CVD and multiple CVA's in the past resulting in aphasia. ? unable vs unwillingness to eat/participate with ST for thorough assessment. - with challenging dynamic, it is possible that patient has given up all will to survive and knows that his quality of life is poor. - palliate care consulted-- appreciate recommendations (9) Hypothyroidism: Plan: TSH elevated on last discharge, thought to be stress response and ? compliance, on presentation today elevated as well. -Monitor for now recheck TSH in 8 weeks -Continue present dose of Synthroid but not taking meds Plan: -Overall, long-term prognosis poor. I am uncertain if patient unable or unwilling to eat/cooperate with exam/cooperate with speech therapy. Prior provider has been in contact with patient's who has requested hospice services. There are challenging dynamics. As previously stated, I had spoken to a daughter during his last hospitalization who reported that the patient's has been having an affair ongoing for years. Patient was discharged to an assisted living as he was unable to care for himself at home/be alone and the was not home during most of the day. Palliative has been consulted and plans on reaching out to patient's daughter. Admission and Anticipated Discharge Date Admission Date: November 28, 2020 Subjective Patient seen on daily rounds today. Was admitted on 11/28 from a long term facility due to increased level of confusion with generalized weakness/decline and poor oral intake. Known to me from his last hospitalization (11/06 through 11/13) where he was hospitalized for overall generalized decline. Was found to be mildly dehydrated upon initial presentation but this quickly corrected with limited/gentle IV hydration. He was residing with a who I was unable to get in contact with during the entire hospital stay. Was able to get in contact with a daughter who reported some interesting dynamics at home. Reported that is having an affair and patient is home unattended during the day. He has been declining for quite some time and unable to care for himself. Was not getting his medications which only led to further decline. Patient with expressive aphasia and difficult to get an accurate history from but did seem to answer questions ap propriately (when asked in "yes/no" form). He was agreeable to placement and was subsequently D/C'ed to an assisted living facility. Since, has been having decreased oral intake, increased confusion with generalized lethargy. In addition, has been refusing his medications/not taking them. Upon presentation, his creatinine was elevated from baseline at 2.5. This has since normalized with IV hydration. CT of the head did show a subacute infarct in the left parietal lobe. Patient has been pretty much sleeping/overly somnolent throughout this entire hospital course. Speech therapy has attempted to do an evaluation multiple times; however, patient does not cooperate. Is uncertain if he is unable or unwilling to cooperate. Per staff, he is not eating or drinking. has been notified and has requested hospice. Palliative care consulted and to see patient today. Review of Systems Review of Systems: Unobtainable Physical Exam Physical Exam: Exam limited Patient appears chronically but not acutely ill Does open his eyes when spoken to. Difficulty in making eye contact. Senile Arcus bilaterally. Head is atraumatic/normocephalic Buccal mucosa moist Breathing comfortably on ambient air. Diminished breath sounds throughout without wheezes, rales or rhonchi Distant heart sounds but currently appears RRR with 1/6 to 2/6 HAL Normal active X4. Soft. Does not appear to be overtly tender No peripheral clubbing, cyanosis or edema Does raise his left arm when asked. Would not roll to his back to assess function of the right upper extremity. Does kick with his left leg when I get close. Results & Data Results & Data ([facility]) Vital Signs (Past 12 Hours) Vital Signs Temp Pulse Pulse Resp BP BP Pulse Ox 12/01/20 08:00 48 L 12/01/20 07:39 36.6 C 65 20 138/83 97 10/11/21 03:46 36.6 C 106 H 20 121/65 96 Laboratory Results 11/29/20 11:09 12/01/20 05:54 PG Care Time/CCT Total # of Minutes Spent Total Time Spent with Patient: Total time spent is greater than 50% in coordination of care (as documented) at patient's floor/unit and/or counseling patient: Coding [place] [address] Subseq Hosp Care Lvl 2 Patient Type Established History Expanded Problem Focused Exam Expanded Problem Focused Medical Decision Making Moderate Complexity Diagnoses Encephalopathy G93.40 Acute kidney injury superimposed on CKD N17.9; N18.9 CVA (cerebral vascular accident) I63.9 CVA mechanism: unspecified Type 2 diabetes mellitus with unspecified complications E11.8 Mixed aphasia R47.01 Carotid artery stenosis I65.23 Laterality: bilateral Focal motor seizure G40.109 Generalized weakness R53.1 Hypothyroidism E03.9 Hypothyroidism type: acquired (1) CVA (cerebral vascular accident) CVA mechanism: unspecified Qualified Code(s): I63.9 - Cerebral infarction, unspecified (2) Carotid artery stenosis Laterality: bilateral Qualified Code(s): I65.23 - Occlusion and stenosis of bilateral carotid arteries (3) Hypothyroidism Hypothyroidism type: acquired Qualified Code(s): E03.9 - Hypothyroidism, unspecified
--- NOTE | 2020-12-01 14:06 | Palliative Care Consultation ---
Date of Consultation December 01, 2020 Assessment & Plan (1) Generalized weakness: Progressive functional decline, unable to participate in therapy. (2) Encephalopathy: with subacute as well as chronic CVA (3) Palliative care encounter: I spoke with his on the phone. She feels that if Robert had some mobility and was able to eat, that would be quality of life for him. He has said that he would not want to have CPR or intubation but has not been specific about other goals for his care. His feels that he is not ready to and would want to try and get better. We reviewed PT notes and his inablilty to participate which significantly limits his rehab potential. She discussed going to a rehab hospital and we talked about him not being able to participate in that level of therapy at this time. We talked about the likelihood which he will not be able to return to his prior level of function and that we should be cautious about expectations for his recovery. She feels that his decline is related to something he ate that did not agree with him, setting off his problems. She is confident that he would not want to "give up" at this time. (4) CVA (cerebral vascular accident): CVA mechanism: unspecified Qualified Code(s): I63.9 - Cerebral infarction, unspecified History of Present Illness Reason for Consultation: goals of care Requesting Physician: Dr. Keen Attending Physician: Randy Callahan DO History of Present Illness 80 yo gentleman with history of cerebrovascular disease and prior CVA with some residual mixed aphasia. He had been hospitalized one month ago with ambulatory dysfunction at home, poor po intake and elevated BUN and creatinine. His workup was generally unremarkable and thought to be related to overall functional decline. At the time of discharge, he was admitted to [facility] where he has been. He was admitted two days ago with poor oral intake and mental status change. CT showed subacute left occipital and parietal infarct. He has been generally lethargic though he did arouse briefly for me. He did not respond to any questions or conversation. Per staff, he has been unable to participate in therapy and unable to swallow po medications. Allergies Allergy/AdvReac Type Severity Reaction Status Date / Time [id number]-Wmn Reductase Allergy Severe JOINT PAIN Verified 11/28/20 19:46 Inhibitor strawberry Allergy Intermediate Rash Verified 11/28/20 19:46 Home Medications Medication Instructions Recorded Confirmed Type clopidogrel 75 mg tablet 75 mg PO QAM 11/29/17 11/28/20 History metformin 1,000 mg tablet 1,000 mg PO BIDM 11/29/17 11/28/20 History montelukast 10 mg tablet 10 mg PO HS 11/29/17 11/28/20 History (Singulair) levothyroxine 75 mcg tablet 75 mcg PO QAM 06/24/18 11/28/20 History pantoprazole 40 mg tablet,delayed 40 mg PO BID 06/24/18 11/28/20 History release aspirin 81 mg tablet,delayed 81 mg PO QAM 07/01/18 11/28/20 History release magnesium oxide 400 mg (241.3 mg 400 mg PO DAILY #30 tab 07/05/18 11/28/20 Rx magnesium) tablet levetiracetam 500 mg tablet 500 mg PO BID #180 tab 08/11/20 11/28/20 Rx (Keppra) lisinopril 5 mg tablet 5 mg PO DAILY #30 tab 11/13/20 11/28/20 Rx amlodipine 5 mg tablet 7.5 mg PO DAILY 11/28/20 11/28/20 History glimepiride 2 mg tablet 2 mg PO DAILY 11/28/20 11/28/20 History insulin lispro 100 unit/mL 1 sliding scale dose SUBCUT ACHS 11/28/20 11/28/20 History subcutaneous cartridge (Humalog U-100 Insulin) nystatin 100,000 unit/gram topical 1 applic TOPICAL TID 11/28/20 11/28/20 History cream Patient History Medical History (Updated 12/01/20 @ 14:06 by Vandana Camacho MD) Chest pain (06/14/13) Diabetes Dizziness Expressive aphasia Focal motor seizure History of stroke with residual deficit Hypertension Hypoglycemia Hypothyroidism Surgical History History of tonsillectomy Hx of oral surgery Family History Sister Leukemia Father Cancer Other Diabetes Hypertension Social History Smoking Status: Unknown if ever smoked Second Hand Exposure: No; Preferred Language: Citizen Of [place] Communication Ability: Unable Drug Abuse Treatment Specialist Required: No Beliefs That Will Affect Care: None marital status: Current Living Situation: Personal Care Facility current occupational status: retired Feels Safe at Home: Yes Assistive Devices: Denture - Upper Review of Systems Review of Systems: Other (aphasia) [place] Symptom Assessment Scale Pain by observation 0/3 Dyspnea by observation 0/3 Palliative Performance Score 20% Physical Exam Constitutional: + disheveled and + lethargic Respiratory: normal respiratory effort; no labored breathing Cardiovascular: Rate/Rhythm: regular rate and regular rhythm Gastrointestinal (Abdomen): soft, nontender Musculoskeletal: Extremities: + muscle atrophy Neurologic: nonverbal Results & Data ([facility]) Vital Signs (Past 12 Hours) Vital Signs Temp Pulse Pulse Resp BP BP Pulse Ox 12/01/20 08:00 48 L 12/01/20 07:39 97.9 F 65 20 138/83 97 12/01/20 03:46 97.9 F 106 H 20 121/65 96 PG Care Time/CCT Total # of Minutes Spent Total Time Spent: 60 Total Time Spent with Patient: Total time spent is greater than 50% in coordination of care (as documented) at patient's floor/unit and/or counseling patient: family education and support, goals of care Coding Level of Care Code 81423 Initial Inpt Care Lvl 2 Diagnoses Generalized weakness R53.1 Encephalopathy G93.40 Palliative care encounter Z51.5 CVA (cerebral vascular accident) I63.9 CVA mechanism: unspecified
[2020-12-01] MEDS: PRAVASTATIN SOD 10 MG TAB PO SCH (16:16)
[2020-12-01] MEDS: MONTELUKAST SODIUM 10 MG TABLET PO SCH (20:55)
[2020-12-02] MEDS: D5W AND LACTATED RINGERS 1,000 ML IV SCH ×2 (00:12→11:39)
[2020-12-02] MEDS: INSULIN ASPART 100 UNITS/ML 3 ML PEN SC SCH ×4 (00:12→18:11)
[2020-12-02] MEDS: LEVOTHYROXINE SODIUM 75 MCG TABLET PO SCH (05:34)
[2020-12-02] MEDS: lisinopril 5 MG TAB PO SCH (07:41)
[2020-12-02] MEDS: POLYETHYLENE (MIRALAX) 17 GM PACK PO SCH (07:41)
[2020-12-02] MEDS: amLODIPine BESYLATE 5 MG TAB PO SCH (07:41)
[2020-12-02] MEDS: CLOPIDOGREL BISULFATE 75 MG TAB PO SCH (07:41)
[2020-12-02] MEDS: ASPIRIN 300 MG SUPP PR SCH (07:41)
[2020-12-02] MEDS: MAGNESIUM OXIDE 400 MG TAB PO SCH (07:41)
[2020-12-02 07:52] LABS: Hematocrit (blood only) 43.7 % (42-52); Hemoglobin 15.7 g/dL (14.0-18.0); Lymphocytes % (auto) 17.9 %; Mean Corpuscular Hemoglobin 32.2 pg (25-34); Mean Corpuscular Hgb Conc 35.9 g/dL (32-36); Mean Corpuscular Volume 89.5 fL (80-100); Mean Platelet Volume 10.8 fL (7.4-10.4); Monocytes # (auto) 0.41 K/uL (0.11-0.59); Monocytes % (auto) 8.1 %; Neutrophils # (auto) 3.73 K/uL (1.4-6.5); Platelet Count 230 K/uL (130-400); RDW Coefficient of Variation 13.6 % (11.5-14.5); Red Blood Count 4.88 M/uL (4.7-6.1); White Blood Count 5.04 K/uL (4.8-10.8)
[2020-12-02 08:08] LABS: BUN Creatinine Ratio 6.3 (10-20); Calcium 8.9 mg/dl (8.5-10.1); Creatinine Clr Calc Pharmacy 58.6 ml/min; Est GFR (African American) 86.1 ml/min; Est GFR (Non-African American) 74.2 ml/min; Magnesium 1.6 mg/dl (1.8-2.4); Potassium 3.7 mmol/L (3.5-5.1)
[2020-12-02] MEDS: NYSTATIN CR 15 GM TUBE EXT SCH ×3 (08:31→20:33)
[2020-12-02] MEDS: ENOXAPARIN INJ 30 MG/0.3 ML SYR SQ SCH (08:31)
[2020-12-02] MEDS: levETIRAcetam 500 MG in 0.9 % SODIUM CHLORIDE 100 ML IV SCH ×2 (08:31→20:33)
[2020-12-02] MEDS: INSULIN GLARGINE SOLOSTAR 100 UNITS/ML 3 ML PEN SC SCH ×2 (08:32→20:33)
--- NOTE | 2020-12-02 10:55 | Neurology Consultation ---
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 He then had right upper extremity focal motor seizures from his stroke in June of 2018. This has been stabilized by levetiracetam 500 milligrams twice daily and he has not had any further seizures. I believe this patient has had a new left posterior cerebral artery stroke (left occipital and left posterior deep parietal ) sometime between mid October and now. It is fairly obvious on CT showed is probably at least a week old ( or maybe even 1 month ). On examination he has a right homonymous hemianopsia, right upper extremity weakness and he is extremely hard of hearing. Although he may have depression ( this is difficult for me to be sure of) I believe a lot of his communication problem is more to do with his severe hearing loss and mixed aphasia from previous stroke than an overlying encephalopathy. He seems very awake and alert now. Recommendations: 1. MRI of the brain without contrast. 2. Physical, occupational, and speech therapy consult. 3. Continue 81 milligram aspirin and 75 milligram clopidogrel for now. 4. Ideally, we would obtain CT angiography of the head and neck in this patient 5. assess for hearing aids Overall, I spent a total of 60 minutes with this case including review of records, review of MRI and CT films, direct evaluation the patient at bedside, and discussion of the case with Sophy Huff, including differential diagnosis and treatment options. History of Present Illness Reason for Consultation: patient is a 80-year-old, who I was asked to see at the request of Sophy Huff, for neurologic consultation regarding altered mental status. Requesting Physician: Sophy Huff Attending Physician: Randy Callahan, History of Present Illness patient has a history of left frontal parietal stroke in November of 2017 consistent with a middle cerebral artery distribution. He was put on aspirin and Plavix at that time. I saw this patient in June of 2018 when he had a focal seizure. The right upper extremity was shaking and I believe it was directly consequence of his previous stroke. He was put on levetiracetam 500 milligrams twice daily and has had no known seizures since. He last saw neurology in May of 2020 for follow-up. He was stable on levetiracetam with no further seizures and continued on aspirin and Plavix. He was noted to have decreased hearing. The patient was admitted to the hospital July 06 for weakness, unsteady gait and decreased oral intake. Evaluation at that time showed no new stroke clinically or by CT scan. He was discharged on November 13 [facility]. Apparently he was having issues with sleepiness, decreased responsiveness, and decrease intake again. He was sent to the emergency room November 28. He was afebrile blood pressure was 125/92. He was very drowsy and sleepy but did respond to questions. He was described as being having weakness in all [address] scan of the head revealed new left occipital and posterior parietal hypodense lesions since the previous CT of November 06. There was no hemorrhagic component and they did not appear acute. CBC and Chem profile were unremarkable and cultures were negative. Since admission he has been noted to be sometimes "confused" and sometimes able to answer questions. There is a concern that he is not responding on purpose. Today the patient claims that he is not in pain Allergies Allergy/AdvReac Type Severity Reaction Status Date / Time Mkqxtox-Fcw-Ojv Reductase Allergy Severe JOINT PAIN Verified 11/28/20 19:46 Inhibitor strawberry Allergy Intermediate Rash Verified 11/28/20 19:46 Home Medications Medication Instructions Recorded Confirmed Type clopidogrel 75 mg tablet 75 mg PO QAM 11/29/17 11/28/20 History metformin 1,000 mg tablet 1,000 mg PO BIDM 11/29/17 11/28/20 History montelukast 10 mg tablet 10 mg PO HS 11/29/17 11/28/20 History (Singulair) levothyroxine 75 mcg tablet 75 mcg PO QAM 06/24/18 11/28/20 History pantoprazole 40 mg tablet,delayed 40 mg PO BID 06/24/18 11/28/20 History release aspirin 81 mg tablet,delayed 81 mg PO QAM 07/01/18 11/28/20 History release magnesium oxide 400 mg (241.3 mg 400 mg PO DAILY #30 tab 07/05/18 11/28/20 Rx magnesium) tablet levetiracetam 500 mg tablet 500 mg PO BID #180 tab 08/11/20 11/28/20 Rx (Keppra) lisinopril 5 mg tablet 5 mg PO DAILY #30 tab 11/13/20 11/28/20 Rx amlodipine 5 mg tablet 7.5 mg PO DAILY 11/28/20 11/28/20 History glimepiride 2 mg tablet 2 mg PO DAILY 11/28/20 11/28/20 History insulin lispro 100 unit/mL 1 sliding scale dose SUBCUT ACHS 11/28/20 11/28/20 History subcutaneous cartridge (Humalog U-100 Insulin) nystatin 100,000 unit/gram topical 1 applic TOPICAL TID 11/28/20 11/28/20 History cream Patient History Medical History (Updated 12/02/20 @ 10:47 by Yang Valero MD) Chest pain (06/14/13) Diabetes Dizziness Expressive aphasia Focal motor seizure History of stroke with residual deficit Hypertension Hypoglycemia Hypothyroidism Surgical History History of tonsillectomy Hx of oral surgery Family History Sister Leukemia Father Cancer Other Diabetes Hypertension Social History Smoking Status: Unknown if ever smoked Second Hand Exposure: No; Preferred Language: [place] Communication Ability: Unable International Controller Required: No Beliefs That Will Affect Care: None marital status: Current Living Situation: Personal Care Facility current occupational status: retired Feels Safe at Home: Yes Assistive Devices: Denture - Upper Review of Systems Review of Systems: Other review of systems was very difficult to obtain because of the patient's extreme hearing loss. He was not in pain. He seemed comfortable in bed. Exam (Neuro) Physical Exam: The patient is right-handed. The patient is awake, alert, and attentive. Speech is Very sparse and gives one-word answers only. He is not obviously dysarthric. He seems to be able to understand me when I speak loud enough. mood seems reasonable and affect is unremarkable. Memory cannot be specifically tested due to hearing loss Pupils are 3 mm bilaterally and reactive to light. Extraocular eye muscles are intact without nystagmus. he seems to have decreased visual acuity to the right. To the left he seems to react and see. There are no deficits to sensation in the face in all 3 distributions of the fifth cranial nerve bilaterally. Corneal reflexes are positive bilaterally. Facial strength and symmetry was normal bilaterally. There is severe hearing loss bilaterally. There is normal sternocleidomastoid and trapezius (shoulder shrug) strength bilaterally. Tongue is midline with good strength bilaterally. Neck has a full range of motion without discomfort. There are no cervical bruits bilaterally. There are no cranial or ocular bruits. Heart is without murmur. There is a regular rhythm and rate. Gait was not tested. Stance in bed is somewhat poor. With outstretched arms there is no drift. There are no resting, postural, or action tremors. There is no ataxia with finger to nose testing. There is good facility in the hands. No other abnormal involuntary movements are noted. Motor strength is 5/5 diffusely in the left upper extremity including deltoids, biceps, triceps, brachioradialis, wrist flexors and extensors, core driller helper, and intrinsic hand muscles. the right upper extremity was 4/5 diffusely with a clumsy right hand.Motor strength is 5/5 diffusely in the legs bilaterally including hip flexors, quadriceps, hamstrings, gastrocnemius, tibialis anterior, tibialis posterior, and Peroneii muscles. Toe extensors are normal and there is good bulk in the extensor digitorum brevis muscles bilaterally. The limbs have good tone without rigidity or spasticity. Sensory examination is intact to touch and pin throughout all 4 limbs diffusely. Reflexes are 2/4 in the Right biceps, triceps, and brachioradialis tendons. reflexes are 1/4 in the left biceps, triceps, and brachioradialis tendons, 1/4 in the quadriceps tendons bilaterally, and absent in the Achilles tendons bilaterally. There is no clonus bilaterally. Toes are downgoing with plantar stimulation bilaterally. Peripheral pulses are present and of normal quality distally in all 4 limbs. There is no peripheral edema noted in the limbs. Results & Data ([facility]) Vital Signs (Past 12 Hours) Vital Signs Temp Pulse Pulse Resp BP BP Pulse Ox 12/02/20 07:50 52 L 12/02/20 07:34 36.6 C 64 16 142/77 H 96 12/02/20 04:15 36.6 C 64 18 138/83 97 12/02/20 02:00 70 12/01/20 23:30 35.9 C L 60 18 167/84 H 95 PG Care Time/CCT Total # of Minutes Spent Total Time Spent with Patient: Total time spent is greater than 50% in coordination of care (as documented) at patient's floor/unit and/or counseling patient: Coding Level of Care Code 58667 Initial Inpt Care Lvl 3 Diagnoses Focal motor seizure G40.109 Right arm weakness R29.898 Mixed aphasia R47.01 Encephalopathy G93.40 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
[2020-12-02] MEDS: PANTOprazole 40 MG in SYRINGE 0 ML IV SCH (11:48)
[2020-12-02] MEDS ORDERED: MAGNESIUM SULFATE / D5W 1 GM/100 ML BAG IV ONE (12:15)
--- NOTE | 2020-12-02 12:37 | Pharmacy Report ---
Pharmacy Glycemic Short Note 2 - Date of Service December 02, 2020 - Glycemic Short BSG Results (Last 24 hours): 12/01/20 12/02/20 12/02/20 18:08 00:08 05:31 Glucose POC Glucose 144 H 123 H 128 H 12/02/20 12/02/20 07:39 11:41 Glucose 142 H POC Glucose 154 H OUTPATIENT ANTIDIABETIC REGIMEN: * glimepiride 2 mg PO daily * metformin 1000 mg PO BID * Humalog SS * A1c = 7.8% (11/29/20) ASSESSMENT: 12/02/20 * Patient's BSGs yesterday were [phone] * Fasting today is 128 mg/dL and lunch is 154 mg/dL. * Patient received 12 units of insulin yesterday (10 units of basal and 2 units of correctional) * patient remains on D5LR @ 125 mL/hr * Fasting trending down- reduce basal by 20%. Continue Novolog 12/01/20 * Patient's BSGs yesterday were [phone] * Fasting today is 139 mg/dL and lunch is 152 mg/dL. * patient remains on D5LR @ 125 mL/hr * Continue lantus 5 units BID and Novolog for now Background * Robert is a 80 yo T2DM who presented with altered mental status * He was started on SQ basal + bolus insulin. Thus far he has received 5 units of Lantus and 1 unit of novolog with adequate glycemic control. * He is currently NPO with D5LR infusing @ 125 mL/min. * Fasting BSG of 88 mg/dL is below goal for inpatient control. Will hold further basal insulin until fasting BSG is available. PLAN FOR INPATIENT GLYCEMIC CONTROL: * Hold outpatient oral diabetes medications * Basal insulin * Lantus 4 units SQ BID (3 units if BSG < 140 mg/dL) * Bolus insulin * NovoLog per scale ACHS or Q6hrs while NPO * Goal Range: Low 100 mg/dL - High 140 mg/dL * Correction Factor: 30 mg/dL/unit * Nutritional / Prandial insulin per carb ratio of 1 unit per 10 grams CHO consumed PLAN FOR DISCHARGE: * TBD
--- NOTE | 2020-12-02 12:44 | Magnetic Resonance Report ---
MRI OF THE BRAIN WITHOUT IV CONTRAST CLINICAL HISTORY: Change in mental status. COMPARISON STUDY: CT of the brain dated 11/28/2020. MRI of the brain dated 07/02/2018. TECHNIQUE: MRI of the brain was performed utilizing various T1 and T2-weighted sequences in the axial , sagittal, and coronal planes. IV contrast was not administered for this examination. The examinatio n is degraded by motion artifact. FINDINGS: Brain parenchyma: There is a large region of restricted diffusion seen within the medial left occipit al lobe and the posteromedial left temporal lobe consistent with acute to subacute ischemia. There ar e numerous (at least 6 foci of restricted diffusion measuring up to 2 cm within the right periventric ular an occipital white matter. There is also a focus of restricted diffusion identified within the m edial left mid brain There is age-related involutional change noting moderate to advanced subcortical and periventricular microangiopathic disease. Large foci of left frontal, parietal, and occipital en cephalomalacia are consistent with remote infarcts. There is somewhat serpiginous T1 hyperintensity s een throughout the left occipital cortex. A more focal ovoid focus of T1 hyperintense signal within t he medial left occipital lobe on image #15 is concerning for developing hemorrhagic transformation. N o additional foci of hemorrhage are suspected. There is no midline shift. No extra-axial fluid collec tion is seen. The cerebellar tonsils are normal in configuration. Mineralization is noted in the basa l ganglia. Ventricles, sulci, and cisterns: Prominent secondary to involutional change. There is ex vacuo dilata tion of the left lateral ventricle. Pituitary and sella: Unremarkable. Intracranial vasculature: Normal flow voids are maintained at the skull base. Orbits: The bony orbits are grossly intact. Orbital contents are normal in appearance. Sinuses and mastoids: Clear. Calvarium: Unremarkable. Cervical cord: Partially visualized cervical spinal cord is normal in morphology and signal intensity . IMPRESSION: 1. There is a large region of restricted diffusion within the medial left occipital and posteromedial left temporal lobe consistent with acute to subacute ischemia. 2. There is significant T1 signal abnormality within the left occipital lobe as detailed above. Altho ugh some of this likely represents laminar necrosis, the appearance is concerning for developing hemo rrhagic transformation. A follow-up CT of the brain in 12 hours could be considered for reassessment. 3. There are numerous foci of restricted diffusion in the right periventricular and occipital white m atter as well as within the left aspect of the midbrain consistent with additional foci of acute to s ubacute ischemia. The distribution favors an embolic phenomenon or possibly global hypoperfusion. Cli nical correlation will be essential. 4. There is no significant mass effect. 5. Additional chronic infarcts as above. ACT 112: Negative or not required by law. Electronically signed by: Doni Gonzalez M.D. 12/02/2020 12:43 PM
--- NOTE | 2020-12-02 13:21 | Hospitalist Progress Note ---
Date of Service December 02, 2020 Assessment & Plan (1) CVA (cerebral vascular accident): Plan: - Mr. 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 In addition, has history of seizure disorder, hypothyroidism, diabetes mellitus, and hyperlipidemia. - Hospitalized 11/06 through 11/13 with overall weakness that was thought to be related to overall general decline. Patient was residing with his at that time who was leaving patient for most of the day. There was concern that patient was not getting his medications. His work-up was unremarkable for acute pathology other than uncontrolled hypothyroidism (which again there was concern that he was not taking his medication). Did discuss with daughter at that time and patient was agreeable for personal care facility. Was discharged on 11/13. - Patient had been doing well up until several days prior to arrival when it was reported he had increased weakness/lethargy, increased confusion and poor oral intake. - Hospitalized on 11/28 with increased weakness and AMS. - CT of the head did show interval development of hypodensity with the left occipital and posterior parietal lobes (new compared to 11/06). It was thought this could be contributing to his symptoms. - Patient was also found to be dehydrated with SHRUTHI upon presentation (consistent with lack of oral intake) (creatinine was 2.5)-- was thought that this also was contributing to his symptoms. - He received gentle IV hydration. His renal function has improved (creatinine improved and currently 0.98) but his mentation has remained unchanged - Initially, MRI deferred as would not change treatment plan - Echo done 11/29 and unchanged from prior (EF 60-65%. no RWMA) - (who is listed as the power commercial attorney) was notified and initially was requesting hospice--> palliative care consulted - Seen by Dr. Camacho on 12/01/20 who spoke with the who reported that she believes "patient wouldn't want to give up just yet" - ST has attempted multiple bedside evaluations but very limited d/t lack of cooperation - staff continued to report that patient was "prettty much just lying in bed all day, wouldn't sit up, wouldn't do anything" - I reached out to Neurology as for me, he was answering "yes"/"no" questions appropriately, would follow very simply commands but staff reports patient unable to cooperate with simple tasks. I wasn't sure how much of this was actual neurological deficits vs underlying depression and refusal to cooperate/eat/etc. - Patient seen by Dr. Valero who agreed that patient seemed to follow simple commands but did appreciate likelihood for visual defects. In addition to this, patient is extremely SQUAXIN. This, along with his expressive and receptive aphasia is likely creating great difficulty with cooperation - MRI recommended by neurology- showing concern for embolic phenomenon along with LARGE medial occipital and posteromedial left temporal lobe acute to subacute ischemia--> given size, there is concern for post ischemic hemorrhage - Patient has been ordered but not been receiving ASA/Plavix (concern for aspiration and he has not participated with ST eval). Will hold these for now. - Lovenox (for DVT prophylaxis) will be held - repeat CT of the head in the am to trend (assess for hemorrhage) - At this point time, I believe patient's longstanding quality of life is poor. I have attempted to reach out to the to update her and come up with a longstanding treatment plan/game plan for patient. Ideally, would like for a speech therapy to do a bedside evaluation to help determine aspiration risk; however, even if patient were to aspirate I am not sure if his wants to pursue modified diet or parenteral feedings. Need to discuss this with . In the meantime, I have asked for speech therapy to reevaluate knowing that patient has limitations including vision and the fact that he is hard of hearing along with receptive and expressive aphasia - Ideally, patient would be on dual antiplatelet therapy and anticoagulation therapy (as it appears to have an embolic CVA) but for now hold all of these due to risk of post ischemic hemorrhagic event. Would like guidance from neurology on when these should be restarted - monitor worker has not shown any underlying arrhythmia/atrial fibrillation. Patient does not have a reported history of such. would advise event monitor (should want to pursue). Again, echo already done showing no obvious t hrombus - would benefit from LOW dose statin therapy to help with the cerebral pneumbra (but would first like ST for aspiration risk assessment)-- appreciate recommendations. High intensity statin should be avoided given increased risk of hemorrhage. - Patient comes from a personal care facility; however, may be better suited for custodial facility. Appreciate recommendations from therapy. - At this point, I need to touch base with family regarding wishes. In an ideal setting, he would be back on dual antiplatelet therapy and anticoagulation therapy along with low intensity statin with plan for event monitor and follow- up on recommendations per speech therapy regarding dietary intake; however, his quality of life was poor prior to these acute on chronic events. This has only added to a poor quality of life. - I was able to touch base with neurology who recommends restarting antiplatelet therapy and anticoagulation therapy (should so choose) in approximately 1 to 2 weeks. -I do believe patient is also dealing with some underlying depression (which could be from his acute on chronic CVAs). In addition, there seems to be some interesting family dynamics which is likely contributing to some depression. This is adding to poor oral intake (and lack of taking medications prior to arrival) which is now turning into a failure to thrive. 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 Renal function has since improved. (4) Hypomagnesemia: Plan: -Received IV magnesium sulfate yesterday. Given additional mag rider today with follow-up labs in a.m. to trend (5) Hypothyroidism: Plan: -Currently patient is n.p.o. until speech therapy assessment can be done TSH was -Elevated upon presentation but prior to his hospitalization in October, there was concern that he was not getting his Synthroid. It was resumed and recommendations are for a follow-up TSH in 8 weeks Plan: - I have updated palliative care -Have attempted to reach out to multiple times today without success -Plan of care discussed with Dr. Callahan -Plan of care discussed with neurology in great detail Admission and Anticipated Discharge Date Admission Date: November 28, 2020 Subjective Patient seen on daily rounds today. Things remains difficult. For me- patient does awake and arouse. He is a very limited historian (even at baseline given his expressive aphasia) but somewhat conversant today (very short and limited). He answers "no" when asked if he is having any issues (including pain, trouble breathing, nausea or vomiting). Speech therapy has attempted eval twice (but very limited cooperation). Pt remains NPO givne risk of aspiration. When I asked patient if he would like to try to eat something- he shook his head no and said "whatever". Palliative care has been on board and was able to touch base with the yesterday (I called yesterday and again today and have not gotten an answer). It was initially documented that she was interested in hospice; however, Palliative care documents that reports she "doesn't believe that he would be ready to give up just yet". Review of Systems Review of Systems: unobtainable/limited. Says "no" when asked if he is having pain, chest pain, SOB, abd pain, N/V. Rest of ROS limited. Physical Exam Physical Exam: General: Resting comfortably in his hospital bed. appears chronically but not acutely ill. NAD. HEENT: [Head is AT/NC. Very SQUAXIN. When spoken to and asked to open eyes- he seems to have trouble making eye contact. Senile arcus noted. Buccal mucosa is moist and pink Neck: No JVD. Negative hepatojugular reflex Cardiac: RRR with 1-2/6 HAL Lungs: CTA without W/R/R Abdomen: Normoactive X4. Soft. Does not appear tender Extremities: No peripheral clubbing cyanosis or edema Neuro:difficult to assess. Awake. Is answering "yes"/"no" questions that seem somewhat appropriate today but exam limited. Skin: No obvious skin lesions or rashes Psych: flat affect. difficult to assess Results & Data Results & Data ([facility]) Vital Signs (Past 12 Hours) Vital Signs Temp Pulse Pulse Resp BP BP Pulse Ox 12/02/20 11:14 36.4 C L 64 16 160/75 H 95 12/02/20 07:50 52 L 12/02/20 07:34 36.6 C 64 16 142/77 H 96 12/02/20 04:15 36.6 C 64 18 138/83 97 12/02/20 02:00 70 Laboratory Results 12/02/20 07:39 12/02/20 07:39 Diagnostic Findings MRI: IMPRESSION: 1. There is a large region of restricted diffusion within the medial left occipital and posteromedial left temporal lobe consistent with acute to subacute ischemia. 2. There is significant T1 signal abnormality within the left occipital lobe as detailed above. Although some of this likely represents laminar necrosis, the appearance is concerning for developing hemorrhagic transformation. A follow-up CT of the brain in 12 hours could be considered for reassessment. 3. There are numerous foci of restricted diffusion in the right periventricular and occipital white matter as well as within the left aspect of the midbrain consistent with additional foci of acute to subacute ischemia. The distribution favors an embolic phenomenon or possibly global hypoperfusion. Clinical correlation will be essential. 4. There is no significant mass effect. 5. Additional chronic infarcts as above. 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
[2020-12-02] MEDS: PRAVASTATIN SOD 10 MG TAB PO SCH (16:55)
[2020-12-02] MEDS: MONTELUKAST SODIUM 10 MG TABLET PO SCH (20:25)
[2020-12-03] MEDS: INSULIN ASPART 100 UNITS/ML 3 ML PEN SC SCH ×3 (00:19→13:07)
[2020-12-03] MEDS: D5W AND LACTATED RINGERS 1,000 ML IV SCH (01:26)
[2020-12-03] MEDS: LEVOTHYROXINE SODIUM 75 MCG TABLET PO SCH (05:12)
[2020-12-03 07:22] LABS: Hemoglobin 16.2 g/dL (14.0-18.0); Mean Corpuscular Hemoglobin 32.3 pg (25-34); Mean Corpuscular Volume 89.6 fL (80-100); Mean Platelet Volume 10.9 fL (7.4-10.4); Platelet Count 244 K/uL (130-400); RDW Coefficient of Variation 13.7 % (11.5-14.5); RDW Standard Deviation 45.3 fL (36.4-46.3); Red Blood Count 5.02 M/uL (4.7-6.1); White Blood Count 5.05 K/uL (4.8-10.8)
[2020-12-03 07:48] LABS: BUN Creatinine Ratio 4.4 (10-20); Creatinine Clr Calc Pharmacy 47.6 ml/min; Est GFR (Non-African American) 59.6 ml/min; Magnesium 1.9 mg/dl (1.8-2.4); Potassium 3.5 mmol/L (3.5-5.1)
--- NOTE | 2020-12-03 08:10 | CT Scan Report ---
CT head/brain wo con CLINICAL HISTORY: 80 years-old Male with fu- ensure no hemorrhage (large stroke). Follow-up study in a patient with an acute infarct TECHNIQUE: Multiple axial CT images of the head were obtained without contrast. A dose lowering tech nique was utilized adhering to the principles of ALARA. CT DOSE: 614.27 mGy.cm COMPARISON: Brain MRI 12/02/2020, head CT 11/28/2020 FINDINGS: Evolving infarct of the left posterior cerebral artery territory redemonstrated. Additional areas of infarction involving the right cerebral hemisphere an left cerebral peduncle are better seen on ilda rison brain MRI. Areas of encephalomalacia within the left cerebral convexity from prior infarct rede monstrated. Age-related involutional changes with chronic microvascular ischemic disease. Cerebral va scular calcifications. No definite acute intracranial hemorrhage, midline shift or abnormal extra-axi al collection. The calvarium is intact. The paranasal sinuses, mastoid air cells, and middle ear cavities are clear . IMPRESSION: 1. Evolving acute to subacute-appearing infarcts within the left posterior cerebral artery territory, left cerebral peduncle and right cerebral convexity which are better characterized on the brain MRI from 12/02/2020 demonstrate increased amount of cytotoxic edema. 2. The areas of laminar necrosis within the left occipital lobe described on the recent brain MRI are not appreciated by CT. No acute intracranial hemorrhage or midline shift. ACT 112: Negative or not required by law. The above report was generated using voice recognition software. It may contain grammatical, syntax o r spelling errors. Electronically signed by: Jj Pickard M.D. 12/03/2020 8:09 AM
[2020-12-03] MEDS: levETIRAcetam 500 MG in 0.9 % SODIUM CHLORIDE 100 ML IV SCH (08:45)
[2020-12-03] MEDS: MAGNESIUM OXIDE 400 MG TAB PO SCH (08:55)
[2020-12-03] MEDS: amLODIPine BESYLATE 5 MG TAB PO SCH (08:55)
[2020-12-03] MEDS: lisinopril 5 MG TAB PO SCH (08:55)
[2020-12-03] MEDS: POLYETHYLENE (MIRALAX) 17 GM PACK PO SCH (08:55)
[2020-12-03] MEDS: NYSTATIN CR 15 GM TUBE EXT SCH ×2 (08:57→13:54)
[2020-12-03] MEDS: INSULIN GLARGINE SOLOSTAR 100 UNITS/ML 3 ML PEN SC SCH (08:57)
--- NOTE | 2020-12-03 09:40 | Palliative Care Progress Note ---
Date of Service December 03, 2020 Assessment & Plan Admission and Anticipated Discharge Date Admission Date: November 28, 2020 Results & Data ([facility]) Vital Signs (Past 12 Hours) Vital Signs Temp Pulse Pulse Resp BP BP Pulse Ox 12/03/20 07:34 76 12/03/20 03:15 36.7 C 59 L 20 151/82 H 95 12/03/20 00:17 137/81 12/02/20 23:38 37.2 C 99 H 18 176/111 H 97 12/02/20 23:25 125 H PG Care Time/CCT Total # of Minutes Spent Total Time Spent with Patient: Total time spent is greater than 50% in coordination of care (as documented) at patient's floor/unit and/or counseling patient: Coding
[2020-12-03] MEDS: PANTOprazole 40 MG in SYRINGE 0 ML IV SCH (10:54)
--- NOTE | 2020-12-03 12:42 | Pharmacy Report ---
Pharmacy Glycemic Short Note 2 - Date of Service December 03, 2020 - Glycemic Short BSG Results (Last 24 hours): 12/02/20 12/03/20 12/03/20 18:03 00:07 06:17 Glucose POC Glucose 124 H 146 H 134 H 12/03/20 06:19 Glucose 152 H POC Glucose OUTPATIENT ANTIDIABETIC REGIMEN: * glimepiride 2 mg PO daily * metformin 1000 mg PO BID * Humalog SS * A1c = 7.8% (11/29/20) ASSESSMENT: 12/03/20 * Patient's BSGs yesterday were [phone] * Fasting today is 134 mg/dL . * Patient received 8 units of insulin yesterday (6 units of basal and 2 units of correctional) * patient remains on D5LR @ 125 mL/hr * Fasting trending down- reduce basal by 20%. Continue Novolog 12/02/20 * Patient's BSGs yesterday were [phone] * Fasting today is 128 mg/dL and lunch is 154 mg/dL. * Patient received 12 units of insulin yesterday (10 units of basal and 2 units of correctional) * patient remains on D5LR @ 125 mL/hr * Fasting trending down- reduce basal by 20%. Continue Novolog 12/01/20 * Patient's BSGs yesterday were [phone] * Fasting today is 139 mg/dL and lunch is 152 mg/dL. * patient remains on D5LR @ 125 mL/hr * Continue lantus 5 units BID and Novolog for now Background * Robert is a 80 yo T2DM who presented with altered mental status * He was started on SQ basal + bolus insulin. Thus far he has received 5 units of Lantus and 1 unit of novolog with adequate glycemic control. * He is currently NPO with D5LR infusing @ 125 mL/min. * Fasting BSG of 88 mg/dL is below goal for inpatient control. Will hold further basal insulin until fasting BSG is available. PLAN FOR INPATIENT GLYCEMIC CONTROL: * Hold outpatient oral diabetes medications * Basal insulin * Lantus 3 units SQ BID * Bolus insulin * NovoLog per scale ACHS or Q6hrs while NPO * Goal Range: Low 100 mg/dL - High 140 mg/dL * Correction Factor: 30 mg/dL/unit * Nutritional / Prandial insulin per carb ratio of 1 unit per 10 grams CHO consumed PLAN FOR DISCHARGE: * Patient will be discharged on hospice. Okay to discontinue glycemic medications for patient comfort.
--- NOTE | 2020-12-03 16:26 | Discharge Summary ---
Date of Service December 03, 2020 Admission HPI Per Admitting Provider *Majority of history obtained in the record review, medication only able to communicate with yes or no responses not oriented* 80-year-old male with past medical history of diabetes, hyperlipidemia CVA, seizure, thyroidism, GERD presents from [facility] for evaluation of increased disorientation, poor p.o. intake and lethargy. Of note patient was recently discharged from the hospital in November 13 during his previous admission he was evaluated for similar complaints including for ambulation. His social history is complicated and seems to be contributing to his frequent presentations.He was brought to the emergency department this evening by EMS, on presentation he was difficult to arouse and then appeared sleeping, he did receive the Covid vaccine in June and July he has a remote hist ory of a CVA baseline sneezing episodes. His who is present with him on admission stated that he can only is being short sentences. Per ER physician report he was difficult to arouse on presentation. In the emergency department routine labs were obtained CBC was within normal limits, CMP was notable for an elevated creatinine of 2.5 evaded glucose of 124, and TSH was 3.8 COVID-19 testing was negative. Chest x-ray, head CT demonstrated hypodensity within the left occipital and posterior left parietal lobes concerning for left STEWARD/STEWARDESS SECOND territory infarct likely subacute. Patient was provided with a liter bolus of fluids and the primary team was consulted for admission. Upon evaluation of the patient he was more alert but not oriented. He did not know where he was, or the date. He was only able to participate in the conversation with yes or no responses. He denied any pain, difficulty going to the bathroom, chest pressure, shortness of breath. Given his CT findings and elevated creatinine he will be admitted with further evaluation and management. Principal Diagnosis 1. Acute on chronic CVAmultiple and presumed embolic 2. Encephalopathy. Secondary to #1 3. Right hemianopsia due to CVA 4. Comfort measurespalliative care Discharge Exam General: Resting comfortably in his hospital bed. appears chronically but not acutely ill. NAD. HEENT: [Head is AT/NC. Very LOWER [place]WHA. When spoken to and asked to open eyes- he seems to have trouble making eye contact. Senile arcus noted. Buccal mucosa is moist and pink Neck: No JVD. Negative hepatojugular reflex Cardiac: RRR with 1-2/6 HAL Lungs: CTA without W/R/R Abdomen: Normoactive X4. Soft. Does not appear tender Extremities: No peripheral clubbing cyanosis or edema Neuro:difficult to assess. Awake. Is answering "yes"/"no" questions that seem somewhat appropriate today but exam limited. Skin: No obvious skin lesions or rashes Psych: flat affect. difficult to assess Discharge Data Allergies Allergy/AdvReac Type Severity Reaction Status Date / Time Afgtzxe-WBK-OsO Reductase Allergy Severe JOINT PAIN Verified 11/28/20 19:46 Inhibitor [Vhjlpxu-Cju-Jgh Reductase Inhibitor] strawberry Allergy Intermediate Rash Verified 11/28/20 19:46 Consultations 11/28/20 19:24 ED Decision to Admit Stat 11/30/20 14:59 Consult Palliative Care Routine Assessment & Plan (1) Generalized weakness: Progressive functional decline, unable to participate in therapy. (2) Encephalopathy: with subacute as well as chronic CVA (3) Palliative care encounter: I spoke with his on the phone. She feels that if Robert had some mobility and was able to eat, that would be quality of life for him. He has said that he would not want to have CPR or intubation but has not been specific about other goals for his care. His feels that he is not ready to and would want to try and get better. We reviewed PT notes and his inablilty to participate which significantly limits his rehab potential. She discussed going to a rehab hospital and we talked about him not being able to participate in that level of therapy at this time. We talked about the likelihood which he will not be able to return to his prior level of function and that we should be cautious about expectations for his recovery. She feels that his decline is related to something he ate that did not agree with him, setting off his problems. She is confident that he would not want to "give up" at this time. 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 He then had right upper extremity focal motor seizures from his stroke in June of 2018. This has been stabilized by levetiracetam 500 milligrams twice daily and he has not had any further seizures. I believe this patient has had a new left posterior cerebral artery stroke (left occipital and left posterior deep parietal ) sometime between mid October and now. It is fairly obvious on CT showed is probably at least a week old ( or maybe even 1 month ). On examination he has a right homonymous hemianopsia, right upper extremity weakness and he is extremely hard of hearing. Although he may have depression ( this is difficult for me to be sure of) I believe a lot of his communication problem is more to do with his severe hearing loss and mixed aphasia from previous stroke than an overlying encephalopathy. He seems very awake and alert now. Recommendations: 1. MRI of the brain without contrast. 2. Physical, occupational, and speech therapy consult. 3. Continue 81 milligram aspirin and 75 milligram clopidogrel for now. 4. Ideally, we would obtain CT angiography of the head and neck in this patient 5. assess for hearing aids Overall, I spent a total of 60 minutes with this case including review of records, review of MRI and CT films, direct evaluation the patient at bedside, and discussion of the case with Sophy Huff, including differential diagnosis and treatment options. Ordered Studies 11/28/20 17:41 CT head/brain wo con Stat IMPRESSION: 1. No acute intracranial hemorrhage or mass effect. 2. Interval development of hypodensity within the left occipital and posterior left parietal lobes since CT of November 06, 2020. This represents an interval left STEWARD/STEWARDESS SECOND territory infarct, likely subacute. 3. Several additional left hemispheric infarcts which are old. 12/02/20 09:28 MR brain wo con Routine IMPRESSION: 1. There is a large region of restricted diffusion within the medial left occipital and posteromedial left temporal lobe consistent with acute to subacute ischemia. 2. There is significant T1 signal abnormality within the left occipital lobe as detailed above. Although some of this likely represents laminar necrosis, the appearance is concerning for developing hemorrhagic transformation. A follow-up CT of the brain in 12 hours could be considered for reassessment. 3. There are numerous foci of restricted diffusion in the right periventricular and occipital white matter as well as within the left aspect of the midbrain consistent with additional foci of acute to subacute ischemia. The distribution favors an embolic phenomenon or possibly global hypoperfusion. Clinical correlation will be essential. 4. There is no significant mass effect. 5. Additional chronic infarcts as above. 12/03/20 07:00 CT head/brain wo con Routine IMPRESSION: 1. Evolving acute to subacute-appearing infarcts within the left posterior cerebral artery territory, left cerebral peduncle and right cerebral convexity which are better characterized on the brain MRI from 12/02/2020 demonstrate increased amount of cytotoxic edema. 2. The areas of laminar necrosis within the left occipital lobe described on the recent brain MRI are not appreciated by CT. No acute intracranial hemorrhage or midline shift. Hospital Course (1) CVA (cerebral vascular accident): - Mr. 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 In addition, has history of seizure disorder, hypothyroidism, diabetes mellitus, and hyperlipidemia. - Hospitalized 11/06 through 11/13 with overall weakness that was thought to be related to overall general decline. Patient was residing with his at that time who was leaving patient for most of the day. There was concern that patient was not getting his medications. His work-up was unremarkable for acute pathology other than uncontrolled hypothyroidism (which again there was concern that he was not taking his medication). Did discuss with daughter at that time and patient was agreeable for personal care facility. Was discharged on 11/13 to Personal Care Facility. - Patient had been doing well up until several days prior to arrival when it was reported he had increased weakness/lethargy, increased confusion and poor oral intake. - Hospitalized on 11/28 with increased weakness and AMS. - CT of the head did show interval development of hypodensity with the left occipital and posterior parietal lobes (new compared to 11/06). It was thought this could be contributing to his symptoms. - Patient was also found to be dehydrated with SHRUTHI upon presentation (consistent with lack of oral intake) (creatinine was 2.5)-- was thought to also be contributing to his symptoms. - He received gentle IV hydration and his renal function improved (0.98) but his mentation has remained unchanged - Initially, MRI deferred as would not change treatment plan - Echo done 11/29 and unchanged from prior (EF 60-65%. no RWMA) - (who is listed as the power commonwealth attorney) was notified and initially was requesting hospice--> palliative care consulted - Seen by Dr. Camacho on 12/01/20 who spoke with the who reported that she believes "patient wouldn't want to give up just yet" - ST has attempted multiple bedside evaluations but very limited d/t lack of cooperation - staff continued to report that patient was "pretty much just lying in bed all day, wouldn't sit up, wouldn't do anything" - I reached out to Neurology as for me, he was answering "yes"/"no" questions appropriately, would follow very simply commands but staff reports patient unable to cooperate with simple tasks. I wasn't sure how much of this was actual neurological deficits vs underlying depression and refusal to cooperate/eat/etc. - Patient seen by Dr. Valero who agreed that patient seemed to follow simple commands but did appreciate likelihood for visual defects. In addition to this, patient is extremely LOWER ELWHA. This, along with his expressive and receptive aphasia is likely creating great difficulty with cooperation - MRIdone 12/02- showing concern for embolic phenomenon along with LARGE medial occipital and posteromedial left temporal lobe acute to subacute ischemia--> given size, there is concern for post ischemic hemorrhage - Patient was note receiving any of his oral meds including ASA/Plavix (concern for aspiration and he was not participated with gertrude). STOPPED ONCE NOTED TO HAVE LARGE STROKE WITH RISK FOR POST ISCHEMIC HEMORRHAGE - Lovenox (for DVT prophylaxis) was also stopped - repeat CT of the head done 12/03 showing evolution of CVA as compared to initial CT but no hemorrhage or midline shift -- all of the above D/W and at this time, she is aware that patient's quality of life was poor prior to these acute on chronic events and only poor at this time. She was made aware that he has not cooperated/participated with a speech therapy evaluation to assess swallowing and she would not like to pursue a feeding tube if he does aspirate. She is aware that aspiration may lead to pneumonia and subsequent sepsis and . She would want to pursue comfort measures with permissive aspiration. I explained that recommendations for treatment would be dual antiplatelet therapy along with anticoagulation therapy and an event monitor but even with this, patient's quality of life is poor. In addition, patient has been refusing any oral intake (which I do believe in part is from some depression). I believe he is at high risk for going into renal failure and subsequent multisystem organ failure. His understands and would like to pursue hospice with comfort measures only. --Hospice referral was made. Case management on board. Case management did reach out to [facility] (personal care facility where patient resides) and they are agreeable to take patient back with hospice. All equipment has been delivered by hospice (including a hospital bed). --DC with comfort measures only. 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 Renal function has since improved. -With lack of oral intakehuge risk for renal failure with subsequent multisystem organ failure as outlined above (4) Hypomagnesemia: -Received IV magnesium sulfate (5) Hypothyroidism: -Synthroid stopped. Patient comfort measures -Discharge back to personal care facility with hospice for comfort measures only Total Time Total Time Spent Total Time Spent (In Minutes): 60 minutes including time spent with patient, calling hospice, calling , and discussion with case management Discharge Plan Discharge Items Patient Disposition: Hospice - Medical Facility Reason For Visit: AMS Discharge Diagnosis: 1. Multiple/recurrent Strokes 2. Failure to Thrive 3. Comfort Measures Activity: As commented below Activity Comment: as tolerated with permissive aspiration Non-emergency contact: Primary Care Provider Call non-emergency contact if: you have any medication questions Follow-up/Referrals: Gianna Bonilla CRNP [Primary Care Provider] - Diet: Regular Diet Comment: permissive aspiration Addtl Attending Provider Instructions: -Patient was hospitalized with increased lethargy and confusion -Upfront, found to have some mild dehydration that quickly improved with gentle IV hydration -In addition, CT of the head showed a subacute infarct/stroke -Subsequently, MRI done and patient seen by neurology. MRI showed multiple embolic events (multiple strokes in different areas of the brain). One was rather large and at risk for becoming hemorrhagic (bleeding) -Quality of life poor prior to this hospitalization but with recurrent events, his quality of life has declined/deteriorated -Attempted swallow eval multiple times but patient refuses to eat/drink /participate with speech therapy -Patient does arouse. He opens his eyes and answers "yes"/"no". Seems to have some understanding. Does appear to have a visual defect in the right eye and is hard of hearing -Spoke with his (who is the power of commonwealth attorney) who wants no further aggressive/heroic measures and is requesting hospice with comfort measures -Patient may have a regular diet as he tolerates with permissive aspiration. He has not wanted to eat or drink anything here. If this continues, he likely will decline rapidly due to severe dehydration resulting in renal failure and multisy stem organ failure -Should be seen by house physician within 24 to 48 hours -- Comfort meds ordered: Roxanol/Ativan/Atropine drops (oral) Pending Studies at Discharge: No Stand-Alone Forms: My [facility] Skilled Items Patient informed of condition?: Yes DNR: Yes Discharge Level of Care: Other Communicable Disease: No Discharge Prognosis: Deteriorating Lines: None Urinary Catheter: Yes Medications and DC Order Prescriptions: New atropine 1 % drops 1 drp PO DAILY PRN (Reason: secretions) Qty: 15 RF: 0 lorazepam [Ativan] 1 mg tablet 1 mg buccal Q4H PRN (Reason: agitation,anxiety) Qty: 20 RF: 0 morphine concentrate 100 mg/5 mL (20 mg/mL) solution 5 mg PO Q6H PRN (Reason: sob/pain/air hunger) Qty: 15 RF: 0 Discontinued levetiracetam [Keppra] 500 mg tablet 500 mg PO BID Qty: 180 RF: 2 clopidogrel 75 mg Tablet 75 mg PO QAM RF: 0 metformin 1,000 mg Tablet 1,000 mg PO BIDM RF: 0 montelukast [Singulair] 10 mg Tablet 10 mg PO HS RF: 0 levothyroxine 75 mcg tablet 75 mcg PO QAM RF: 0 pantoprazole 40 mg tablet,delayed release (DR/EC) 40 mg PO BID RF: 0 aspirin 81 mg Tablet,Delayed Release (Dr/Ec) 81 mg PO QAM RF: 0 magnesium oxide 400 mg (241.3 mg magnesium) Tablet 400 mg PO DAILY Qty: 30 RF: 1 lisinopril 5 mg tablet 5 mg PO DAILY Qty: 30 RF: 0 amlodipine 5 mg tablet 7.5 mg PO DAILY RF: 0 glimepiride 2 mg tablet 2 mg PO DAILY RF: 0 Humalog U-100 Insulin 100 unit/mL Cartridge 1 sliding scale dose SUBCUT ACHS RF: 0 nystatin 100,000 unit/gram Cream 1 applic TOPICAL TID RF: 0 Discharge Orders: Discharge Order (Routine); Ordered 12/03/20 Ordered By: Sophy Huff Admission Data Admit Date/Time: 11/28/20 21:02 Attending Provider: Randy Callahan Admit Provider: Valentina Mcgee Primary Care Provider: Gianna Bonilla Other Providers: Valentina Mcgee ; Vandana Camacho ; Yang Valero Other Interventions: Discharge Summary Assessment (RN) Last Done: 12/03/20 15:07 Supervising Physician Co-Signing Physician Notes Patient seen and examined on the day of discharge. I agree with the discharge summary by Sophy QUINTANILLA. I have reviewed the chart including labs, imaging and plans for discharge. patient calm, laying in bed, no distress difficulty speaking, difficulty eating/swallowing numerous strokes, likely embolic, one stroke large with some small hemorrhage, at risk of further bleeding wishes to discharge on hospice which is appropriate - Embolic strokes, large area of stroke with small pinpoint hemorrhage cannot anticoagulate for stroke protection due to high risk of further intracranial bleeding discharge to personal care on hospice services Coding Level of Care Code Established Pt D/C DAY MANAGEMENT >30 MINS Patient Type Established Diagnoses CVA (cerebral vascular accident) I63.9 CVA mechanism: unspecified 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
[2020-12-03] MEDS ORDERED: INSULIN GLARGINE SOLOSTAR 100 UNITS/ML 3 ML PEN SC SCH (21:00)
== END 2020-12-03 15:53 | disposition hospice, home (50) | DRG 65 ==
LOC: ED 17:11 → SUATTDRO 21:02 → 2N 21:02